=== PATIENT | male | born 1945 | race African-American/Black ===

== ENCOUNTER 2018-07-26 10:30 | Emergency (ER) | payer MEDICARE, MEDICAID ==
[~2018-07-26] VITALS: Ht 170.2 cm; Wt 74.8 kg
[~2018-07-26 10:30] MED LIST: ACETAMINOPHEN-1 EAC1 ORAL; NORCO 5-325 TA1 EACH ORAL; SEROQUEL; VICODIN
[2018-07-26 11:42] LABS: BASOPHILS % (AUTO) 2.4 % (0.0-2.0); EOSINOPHILS % (AUTO) 2.4 % (0.0-3.0); HEMATOCRIT 34.5 % (42.0-52.0); HEMOGLOBIN 11.8 G/DL (14.2-18.0); MEAN CORPUSCULAR VOLUME 104 FL (80-99); MONOCYTES % (AUTO) 14.5 % (1.0-10.0); NEUTROPHILS % (AUTO) 35.8 % (45.0-75.0); PLATELET COUNT 107 K/UL (150-450); RED BLOOD COUNT 3.31 M/UL (4.70-6.10); RED CELL DISTRIBUTION WIDTH 11.2 % (11.6-14.8); WHITE BLOOD COUNT 3.7 K/UL (4.8-10.8)
[2018-07-26 11:52] LABS: ANION GAP 9 mmol/L (5-15); BLOOD UREA NITROGEN 15 mg/dL (7-18); CALCIUM 8.7 MG/DL (8.5-10.1); CARBON DIOXIDE 23 MMOL/L (21-32); CHLORIDE 106 MMOL/L (98-107); CREATININE 1.3 MG/DL (0.55-1.30); POTASSIUM 4.2 MMOL/L (3.5-5.1); SODIUM 138 MMOL/L (136-145)
[2018-07-26 12:03] LABS: ALANINE AMINOTRANSFERASE 24 U/L (12-78); ALBUMIN 3.2 G/DL (3.4-5.0); ALBUMIN/GLOBULIN RATIO 0.8 (1.0-2.7); ALKALINE PHOSPHATASE 60 U/L (46-116); ASPARTATE AMINO TRANSFERASE 38 U/L (15-37); BILIRUBIN,TOTAL 0.9 MG/DL (0.2-1.0)
--- NOTE | 2018-07-26 12:23 | Diagnostic Imaging Report ---
Indication: Head trauma and headache Technique: Contiguous 5 mm thick transaxial imaging of the head obtained in a Siemens Sensation [address] scanner. Soft tissue and bone windows generated. Automatic Exposure Control was utilized. Total Dose length Product (DLP): 1449.[address] Dose Index Volume (CTDIvol): 70.38 mGy Comparison: 01/27/2015 Findings: There is mild prominence of the ventricles, basal cisterns, and cerebral sulci consistent with atrophy. Mild, nonspecific, white matter hypoattenuation is noted throughout the brain consistent with chronic small vessel disease. There is no midline shift, edema, acute hemorrhage, mass effect, or abnormal extra-axial fluid collections. Bones and extra osseous soft tissues are unremarkable. Impression: No acute intracranial bleed, mass effect or edema. Mild atrophy of the brain. Nonspecific white matter hypoattenuation probably due to chronic small vessel disease. The CT scanner at [facility] is accredited by the [employer] and the scans are performed using dose optimization techniques as appropriate to a performed exam including Automatic Exposure control.
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
--- NOTE | 2018-07-26 12:29 | Diagnostic Imaging Report ---
Indication: Neck pain. Technique: Continuous helical imaging of the cervical spine was obtained transaxially from the skull base to the upper thoracic spine. 2-D coronal and sagittal reformatted images were obtained. Automatic Exposure Control was utilized. Total Dose length Product (DLP): 307.[address] Dose Index Volume (CTDIvol): 14.47 mGy Comparison: None Findings: There is no acute fracture or malalignment identified. There is no soft tissue swelling identified. Moderate uncovertebral arthritis is demonstrated at multiple levels. Some of the intervertebral discs show narrowing and osteophytes. Extracranial carotid bifurcation calcifications noted consistent with atherosclerotic disease. Impression: No acute injury Moderate spondylosis The CT scanner at [facility] is accredited by the [employer] and the scans are performed using dose optimization techniques as appropriate to a performed exam including Automatic Exposure control.
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
[2018-07-26 14:01] VITALS: BP 143/91
[2018-07-26 14:20] VITALS: BP 143/91
== END 2018-07-26 14:20 | disposition home or self-care (01) ==
LOC: EDUNIT# 10:30 → EDBD 10:30 → EMR 11:25
DX: S00.12XA Contusion of left eyelid and periocular area, initial encounter (principal); S09.90XA Unspecified injury of head, initial encounter; Y04.2XXA Assault by strike against or bumped into by another person, initial encounter; Y92.410 Unspecified street and highway as the place of occurrence of the external cause; M47.812 Spondylosis without myelopathy or radiculopathy, cervical region; J32.9 Chronic sinusitis, unspecified; G31.9 Degenerative disease of nervous system, unspecified
CPT/HCPCS: 36415; 70450; 70486; 72125; 80053; 85025; 85610; 85730; 99284

== ENCOUNTER 2018-11-19 14:18 | Inpatient (IN) | payer MEDICARE, MEDICAID ==
[~2018-11-19] VITALS: Ht 170.2 cm; Wt 78.5 kg
[2018-11-19 14:20] VITALS: BP 155/88
--- NOTE | 2018-11-19 14:20 | NUR ---
ED Nurse Note: PT BROUGHT IN BY R[facility] FROM [facility]. AOX4. PT C/O DIFFICULTY BREATHING X THIS AM. 2 DOSES OF ALBUTEROL 5MG GIVEN EN ROUTE BY EMS. ON INITIAL ASSESSMENT, PT IS ON 8L OF O2 VIA VENTURI MASK, RR30 @ 90% O2 SATURATION. WHEEZING AUSCULTATED IN ALL LOBES. DR. RODAS AT BEDSIDE FOR EVALUATION. RT CALLED FOR BREATHING TREATMENT.
--- NOTE | 2018-11-19 14:29 | Emergency Room Report ---
History of Present Illness General Source: Patient Present Illness HPI Patient is a 73-year-old male brought in by EMS after increased difficulty with breathing. Patient reports having onset of symptoms approximately 2 hours prior to arrival. He reports having increased nonproductive cough. He had prior history of asthma. 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 Patient is currently taking Seroquel. He denies taking any oral steroids.He reported having some subjective fever. Allergies: Coded Allergies: GRAPEFRUIT (Unverified Allergy, Intermediate, Hives, 12/13/12) Patient History Past Medical History: see triage record Reviewed Nursing Documentation: PMH: Agreed; PSxH: Agreed Nursing Documentation-PMH Hx Cardiac Problems: Yes - heart problem Hx Hypertension: Yes Hx Cerebrovascular Accident: Yes Hx Seizures: Yes Review of Systems All Other Systems: negative except mentioned in HPI Physical Exam Sp02 EP Interpretation: reviewed, normal General Appearance: normal inspection, alert, GCS 15, Chronically Ill Head: atraumatic ENT: normal ENT inspection, hearing grossly normal, normal voice Neck: normal inspection, full range of motion, supple, no bony tend Respiratory: normal inspection, no respiratory distress, no retraction, wheezing Cardiovascular #1: regular rate, rhythm, edema Gastrointestinal: normal inspection, normal bowel sounds, non tender, soft, no guarding, no hernia Genitourinary: no CVA tenderness Musculoskeletal: normal inspection, back normal, normal range of motion Neurologic: normal inspection, alert, oriented x3, responsive, operating room orderly III-XII nml as tested, speech normal Psychiatric: normal inspection, judgement/insight normal, mood/affect normal Skin: normal inspection, normal color, no rash Medical Decision Making Diagnostic Impression: Primary Impression: CHF (congestive heart failure) Additional Impressions: Pleural effusion Urinary tract infection ER Course Presented for shortness of breath. Differential included but was not limited to anemia, pneumonia, pneumothorax, myocardial infarction, pericardial effusion , congestive heart failure, acidosis. because of complexity of patient's case laboratory testing and imaging studies were ordered.Chest x-ray 1 view read by radiology showed pulmonary vascular congestion, subsegmental atelectasis versus infiltrate in the right lung base, and a small layering right pleural effusion. Patient was given breathing treatments as well as IV Lasix. Patient was noted to have some edema. Dr. Reji Arrieta was contacted for inpatient management due to panel physician. Labs Test 11/19/18 14:45 11/19/18 15:11 Sodium Level 142 MMOL/L (136-145) Potassium Level 4.6 MMOL/L (3.5-5.1) Chloride Level 106 MMOL/L (98-107) Carbon Dioxide Level 20 MMOL/L (21-32) Anion Gap 16 mmol/L (5-15) Blood Urea Nitrogen 25 mg/dL (7-18) Creatinine 1.7 MG/DL (0.55-1.30) Estimat Glomerular Filtration Rate mL/min (>60) Glucose Level 64 MG/DL (74-106) Lactic Acid Level 4.10 mmol/L (0.4-2.0) Calcium Level 9.2 MG/DL (8.5-10.1) Phosphorus Level 4.3 MG/DL (2.5-4.9) Magnesium Level 2.0 MG/DL (1.8-2.4) Total Bilirubin 2.0 MG/DL (0.2-1.0) Aspartate Amino Transf (AST/SGOT) 70 U/L (15-37) Alanine Aminotransferase (ALT/SGPT) 29 U/L (12-78) Alkaline Phosphatase 84 U/L (46-116) Total Creatine Kinase 547 U/L (26-308) Creatine Kinase MB 8.2 NG/ML (0.0-3.6) Creatine Kinase MB Relative Index 1.4 Troponin I 0.041 ng/mL (0.000-0.056) Total Protein 7.7 G/DL (6.4-8.2) Albumin 3.6 G/DL (3.4-5.0) Globulin 4.1 g/dL Albumin/Globulin Ratio 0.9 (1.0-2.7) Lipase 222 U/L (73-393) Urine Color Yellow Urine Appearance Slightly cloudy Urine pH 5 (4.5-8.0) Urine Specific [place] 1.020 (1.005-1.035) Urine Protein 2+ (NEGATIVE) Urine Glucose (UA) Negative (NEGATIVE) Urine Ketones 1+ (NEGATIVE) Urine Blood 2+ (NEGATIVE) Urine Nitrite Negative (NEGATIVE) Urine Bilirubin 1+ (NEGATIVE) Urine Ictotest Negative (NEGATIVE) Urine Urobilinogen 8 MG/DL (0.0-1.0) Urine Leukocyte Esterase 2+ (NEGATIVE) Urine RBC 2-4 /HPF (0 - 0) Urine WBC 20-30 /HPF (0 - 0) Urine Squamous Epithelial Cells Occasional /LPF Urine Bacteria Many /HPF (NONE) EKG Diagnostic Results Rate: normal - 98 Rhythm: NSR ST Segments: other - right bundle branch block Status: unchanged Disposition: ADMITTED INPATIENT Condition: Stable Andrea Hunter MD Nov 19, 2018 14:29
[2018-11-19] MEDS ORDERED: Albuterol/Ipratropium 3ml neb HHN ONE (14:30)
--- NOTE | 2018-11-19 14:30 | NUR ---
ED Nurse Note: PT PICKED UP FROM STREETS BY R29. PT ASKED IF HE IS HOMELESS. PT DENIES THAT HE IS HOMELESS. ADDRESS PROVIDED TO PRIMARY RN AND REGISTRATION.
--- NOTE | 2018-11-19 14:55 | NUR ---
ED Nurse Note: BREATHING TREATMENT COMPLETED. PT OFF OF O2. RR22 @ 99% O2 SATURATION. NO SIGNS OF RESPIRATORY DISTRESS OR RETRACTIONS NOTED.
--- NOTE | 2018-11-19 15:04 | NUR ---
ED Nurse Note: XRAY AT BEDSIDE
--- NOTE | 2018-11-19 15:15 | NUR ---
ED Nurse Note: received report from Gopi ALLEN and endorsed care, pt reports breathing is okay, req food and water, verified with ERMD. pt given sandwich and water.
[2018-11-19 15:20] VITALS: BP 132/76
--- NOTE | 2018-11-19 15:23 | Diagnostic Imaging Report ---
EXAM: XR Chest, 1 View CLINICAL HISTORY: Shortness of breath TECHNIQUE: Frontal view of the chest. COMPARISON: Chest x-rays dated 01/27/15 FINDINGS: Lungs: Pulmonary vascular congestion. Subsegmental atelectasis versus infiltrate in the right lung base. Pleural space: Possible small layering right pleural effusion. Heart: Cardiomegaly. Mediastinum: Unremarkable. Bones/joints: Unremarkable. Vasculature: Atherosclerotic calcifications are noted within the aortic arch. Tubes, lines and devices: Telemetry leads overlie the thorax. IMPRESSION: 1. Pulmonary vascular congestion. 2. Subsegmental atelectasis versus infiltrate in the right lung base. 3. Possible small layering right pleural effusion. 4. Cardiomegaly.
[2018-11-19 15:24] LABS: BILIRUBIN, URINE 1+ (NEGATIVE); GLUCOSE, URINE (UA) NEGATIVE (NEGATIVE); KETONES,URINE 1+ (NEGATIVE); LEUKOCYTE ESTERASE ,URINE 2+ (NEGATIVE); NITRITE,URINE NEGATIVE (NEGATIVE); PH,URINE 5 (4.5-8.0); PROTEIN,URINE 2+ (NEGATIVE); UROBILINOGEN,URINE 8 MG/DL (0.0-1.0)
[2018-11-19 15:30] LABS: ANION GAP 16 mmol/L (5-15); BLOOD UREA NITROGEN 25 mg/dL (7-18); CALCIUM 9.2 MG/DL (8.5-10.1); CARBON DIOXIDE 20 MMOL/L (21-32); CHLORIDE 106 MMOL/L (98-107); CREATININE 1.7 MG/DL (0.55-1.30); POTASSIUM 4.6 MMOL/L (3.5-5.1); SODIUM 142 MMOL/L (136-145)
[2018-11-19 15:33] LABS: APPEARANCE,URINE SLIGHTLY CLOUDY; COLOR,URINE YELLOW
[2018-11-19 15:47] LABS: ALANINE AMINOTRANSFERASE 29 U/L (12-78); ALBUMIN 3.6 G/DL (3.4-5.0); ALBUMIN/GLOBULIN RATIO 0.9 (1.0-2.7); ALKALINE PHOSPHATASE 84 U/L (46-116); ASPARTATE AMINO TRANSFERASE 70 U/L (15-37); CKMB 8.2 NG/ML (0.0-3.6); CREATINE KINASE 547 U/L (26-308); PHOSPHORUS 4.3 MG/DL (2.5-4.9)
[2018-11-19 16:00] LABS: BILIRUBIN,DIRECT 0.6 MG/DL (0.0-0.3)
[2018-11-19] MEDS ORDERED: cefTRIAXone 1 GM in NS 55 ML IVPB ONE (16:00)
--- NOTE | 2018-11-19 16:10 | NUR ---
ED Nurse Note: blood drawn for cbc and lactic reflex and sent.
[2018-11-19 16:37] LABS: BASOPHILS % (AUTO) 1.4 % (0.0-2.0); EOSINOPHILS % (AUTO) 0.5 % (0.0-3.0); HEMATOCRIT 39.2 % (42.0-52.0); HEMOGLOBIN 12.3 G/DL (14.2-18.0); LYMPHOCYTES % (AUTO) 30.1 % (20.0-45.0); MEAN CORPUSCULAR VOLUME 108 FL (80-99); MONOCYTES % (AUTO) 16.5 % (1.0-10.0); NEUTROPHILS % (AUTO) 51.6 % (45.0-75.0); PLATELET COUNT 208 K/UL (150-450); RED BLOOD COUNT 3.62 M/UL (4.70-6.10); RED CELL DISTRIBUTION WIDTH 13.4 % (11.6-14.8); WHITE BLOOD COUNT 5.6 K/UL (4.8-10.8)
--- NOTE | 2018-11-19 16:42 | NUR ---
ED Nurse Note: pt cleaned and changed.
--- NOTE | 2018-11-19 16:55 | NUR ---
ED Nurse Note: report given to TIFFANY Junior from [facility], pt will be transfer to tele floor. vss, sinus tach on school lunch monitor, o2=2L/min via nc, sat 97%.
--- NOTE | 2018-11-19 17:39 | NUR ---
ED Nurse Note: pt transferred to tele, all belongings sent with pt, vss, airway intact, o2sat 96% on RA, pt has mild resp distress but reports okay, endorsed care to TIFFANY Mayo. addendum: report was given to Maria Esther olivas.
--- NOTE | 2018-11-19 17:40 | NUR ---
NURSE NOTES: Received patient via gursarah, report given by TIFFANY Babb. Patient is awake and oriented x4, Verbally responsive. Patient feels shortness of breath and restless. Heart monitor is on. Belonging checked with ER nurse.Bed in lowest position with two side rails up, break engaged. Call light and bed side table within reach. Will continue to monitor and follow the plan of care.
[2018-11-19 17:45] VITALS: BP 121/81
[2018-11-19] MEDS ORDERED: Miralax 17gm pkt ORAL PRN (17:45)
--- NOTE | 2018-11-19 19:21 | NUR ---
NURSE NOTES: MD Murdock notified that patient lactic acid initial result was 4.10, reflex was 4.40, and rocephin 1g given in ER. Per MD, no new orders at this time. Pt in stable condition. Will continue to monitor.
--- NOTE | 2018-11-19 19:30 | NUR ---
HAND-OFF: Report given to TIFFANY Corcoran.
--- NOTE | 2018-11-19 19:30 | NUR ---
NURSE NOTES: Report received from Tiera ALLEN. Pt is resting in bed in stable condition. Pt is awake, alert, and oriented x4. Pt is on 2L O2 via nasal cannula. No acute respiratory distress. IV site is L AC #22g and is asymptomatic, patent, and intact. Bed is in lowest position with brake engaged, side rails up x3, and bed alarm on. Seizure precautions noted to be in place. Call light and side table placed within reach. Will continue to monitor.
[2018-11-19 20:00] VITALS: BP 129/89
[2018-11-19] MEDS: Heparin 5000 units/ml inj SUBQ SCH (21:00)
[2018-11-19] MEDS: Albuterol/Ipratropium 3ml neb HHN PRN (21:20)
--- NOTE | 2018-11-19 21:45 | NUR ---
NURSE NOTES: Pt found to be short of breath with labored breathing, intercostal retractions noted, tachypnic to 25 breaths/minute. Pt oriented x1 to name and observed to be very restless and irritable. O2 saturation noted to be decreasing to 80th percentile. RT paged. Pt placed on Venturi mask @ 10L, 50% O2. O2 saturation noted to increase to 97%. Pt c/o pain in bilateral lower extremities, pain medication given per PRN orders. Message left for MD Murdock to notify and request ABGs for patient. Will continue to monitor closely.
[2018-11-19] MEDS: HYDROcodone/Acetamin 5/325 tab ORAL PRN (21:51)
--- NOTE | 2018-11-19 22:30 | NUR ---
NURSE NOTES: Pt resting more comfortably in bed. Pt remains on Venturi mask @ 10L, 50% FiO2. Minor intercostal retractions noted now, tachypnic to 22. Pt is now oriented x4. Pt reports breathing is better. Awaiting call back from MD Murdock. Will continue to monitor.
--- NOTE | 2018-11-19 23:00 | NUR ---
NURSE NOTES: MD Arrieta notified of change in patient condition. MD Arrieta provide order for ABG and instructed to call reports to MD Murdock. RT notified of new order. Pending ABG results. Pt is resting comfortably in bed at this point. O2 saturation noted to be 99% on Venturi mask, 10L, 50% fiO2. No acute respiratory distress noted at this time. Will continue to monitor.
[2018-11-20] VITALS: BP 121/78
--- NOTE | 2018-11-20 01:58 | NUR ---
NURSE NOTES: Message left for MD Murdock to notify of ABG results. Awaiting call back for further instructions. Pt is resting comfortably in bed at this time. Pt remains on Venturi mask @ 10L, 50%. Tachynpic to 22. No intercostal retractions noted at this time. O2 saturation is 99%. Pt noted to desat immediately to 83% once oxygen is removed. Will continue to monitor.
[2018-11-20 04:00] VITALS: BP 120/91
[2018-11-20] MEDS ORDERED: LORazepam 1mg tab ORAL PRN (04:00)
[2018-11-20] MEDS: HYDROcodone/Acetamin 5/325 tab ORAL PRN (04:18)
[2018-11-20] MEDS: Albuterol/Ipratropium 3ml neb HHN PRN ×2 (05:41→20:34)
[2018-11-20 07:20] LABS: BASOPHILS % (AUTO) 1.1 % (0.0-2.0); EOSINOPHILS % (AUTO) 0.6 % (0.0-3.0); HEMATOCRIT 33.2 % (42.0-52.0); HEMOGLOBIN 10.6 G/DL (14.2-18.0); LYMPHOCYTES % (AUTO) 30.2 % (20.0-45.0); MEAN CORPUSCULAR VOLUME 106 FL (80-99); MONOCYTES % (AUTO) 10.2 % (1.0-10.0); NEUTROPHILS % (AUTO) 57.9 % (45.0-75.0); PLATELET COUNT 208 K/UL (150-450); RED BLOOD COUNT 3.13 M/UL (4.70-6.10); RED CELL DISTRIBUTION WIDTH 13.3 % (11.6-14.8); WHITE BLOOD COUNT 4.1 K/UL (4.8-10.8)
[2018-11-20 07:35] LABS: ANION GAP 11 mmol/L (5-15); BLOOD UREA NITROGEN 25 mg/dL (7-18); CALCIUM 8.9 MG/DL (8.5-10.1); CARBON DIOXIDE 24 MMOL/L (21-32); CHLORIDE 108 MMOL/L (98-107); CREATININE 1.7 MG/DL (0.55-1.30); PHOSPHORUS 3.7 MG/DL (2.5-4.9); POTASSIUM 3.9 MMOL/L (3.5-5.1); SODIUM 143 MMOL/L (136-145)
--- NOTE | 2018-11-20 07:35 | NUR ---
NURSE NOTES: Received report from Jewell ALLEN. Pt is awake, alert, oriented x3, sitting up in bed, having breakfast. Was switched from Venturi mask to 2L of nasal cannula by RT, no respiratory distress noted, sP02 96%. Denies any pain/discomfort at this time. IV access on left AC #22G, saline lock, patent/intact. Skin has old healed scar on abdomen, otherwise intact. Urinal at bedside. Pt is placed on fall and seizure precautions, side rails padded, suction set up at bedside, bed in lowest position, two side rails up, brakes engaged, alarm on. Will continue to monitor pt and follow plan of care per MD orders and protocol.
--- NOTE | 2018-11-20 07:35 | NUR ---
HAND-OFF: Report given to Sariah ALLEN. Pt is resting in bed in stable condition. No acute distress noted. Endorsed plan of care.
[2018-11-20 08:00] VITALS: BP 128/81
--- NOTE | 2018-11-20 08:32 | NUR ---
CASE MANAGEMENT: INITIAL REVIEW 73 YO M PRESENTED TO OUR ED FROM HOME CC: DYSPNEA PMHx: HTN. CVA. SZ. SI:CHF EXACERBATION. HR 93 RR 30 B/P 155/88 SATS 90% ON 8L/VENTURI MASK FiO2 21 CO2 20 BUN 25 CR 1.7 GLU 64 AST 70 ABGs pH 7.453 pCO2 32.3 IS: DUO NEB HHN X1 LASIX IV X1 ROCEPHIN IV X1 PATIENT ADMITTED TO [facility] 11/19/2018 @ 5674 DCP: PATIENT TO BE DISCHARGED TO HOME ONCE MEDICALLY CLEARED. PLAN OF CARE: CXR VENOUS DUPLEX SERIAL TROPONIN CARDIO EVAL Addendum: 11/21/18 at 1741 by Carol Morley CM [employer]
[2018-11-20] MEDS: Heparin 5000 units/ml inj SUBQ SCH ×2 (09:47→21:39)
--- NOTE | 2018-11-20 10:06 | Diagnostic Imaging Report ---
EXAM: XR Chest, 1 View CLINICAL HISTORY: DYSPNEA TECHNIQUE: Frontal view of the chest. COMPARISON: Chest x-ray dated 11/19/18 FINDINGS: Lungs: Veil-like haziness in the right lower lung may suggest a layering right effusion. Persistent mild pulmonary vascular congestion. Pleural space: Unremarkable. The costophrenic angles are sharp. No visible pneumothorax. Heart: Cardiomegaly. Mediastinum: Unremarkable. Bones/joints: Unremarkable. Tubes, lines and devices: Telemetry leads overlie the thorax. IMPRESSION: 1. Veil-like haziness in the right lower lung may suggest a layering right effusion. 2. Persistent mild pulmonary vascular congestion. 3. Cardiomegaly.
[2018-11-20 12:00] VITALS: BP 135/81
[2018-11-20] MEDS ORDERED: Promethazine/Codeine 5ml UD ORAL PRN (13:30)
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
--- NOTE | 2018-11-20 14:15 | History and Physical Report ---
DATE OF ADMISSION: 11/19/2018 DATE AND TIME SEEN: On 11/20/2018 at 8 a.m. CONSULTANTS: 1. Jese Murdock M.D. 2. Francisco J Nevarez M.D. 3. Chavo Ayala M.D. 4. Lizzy Hyman M.D. CHIEF COMPLAINT: Shortness of breath, weakness, edema, pleural effusion, UTI, and psych history. BRIEF HISTORY: This is a 73-year-old male, who lives at home, presents with increased shortness of breath for about a week, getting worse, came to [place], diagnosed with right pleural effusion and shortness of breath and admitted to telemetry for further care. Currently, O2 NC, sleeping, calm, slight short of breath. No complaint. REVIEW OF SYSTEMS: No chest pain. Slight short of breath. No nausea, vomiting, or diarrhea. PAST MEDICAL HISTORY: Includes psych, CHF, and asthma. PAST SURGICAL HISTORY: None. MEDICATIONS: Include quetiapine, lorazepam, furosemide, hydrocodone, temazepam, Zofran, Tylenol, albuterol, and ceftriaxone. ALLERGIES: Denies. SOCIAL HISTORY: Positive smoke. Occasional alcohol. No intravenous drug abuse. FAMILY HISTORY: Noncontributory. PHYSICAL EXAMINATION: GENERAL: Calm in bed, oriented x2, in no acute distress. VITAL SIGNS: Temperature is 98 degrees, pulse 88, respirations 18, and blood pressure 120/91. CARDIOVASCULAR: . LUNGS: Poor air exchange. ABDOMEN: Bowel sounds distant. EXTREMITIES: No cyanosis or clubbing. 1+ edema. NEUROLOGIC: The patient moves all extremities, slightly weak. LABORATORY AND DIAGNOSTIC DATA: Labs at this time show white count 4.1, hemoglobin and hematocrit 10/33, and platelets 208. Chloride 108, BUN and creatinine and 1.7. Urinalysis show 2+ leukocyte esterase. ASSESSMENT: 1. Shortness of breath. 2. Psych history. 3. Edema. 4. Cardiomegaly. 5. Anemia. 6. UTI. 7. Right pleural effusion. 8. CHF. 9. Asthma. 10. Renal insufficiency. PLAN: 1. O2 and pulmonary treatment. 2. Antibiotics per Infectious Disease. 3. Dietary followup. 4. Nephrology followup. 5. CBC and BMP in the morning. Reji Arrieta D.O. DR: LEO JOB#: [id number] CC:
[2018-11-20 14:26] LABS: CREATINE KINASE 403 U/L (26-308)
--- NOTE | 2018-11-20 15:45 | Consultation ---
DATE OF CONSULTATION: 11/20/2018 CONSULTING PHYSICIAN: Eugenio Ritchie M.D. REFERRING PHYSICIAN: Reji Arrieta D.O. REASON FOR CONSULTATION: 1. Acute kidney injury. 2. Chronic kidney disease. 3. Volume overload. HISTORY OF PRESENT ILLNESS: The patient is a 73-year-old gentleman brought to the emergency room by paramedics overnight for further evaluation and care of difficulty breathing. He says that symptoms had started approximately two to three hours before presentation and was coughing and having difficulty breathing. The patient had seen co founder and cto at different hospitals. The patient is a former alcoholic and is currently taking Seroquel. Noted to have a elevated creatinine of 1.7. He was initiated on Lasix overnight. The patient's breathing has improved. ALLERGIES: . PAST MEDICAL HISTORY: 1. Chronic kidney disease, stage 3. 2. Former alcohol dependency. 3. CHF. 4. Hypertension. 5. CVA. PAST SURGICAL HISTORY: Noncontributory. FAMILY HISTORY: Positive for hypertension. REVIEW OF SYSTEMS: NEUROLOGIC: The patient denies headache, change in vision, syncope, or presyncopal episodes. CARDIOVASCULAR: No current chest pain, palpitations, or angina. PULMONARY: He was having difficulty breathing with productive cough. GASTROINTESTINAL/GENITOURINARY: No change in urinary or bowel habits. No nausea, vomiting, or diarrhea. ENDOCRINOLOGY: No night sweats, fevers, or chills. LABORATORY DATA: Labs dated 11/20/2018, sodium 143, potassium 3.9, and creatinine 1.7. Calcium 8.9. White count 4.1, hemoglobin 10.6, and platelet count 208. PHYSICAL EXAMINATION: VITAL SIGNS: Blood pressure 128/81, respiratory rate 20, pulse 90, and temperature 96.9. 99% oxygen saturation on 4 L nasal cannula. GENERAL: The patient is awake and alert, not in distress. HEENT: Extraocular muscles intact. No lymphadenopathy noted. CARDIOVASCULAR: S1, S2. No rubs or gallops. Soft S3. PULMONARY: Mild upper rhonchi with basilar rales. ABDOMEN: Nondistended and nontender. EXTREMITIES: 1+ pitting edema bilaterally. ASSESSMENT AND PLAN: 1. Acute kidney injury on chronic kidney disease, stage 3B. Creatinine baseline unclear. We will continue to follow during diuresis. Continue Lasix 40 mg IV three times a day. Avoid any nephrotoxins and treat underlying urinary infection. Renal ultrasound to rule out possibility any obstruction. 2. Urinary tract infection. The patient is on Rocephin. 3. Congestive heart failure. Continue Lasix therapy. 4. Hypertension. Blood pressure is currently stable. Adjust medications as deemed appropriate. Let me take this opportunity to thank Dr. Reji Arrieta. Eugenio Ritchie MD DR: SUNITA JOB#: [id number] CC:
[2018-11-20 16:00] VITALS: BP 130/84
--- NOTE | 2018-11-20 16:07 | NUR ---
RESPIRATORY NOTE: Deep NT suctioned pt per RN: Sariah request for C&S specimen.
--- NOTE | 2018-11-20 17:00 | NUR ---
NURSE NOTES: Urine and sputum specimens sent to lab, as ordered.
[2018-11-20] MEDS: Solu-MEDROL 125mg Inj IV SCH ×2 (17:09→23:32)
[2018-11-20] MEDS: cefTRIAXone 1 GM in D5W 55 ML IVPB SCH (17:09)
[2018-11-20 17:56] LABS: APPEARANCE,URINE CLEAR; BILIRUBIN, URINE NEGATIVE (NEGATIVE); GLUCOSE, URINE (UA) NEGATIVE (NEGATIVE); KETONES,URINE NEGATIVE (NEGATIVE); LEUKOCYTE ESTERASE ,URINE 2+ (NEGATIVE); NITRITE,URINE NEGATIVE (NEGATIVE); PH,URINE 5 (4.5-8.0); PROTEIN,URINE NEGATIVE (NEGATIVE); UROBILINOGEN,URINE 4 MG/DL (0.0-1.0)
[2018-11-20 18:09] LABS: COLOR,URINE YELLOW
[2018-11-20 20:00] VITALS: BP 133/92
--- NOTE | 2018-11-20 20:12 | NUR ---
HAND-OFF: Report given to Maricarmen ALLEN. Pt is resting in bed in stable condition. Endorsed plan of care.
--- NOTE | 2018-11-20 20:20 | NUR ---
NURSE NOTES: Received report from TIFFANY Rolle. Patient is awake lying semi-barbosa's; resting comfortably. No signs of acute distress noted; denies pain at this time. AOx2; able to make needs known. Patient does appear to exhibit aggressive behavior, however. Checked IV site; patent and flushed. No erythema, bleeding, or infiltration noted. Bed at lowest position, brakes on, siderails up x3. Siderails padded following seizure precautions. Suction at bedside. Call light within reach. Will continue to monitor.
[2018-11-20] MEDS: QUEtiapine 200mg tab ORAL SCH (21:38)
[2018-11-20] MEDS: Theophylline ER 100mg ORAL SCH (21:38)
--- NOTE | 2018-11-20 21:55 | NUR ---
HAND-OFF: Report given to TIFFANY Holder. Patient is awake lying semi-barbosa's; resting comfortably. Saturating 99% on room air. In stable condition.
--- NOTE | 2018-11-20 21:56 | NUR ---
NURSE NOTES: Received bedside report from TIFFANY Hernadez.Patient stable,A&Ox 2,confused at time,SR on bus driver/monitor,no c/o pain,no respiratory distress noted,tolerated cardiac diet well,BS active in all quadrants,IV asymptomatic,intact on L AC 22G TKO,bed secured,call light within a reach,will continue to monitor and follow POC
[2018-11-21] VITALS: BP 120/90
[2018-11-21 04:00] VITALS: BP 159/87
[2018-11-21] MEDS: Solu-MEDROL 125mg Inj IV SCH (05:20)
--- NOTE | 2018-11-21 07:21 | NUR ---
HAND-OFF: Report given to TIFFANY Chris.Patient stable.
--- NOTE | 2018-11-21 07:26 | NUR ---
NURSE NOTES: Report received from Glory ALLEN. patient resting in his bed with open eyes. no c/o pain and SOB at this time. a/o x 2. iv intact and patent. call light and frequent used objects are with in reach. bed at lowest position , rails up x 2. will continue to monitor.
[2018-11-21 08:00] VITALS: BP 117/86
--- NOTE | 2018-11-21 08:11 | Nephrology Progress Note ---
Assessment/Plan Assessment/Plan A/P 1) LEANNA on CKD 3B- Cr yest 1.7 - am labs pending - Renal US pending - monitor Cr while being diuresed 2) HTN- stable 3) CHF- on lasix IV tid 4) UTI- Abx Subjective Date patient seen: Nov 21, 2018 Time patient seen: 08:09 ROS Limited/Unobtainable: No Respiratory: Reports: shortness of breath Allergies: Coded Allergies: GRAPEFRUIT (Unverified Allergy, Intermediate, Hives, 12/13/12) ORANGE (Verified Allergy, Unknown, 11/20/18) All Systems: reviewed and negative except above Subjective Patient says breathing has improved. Objective Last 24 Hour Vital Signs Date Time Temp Pulse Resp B/P (MAP) Pulse Ox O2 Delivery O2 Flow Rate FiO2 11/21/18 08:00 97.7 105 20 117/86 (96) 97 11/21/18 04:00 97.0 96 20 159/87 (111) 97 11/21/18 03:46 107 11/21/18 00:00 97.0 96 20 120/90 (100) 90 11/20/18 23:44 100 11/20/18 21:00 Nasal Cannula 4.0 Nasal Cannula 6.0 11/20/18 20:43 91 18 97 Nasal Cannula 3.0 32 11/20/18 20:42 32 11/20/18 20:35 92 20 94 Nasal Cannula 3.0 32 11/20/18 20:34 92 18 Nasal Cannula 3.0 32 11/20/18 20:00 99.3 104 20 133/92 (106) 96 11/20/18 20:00 96 11/20/18 16:00 98.3 95 20 130/84 (99) 97 11/20/18 16:00 95 11/20/18 12:00 97.1 99 20 135/81 (99) 97 11/20/18 12:00 95 11/20/18 09:00 Venturi Mask 10.0 Nasal Cannula 4.0 Intake and Output 11/20/18 11/21/18 18:59 06:59 Intake Total 750 ml 150 ml Output Total 950 ml Balance -200 ml 150 ml Intake Oral 750 ml 150 ml Output Urine Total 950 ml Laboratory Tests 11/20/18 17:00: Urine Color Yellow, Urine Appearance Clear, Urine pH 5, Urine Specific [place] 1.020, Urine Protein Negative, Urine Glucose (UA) Negative, Urine Ketones Negative, Urine Blood Negative, Urine Nitrite Negative, Urine Bilirubin Negative , Urine Urobilinogen 4H, Urine Leukocyte Esterase 2+H, Urine RBC 0-2H, Urine WBC 2-4, Urine Squamous Epithelial Cells None, Urine Bacteria Few, Urine Eosinophils None seen, Urine Random Creatinine [Pending], Urine Random Microalbumin [Pending], Urine Random Sodium 88, Urine Creatinine 105.2, Urine Microalbumin/Creatinine Ratio [Pending], Urine Potassium Timed 42, Urine Opiates Screen Negative, Urine Barbiturates Screen Negative, Phencyclidine (PCP ) Screen Negative, Urine Amphetamines Screen Negative, Urine Benzodiazepines Screen Negative, Urine Cocaine Screen PositiveH, Urine Marijuana (THC) Screen Negative Height (Feet): 5 Height (Inches): 7.00 Weight (Pounds): 177 General Appearance: no apparent distress, alert EENT: normal ENT inspection Neck: normal alignment, supple Cardiovascular: normal rate, regular rhythm Respiratory/Chest: rhonchi - bilaterally Abdomen: non tender, soft Edema: 1+ Arm (L), 1+ Arm (R), 1+ Leg (L), 1+ Leg (R), 1+ Pedal (L), 1+ Pedal ( R), 1+ Generalized Eugenio Ritchie MD Nov 21, 2018 08:11
[2018-11-21] MEDS: Theophylline ER 100mg ORAL SCH ×2 (08:21→20:45)
[2018-11-21] MEDS: Heparin 5000 units/ml inj SUBQ SCH ×2 (08:25→20:47)
[2018-11-21] MEDS: HYDROcodone/Acetamin 5/325 tab ORAL PRN (08:29)
[2018-11-21 08:46] LABS: HEMATOCRIT 33.3 % (42.0-52.0); HEMOGLOBIN 10.4 G/DL (14.2-18.0); MEAN CORPUSCULAR VOLUME 107 FL (80-99); PLATELET COUNT 215 K/UL (150-450); RED BLOOD COUNT 3.13 M/UL (4.70-6.10); RED CELL DISTRIBUTION WIDTH 13.2 % (11.6-14.8); WHITE BLOOD COUNT 2.5 K/UL (4.8-10.8)
[2018-11-21 08:57] LABS: ALANINE AMINOTRANSFERASE 22 U/L (12-78); ALBUMIN 2.9 G/DL (3.4-5.0); ALBUMIN/GLOBULIN RATIO 0.8 (1.0-2.7); ALKALINE PHOSPHATASE 67 U/L (46-116); ANION GAP 9 mmol/L (5-15); ASPARTATE AMINO TRANSFERASE 41 U/L (15-37); BILIRUBIN,DIRECT 0.5 MG/DL (0.0-0.3); BILIRUBIN,TOTAL 1.2 MG/DL (0.2-1.0); BLOOD UREA NITROGEN 23 mg/dL (7-18); CALCIUM 8.8 MG/DL (8.5-10.1); CARBON DIOXIDE 25 MMOL/L (21-32); CHLORIDE 107 MMOL/L (98-107); CREATININE 1.5 MG/DL (0.55-1.30); POTASSIUM 4.8 MMOL/L (3.5-5.1); SODIUM 141 MMOL/L (136-145)
--- NOTE | 2018-11-21 09:00 | Progress Note ---
DATE: 11/21/2018 SUBJECTIVE: This is a 73-year-old male patient with congestive heart failure. He is confused, disorganized, mood labile. DIAGNOSIS: Major depression with psychotic features. PLAN: Continue titrating up on his medications to stabilize his mood. A 20 minutes of cognitive behavioral therapy provided to help identify his automatic negative thoughts, help convert negative thoughts to more positive thoughts to reduce depression, anxiety, and suicidality. Chart was reviewed. Discussed with staff. The patient was seen and assessed in his room. Lizzy Hyman M.D. DR: JENI JOB#: [id number] CC:
--- NOTE | 2018-11-21 09:26 | NUR ---
REHAB MED PT NOTE CONSULT RECEIVED, TIM COCHRAN, PATIENT WILL BENEFIT FROM SKILLED PT DURING STAY FOR RETURN TO [facility]. RECOMMEND HOME VS SNF AT IN. PLAN OF CARE INITIATED. JUAN J POWELL PT DPT Addendum: 11/21/18 at 0926 by JUAN J POWELL PT Amended: Links added.
--- NOTE | 2018-11-21 10:22 | Cardiology Report ---
APPROVED REPORT EXAM: Two-dimensional and M-mode echocardiogram with Doppler and color Doppler. INDICATION Left ventricular function M-Mode DIMENSIONS IVSd0.9 (0.7-1.1cm)Left Atrium (MM)4.6 (1.6-4.0cm) LVDd6.8 (3.5-5.6cm)Aortic Root3.5 (2.0-3.7cm) PWd1.0 (0.7-1.1cm)Aortic Cusp Exc.2.0 (1.5-2.0cm) LVDs6.1 (2.5-4.0cm) PWs1.4 cm Mild left ventricular enlargement. Global left ventricular hypokinesis. Left ventricular ejection fraction estimated to be 30-35 %. No evidence of left ventricular hypertrophy. No evidence of pericardial effusion. Moderate bi-atrial enlargement. Moderate right ventricular enlargement. Focal aortic valve sclerosis with adequate cusp excursion. Heavily thickened mitral valve leaflets with reduced excursion. Echgenic materical noted on anterior mitral valve leaflet. Mild mitral annulus and aortic root calcification. Normal pulmonic valve structure. Normal tricuspid valve structure. IVC dilated at 2.7 cm without physiological collapse, suggestive of increased RA pressure. A color flow and spectral Doppler study was performed and revealed: Mild aortic insufficiency. Underestimated pressure gradient may be due to low systolic function. Peak aortic valve gradient of 15 mmHg and a mean of 7 mmHg. Aortic valve area 1.5 cm2 calculated by continuity equation. Severe mitral regurgitation. Mitral inflow velocities indicates possible pseudo normalization pattern implying significant left ventricular diastolic dysfunction (Grade II). Moderate to severe tricuspid regurgitation. Tricuspid systolic velocities suggests peak right ventricular systolic pressure of 43 mmHg, consistent with mild pulmonary hypertension. Trace pulmonic regurgitation present.
--- NOTE | 2018-11-21 10:50 | Diagnostic Imaging Report ---
Indication: Shortness of breath Technique: One view of the chest Comparison: 11/20/2018 Findings: Right sided pleural effusion and possible hazy basilar consolidation appears improved. There is suggestion of a small amount of pleural fluid on the left which appears unchanged. Generalized mild interstitial pulmonary congestion appears slightly improved. Cardiomegaly persists. Impression: Over one day, slight improvement of right-sided pleural effusion and generalized interstitial congestion
--- NOTE | 2018-11-21 11:25 | Pulmonology Progress Note ---
Assessment/Plan Problems: (1) Acute respiratory failure (2) COPD with acute exacerbation (3) ATN (acute tubular necrosis) (4) CHF (congestive heart failure) (5) Pleural effusion (6) Urinary tract infection Assessment/Plan Respiratory treatment check bun/creatinine echo reviewed, EF 30% with echogenic material on mitral valve, D/w Dr. Nevarez. right effusion getting less continue abx titrate fio2 to sat of 92% Subjective Interval Events: less cough, less shortness of breath Allergies: Coded Allergies: GRAPEFRUIT (Unverified Allergy, Intermediate, Hives, 12/13/12) ORANGE (Verified Allergy, Unknown, 11/20/18) Objective Last 24 Hour Vital Signs Date Time Temp Pulse Resp B/P (MAP) Pulse Ox O2 Delivery O2 Flow Rate FiO2 11/21/18 09:00 Nasal Cannula 4.0 Nasal Cannula 6.0 11/21/18 08:59 97.7 11/21/18 08:00 97.7 105 20 117/86 (96) 97 11/21/18 04:00 97.0 96 20 159/87 (111) 97 11/21/18 03:46 107 11/21/18 00:00 97.0 96 20 120/90 (100) 90 11/20/18 23:44 100 11/20/18 21:00 Nasal Cannula 4.0 Nasal Cannula 6.0 11/20/18 20:43 91 18 97 Nasal Cannula 3.0 32 11/20/18 20:42 32 11/20/18 20:35 92 20 94 Nasal Cannula 3.0 32 11/20/18 20:34 92 18 Nasal Cannula 3.0 32 11/20/18 20:00 99.3 104 20 133/92 (106) 96 11/20/18 20:00 96 11/20/18 16:00 98.3 95 20 130/84 (99) 97 11/20/18 16:00 95 11/20/18 12:00 97.1 99 20 135/81 (99) 97 11/20/18 12:00 95 Intake and Output 11/20/18 11/21/18 18:59 06:59 Intake Total 750 ml 150 ml Output Total 950 ml Balance -200 ml 150 ml Intake Oral 750 ml 150 ml Output Urine Total 950 ml General Appearance: WD/WN HEENT: normocephalic, atraumatic Respiratory/Chest: chest wall non-tender, lungs clear Cardiovascular: normal peripheral pulses, normal rate Abdomen: normal bowel sounds, soft, non tender Genitourinary: normal external genitalia Extremities: no cyanosis Neurologic/Psychiatric: yard stocker II-XII grossly normal Lymphatic: no neck adenopathy Microbiology Date/Time Source Procedure Growth Status 11/19/18 14:40 Blood Blood Culture - Preliminary NO GROWTH AFTER 24 HOURS Resulted 11/19/18 14:30 Blood Blood Culture - Preliminary NO GROWTH AFTER 24 HOURS Resulted 11/19/18 14:45 Nasal Nares Influenza Types A,B Antigen (ALBERT) - Final Complete 11/19/18 15:11 Urine,Clean Catch Urine Culture - Final Citrobacter Freundii Complete Laboratory Tests 11/20/18 17:00: Urine Color Yellow, Urine Appearance Clear, Urine pH 5, Urine Specific [place] 1.020, Urine Protein Negative, Urine Glucose (UA) Negative, Urine Ketones Negative, Urine Blood Negative, Urine Nitrite Negative, Urine Bilirubin Negative , Urine Urobilinogen 4H, Urine Leukocyte Esterase 2+H, Urine RBC 0-2H, Urine WBC 2-4, Urine Squamous Epithelial Cells None, Urine Bacteria Few, Urine Eosinophils None seen, Urine Random Creatinine [Pending], Urine Random Microalbumin [Pending], Urine Random Sodium 88, Urine Creatinine 105.2, Urine Microalbumin/Creatinine Ratio [Pending], Urine Potassium Timed 42, Urine Opiates Screen Negative, Urine Barbiturates Screen Negative, Phencyclidine (PCP ) Screen Negative, Urine Amphetamines Screen Negative, Urine Benzodiazepines Screen Negative, Urine Cocaine Screen PositiveH, Urine Marijuana (THC) Screen Negative 11/21/18 06:30: White Blood Count 2.5L, Red Blood Count 3.13L, Hemoglobin 10.4L, Hematocrit 33.3L, Mean Corpuscular Volume 107H, Mean Corpuscular Hemoglobin 33.3H, Mean Corpuscular Hemoglobin Concent 31.2L, Red Cell Distribution Width 13.2, Platelet Count 215, Mean Platelet Volume 7.3, Neutrophils (%) (Auto) , Lymphocytes (%) (Auto) , Monocytes (%) (Auto) , Eosinophils (%) (Auto) , Basophils (%) (Auto) , Neutrophils % (Manual) [Pending], Lymphocytes % (Manual) [Pending], Platelet Estimate [Pending], Platelet Morphology [Pending], Sodium Level 141, Potassium Level 4.8, Chloride Level 107, Carbon Dioxide Level 25, Anion Gap 9, Blood Urea Nitrogen 23H, Creatinine 1.5H, Estimat Glomerular Filtration Rate , Glucose Level 131H, Calcium Level 8.8, Total Bilirubin 1.2H, Direct Bilirubin 0.5H, Aspartate Amino Transf (AST/SGOT) 41H, Alanine Aminotransferase (ALT/SGPT) 22, Alkaline Phosphatase 67, Troponin I 0.026, Pro-B -Type Natriuretic Peptide 3904H, Total Protein 6.4, Albumin 2.9L, Globulin 3.5, Albumin/Globulin Ratio 0.8L Current Medications Medications (Trade) Dose Ordered Sig/Daria Route PRN Reason Start Time Stop Time Status Last Admin Dose Admin Acetaminophen (Tylenol) 650 mg Q4H PRN ORAL Fever 11/19/18 17:45 12/19/18 17:44 Acetaminophen/ Hydrocodone Bitart ([place] 5/325) 1 tab Q6H PRN ORAL For Pain 11/19/18 17:45 11/26/18 17:44 11/21/18 08:29 Albuterol/ Ipratropium (Albuterol/ Ipratropium) 3 ml Q4H PRN HHN Shortness of Breath 11/19/18 17:45 11/24/18 17:44 11/20/18 20:34 Ceftriaxone Sodium 1 gm/ Dextrose 55 ml @ 110 mls/hr Q24H IVPB 11/20/18 16:00 11/27/18 15:59 11/20/18 17:09 Dextrose (Dextrose 50%) 25 ml Q30M PRN IV Hypoglycemia 11/19/18 17:45 12/19/18 17:44 Dextrose (Dextrose 50%) 50 ml Q30M PRN IV Hypoglycemia 11/19/18 17:45 12/19/18 17:44 Furosemide (Lasix) 40 mg DAILY IV 11/21/18 09:00 12/21/18 08:59 11/21/18 08:21 Heparin Sodium (Porcine) (Heparin 5000 units/ml) 5,000 units EVERY 12 HOURS SUBQ 11/19/18 21:00 12/19/18 20:59 11/21/18 08:25 Lorazepam (Ativan) 1 mg Q6H PRN ORAL For Anxiety 11/20/18 04:00 11/27/18 03:59 Methylprednisolone Sodium Succinate (Solu-MEDROL) 60 mg EVERY 6 HOURS IV 11/20/18 18:00 12/20/18 17:59 11/21/18 05:20 Ondansetron HCl (Zofran) 4 mg Q6H PRN IVP Nausea & Vomiting 11/19/18 17:45 12/19/18 17:44 Polyethylene Glycol (Miralax) 17 gm DAILYPRN PRN ORAL Constipation 11/19/18 17:45 12/19/18 17:44 Promethazine HCl/ Codeine (Phenergan with Codeine) 5 ml Q4H PRN ORAL For Cough 11/20/18 13:30 12/20/18 13:29 Quetiapine Fumarate (SEROquel) 300 mg QHS ORAL 11/20/18 21:00 12/20/18 20:59 11/20/18 21:38 Temazepam (Restoril) 15 mg HSPRN PRN ORAL Insomnia 11/19/18 17:45 11/26/18 17:44 Theophylline ([place]) 100 mg EVERY 12 HOURS ORAL 11/20/18 21:00 12/20/18 20:59 11/21/18 08:21 Jese Murdock MD Nov 21, 2018 11:25
--- NOTE | 2018-11-21 11:29 | Diagnostic Imaging Report ---
Indication: Acute renal failure Technique: Grayscale and duplex images of the kidneys, retroperitoneum, and bladder were obtained. Comparison: No comparison sonograms. Reference made to abdomen pelvis CT 02/06/2015 Findings: Right kidney measures 11 cm in length. Left kidney measures 7.7 cm in length. Both kidneys demonstrate normal echogenicity. No hydronephrosis. There is a 2 cm left renal parapelvic cyst. Normal inferior vena cava. Bladder is normal. Impression: Atrophic left kidney, etiology not demonstrated. Note that on prior CT scan of 01/19/2015, left kidney appears scarred and slightly smaller than the right kidney Negative for hydronephrosis Incidental finding 2 subcentimeter left renal parapelvic cyst.
[2018-11-21 12:00] VITALS: BP 124/99
--- NOTE | 2018-11-21 12:00 | Consultation ---
DATE OF CONSULTATION: INITIAL PSYCHIATRIC CONSULTATION CONSULTING PHYSICIAN: Lizzy Hyman M.D. HISTORY OF PRESENT ILLNESS: This is a 73-year-old male patient. The patient has a history of congestive heart failure. He came into [facility], but this patient still has some confusion and some disorganized thought process. He states that he has overlying diagnosis of paranoid schizophrenia and has been treated recently. He used to take Seroquel 200 to 300 mg at bedtime. He said it helped him with auditory hallucinations and paranoia, but since he has been off that medication recently, he has still been struggling with mood lability, anxiety, depression, and auditory hallucination, although he is currently denying. He denies any current suicidal or homicidal ideations. PAST MEDICAL HISTORY: He has history of congestive heart failure. Please see Internal Medicine note for further details. ALLERGIES: The patient has no known drug allergies at this time. PSYCHOTROPIC MEDICATIONS ON ADMISSION: Currently, he is not on any psychotropic medication at this time, but he was on Seroquel in the recent past. SUBSTANCE ABUSE HISTORY: The chart suggests that he has a history of drug abuse, but the patient is actually denying any history of any drugs or alcohol at this time. The chart suggests there is no history of any drugs or alcohol at this time. FAMILY PSYCHIATRIC HISTORY: Denies. PAIN ASSESSMENT: pain. DEVELOPMENTAL PROBLEMS: Denies. SOCIAL HISTORY: Financially supported by [employer] and Medicare. The patient lives . PSYCHIATRIC HISTORY: Paranoid schizophrenia with acute exacerbation. STRENGTHS: He is motivated to get better and he has a place to live. WEAKNESSES: He is impulsive and has minimal support system. MENTAL STATUS EXAMINATION: This is a 73-year-old male patient. Appearance is disheveled. Attitude, irritable and agitated. Affect is guarded and restricted. Intellect poor because he does not know current events, does not know the last four presidents. Mood, depressed and anxious. Motor activity, psychomotor agitation. Attention span is poor. He could not do serial 7's or spell world backwards. Orientation x2 as he is oriented to person and place and not to time and situation. Speech is low volume and slurred. Thought process, disorganized and illogical. Thought content, he has auditory hallucinations. The voice is putting him down. Perception is poor because of auditory hallucinations. The voice is putting him down. Abstract reasoning is poor because he had concrete thinking. He does not understand proverbs. He denies any current suicidal or homicidal thoughts. His insight is poor because he does not recognize his psychiatric disorder. Judgment is poor because he does not take consequences of his action. Denies suicidal or homicidal ideations. Short-term memory, 3/3 word recall after 5 minutes delay with good short-term memory. Long-term memory is intact based on the knowledge of long-term events in his life such as the high school that he went to. DIAGNOSES: PSYCHIATRIC: Paranoid schizophrenia with acute exacerbation. MEDICAL: Congestive heart failure. PSYCHOSOCIAL STRESSORS: Financial. PLAN: I am going to restart this patient on Seroquel 300 mg nightly and Ativan 1 mg every 6 hours p.r.n. anxiety and agitation. Provided with 20 minutes of cognitive behavioral therapy to help identify his automatic negative thoughts and to help with negative thoughts to more positive thinking to reduce depression, anxiety, mood lability, and psychosis. He will continue to be followed by throughout the hospital course. I would like to thank Dr. Reji Arrieta for this interesting consultation. Chart was reviewed. Discussed with staff. The patient was seen and assessed at the bedside. Lizzy Hyman M.D. DR: ALEXANDRO JOB#: [id number] CC:
--- NOTE | 2018-11-21 13:25 | Consultation ---
History of Present Illness General Date patient seen: Nov 21, 2018 Chief Complaint: Dyspnea/Respdistress Present Illness HPI 73 y/o M with hx of CHF, former alcoholic, COPD, CKD 3, HTN, CVA presents to ED on 11/19 with confusion, SOB, wheezing and cough. Upon admission noted to have Cr of 1.7 Denied CP, n/v/d upon admission Allergies: Coded Allergies: GRAPEFRUIT (Unverified Allergy, Intermediate, Hives, 12/13/12) ORANGE (Verified Allergy, Unknown, 11/20/18) Medication History Scheduled Acetaminophen With Codeine (T#3) (Tylenol #3 Tab*), 1 TAB ORAL Q4H Scheduled PRN Hydrocodone Bit/Acetaminophen 5-325* ([place] 5-325*), 1 TAB ORAL Q6H PRN for For Pain Miscellaneous Medications [Seroquel], (Reported) [Vicodin], (Reported) Patient History Healthcare decision maker Resuscitation status Full Code Advanced Directive on File Patient History Narrative Pmhx: as above Shx:The chart suggests that he has a history of drug abuse, but the patient is actually denying any history of any drugs or alcohol at this time Fhx: non contributory Review of Systems All Other Systems: negative except mentioned in HPI Physical Exam Physical Exam Narrative GENERAL: Calm in bed, oriented x2, in no acute distress. CARDIOVASCULAR: RRR, no murmurs. LUNGS: Poor air exchange. ABDOMEN: Bowel sounds distant. EXTREMITIES: No cyanosis or clubbing. 1+ edema. NEUROLOGIC: The patient moves all extremities, slightly weak. Last 24 Hour Vital Signs Date Time Temp Pulse Resp B/P (MAP) Pulse Ox O2 Delivery O2 Flow Rate FiO2 11/21/18 12:00 97.8 106 20 124/99 (107) 97 11/21/18 12:00 96 11/21/18 09:00 Nasal Cannula 4.0 Nasal Cannula 6.0 11/21/18 08:59 97.7 11/21/18 08:00 97.7 105 20 117/86 (96) 97 11/21/18 08:00 106 11/21/18 04:00 97.0 96 20 159/87 (111) 97 11/21/18 03:46 107 11/21/18 00:00 97.0 96 20 120/90 (100) 90 11/20/18 23:44 100 11/20/18 21:00 Nasal Cannula 4.0 Nasal Cannula 6.0 11/20/18 20:43 91 18 97 Nasal Cannula 3.0 32 11/20/18 20:42 32 11/20/18 20:35 92 20 94 Nasal Cannula 3.0 32 11/20/18 20:34 92 18 Nasal Cannula 3.0 32 11/20/18 20:00 99.3 104 20 133/92 (106) 96 11/20/18 20:00 96 11/20/18 16:00 98.3 95 20 130/84 (99) 97 11/20/18 16:00 95 Intake and Output 11/20/18 11/21/18 18:59 06:59 Intake Total 750 ml 150 ml Output Total 950 ml Balance -200 ml 150 ml Intake Oral 750 ml 150 ml Output Urine Total 950 ml Laboratory Tests Test 11/20/18 17:00 11/21/18 06:30 Urine Color Yellow Urine Appearance Clear Urine pH 5 (4.5-8.0) Urine Specific [place] 1.020 (1.005-1.035) Urine Protein Negative (NEGATIVE) Urine Glucose (UA) Negative (NEGATIVE) Urine Ketones Negative (NEGATIVE) Urine Blood Negative (NEGATIVE) Urine Nitrite Negative (NEGATIVE) Urine Bilirubin Negative (NEGATIVE) Urine Urobilinogen 4 MG/DL (0.0-1.0) H Urine Leukocyte Esterase 2+ (NEGATIVE) H Urine RBC 0-2 /HPF (0 - 0) H Urine WBC 2-4 /HPF (0 - 0) Urine Squamous Epithelial Cells None /LPF (NONE/OCC) Urine Bacteria Few /HPF (NONE) Urine Eosinophils None seen (NONE SEEN) Urine Random Creatinine Pending Urine Random Microalbumin Pending Urine Random Sodium 88 mmol/L (20-110) Urine Creatinine 105.2 MG/DL (30.0-125.0) Urine Microalbumin/Creatinine Ratio Pending Urine Potassium Timed 42 mmol/L (12-62) Urine Opiates Screen Negative (NEGATIVE) Urine Barbiturates Screen Negative (NEGATIVE) Phencyclidine (PCP) Screen Negative (NEGATIVE) Urine Amphetamines Screen Negative (NEGATIVE) Urine Benzodiazepines Screen Negative (NEGATIVE) Urine Cocaine Screen Positive (NEGATIVE) H Urine Marijuana (THC) Screen Negative (NEGATIVE) White Blood Count 2.5 K/UL (4.8-10.8) L Red Blood Count 3.13 M/UL (4.70-6.10) L Hemoglobin 10.4 G/DL (14.2-18.0) L Hematocrit 33.3 % (42.0-52.0) L Mean Corpuscular Volume 107 FL (80-99) H Mean Corpuscular Hemoglobin 33.3 PG (27.0-31.0) H Mean Corpuscular Hemoglobin Concent 31.2 G/DL (32.0-36.0) L Red Cell Distribution Width 13.2 % (11.6-14.8) Platelet Count 215 K/UL (150-450) Mean Platelet Volume 7.3 FL (6.5-10.1) Neutrophils (%) (Auto) % (45.0-75.0) Lymphocytes (%) (Auto) % (20.0-45.0) Monocytes (%) (Auto) % (1.0-10.0) Eosinophils (%) (Auto) % (0.0-3.0) Basophils (%) (Auto) % (0.0-2.0) Differential Total Cells Counted 100 Neutrophils % (Manual) 81 % (45-75) H Lymphocytes % (Manual) 18 % (20-45) L Monocytes % (Manual) 1 % (1-10) Eosinophils % (Manual) 0 % (0-3) Basophils % (Manual) 0 % (0-2) Band Neutrophils 0 % (0-8) Platelet Estimate Adequate Platelet Morphology Normal Macrocytosis 2+ Sodium Level 141 MMOL/L (136-145) Potassium Level 4.8 MMOL/L (3.5-5.1) Chloride Level 107 MMOL/L (98-107) Carbon Dioxide Level 25 MMOL/L (21-32) Anion Gap 9 mmol/L (5-15) Blood Urea Nitrogen 23 mg/dL (7-18) H Creatinine 1.5 MG/DL (0.55-1.30) H Estimat Glomerular Filtration Rate mL/min (>60) Glucose Level 131 MG/DL (74-106) H Calcium Level 8.8 MG/DL (8.5-10.1) Total Bilirubin 1.2 MG/DL (0.2-1.0) H Direct Bilirubin 0.5 MG/DL (0.0-0.3) H Aspartate Amino Transf (AST/SGOT) 41 U/L (15-37) H Alanine Aminotransferase (ALT/SGPT) 22 U/L (12-78) Alkaline Phosphatase 67 U/L (46-116) Troponin I 0.026 ng/mL (0.000-0.056) Pro-B-Type Natriuretic Peptide 3904 pg/mL (0-125) H Total Protein 6.4 G/DL (6.4-8.2) Albumin 2.9 G/DL (3.4-5.0) L Globulin 3.5 g/dL Albumin/Globulin Ratio 0.8 (1.0-2.7) L Height (Feet): 5 Height (Inches): 7.00 Weight (Pounds): 177 Medications Current Medications Medications (Trade) Dose Ordered Sig/Daria Route PRN Reason Start Time Stop Time Status Last Admin Dose Admin Acetaminophen (Tylenol) 650 mg Q4H PRN ORAL Fever 11/19/18 17:45 12/19/18 17:44 Acetaminophen/ Hydrocodone Bitart ([place] 5/325) 1 tab Q6H PRN ORAL For Pain 11/19/18 17:45 11/26/18 17:44 11/21/18 08:29 Albuterol/ Ipratropium (Albuterol/ Ipratropium) 3 ml Q4H PRN HHN Shortness of Breath 11/19/18 17:45 11/24/18 17:44 11/20/18 20:34 Ceftriaxone Sodium 1 gm/ Dextrose 55 ml @ 110 mls/hr Q24H IVPB 11/20/18 16:00 11/27/18 15:59 11/20/18 17:09 Dextrose (Dextrose 50%) 25 ml Q30M PRN IV Hypoglycemia 11/19/18 17:45 12/19/18 17:44 Dextrose (Dextrose 50%) 50 ml Q30M PRN IV Hypoglycemia 11/19/18 17:45 12/19/18 17:44 Furosemide (Lasix) 40 mg DAILY IV 11/21/18 09:00 12/21/18 08:59 11/21/18 08:21 Heparin Sodium (Porcine) (Heparin 5000 units/ml) 5,000 units EVERY 12 HOURS SUBQ 11/19/18 21:00 12/19/18 20:59 11/21/18 08:25 Lorazepam (Ativan) 1 mg Q6H PRN ORAL For Anxiety 11/20/18 04:00 11/27/18 03:59 Methylprednisolone Sodium Succinate (Solu-MEDROL) 60 mg DAILY IV 11/22/18 09:00 12/20/18 17:59 Ondansetron HCl (Zofran) 4 mg Q6H PRN IVP Nausea & Vomiting 11/19/18 17:45 12/19/18 17:44 Polyethylene Glycol (Miralax) 17 gm DAILYPRN PRN ORAL Constipation 11/19/18 17:45 12/19/18 17:44 Promethazine HCl/ Codeine (Phenergan with Codeine) 5 ml Q4H PRN ORAL For Cough 11/20/18 13:30 12/20/18 13:29 Quetiapine Fumarate (SEROquel) 300 mg QHS ORAL 11/20/18 21:00 12/20/18 20:59 11/20/18 21:38 Temazepam (Restoril) 15 mg HSPRN PRN ORAL Insomnia 11/19/18 17:45 11/26/18 17:44 Theophylline ([place]) 100 mg EVERY 12 HOURS ORAL 11/20/18 21:00 12/20/18 20:59 11/21/18 08:21 Assessment/Plan Assessment/Plan Abx: Ceftriaxone 11/19- Assessment: Pulmonary edema vs PNA -CXR: Right sided pleural effusion and possible hazy basilar consolidation appears improved. There is suggestion of a small amount of pleural fluid on the left which appears unchanged. Generalized mild interstitial pulmonary congestion appears slightly improved. -influenza sc neg Afebrile Leukopenia Bacteriuria -u/a no pyuria; nit neg, leuk+2; ucx C. freundi (R ancef, otherwise S) Plan: -Continue empiric Ceftriaxone #3/5 -f/u cx -Monitor CBC/CMP, temperatures -aspiration precautions -Nephro f/u Thank you for this consultation. Will continue to follow along with you. Discussed with Nena Guan M.D. Nov 21, 2018 13:25
--- NOTE | 2018-11-21 13:41 | General Progress Note ---
Assessment/Plan Problem List: (1) Anemia ICD Codes: D64.9 - Anemia, unspecified SNOMED: 746514475 (2) SOB (shortness of breath) ICD Codes: R06.02 - Shortness of breath SNOMED: 270241887 (3) Edema ICD Codes: R60.9 - Edema, unspecified SNOMED: 753679157, 230653132 (4) Asthma ICD Codes: J45.909 - Unspecified asthma, uncomplicated SNOMED: 524178983 (5) Pleural effusion ICD Codes: J90 - Pleural effusion, not elsewhere classified SNOMED: 92598602 (6) CHF (congestive heart failure) ICD Codes: I50.9 - Heart failure, unspecified SNOMED: 19683247 (7) Urinary tract infection ICD Codes: N39.0 - Urinary tract infection, site not specified SNOMED: 97819549 Status: unchanged Assessment/Plan o2 pulm tx abx pt diet cbc bmp am Subjective Constitutional: Reports: weakness Allergies: Coded Allergies: GRAPEFRUIT (Unverified Allergy, Intermediate, Hives, 12/13/12) ORANGE (Verified Allergy, Unknown, 11/20/18) All Systems: reviewed and negative except above Subjective o2nc sl sob Objective Last 24 Hour Vital Signs Date Time Temp Pulse Resp B/P (MAP) Pulse Ox O2 Delivery O2 Flow Rate FiO2 11/21/18 12:00 97.8 106 20 124/99 (107) 97 11/21/18 12:00 96 11/21/18 09:00 Nasal Cannula 4.0 Nasal Cannula 6.0 11/21/18 08:59 97.7 11/21/18 08:00 97.7 105 20 117/86 (96) 97 11/21/18 08:00 106 11/21/18 04:00 97.0 96 20 159/87 (111) 97 11/21/18 03:46 107 11/21/18 00:00 97.0 96 20 120/90 (100) 90 11/20/18 23:44 100 11/20/18 21:00 Nasal Cannula 4.0 Nasal Cannula 6.0 11/20/18 20:43 91 18 97 Nasal Cannula 3.0 32 11/20/18 20:42 32 11/20/18 20:35 92 20 94 Nasal Cannula 3.0 32 11/20/18 20:34 92 18 Nasal Cannula 3.0 32 11/20/18 20:00 99.3 104 20 133/92 (106) 96 11/20/18 20:00 96 11/20/18 16:00 98.3 95 20 130/84 (99) 97 11/20/18 16:00 95 Intake and Output 11/20/18 11/21/18 18:59 06:59 Intake Total 750 ml 150 ml Output Total 950 ml Balance -200 ml 150 ml Intake Oral 750 ml 150 ml Output Urine Total 950 ml Laboratory Tests 11/20/18 17:00: Urine Color Yellow, Urine Appearance Clear, Urine pH 5, Urine Specific [place] 1.020, Urine Protein Negative, Urine Glucose (UA) Negative, Urine Ketones Negative, Urine Blood Negative, Urine Nitrite Negative, Urine Bilirubin Negative , Urine Urobilinogen 4H, Urine Leukocyte Esterase 2+H, Urine RBC 0-2H, Urine WBC 2-4, Urine Squamous Epithelial Cells None, Urine Bacteria Few, Urine Eosinophils None seen, Urine Random Creatinine [Pending], Urine Random Microalbumin [Pending], Urine Random Sodium 88, Urine Creatinine 105.2, Urine Microalbumin/Creatinine Ratio [Pending], Urine Potassium Timed 42, Urine Opiates Screen Negative, Urine Barbiturates Screen Negative, Phencyclidine (PCP ) Screen Negative, Urine Amphetamines Screen Negative, Urine Benzodiazepines Screen Negative, Urine Cocaine Screen PositiveH, Urine Marijuana (THC) Screen Negative 11/21/18 06:30: White Blood Count 2.5L, Red Blood Count 3.13L, Hemoglobin 10.4L, Hematocrit 33.3L, Mean Corpuscular Volume 107H, Mean Corpuscular Hemoglobin 33.3H, Mean Corpuscular Hemoglobin Concent 31.2L, Red Cell Distribution Width 13.2, Platelet Count 215, Mean Platelet Volume 7.3, Neutrophils (%) (Auto) , Lymphocytes (%) (Auto) , Monocytes (%) (Auto) , Eosinophils (%) (Auto) , Basophils (%) (Auto) , Differential Total Cells Counted 100, Neutrophils % ( Manual) 81H, Lymphocytes % (Manual) 18L, Monocytes % (Manual) 1, Eosinophils % ( Manual) 0, Basophils % (Manual) 0, Band Neutrophils 0, Platelet Estimate Adequate, Platelet Morphology Normal, Macrocytosis 2+, Sodium Level 141, Potassium Level 4.8, Chloride Level 107, Carbon Dioxide Level 25, Anion Gap 9, Blood Urea Nitrogen 23H, Creatinine 1.5H, Estimat Glomerular Filtration Rate , Glucose Level 131H, Calcium Level 8.8, Total Bilirubin 1.2H, Direct Bilirubin 0.5H, Aspartate Amino Transf (AST/SGOT) 41H, Alanine Aminotransferase (ALT/SGPT ) 22, Alkaline Phosphatase 67, Troponin I 0.026, Pro-B-Type Natriuretic Peptide 3904H, Total Protein 6.4, Albumin 2.9L, Globulin 3.5, Albumin/Globulin Ratio 0.8L Height (Feet): 5 Height (Inches): 7.00 Weight (Pounds): 177 General Appearance: lethargic EENT: normal ENT inspection Neck: normal alignment Cardiovascular: normal peripheral pulses, normal rate, regular rhythm Respiratory/Chest: chest wall non-tender, lungs clear, normal breath sounds Abdomen: normal bowel sounds, non tender, soft Extremities: normal inspection Edema: 1+ Arm (L), 1+ Arm (R), 1+ Leg (L), 1+ Leg (R), 1+ Pedal (L), 1+ Pedal ( R), 1+ Generalized Edema: trace edema Neurologic: responsive, motor weakness Skin: normal pigmentation, warm/dry Reji Arrieta DO Nov 21, 2018 13:41
[2018-11-21 15:48] VITALS: BP 122/93
[2018-11-21] MEDS: cefTRIAXone 1 GM in D5W 55 ML IVPB SCH (16:15)
--- NOTE | 2018-11-21 19:46 | NUR ---
HAND-OFF: Report given to Gabriele ALLEN.
--- NOTE | 2018-11-21 19:54 | NUR ---
NURSE NOTES: Received report from TIFFANY Chris. Patient is awake lying semi-barbosa's; resting comfortably. No signs of acute distress noted; denies pain at this time. AOx2; able to make needs known. Checked IV site; leaking. Will attempt to reinsert new IV access. Bed at lowest position, brakes on, siderails up x3. Siderails padded following seizure precautions. Suction at bedside. Call light within reach. Will continue to monitor.
[2018-11-21 20:00] VITALS: BP 141/91
--- NOTE | 2018-11-21 20:14 | Cardiology Progress Note ---
Assessment/Plan Assessment/Plan [id number] not vegatation on mv this is a mitraclip , however still has fair amount of MR and sx likeyu due ot valvualr heart disease and cm and poor med complaince need guiline diercted med therapy with na and fluid restriction importance of compliance was discussed Objective Last 24 Hour Vital Signs Date Time Temp Pulse Resp B/P (MAP) Pulse Ox O2 Delivery O2 Flow Rate FiO2 11/21/18 16:00 98 11/21/18 15:48 98.1 101 20 122/93 (103) 95 11/21/18 12:00 97.8 106 20 124/99 (107) 97 11/21/18 12:00 96 11/21/18 09:42 96 Nasal Cannula 3.0 32 11/21/18 09:42 Nasal Cannula 3.0 32 11/21/18 09:42 90 16 Nasal Cannula 3.0 32 11/21/18 09:00 Nasal Cannula 4.0 Nasal Cannula 6.0 11/21/18 08:59 97.7 11/21/18 08:00 97.7 105 20 117/86 (96) 97 11/21/18 08:00 106 11/21/18 04:00 97.0 96 20 159/87 (111) 97 11/21/18 03:46 107 11/21/18 00:00 97.0 96 20 120/90 (100) 90 11/20/18 23:44 100 11/20/18 21:00 Nasal Cannula 4.0 Nasal Cannula 6.0 11/20/18 20:43 91 18 97 Nasal Cannula 3.0 32 11/20/18 20:42 32 11/20/18 20:35 92 20 94 Nasal Cannula 3.0 32 11/20/18 20:34 92 18 Nasal Cannula 3.0 32 Intake and Output 11/20/18 11/21/18 19:00 07:00 Intake Total 750 ml 150 ml Output Total 950 ml Balance -200 ml 150 ml Intake Oral 750 ml 150 ml Output Urine Total 950 ml Laboratory Tests Test 11/21/18 06:30 White Blood Count 2.5 K/UL (4.8-10.8) L Red Blood Count 3.13 M/UL (4.70-6.10) L Hemoglobin 10.4 G/DL (14.2-18.0) L Hematocrit 33.3 % (42.0-52.0) L Mean Corpuscular Volume 107 FL (80-99) H Mean Corpuscular Hemoglobin 33.3 PG (27.0-31.0) H Mean Corpuscular Hemoglobin Concent 31.2 G/DL (32.0-36.0) L Red Cell Distribution Width 13.2 % (11.6-14.8) Platelet Count 215 K/UL (150-450) Mean Platelet Volume 7.3 FL (6.5-10.1) Neutrophils (%) (Auto) % (45.0-75.0) Lymphocytes (%) (Auto) % (20.0-45.0) Monocytes (%) (Auto) % (1.0-10.0) Eosinophils (%) (Auto) % (0.0-3.0) Basophils (%) (Auto) % (0.0-2.0) Differential Total Cells Counted 100 Neutrophils % (Manual) 81 % (45-75) H Lymphocytes % (Manual) 18 % (20-45) L Monocytes % (Manual) 1 % (1-10) Eosinophils % (Manual) 0 % (0-3) Basophils % (Manual) 0 % (0-2) Band Neutrophils 0 % (0-8) Platelet Estimate Adequate Platelet Morphology Normal Macrocytosis 2+ Sodium Level 141 MMOL/L (136-145) Potassium Level 4.8 MMOL/L (3.5-5.1) Chloride Level 107 MMOL/L (98-107) Carbon Dioxide Level 25 MMOL/L (21-32) Anion Gap 9 mmol/L (5-15) Blood Urea Nitrogen 23 mg/dL (7-18) H Creatinine 1.5 MG/DL (0.55-1.30) H Estimat Glomerular Filtration Rate mL/min (>60) Glucose Level 131 MG/DL (74-106) H Calcium Level 8.8 MG/DL (8.5-10.1) Total Bilirubin 1.2 MG/DL (0.2-1.0) H Direct Bilirubin 0.5 MG/DL (0.0-0.3) H Aspartate Amino Transf (AST/SGOT) 41 U/L (15-37) H Alanine Aminotransferase (ALT/SGPT) 22 U/L (12-78) Alkaline Phosphatase 67 U/L (46-116) Troponin I 0.026 ng/mL (0.000-0.056) Pro-B-Type Natriuretic Peptide 3904 pg/mL (0-125) H Total Protein 6.4 G/DL (6.4-8.2) Albumin 2.9 G/DL (3.4-5.0) L Globulin 3.5 g/dL Albumin/Globulin Ratio 0.8 (1.0-2.7) L Hepatitis A IgM Antibody Pending Hepatitis B Surface Antigen Pending Hepatitis B Core IgM Antibody Pending Hepatitis C Antibody Pending HIV (1&2) Antibody Rapid Negative (NEGATIVE) Microbiology Date/Time Source Procedure Growth Status 11/19/18 14:40 Blood Blood Culture - Preliminary NO GROWTH AFTER 24 HOURS Resulted 11/19/18 14:30 Blood Blood Culture - Preliminary NO GROWTH AFTER 24 HOURS Resulted 11/20/18 17:00 Sputum Gram Stain - Final Resulted 11/20/18 17:00 Sputum Sputum Culture Pending Resulted 11/19/18 14:45 Nasal Nares Influenza Types A,B Antigen (ALBERT) - Final Complete 11/19/18 15:11 Urine,Clean Catch Urine Culture - Final Citrobacter Freundii Complete Francisco J Nevarez MD Nov 21, 2018 20:14
[2018-11-21] MEDS: QUEtiapine 200mg tab ORAL SCH (20:46)
[2018-11-22] VITALS: BP 148/91
[2018-11-22 04:00] VITALS: BP 136/95
--- NOTE | 2018-11-22 04:43 | NUR ---
NURSE NOTES: Patient is asleep lying semi-barbosa's; resting comfortably. No signs of acute distress or pain noted at this time.
--- NOTE | 2018-11-22 05:30 | Consultation ---
DATE OF CONSULTATION: 11/21/2018 CARDIOLOGY CONSULTATION CONSULTING PHYSICIAN: Francisco J Nevarez M.D. REFERRING PHYSICIAN: Reji Arrieta D.O. REASON FOR REFERRAL: Shortness of breath. HISTORY OF PRESENT ILLNESS: This is a 73-year-old gentleman, who has congestive heart failure, apparently was hospitalized at [facility] and was treated and was subsequently discharged. He has been doing well for approximately four to five months, but over the past month, he has had increasing shortness of breath and leg swelling, and unable to lie down flat because of shortness of breath, PND episodes, and really not dizzy or lightheaded. No heart pounding or palpitation and has very rare episode of chest pain. He does indicate he had a procedure on detailed questioning at [facility], but he has no idea what that was. PAST MEDICAL HISTORY: Positive for high blood pressure and high cholesterol. No heart attack. No cancer. No stroke. No hepatitis. No tuberculosis. He does have a history of asthma. No ulcers. No kidney problems, liver problems, thyroid problems, anemia, arthritis, HIV or AIDS, or blood clots. Prior stroke with right-sided weakness apparently. ALLERGIES: He is not allergic to any medications. SOCIAL HISTORY: He smokes one pack a day. He drinks occasional beer, although he used to drink 12 beers a day. No drug use. He lives at home with a friend, lives in an apartment. MEDICATIONS: He does admit on questioning to be noncompliant with medications. He just takes aspirin and Tylenol on medication list. REVIEW OF SYSTEMS: GASTROINTESTINAL: He has had some occasional nausea, occasional vomiting, and occasional diarrhea. No black or bloody stools. GENITOURINARY: Negative. PULMONARY: Occasional coughing. CONSTITUTIONAL: No fevers or chills or night sweats. NEUROLOGIC: He has had a history of stroke involving his right side previously. PHYSICAL EXAMINATION: GENERAL: Shows to be an elderly gentleman, in no respiratory distress. NECK: Supple. No jugular venous distention. There is abdominojugular reflux noted. LUNGS: Decreased breath sounds on the left side. CARDIAC: Regular rhythm. Systolic ejection murmur. Holosystolic regurgitant murmur is noted. ABDOMEN: Soft and nontender. Positive bowel sounds. EXTREMITIES: There is edema of 1+ in the lower extremities. NEUROLOGICAL: He is awake, alert, and responsive. LABORATORY AND DIAGNOSTIC DATA: Laboratory values of white count of 2.5 with hemoglobin of 10.1 and platelet count of 215,000, 81 polys, and 15 lymphocytes. PH is 7.45, pCO2 32, pO2 of 91, and bicarb of 22. Sodium is 141, potassium 4.8, chloride 107, bicarb 25, BUN of 23, creatinine 1.1, and glucose of 131. Uric acid of 11.5. He has CPK of 403. Troponins are negative. ProBNP of 3900 at the time that we checked today. Liver function tests are relatively normal with albumin of 2.9. His toxicology screen is positive for cocaine. His urinalysis shows 0 to 2 wbc's and sodium was 88. His blood cultures are negative so far and urine culture has Citrobacter freundii and Gram stain is pending. A chest x-ray was performed, which shows right-sided pleural effusion, possible small pleural effusion on the left side, and generalized interstitial pulmonary vascular changes. Echocardiogram was performed, which I personally reviewed, appears to have a MitraClip in place as the patient has at least moderate degree of mitral regurgitation, moderate degree of aortic regurgitation, and tricuspid regurgitation. Cardiomyopathy is noted and pulmonary hypertension is noted. EKG shows sinus rhythm with incomplete right bundle-branch conduction defect. ASSESSMENT AND PLAN: 1. Congestive heart failure. 2. Valvular heart disease, mitral regurgitation, tricuspid regurgitation, and aortic regurgitation. 3. History of cardiomyopathy. 4. History of CVA. 5. History of hypertension. 6. Tobacco use disorder. 7. Urine drug screen positive for cocaine. 8. Pulmonary hypertension. 9. Medication noncompliance. Dr. Murdock and Dr. Arrieta, this patient was seen in cardiac consultation. I had a chance to review the echocardiogram, but the echo interpretation of the anterior mitral valve leaflet density is actually a MitraClip. It appears that the patient had a MitraClip placed at [facility] 5 or 6 months ago as my guess for significant mitral regurgitation. He still has at least moderate degree of mitral regurgitation and some pulmonary hypertension, but I think most of his issues may be not only mitral regurgitation, but cardiomyopathy with poor medication compliance. Importance of fluid and sodium restriction discussed with the patient. The patient should be on a course of treatment with VLADIMIR inhibitors as well as diuretics and beta-blockers, and importance of compliance with medications and followup with physicians are discussed with the patient in total. That was noted and reported on the echo reports is actually a MitraClip, and not any other objects heavily thickened metallic object in that area. Also, noted of the chest x-ray as well, typical of MitraClip. We will try to obtain some records from [facility] at some point about medications for heart failure . Francisco J Nevarez M.D. DR: NADEGE JOB#: [id number] CC:
--- NOTE | 2018-11-22 07:15 | NUR ---
HAND-OFF: Report given to TIFFANY Mohamud. Patient is asleep lying semi-barbosa's; resting comfortably. In stable condition.
--- NOTE | 2018-11-22 07:58 | NUR ---
NURSE NOTES: Received report from TIFFANY Lucero. Patient is awake lying semi-barbosa's; resting comfortably. No signs of acute distress noted; denies pain at this time. AAOx2; able to make needs known. Bed at lowest position, brakes on, side rails up x3. Siderails padded following seizure precautions. Suction at bedside. Call light within reach. Will continue to monitor. Was endorsed that patient is nothing by mouth for ultrasound and swallow eval. Plan of care will be followed through.
[2018-11-22 08:00] VITALS: BP 143/92
[2018-11-22] MEDS: Theophylline ER 100mg ORAL SCH ×2 (08:57→21:53)
[2018-11-22] MEDS ORDERED: Lisinopril 2.5mg tab ORAL SCH (09:00)
[2018-11-22] MEDS ORDERED: Solu-MEDROL 125mg Inj IV SCH (09:00)
[2018-11-22] MEDS: Heparin 5000 units/ml inj SUBQ SCH ×2 (09:02→21:00)
[2018-11-22 09:13] LABS: BASOPHILS % (AUTO) 0.8 % (0.0-2.0); EOSINOPHILS % (AUTO) 0.1 % (0.0-3.0); HEMATOCRIT 37.4 % (42.0-52.0); HEMOGLOBIN 11.5 G/DL (14.2-18.0); LYMPHOCYTES % (AUTO) 22.1 % (20.0-45.0); MEAN CORPUSCULAR VOLUME 107 FL (80-99); MONOCYTES % (AUTO) 5.1 % (1.0-10.0); PLATELET COUNT 237 K/UL (150-450); RED BLOOD COUNT 3.48 M/UL (4.70-6.10); RED CELL DISTRIBUTION WIDTH 13.3 % (11.6-14.8); WHITE BLOOD COUNT 6.9 K/UL (4.8-10.8)
[2018-11-22] MEDS: Albuterol/Ipratropium 3ml neb HHN PRN (09:24)
[2018-11-22 09:25] LABS: ANION GAP 9 mmol/L (5-15); BLOOD UREA NITROGEN 30 mg/dL (7-18); CALCIUM 9.3 MG/DL (8.5-10.1); CARBON DIOXIDE 25 MMOL/L (21-32); CHLORIDE 106 MMOL/L (98-107); CREATININE 1.7 MG/DL (0.55-1.30); POTASSIUM 4.5 MMOL/L (3.5-5.1); SODIUM 140 MMOL/L (136-145)
--- NOTE | 2018-11-22 10:28 | Nephrology Progress Note ---
Assessment/Plan Assessment/Plan A/P 1) LEANNA on CKD 3B- Cr at 1.7 - Renal US atrophic left kidney - diuresed very well. Lasix changed to po 2) HTN- stable. VLADIMIR- I started 3) CHF- diuresed very well. Lasix changed to po. Monitor Cr 4) UTI- Abx Subjective Date patient seen: Nov 22, 2018 Time patient seen: 10:25 ROS Limited/Unobtainable: No Allergies: Coded Allergies: GRAPEFRUIT (Unverified Allergy, Intermediate, Hives, 12/13/12) ORANGE (Verified Allergy, Unknown, 11/20/18) Subjective Patient says breathing has improved and feels much less edematous Objective Last 24 Hour Vital Signs Date Time Temp Pulse Resp B/P (MAP) Pulse Ox O2 Delivery O2 Flow Rate FiO2 11/22/18 09:24 32 11/22/18 09:24 Nasal Cannula 3.0 32 11/22/18 09:24 94 Nasal Cannula 3.0 32 11/22/18 09:24 88 18 Nasal Cannula 3.0 32 11/22/18 09:24 88 18 94 Nasal Cannula 3.0 32 11/22/18 08:57 104 143/92 11/22/18 08:57 143/92 11/22/18 08:42 Nasal Cannula 6.0 Nasal Cannula 6.0 11/22/18 08:00 97.1 104 20 143/92 (109) 95 11/22/18 04:00 97 11/22/18 04:00 98.0 100 18 136/95 (109) 95 11/22/18 00:00 101 11/22/18 00:00 98.5 105 19 148/91 (110) 97 11/21/18 21:00 Nasal Cannula 6.0 Nasal Cannula 6.0 11/21/18 20:46 107 141/91 11/21/18 20:30 96 Nasal Cannula 3.0 32 11/21/18 20:30 Nasal Cannula 3.0 32 11/21/18 20:30 98 18 Nasal Cannula 3.0 32 11/21/18 20:00 107 11/21/18 20:00 98.4 107 20 141/91 (108) 97 11/21/18 16:00 98 11/21/18 15:48 98.1 101 20 122/93 (103) 95 11/21/18 12:00 97.8 106 20 124/99 (107) 97 11/21/18 12:00 96 Intake and Output 11/21/18 11/22/18 19:00 07:00 Intake Total 570 ml 300 ml Output Total 460 ml 600 ml Balance 110 ml -300 ml Intake Oral 570 ml 300 ml Output Urine Total 460 ml 600 ml Laboratory Tests 11/22/18 08:50: White Blood Count 6.9#, Red Blood Count 3.48L, Hemoglobin 11.5L, Hematocrit 37.4L, Mean Corpuscular Volume 107H, Mean Corpuscular Hemoglobin 33.1H, Mean Corpuscular Hemoglobin Concent 30.8L, Red Cell Distribution Width 13.3, Platelet Count 237, Mean Platelet Volume 7.7, Neutrophils (%) (Auto) 72.0, Lymphocytes (%) (Auto) 22.1, Monocytes (%) (Auto) 5.1, Eosinophils (%) (Auto) 0.1, Basophils (%) (Auto) 0.8, Sodium Level 140, Potassium Level 4.5, Chloride Level 106, Carbon Dioxide Level 25, Anion Gap 9, Blood Urea Nitrogen 30H, Creatinine 1.7H, Estimat Glomerular Filtration Rate , Glucose Level 114H, Calcium Level 9.3 Height (Feet): 5 Height (Inches): 7.00 Weight (Pounds): 172 General Appearance: no apparent distress, alert EENT: normal ENT inspection Neck: normal alignment, supple Cardiovascular: normal rate, regular rhythm Respiratory/Chest: lungs clear, normal breath sounds Abdomen: non tender, soft Edema: no edema noted Arm (L), no edema noted Arm (R), no edema noted Leg (L), no edema noted Leg (R), no edema noted Pedal (L), no edema noted Pedal (R), no edema noted Generalized Eugenio Ritchie MD Nov 22, 2018 10:28
--- NOTE | 2018-11-22 10:29 | NUR ---
ST NOTE: RECEIVED B/S EVAL ORDER CHART REVIEWED. CURRENTLY, PT IS NPO FOR PROCEDURE. WILL RE-ATTEMPT
--- NOTE | 2018-11-22 10:52 | Pulmonology Progress Note ---
Assessment/Plan Problems: (1) Acute respiratory failure (2) COPD with acute exacerbation (3) ATN (acute tubular necrosis) (4) CHF (congestive heart failure) (5) Pleural effusion (6) Urinary tract infection Assessment/Plan Respiratory treatment check bun/creatinine echo reviewed, EF 30% with echogenic material on mitral valve, D/w Dr. Nevarez. right effusion getting less continue abx titrate fio2 to sat of 92% hold lasix and lisinopril Renal US reviewed, scarred left kidney Subjective ROS Limited/Unobtainable: No Interval Events: feeling slightly better Allergies: Coded Allergies: GRAPEFRUIT (Unverified Allergy, Intermediate, Hives, 12/13/12) ORANGE (Verified Allergy, Unknown, 11/20/18) Objective Last 24 Hour Vital Signs Date Time Temp Pulse Resp B/P (MAP) Pulse Ox O2 Delivery O2 Flow Rate FiO2 11/22/18 09:24 32 11/22/18 09:24 Nasal Cannula 3.0 32 11/22/18 09:24 94 Nasal Cannula 3.0 32 11/22/18 09:24 88 18 Nasal Cannula 3.0 32 11/22/18 09:24 88 18 94 Nasal Cannula 3.0 32 11/22/18 08:57 104 143/92 11/22/18 08:57 143/92 11/22/18 08:42 Nasal Cannula 6.0 Nasal Cannula 6.0 11/22/18 08:00 97.1 104 20 143/92 (109) 95 11/22/18 04:00 97 11/22/18 04:00 98.0 100 18 136/95 (109) 95 11/22/18 00:00 101 11/22/18 00:00 98.5 105 19 148/91 (110) 97 11/21/18 21:00 Nasal Cannula 6.0 Nasal Cannula 6.0 11/21/18 20:46 107 141/91 11/21/18 20:30 96 Nasal Cannula 3.0 32 11/21/18 20:30 Nasal Cannula 3.0 32 11/21/18 20:30 98 18 Nasal Cannula 3.0 32 11/21/18 20:00 107 11/21/18 20:00 98.4 107 20 141/91 (108) 97 11/21/18 16:00 98 11/21/18 15:48 98.1 101 20 122/93 (103) 95 11/21/18 12:00 97.8 106 20 124/99 (107) 97 11/21/18 12:00 96 Intake and Output 11/21/18 11/22/18 19:00 07:00 Intake Total 570 ml 300 ml Output Total 460 ml 600 ml Balance 110 ml -300 ml Intake Oral 570 ml 300 ml Output Urine Total 460 ml 600 ml General Appearance: WD/WN HEENT: normocephalic Cardiovascular: normal peripheral pulses, normal rate, regularly irregular Abdomen: normal bowel sounds, no organomegaly Genitourinary: normal external genitalia Extremities: no clubbing Skin: no ulcers Microbiology Date/Time Source Procedure Growth Status 11/19/18 14:40 Blood Blood Culture - Preliminary NO GROWTH AFTER 48 HOURS Resulted 11/19/18 14:30 Blood Blood Culture - Preliminary NO GROWTH AFTER 48 HOURS Resulted 11/20/18 17:00 Sputum Gram Stain - Final Resulted 11/20/18 17:00 Sputum Culture - Preliminary Staphylococcus Aureus Usual Respiratory Jonelle Resulted 11/19/18 14:45 Nasal Nares Influenza Types A,B Antigen (ALBERT) - Final Complete 11/19/18 15:11 Urine,Clean Catch Urine Culture - Final Citrobacter Freundii Complete Laboratory Tests 11/22/18 08:50: White Blood Count 6.9#, Red Blood Count 3.48L, Hemoglobin 11.5L, Hematocrit 37.4L, Mean Corpuscular Volume 107H, Mean Corpuscular Hemoglobin 33.1H, Mean Corpuscular Hemoglobin Concent 30.8L, Red Cell Distribution Width 13.3, Platelet Count 237, Mean Platelet Volume 7.7, Neutrophils (%) (Auto) 72.0, Lymphocytes (%) (Auto) 22.1, Monocytes (%) (Auto) 5.1, Eosinophils (%) (Auto) 0.1, Basophils (%) (Auto) 0.8, Sodium Level 140, Potassium Level 4.5, Chloride Level 106, Carbon Dioxide Level 25, Anion Gap 9, Blood Urea Nitrogen 30H, Creatinine 1.7H, Estimat Glomerular Filtration Rate , Glucose Level 114H, Calcium Level 9.3 Current Medications Medications (Trade) Dose Ordered Sig/Daria Route PRN Reason Start Time Stop Time Status Last Admin Dose Admin Acetaminophen (Tylenol) 650 mg Q4H PRN ORAL Fever 11/19/18 17:45 4/1/19 17:44 Acetaminophen/ Hydrocodone Bitart ([place] 5/325) 1 tab Q6H PRN ORAL For Pain 11/19/18 17:45 11/26/18 17:44 11/21/18 08:29 Albuterol/ Ipratropium (Albuterol/ Ipratropium) 3 ml Q4H PRN HHN Shortness of Breath 11/19/18 17:45 11/24/18 17:44 11/22/18 09:24 Carvedilol (Coreg) 3.125 mg EVERY 12 HOURS ORAL 11/21/18 21:00 12/21/18 20:59 11/22/18 08:57 Ceftriaxone Sodium 1 gm/ Dextrose 55 ml @ 110 mls/hr Q24H IVPB 11/20/18 16:00 11/27/18 15:59 11/21/18 16:15 Dextrose (Dextrose 50%) 25 ml Q30M PRN IV Hypoglycemia 11/19/18 17:45 12/19/18 17:44 Dextrose (Dextrose 50%) 50 ml Q30M PRN IV Hypoglycemia 11/19/18 17:45 12/19/18 17:44 Furosemide (Lasix) 40 mg DAILY ORAL 11/23/18 09:00 12/23/18 08:59 Heparin Sodium (Porcine) (Heparin 5000 units/ml) 5,000 units EVERY 12 HOURS SUBQ 11/19/18 21:00 12/19/18 20:59 11/22/18 09:02 Lisinopril (Zestril) 2.5 mg DAILY ORAL 11/22/18 09:00 12/22/18 08:59 11/22/18 08:57 Lorazepam (Ativan) 1 mg Q6H PRN ORAL For Anxiety 11/20/18 04:00 11/27/18 03:59 Methylprednisolone Sodium Succinate (Solu-MEDROL) 60 mg DAILY IV 11/22/18 09:00 12/20/18 17:59 11/22/18 08:58 Ondansetron HCl (Zofran) 4 mg Q6H PRN IVP Nausea & Vomiting 11/19/18 17:45 12/19/18 17:44 Polyethylene Glycol (Miralax) 17 gm DAILYPRN PRN ORAL Constipation 11/19/18 17:45 12/19/18 17:44 Promethazine HCl/ Codeine (Phenergan with Codeine) 5 ml Q4H PRN ORAL For Cough 11/20/18 13:30 12/20/18 13:29 Quetiapine Fumarate (SEROquel) 300 mg QHS ORAL 11/20/18 21:00 12/20/18 20:59 11/21/18 20:46 Temazepam (Restoril) 15 mg HSPRN PRN ORAL Insomnia 11/19/18 17:45 11/26/18 17:44 Theophylline ([place]-Dur) 100 mg EVERY 12 HOURS ORAL 11/20/18 21:00 12/20/18 20:59 11/22/18 08:57 Jese Murdock MD Nov 22, 2018 10:52
[2018-11-22 12:00] VITALS: BP 129/92
--- NOTE | 2018-11-22 12:36 | Infectious Diseases Prog Note ---
Assessment/Plan Assessment/Plan Abx: Ceftriaxone 11/19- Assessment: Pulmonary edema vs PNA -CXR: Right sided pleural effusion and possible hazy basilar consolidation appears improved. There is suggestion of a small amount of pleural fluid on the left which appears unchanged. Generalized mild interstitial pulmonary congestion appears slightly improved. -influenza sc neg -sp cx S.aureus (sensi pending) Afebrile Leukopenia, SP Bacteriuria -u/a no pyuria; nit neg, leuk+2; ucx C. freundi (R ancef, otherwise S) LEANNA on CKD 3 CHF former alcoholic COPD HTN CVA Plan: -Continue empiric Ceftriaxone #4/5 and add Linezolid pending S. aureus sensi -f/u cx -Monitor CBC/CMP, temperatures -aspiration precautions -Nephro f/u Thank you for this consultation. Will continue to follow along with you. Discussed with RN. Subjective Allergies: Coded Allergies: GRAPEFRUIT (Unverified Allergy, Intermediate, Hives, 12/13/12) ORANGE (Verified Allergy, Unknown, 11/20/18) Subjective afebrile at 3l NC Objective Vital Signs Last 24 Hour Vital Signs Date Time Temp Pulse Resp B/P (MAP) Pulse Ox O2 Delivery O2 Flow Rate FiO2 11/22/18 09:24 32 11/22/18 09:24 Nasal Cannula 3.0 32 11/22/18 09:24 94 Nasal Cannula 3.0 32 11/22/18 09:24 88 18 Nasal Cannula 3.0 32 11/22/18 09:24 88 18 94 Nasal Cannula 3.0 32 11/22/18 08:57 104 143/92 11/22/18 08:57 143/92 11/22/18 08:42 Nasal Cannula 6.0 Nasal Cannula 6.0 11/22/18 08:00 97.1 104 20 143/92 (109) 95 11/22/18 04:00 97 11/22/18 04:00 98.0 100 18 136/95 (109) 95 11/22/18 00:00 101 11/22/18 00:00 98.5 105 19 148/91 (110) 97 11/21/18 21:00 Nasal Cannula 6.0 Nasal Cannula 6.0 11/21/18 20:46 107 141/91 11/21/18 20:30 96 Nasal Cannula 3.0 32 11/21/18 20:30 Nasal Cannula 3.0 32 11/21/18 20:30 98 18 Nasal Cannula 3.0 32 11/21/18 20:00 107 11/21/18 20:00 98.4 107 20 141/91 (108) 97 11/21/18 16:00 98 11/21/18 15:48 98.1 101 20 122/93 (103) 95 Height (Feet): 5 Height (Inches): 7.00 Weight (Pounds): 172 Objective GENERAL: Calm in bed, oriented x2, in no acute distress. CARDIOVASCULAR: RRR, no murmurs. LUNGS: Poor air exchange. ABDOMEN: Bowel sounds distant. EXTREMITIES: No cyanosis or clubbing. 1+ edema. NEUROLOGIC: The patient moves all extremities, slightly weak. Microbiology Date/Time Source Procedure Growth Status 11/19/18 14:40 Blood Blood Culture - Preliminary NO GROWTH AFTER 48 HOURS Resulted 11/19/18 14:30 Blood Blood Culture - Preliminary NO GROWTH AFTER 48 HOURS Resulted 11/20/18 17:00 Sputum Gram Stain - Final Resulted 11/20/18 17:00 Sputum Culture - Preliminary Staphylococcus Aureus Usual Respiratory Jonelel Resulted 11/19/18 14:45 Nasal Nares Influenza Types A,B Antigen (ALBERT) - Final Complete 11/19/18 15:11 Urine,Clean Catch Urine Culture - Final Citrobacter Freundii Complete Laboratory Tests Test 11/22/18 08:50 White Blood Count 6.9 K/UL (4.8-10.8) # Red Blood Count 3.48 M/UL (4.70-6.10) L Hemoglobin 11.5 G/DL (14.2-18.0) L Hematocrit 37.4 % (42.0-52.0) L Mean Corpuscular Volume 107 FL (80-99) H Mean Corpuscular Hemoglobin 33.1 PG (27.0-31.0) H Mean Corpuscular Hemoglobin Concent 30.8 G/DL (32.0-36.0) L Red Cell Distribution Width 13.3 % (11.6-14.8) Platelet Count 237 K/UL (150-450) Mean Platelet Volume 7.7 FL (6.5-10.1) Neutrophils (%) (Auto) 72.0 % (45.0-75.0) Lymphocytes (%) (Auto) 22.1 % (20.0-45.0) Monocytes (%) (Auto) 5.1 % (1.0-10.0) Eosinophils (%) (Auto) 0.1 % (0.0-3.0) Basophils (%) (Auto) 0.8 % (0.0-2.0) Sodium Level 140 MMOL/L (136-145) Potassium Level 4.5 MMOL/L (3.5-5.1) Chloride Level 106 MMOL/L (98-107) Carbon Dioxide Level 25 MMOL/L (21-32) Anion Gap 9 mmol/L (5-15) Blood Urea Nitrogen 30 mg/dL (7-18) H Creatinine 1.7 MG/DL (0.55-1.30) H Estimat Glomerular Filtration Rate mL/min (>60) Glucose Level 114 MG/DL (74-106) H Calcium Level 9.3 MG/DL (8.5-10.1) Current Medications Medications (Trade) Dose Ordered Sig/Daria Route PRN Reason Start Time Stop Time Status Last Admin Dose Admin Acetaminophen (Tylenol) 650 mg Q4H PRN ORAL Fever 11/19/18 17:45 12/19/18 17:44 Acetaminophen/ Hydrocodone Bitart ([place] 5/325) 1 tab Q6H PRN ORAL For Pain 11/19/18 17:45 11/26/18 17:44 11/21/18 08:29 Albuterol/ Ipratropium (Albuterol/ Ipratropium) 3 ml Q4H PRN HHN Shortness of Breath 11/19/18 17:45 11/24/18 17:44 11/22/18 09:24 Carvedilol (Coreg) 3.125 mg EVERY 12 HOURS ORAL 11/21/18 21:00 12/21/18 20:59 11/22/18 08:57 Ceftriaxone Sodium 1 gm/ Dextrose 55 ml @ 110 mls/hr Q24H IVPB 11/20/18 16:00 11/27/18 15:59 11/21/18 16:15 Dextrose (Dextrose 50%) 25 ml Q30M PRN IV Hypoglycemia 11/19/18 17:45 12/19/18 17:44 Dextrose (Dextrose 50%) 50 ml Q30M PRN IV Hypoglycemia 11/19/18 17:45 12/19/18 17:44 Heparin Sodium (Porcine) (Heparin 5000 units/ml) 5,000 units EVERY 12 HOURS SUBQ 11/19/18 21:00 12/19/18 20:59 11/22/18 09:02 Lorazepam (Ativan) 1 mg Q6H PRN ORAL For Anxiety 11/20/18 04:00 11/27/18 03:59 Methylprednisolone Sodium Succinate (Solu-MEDROL) 40 mg DAILY IVP 11/23/18 09:00 12/20/18 17:59 Ondansetron HCl (Zofran) 4 mg Q6H PRN IVP Nausea & Vomiting 11/19/18 17:45 12/19/18 17:44 Polyethylene Glycol (Miralax) 17 gm DAILYPRN PRN ORAL Constipation 11/19/18 17:45 12/19/18 17:44 Promethazine HCl/ Codeine (Phenergan with Codeine) 5 ml Q4H PRN ORAL For Cough 11/20/18 13:30 12/20/18 13:29 Quetiapine Fumarate (SEROquel) 300 mg QHS ORAL 11/20/18 21:00 12/20/18 20:59 11/21/18 20:46 Temazepam (Restoril) 15 mg HSPRN PRN ORAL Insomnia 11/19/18 17:45 11/26/18 17:44 Theophylline ([place]-Dur) 100 mg EVERY 12 HOURS ORAL 11/20/18 21:00 12/20/18 20:59 11/22/18 08:57 Nena Allen M.D. Nov 22, 2018 12:36
--- NOTE | 2018-11-22 14:00 | NUR ---
NURSE NOTES: US completed.
--- NOTE | 2018-11-22 14:06 | General Progress Note ---
Assessment/Plan Problem List: (1) Anemia ICD Codes: D64.9 - Anemia, unspecified SNOMED: 552097079 (2) SOB (shortness of breath) ICD Codes: R06.02 - Shortness of breath SNOMED: 908141808 (3) Edema ICD Codes: R60.9 - Edema, unspecified SNOMED: 099072642, 606039184 (4) Asthma ICD Codes: J45.909 - Unspecified asthma, uncomplicated SNOMED: 376984972 (5) Pleural effusion ICD Codes: J90 - Pleural effusion, not elsewhere classified SNOMED: 89906771 (6) CHF (congestive heart failure) ICD Codes: I50.9 - Heart failure, unspecified SNOMED: 12898260 (7) Urinary tract infection ICD Codes: N39.0 - Urinary tract infection, site not specified SNOMED: 62273153 Status: unchanged Assessment/Plan o2 pulm tx abx pt diet cbc bmp am Subjective Constitutional: Reports: weakness Allergies: Coded Allergies: GRAPEFRUIT (Unverified Allergy, Intermediate, Hives, 12/13/12) ORANGE (Verified Allergy, Unknown, 11/20/18) All Systems: reviewed and negative except above Subjective o2nc sl sob Objective Last 24 Hour Vital Signs Date Time Temp Pulse Resp B/P (MAP) Pulse Ox O2 Delivery O2 Flow Rate FiO2 11/22/18 09:24 32 11/22/18 09:24 Nasal Cannula 3.0 32 11/22/18 09:24 94 Nasal Cannula 3.0 32 11/22/18 09:24 88 18 Nasal Cannula 3.0 32 11/22/18 09:24 88 18 94 Nasal Cannula 3.0 32 11/22/18 08:57 104 143/92 11/22/18 08:57 143/92 11/22/18 08:42 Nasal Cannula 6.0 Nasal Cannula 6.0 11/22/18 08:00 97.1 104 20 143/92 (109) 95 11/22/18 04:00 97 11/22/18 04:00 98.0 100 18 136/95 (109) 95 11/22/18 00:00 101 11/22/18 00:00 98.5 105 19 148/91 (110) 97 11/21/18 21:00 Nasal Cannula 6.0 Nasal Cannula 6.0 11/21/18 20:46 107 141/91 11/21/18 20:30 96 Nasal Cannula 3.0 32 11/21/18 20:30 Nasal Cannula 3.0 32 11/21/18 20:30 98 18 Nasal Cannula 3.0 32 11/21/18 20:00 107 11/21/18 20:00 98.4 107 20 141/91 (108) 97 11/21/18 16:00 98 11/21/18 15:48 98.1 101 20 122/93 (103) 95 Intake and Output 11/21/18 11/22/18 18:59 06:59 Intake Total 570 ml 300 ml Output Total 460 ml 600 ml Balance 110 ml -300 ml Intake Oral 570 ml 300 ml Output Urine Total 460 ml 600 ml Laboratory Tests 11/22/18 08:50: White Blood Count 6.9#, Red Blood Count 3.48L, Hemoglobin 11.5L, Hematocrit 37.4L, Mean Corpuscular Volume 107H, Mean Corpuscular Hemoglobin 33.1H, Mean Corpuscular Hemoglobin Concent 30.8L, Red Cell Distribution Width 13.3, Platelet Count 237, Mean Platelet Volume 7.7, Neutrophils (%) (Auto) 72.0, Lymphocytes (%) (Auto) 22.1, Monocytes (%) (Auto) 5.1, Eosinophils (%) (Auto) 0.1, Basophils (%) (Auto) 0.8, Sodium Level 140, Potassium Level 4.5, Chloride Level 106, Carbon Dioxide Level 25, Anion Gap 9, Blood Urea Nitrogen 30H, Creatinine 1.7H, Estimat Glomerular Filtration Rate , Glucose Level 114H, Calcium Level 9.3 Height (Feet): 5 Height (Inches): 7.00 Weight (Pounds): 172 General Appearance: lethargic EENT: normal ENT inspection Neck: normal alignment Cardiovascular: normal peripheral pulses, normal rate, regular rhythm Respiratory/Chest: chest wall non-tender, lungs clear, normal breath sounds Abdomen: normal bowel sounds, non tender, soft Extremities: normal inspection Edema: 1+ Arm (L), 1+ Arm (R), 1+ Leg (L), 1+ Leg (R), 1+ Pedal (L), 1+ Pedal ( R), 1+ Generalized Edema: trace edema Neurologic: motor weakness Skin: normal pigmentation, warm/dry Arrieta,Reji Chi-[place]erm[place] DO Nov 22, 2018 14:06
[2018-11-22] MEDS: cefTRIAXone 1 GM in D5W 55 ML IVPB SCH (15:39)
[2018-11-22 16:00] VITALS: BP 140/101
--- NOTE | 2018-11-22 17:23 | Consultation ---
History of Present Illness General Chief Complaint: Dyspnea/Respdistress Present Illness Allergies: Coded Allergies: GRAPEFRUIT (Unverified Allergy, Intermediate, Hives, 12/13/12) ORANGE (Verified Allergy, Unknown, 11/20/18) Medication History Scheduled Acetaminophen With Codeine (T#3) (Tylenol #3 Tab*), 1 TAB ORAL Q4H Scheduled PRN Hydrocodone Bit/Acetaminophen 5-325* (Caliente 5-325*), 1 TAB ORAL Q6H PRN for For Pain Miscellaneous Medications [Seroquel], (Reported) [Vicodin], (Reported) Patient History Healthcare decision maker Resuscitation status Full Code Advanced Directive on File Physical Exam Last 24 Hour Vital Signs Date Time Temp Pulse Resp B/P (MAP) Pulse Ox O2 Delivery O2 Flow Rate FiO2 11/22/18 16:00 97.2 98 20 140/101 (114) 97 11/22/18 12:00 97.2 97 18 129/92 (104) 95 11/22/18 11:39 100 11/22/18 09:24 32 11/22/18 09:24 Nasal Cannula 3.0 32 11/22/18 09:24 94 Nasal Cannula 3.0 32 11/22/18 09:24 88 18 Nasal Cannula 3.0 32 11/22/18 09:24 88 18 94 Nasal Cannula 3.0 32 11/22/18 08:57 104 143/92 11/22/18 08:57 143/92 11/22/18 08:42 Nasal Cannula 6.0 Nasal Cannula 6.0 11/22/18 08:00 97.1 104 20 143/92 (109) 95 11/22/18 07:40 104 11/22/18 04:00 97 11/22/18 04:00 98.0 100 18 136/95 (109) 95 11/22/18 00:00 101 11/22/18 00:00 98.5 105 19 148/91 (110) 97 11/21/18 21:00 Nasal Cannula 6.0 Nasal Cannula 6.0 11/21/18 20:46 107 141/91 11/21/18 20:30 96 Nasal Cannula 3.0 32 11/21/18 20:30 Nasal Cannula 3.0 32 11/21/18 20:30 98 18 Nasal Cannula 3.0 32 11/21/18 20:00 107 11/21/18 20:00 98.4 107 20 141/91 (108) 97 Intake and Output 11/21/18 11/22/18 18:59 06:59 Intake Total 570 ml 300 ml Output Total 460 ml 600 ml Balance 110 ml -300 ml Intake Oral 570 ml 300 ml Output Urine Total 460 ml 600 ml Laboratory Tests Test 11/22/18 08:50 White Blood Count 6.9 K/UL (4.8-10.8) # Red Blood Count 3.48 M/UL (4.70-6.10) L Hemoglobin 11.5 G/DL (14.2-18.0) L Hematocrit 37.4 % (42.0-52.0) L Mean Corpuscular Volume 107 FL (80-99) H Mean Corpuscular Hemoglobin 33.1 PG (27.0-31.0) H Mean Corpuscular Hemoglobin Concent 30.8 G/DL (32.0-36.0) L Red Cell Distribution Width 13.3 % (11.6-14.8) Platelet Count 237 K/UL (150-450) Mean Platelet Volume 7.7 FL (6.5-10.1) Neutrophils (%) (Auto) 72.0 % (45.0-75.0) Lymphocytes (%) (Auto) 22.1 % (20.0-45.0) Monocytes (%) (Auto) 5.1 % (1.0-10.0) Eosinophils (%) (Auto) 0.1 % (0.0-3.0) Basophils (%) (Auto) 0.8 % (0.0-2.0) Sodium Level 140 MMOL/L (136-145) Potassium Level 4.5 MMOL/L (3.5-5.1) Chloride Level 106 MMOL/L (98-107) Carbon Dioxide Level 25 MMOL/L (21-32) Anion Gap 9 mmol/L (5-15) Blood Urea Nitrogen 30 mg/dL (7-18) H Creatinine 1.7 MG/DL (0.55-1.30) H Estimat Glomerular Filtration Rate mL/min (>60) Glucose Level 114 MG/DL (74-106) H Calcium Level 9.3 MG/DL (8.5-10.1) Height (Feet): 5 Height (Inches): 7.00 Weight (Pounds): 172 Medications Current Medications Medications (Trade) Dose Ordered Sig/Daria Route PRN Reason Start Time Stop Time Status Last Admin Dose Admin Acetaminophen (Tylenol) 650 mg Q4H PRN ORAL Fever 11/19/18 17:45 12/19/18 17:44 Acetaminophen/ Hydrocodone Bitart (Caliente 5/325) 1 tab Q6H PRN ORAL For Pain 11/19/18 17:45 11/26/18 17:44 11/21/18 08:29 Albuterol/ Ipratropium (Albuterol/ Ipratropium) 3 ml Q4H PRN HHN Shortness of Breath 11/19/18 17:45 11/24/18 17:44 11/22/18 09:24 Carvedilol (Coreg) 3.125 mg EVERY 12 HOURS ORAL 11/21/18 21:00 12/21/18 20:59 11/22/18 08:57 Ceftriaxone Sodium 1 gm/ Dextrose 55 ml @ 110 mls/hr Q24H IVPB 11/20/18 16:00 11/27/18 15:59 11/22/18 15:39 Dextrose (Dextrose 50%) 25 ml Q30M PRN IV Hypoglycemia 11/19/18 17:45 12/19/18 17:44 Dextrose (Dextrose 50%) 50 ml Q30M PRN IV Hypoglycemia 11/19/18 17:45 12/19/18 17:44 Heparin Sodium (Porcine) (Heparin 5000 units/ml) 5,000 units EVERY 12 HOURS SUBQ 11/19/18 21:00 12/19/18 20:59 11/22/18 09:02 Linezolid (Zyvox) 600 mg EVERY 12 HOURS ORAL 11/22/18 13:00 11/27/18 12:59 11/22/18 15:33 Lorazepam (Ativan) 1 mg Q6H PRN ORAL For Anxiety 11/20/18 04:00 11/27/18 03:59 Methylprednisolone Sodium Succinate (Solu-MEDROL) 40 mg DAILY IVP 11/23/18 09:00 12/20/18 17:59 Ondansetron HCl (Zofran) 4 mg Q6H PRN IVP Nausea & Vomiting 11/19/18 17:45 12/19/18 17:44 Polyethylene Glycol (Miralax) 17 gm DAILYPRN PRN ORAL Constipation 11/19/18 17:45 12/19/18 17:44 Promethazine HCl/ Codeine (Phenergan with Codeine) 5 ml Q4H PRN ORAL For Cough 11/20/18 13:30 12/20/18 13:29 Quetiapine Fumarate (SEROquel) 300 mg QHS ORAL 11/20/18 21:00 12/20/18 20:59 11/21/18 20:46 Temazepam (Restoril) 15 mg HSPRN PRN ORAL Insomnia 11/19/18 17:45 11/26/18 17:44 Theophylline (Alton-Dur) 100 mg EVERY 12 HOURS ORAL 11/20/18 21:00 12/20/18 20:59 11/22/18 08:57 Assessment/Plan Assessment/Plan Hematology Consultation Date patient seen: Nov 22, 2018 Chief Complaint: Dyspnea/Respdistress RFC: Leukopenia, anemia REQ MD: Suhail Valencia ID 73 y/o M with hx of CHF, former alcoholic, COPD, CKD 3, HTN, CVA presents to ED on 11/19 with confusion, SOB, wheezing and cough. Upon admission noted to have Cr of 1.7, noted to have leukopenia and acd Denied CP, n/v/d upon admission Allergies: GRAPEFRUIT (Unverified Allergy, Intermediate, Hives, 12/13/12) ORANGE (Verified Allergy, Unknown, 11/20/18) Scheduled Acetaminophen With Codeine (T#3) (Tylenol #3 Tab*), 1 TAB ORAL Q4H Scheduled PRN Hydrocodone Bit/Acetaminophen 5-325* (Caliente 5-325*), 1 TAB ORAL Q6H PRN for For Pain Miscellaneous Medications [Seroquel], (Reported) [Vicodin], (Reported) Patient History Healthcare decision maker Resuscitation status Full Code Advanced Directive on File Pmhx: as above Shx:The chart suggests that he has a history of drug abuse, but the patient is actually denying any history of any drugs or alcohol at this time Fhx: non contributory Review of systems: negative except mentioned in HPI Physical Exam Narrative GENERAL: Calm in bed, oriented x2, in no acute distress. CARDIOVASCULAR: RRR, no murmurs. LUNGS: Poor air exchange. ABDOMEN: Bowel sounds distant. EXTREMITIES: No cyanosis or clubbing. 1+ edema. NEUROLOGIC: The patient moves all extremities, slightly weak. Last 24 Hour Vital Signs Date Time Temp Pulse Resp B/P (MAP) Pulse Ox O2 Delivery O2 Flow Rate FiO2 11/22/18 16:00 97.2 98 20 140/101 (114) 97 11/22/18 12:00 97.2 97 18 129/92 (104) 95 11/22/18 11:39 100 11/22/18 09:24 32 11/22/18 09:24 Nasal Cannula 3.0 32 11/22/18 09:24 94 Nasal Cannula 3.0 32 11/22/18 09:24 88 18 Nasal Cannula 3.0 32 11/22/18 09:24 88 18 94 Nasal Cannula 3.0 32 11/22/18 08:57 104 143/92 11/22/18 08:57 143/92 11/22/18 08:42 Nasal Cannula 6.0 Nasal Cannula 6.0 11/22/18 08:00 97.1 104 20 143/92 (109) 95 11/22/18 07:40 104 11/22/18 04:00 97 11/22/18 04:00 98.0 100 18 136/95 (109) 95 11/22/18 00:00 101 11/22/18 00:00 98.5 105 19 148/91 (110) 97 11/21/18 21:00 Nasal Cannula 6.0 Nasal Cannula 6.0 11/21/18 20:46 107 141/91 11/21/18 20:30 96 Nasal Cannula 3.0 32 11/21/18 20:30 Nasal Cannula 3.0 32 11/21/18 20:30 98 18 Nasal Cannula 3.0 32 11/21/18 20:00 107 11/21/18 20:00 98.4 107 20 141/91 (108) 97 Laboratory Tests Test 11/20/18 17:00 11/21/18 06:30 Urine Color Yellow Urine Appearance Clear Urine pH 5 (4.5-8.0) Urine Specific [place] 1.020 (1.005-1.035) Urine Protein Negative (NEGATIVE) Urine Glucose (UA) Negative (NEGATIVE) Urine Ketones Negative (NEGATIVE) Urine Blood Negative (NEGATIVE) Urine Nitrite Negative (NEGATIVE) Urine Bilirubin Negative (NEGATIVE) Urine Urobilinogen 4 MG/DL (0.0-1.0) H Urine Leukocyte Esterase 2+ (NEGATIVE) H Urine RBC 0-2 /HPF (0 - 0) H Urine WBC 2-4 /HPF (0 - 0) Urine Squamous Epithelial Cells None /LPF (NONE/OCC) Urine Bacteria Few /HPF (NONE) Urine Eosinophils None seen (NONE SEEN) Urine Random Creatinine Pending Urine Random Microalbumin Pending Urine Random Sodium 88 mmol/L (20-110) Urine Creatinine 105.2 MG/DL (30.0-125.0) Urine Microalbumin/Creatinine Ratio Pending Urine Potassium Timed 42 mmol/L (12-62) Urine Opiates Screen Negative (NEGATIVE) Urine Barbiturates Screen Negative (NEGATIVE) Phencyclidine (PCP) Screen Negative (NEGATIVE) Urine Amphetamines Screen Negative (NEGATIVE) Urine Benzodiazepines Screen Negative (NEGATIVE) Urine Cocaine Screen Positive (NEGATIVE) H Urine Marijuana (THC) Screen Negative (NEGATIVE) White Blood Count 2.5 K/UL (4.8-10.8) L Red Blood Count 3.13 M/UL (4.70-6.10) L Hemoglobin 10.4 G/DL (14.2-18.0) L Hematocrit 33.3 % (42.0-52.0) L Mean Corpuscular Volume 107 FL (80-99) H Mean Corpuscular Hemoglobin 33.3 PG (27.0-31.0) H Mean Corpuscular Hemoglobin Concent 31.2 G/DL (32.0-36.0) L Red Cell Distribution Width 13.2 % (11.6-14.8) Platelet Count 215 K/UL (150-450) Mean Platelet Volume 7.3 FL (6.5-10.1) Neutrophils (%) (Auto) % (45.0-75.0) Lymphocytes (%) (Auto) % (20.0-45.0) Monocytes (%) (Auto) % (1.0-10.0) Eosinophils (%) (Auto) % (0.0-3.0) Basophils (%) (Auto) % (0.0-2.0) Differential Total Cells Counted 100 Neutrophils % (Manual) 81 % (45-75) H Lymphocytes % (Manual) 18 % (20-45) L Monocytes % (Manual) 1 % (1-10) Eosinophils % (Manual) 0 % (0-3) Basophils % (Manual) 0 % (0-2) Band Neutrophils 0 % (0-8) Platelet Estimate Adequate Platelet Morphology Normal Macrocytosis 2+ Sodium Level 141 MMOL/L (136-145) Potassium Level 4.8 MMOL/L (3.5-5.1) Chloride Level 107 MMOL/L (98-107) Carbon Dioxide Level 25 MMOL/L (21-32) Anion Gap 9 mmol/L (5-15) Blood Urea Nitrogen 23 mg/dL (7-18) H Creatinine 1.5 MG/DL (0.55-1.30) H Estimat Glomerular Filtration Rate mL/min (>60) Glucose Level 131 MG/DL (74-106) H Calcium Level 8.8 MG/DL (8.5-10.1) Total Bilirubin 1.2 MG/DL (0.2-1.0) H Direct Bilirubin 0.5 MG/DL (0.0-0.3) H Aspartate Amino Transf (AST/SGOT) 41 U/L (15-37) H Alanine Aminotransferase (ALT/SGPT) 22 U/L (12-78) Alkaline Phosphatase 67 U/L (46-116) Troponin I 0.026 ng/mL (0.000-0.056) Pro-B-Type Natriuretic Peptide 3904 pg/mL (0-125) H Total Protein 6.4 G/DL (6.4-8.2) Albumin 2.9 G/DL (3.4-5.0) L Globulin 3.5 g/dL Albumin/Globulin Ratio 0.8 (1.0-2.7) L Height (Feet): 5 Height (Inches): 7.00 Weight (Pounds): 177 Medications Current Medications Medications (Trade) Dose Ordered Sig/Daria Route PRN Reason Start Time Stop Time Status Last Admin Dose Admin Acetaminophen (Tylenol) 650 mg Q4H PRN ORAL Fever 11/19/18 17:45 12/19/18 17:44 Acetaminophen/ Hydrocodone Bitart (Cal[place] 5/325) 1 tab Q6H PRN ORAL For Pain 11/19/18 17:45 11/26/18 17:44 11/21/18 08:29 Albuterol/ Ipratropium (Albuterol/ Ipratropium) 3 ml Q4H PRN HHN Shortness of Breath 11/19/18 17:45 11/24/18 17:44 11/20/18 20:34 Ceftriaxone Sodium 1 gm/ Dextrose 55 ml @ 110 mls/hr Q24H IVPB 11/20/18 16:00 11/27/18 15:59 11/20/18 17:09 Dextrose (Dextrose 50%) 25 ml Q30M PRN IV Hypoglycemia 11/19/18 17:45 12/19/18 17:44 Dextrose (Dextrose 50%) 50 ml Q30M PRN IV Hypoglycemia 11/19/18 17:45 12/19/18 17:44 Furosemide (Lasix) 40 mg DAILY IV 11/21/18 09:00 12/21/18 08:59 11/21/18 08:21 Heparin Sodium (Porcine) (Heparin 5000 units/ml) 5,000 units EVERY 12 HOURS SUBQ 11/19/18 21:00 12/19/18 20:59 11/21/18 08:25 Lorazepam (Ativan) 1 mg Q6H PRN ORAL For Anxiety 11/20/18 04:00 11/27/18 03:59 Methylprednisolone Sodium Succinate (Solu-MEDROL) 60 mg DAILY IV 11/22/18 09:00 12/20/18 17:59 Ondansetron HCl (Zofran) 4 mg Q6H PRN IVP Nausea & Vomiting 11/19/18 17:45 12/19/18 17:44 Polyethylene Glycol (Miralax) 17 gm DAILYPRN PRN ORAL Constipation 11/19/18 17:45 12/19/18 17:44 Promethazine HCl/ Codeine (Phenergan with Codeine) 5 ml Q4H PRN ORAL For Cough 11/20/18 13:30 12/20/18 13:29 Quetiapine Fumarate (SEROquel) 300 mg QHS ORAL 11/20/18 21:00 12/20/18 20:59 11/20/18 21:38 Temazepam (Restoril) 15 mg HSPRN PRN ORAL Insomnia 11/19/18 17:45 11/26/18 17:44 Theophylline (Al[place]-Dur) 100 mg EVERY 12 HOURS ORAL 11/20/18 21:00 12/20/18 20:59 11/21/18 08:21 Assessment and Recs: # Leukopenia pontetially related to hx drug use and medications, myelosuppresion of etoh use --> if the total ANC is less than 2000, consider neupogen --> continue antibiotics with ID service, appreciate recs --> medications have been reviewed --> hepatitis and hiv have been ordered # Anemia of chronic disease (or of iron deficiency) due to underlying chronic medical issues, multifactorial --> Anemia workup has been ordered --> No evidence of hemolysis is noted, peripheral smear has been reviewed. --> Hgb goal >7. Transfuse prn. --> Epogen or iron at this time is not particularly indicated --> Medications have been reviewed # Pulmonary edema vs PNA, CXR: right sided pleural effusion and possible hazy basilar consolidation appears improved. --> on ceftriaxone per id. There is suggestion of a small amount of pleural fluid on the left which appears unchanged. Generalized mild interstitial pulmonary congestion appears slightly improved. influenza sc neg --> continue to trend as needed # Bacteriuria -u/a no pyuria; nit neg, leuk+2; ucx C. freundi (R ancef, otherwise S) --> Continue empiric Ceftriaxone #3/ The timing of this note does not necessarily reflect the time of the patient was seen. Greatly appreciate consultation! Rj Escamilla MD Nov 22, 2018 17:23
--- NOTE | 2018-11-22 17:29 | Cardiology Progress Note ---
Assessment/Plan Assessment/Plan 1. Congestive heart failure. 2. Valvular heart disease, mitral regurgitation, tricuspid regurgitation, and aortic regurgitation. 3. History of cardiomyopathy. 4. History of CVA. 5. History of hypertension. 6. Tobacco use disorder. 7. Urine drug screen positive for cocaine. 8. Pulmonary hypertension. 9. Medication noncompliance 10. Mitraclip in place 11. 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 Subjective Cardiovascular: Denies: chest pain, lightheadedness Respiratory: Reports: shortness of breath Gastrointestinal/Abdominal: Denies: abdominal pain Genitourinary: Denies: burning Objective Last 24 Hour Vital Signs Date Time Temp Pulse Resp B/P (MAP) Pulse Ox O2 Delivery O2 Flow Rate FiO2 11/22/18 16:00 97.2 98 20 140/101 (114) 97 11/22/18 12:00 97.2 97 18 129/92 (104) 95 11/22/18 11:39 100 11/22/18 09:24 32 11/22/18 09:24 Nasal Cannula 3.0 32 11/22/18 09:24 94 Nasal Cannula 3.0 32 11/22/18 09:24 88 18 Nasal Cannula 3.0 32 11/22/18 09:24 88 18 94 Nasal Cannula 3.0 32 11/22/18 08:57 104 143/92 11/22/18 08:57 143/92 11/22/18 08:42 Nasal Cannula 6.0 Nasal Cannula 6.0 11/22/18 08:00 97.1 104 20 143/92 (109) 95 11/22/18 07:40 104 11/22/18 04:00 97 11/22/18 04:00 98.0 100 18 136/95 (109) 95 11/22/18 00:00 101 11/22/18 00:00 98.5 105 19 148/91 (110) 97 11/21/18 21:00 Nasal Cannula 6.0 Nasal Cannula 6.0 11/21/18 20:46 107 141/91 11/21/18 20:30 96 Nasal Cannula 3.0 32 11/21/18 20:30 Nasal Cannula 3.0 32 11/21/18 20:30 98 18 Nasal Cannula 3.0 32 11/21/18 20:00 107 11/21/18 20:00 98.4 107 20 141/91 (108) 97 Intake and Output 11/21/18 11/22/18 18:59 06:59 Intake Total 570 ml 300 ml Output Total 460 ml 600 ml Balance 110 ml -300 ml Intake Oral 570 ml 300 ml Output Urine Total 460 ml 600 ml Laboratory Tests Test 11/22/18 08:50 White Blood Count 6.9 K/UL (4.8-10.8) # Red Blood Count 3.48 M/UL (4.70-6.10) L Hemoglobin 11.5 G/DL (14.2-18.0) L Hematocrit 37.4 % (42.0-52.0) L Mean Corpuscular Volume 107 FL (80-99) H Mean Corpuscular Hemoglobin 33.1 PG (27.0-31.0) H Mean Corpuscular Hemoglobin Concent 30.8 G/DL (32.0-36.0) L Red Cell Distribution Width 13.3 % (11.6-14.8) Platelet Count 237 K/UL (150-450) Mean Platelet Volume 7.7 FL (6.5-10.1) Neutrophils (%) (Auto) 72.0 % (45.0-75.0) Lymphocytes (%) (Auto) 22.1 % (20.0-45.0) Monocytes (%) (Auto) 5.1 % (1.0-10.0) Eosinophils (%) (Auto) 0.1 % (0.0-3.0) Basophils (%) (Auto) 0.8 % (0.0-2.0) Sodium Level 140 MMOL/L (136-145) Potassium Level 4.5 MMOL/L (3.5-5.1) Chloride Level 106 MMOL/L (98-107) Carbon Dioxide Level 25 MMOL/L (21-32) Anion Gap 9 mmol/L (5-15) Blood Urea Nitrogen 30 mg/dL (7-18) H Creatinine 1.7 MG/DL (0.55-1.30) H Estimat Glomerular Filtration Rate mL/min (>60) Glucose Level 114 MG/DL (74-106) H Calcium Level 9.3 MG/DL (8.5-10.1) Microbiology Date/Time Source Procedure Growth Status 11/20/18 17:00 Sputum Gram Stain - Final Resulted 11/20/18 17:00 Sputum Culture - Preliminary Staphylococcus Aureus Usual Respiratory Jonelle Resulted Francisco J Nevarez MD Nov 22, 2018 17:29
--- NOTE | 2018-11-22 18:00 | NUR ---
NURSE NOTES: Patient refused labs to be drawn. Will be rescheduled by primary nurse for tomorrow morning labs.
--- NOTE | 2018-11-22 18:00 | Progress Note ---
DATE: 11/22/2018 SUBJECTIVE: The patient is a 73-year-old male with congestive heart failure. This patient has confusion, and disorganized thought process, decline in cognition below his baseline. Diagnosis is major depressive disorder, mild, recurrent with psychotic features. MENTAL STATUS EXAMINATION: A 73-year-old male. Appearance is disheveled. Attitude, irritable and agitated. Affect, guarded and restricted. Intellect poor. Mood, depressed and anxious. Motor activity, psychomotor agitation. Attention span is poor. Orientation x2. Speech is pressured. Thought process, disorganized and logical. Insight and judgment is poor. DIAGNOSIS: Major depressive disorder, mild, recurrent with psychotic features. PLAN: Treat him with psychotropic medications to stabilize his mood. Provided him with 20 minutes of reality-based supportive psychotherapy. Chart was reviewed and discussed with staff. Seen and assessed at bedside. 20 minutes of cognitive behavioral therapy provided to help him identify his automatic negative thoughts and help him convert those negative thoughts to more positive thoughts to reduce depression, anxiety, and mood lability. Lizzy Hyman M.D. DR: TAMARA JOB#: [id number] CC:
--- NOTE | 2018-11-22 19:00 | NUR ---
NURSE NOTES: Received pt. and report from TIFFANY Mohamud. Observe pt. resting in bed with both eyes closed. secured entrance monitor is in placed, IV site intact, asymptomatic and patent. Bed is in the lowest position and locked, call light within reach. No SOB or acute distress noted at this time. Will continue plan of care.
--- NOTE | 2018-11-22 19:10 | NUR ---
NURSE NOTES: Gave report to TIFFANY Zabala. Endorsed plan for thoracentesis tomorrow.
[2018-11-22 20:00] VITALS: BP 137/99
[2018-11-22] MEDS: QUEtiapine 200mg tab ORAL SCH (21:53)
[2018-11-23] VITALS: BP 148/105
--- NOTE | 2018-11-23 01:29 | Cardiology Report ---
APPROVED REPORT EKG Measurement Heart [id number] Sinus rhythm with fusion complexes Right bundle branch block Abnormal ECG
[2018-11-23 04:00] VITALS: BP 131/88
--- NOTE | 2018-11-23 07:20 | NUR ---
NURSE NOTES: Received pt. and report from TIFFANY Zabala. Observe pt. resting in bed with both eyes closed. monitoring and evaluation advisor is in placed, IV site intact, asymptomatic and patent. Bed is in the lowest position and locked, call light within reach. No SOB or acute distress noted at this time. Will continue plan of care.
--- NOTE | 2018-11-23 07:26 | NUR ---
HAND-OFF: Report given to TIFFANY Mohamud.
[2018-11-23 08:00] VITALS: BP 129/88
--- NOTE | 2018-11-23 08:01 | Nephrology Progress Note ---
Assessment/Plan Assessment/Plan A/P 1) LEANNA on CKD 3B- Cr at 1.7. AM LABS pending - Renal US atrophic left kidney - diuresed very well and now on po lasix 2) HTN- stable. VLADIMIR- I 3) CHF- diuresed very well. Lasix. Monitor Cr 4) UTI- Abx Subjective Date patient seen: Nov 23, 2018 Time patient seen: 07:57 ROS Limited/Unobtainable: No Allergies: Coded Allergies: GRAPEFRUIT (Unverified Allergy, Intermediate, Hives, 12/13/12) ORANGE (Verified Allergy, Unknown, 11/20/18) Subjective Patient much improved and feeling better Objective Last 24 Hour Vital Signs Date Time Temp Pulse Resp B/P (MAP) Pulse Ox O2 Delivery O2 Flow Rate FiO2 11/23/18 04:00 98.2 97 20 131/88 (102) 92 11/23/18 04:00 101 11/23/18 00:00 97.7 100 20 148/105 (119) 92 11/23/18 00:00 98 11/22/18 21:53 99 137/99 11/22/18 21:00 Nasal Cannula 4.0 Nasal Cannula 6.0 11/22/18 20:00 Room Air 21 11/22/18 20:00 94 Room Air 21 11/22/18 20:00 97 11/22/18 20:00 94 18 Room Air 21 11/22/18 20:00 97.4 99 20 137/99 (112) 94 11/22/18 16:00 97.2 98 20 140/101 (114) 97 11/22/18 15:59 96 11/22/18 12:00 97.2 97 18 129/92 (104) 95 11/22/18 11:39 100 11/22/18 09:24 32 11/22/18 09:24 Nasal Cannula 3.0 32 11/22/18 09:24 94 Nasal Cannula 3.0 32 11/22/18 09:24 88 18 Nasal Cannula 3.0 32 11/22/18 09:24 88 18 94 Nasal Cannula 3.0 32 11/22/18 08:57 104 143/92 11/22/18 08:57 143/92 11/22/18 08:42 Nasal Cannula 6.0 Nasal Cannula 6.0 11/22/18 08:00 97.1 104 20 143/92 (109) 95 Intake and Output 11/22/18 11/23/18 19:00 07:00 Intake Total 240 ml Output Total 1400 ml Balance -1160 ml Intake Oral 240 ml Output Urine Total 1400 ml # Voids 3 # Bowel Movements 1 Laboratory Tests 11/22/18 08:50: White Blood Count 6.9#, Red Blood Count 3.48L, Hemoglobin 11.5L, Hematocrit 37.4L, Mean Corpuscular Volume 107H, Mean Corpuscular Hemoglobin 33.1H, Mean Corpuscular Hemoglobin Concent 30.8L, Red Cell Distribution Width 13.3, Platelet Count 237, Mean Platelet Volume 7.7, Neutrophils (%) (Auto) 72.0, Lymphocytes (%) (Auto) 22.1, Monocytes (%) (Auto) 5.1, Eosinophils (%) (Auto) 0.1, Basophils (%) (Auto) 0.8, Reticulocyte Count 1.1, Sodium Level 140, Potassium Level 4.5, Chloride Level 106, Carbon Dioxide Level 25, Anion Gap 9, Blood Urea Nitrogen 30H, Creatinine 1.7H, Estimat Glomerular Filtration Rate , Glucose Level 114H, Calcium Level 9.3 Height (Feet): 5 Height (Inches): 7.00 Weight (Pounds): 173 General Appearance: no apparent distress, alert EENT: normal ENT inspection Neck: normal alignment, supple Cardiovascular: normal rate, regular rhythm Respiratory/Chest: rhonchi - bilaterally Abdomen: non tender, soft Edema: no edema noted Arm (L), no edema noted Arm (R), no edema noted Leg (L), no edema noted Leg (R), no edema noted Pedal (L), no edema noted Pedal (R), no edema noted Generalized Eugenio Ritchie MD Nov 23, 2018 08:01
--- NOTE | 2018-11-23 08:07 | NUR ---
NURSE NOTES: 8:00am Received report from Curtis Hurley, of +MRSA in sputum culture. 8:06am: Called Dr. Allen's office: . Left message. Awaiting call back. Addendum: 11/23/18 at 0844 by Cade Mcdaniel RN @8:42am Spoke to Dr. Allen. Dr. Allen is aware and will review.
[2018-11-23] MEDS: Heparin 5000 units/ml inj SUBQ SCH ×2 (09:00→20:58)
[2018-11-23] MEDS ORDERED: Furosemide 40mg tab ORAL SCH (09:00)
[2018-11-23] MEDS ORDERED: Solu-MEDROL 40mg Inj IVP SCH (09:00)
[2018-11-23] MEDS: Theophylline ER 100mg ORAL SCH ×2 (09:08→20:47)
[2018-11-23 09:15] LABS: BASOPHILS % (AUTO) 0.6 % (0.0-2.0); EOSINOPHILS % (AUTO) 0.5 % (0.0-3.0); HEMATOCRIT 36.7 % (42.0-52.0); HEMOGLOBIN 11.5 G/DL (14.2-18.0); LYMPHOCYTES % (AUTO) 34.4 % (20.0-45.0); MEAN CORPUSCULAR VOLUME 108 FL (80-99); NEUTROPHILS % (AUTO) 57.5 % (45.0-75.0); PLATELET COUNT 234 K/UL (150-450); RED CELL DISTRIBUTION WIDTH 13.3 % (11.6-14.8); WHITE BLOOD COUNT 5.3 K/UL (4.8-10.8)
[2018-11-23 09:32] LABS: % IRON SATURATION 20 % (15-50); IRON 56 ug/dL (50-175); TOTAL IRON BINDING CAPACITY 278 ug/dL (250-450)
[2018-11-23 09:33] LABS: LACTATE DEHYDROGENASE 591 U/L (135-225)
[2018-11-23 09:52] LABS: ANION GAP 10 mmol/L (5-15); BLOOD UREA NITROGEN 36 mg/dL (7-18); CALCIUM 8.7 MG/DL (8.5-10.1); CARBON DIOXIDE 26 MMOL/L (21-32); CHLORIDE 106 MMOL/L (98-107); CREATININE 1.8 MG/DL (0.55-1.30); FERRITIN 114 NG/ML (8-388); SODIUM 142 MMOL/L (136-145)
--- NOTE | 2018-11-23 10:59 | NUR ---
ST NOTE: BEDSIDE SWALLOW EVAL RECEIVED BEDSIDE SWALLOW EVAL ORDER CHART REVIEWED PRIOR EVALUATION PT IS A 73-YEAR-OLD MALE WHO WAS ADMITTED DUE TO CHF. DYSPHAGIA RISK FACTORS: ACUTE RESP FAILURE, SHORTNESS OF BREATH, ASTHMA, H/O CVA, H/O SEIZURE, HTN, FORMER ALCOHOLIC, DRUG USE(POSITIVE FOR COCAINE) PER CXR: Over one day, slight improvement of right-sided pleural effusion and generalized interstitial congestion PLOF: PT RESIDES AT HOME CURRENT STATUS: PT SEEN AT BEDSIDE IN AM. ALERT, COOPERATIVE, FOLLOWS SIMPLE DIRECTIONS, WITH NC(2-4L). MOUTH-BREATHER DURING SLEEP SPEECH IS SLOW AND SOMEWHAT UNINTELLIGIBLE(PROBABLE DYSARTHRIA) PER PT, IF TAKING A BIG BITE OF SCRAMBLE EGGS, WOULD HAVE PROBLEM TO SWALLOW GIVEN PO TRIALS: THIN([id number]), PUREE(TSP) AND CRACKER INITIAL IMPRESSION: PROBABLE MILD OR WORSENED OROPHARYNGEAL DYSPHAGIA MISSING SOME TEETH. MILDLY REDUCED LINGUAL MOVEMENT SLOW BUT FUNCTIONAL MASTICATION TIME GOOD ORAL TRANSIT TIME AND MILDLY INCREASED OROPHARYNGEAL TRANSIT TIME FAIR TO GOOD LARYNGEAL ELEVATION, NO OVERT S/S OF ASPIRATION. HAS HIGH RISK FOR ASPIRATION DUE TO PT'S RESP STATUS(SOMEWHAT DIFFICULTY IN BREATHING). RECOMMENDATIONS: 1. CONTINUE LOW SODIUM REGULAR WITH THIN LIQUIDS DIET (PER PT, REFUSED ANY DOWNGRADED DIET). 2. STRICT ASPIRATION/REFLUX PRECAUTIONS WITH DIRECT SUPERVISION 3. VIDEOSWALLOW STUDY IP OR OP. 4. SPEECH/LANGUAGE/COGNITION EVAL D/W PT AND RNGRETCHEN. POSTED ASPIRATION/REFLUX PRECAUTIONS SIGN.
--- NOTE | 2018-11-23 11:21 | Pulmonology Progress Note ---
Assessment/Plan Problems: (1) Urinary tract infection (2) MRSA pneumonia (3) Acute respiratory failure (4) COPD with acute exacerbation (5) ATN (acute tubular necrosis) (6) CHF (congestive heart failure) (7) Pleural effusion Assessment/Plan start bactrim po Respiratory treatment check bun/creatinine echo reviewed, EF 30% with echogenic material on mitral valve, D/w Dr. Nevarez. right effusion getting less continue abx titrate fio2 to sat of 92% hold lasix and lisinopril Renal US reviewed, scarred left kidney Subjective Interval Events: breathing better, less cough Allergies: Coded Allergies: GRAPEFRUIT (Unverified Allergy, Intermediate, Hives, 12/13/12) ORANGE (Verified Allergy, Unknown, 11/20/18) Objective Last 24 Hour Vital Signs Date Time Temp Pulse Resp B/P (MAP) Pulse Ox O2 Delivery O2 Flow Rate FiO2 11/23/18 09:09 99 125/75 11/23/18 08:15 Nasal Cannula 4.0 Nasal Cannula 2.0 11/23/18 08:00 98.1 99 23 /88 97 11/23/18 07:43 103 11/23/18 04:00 98.2 97 20 131/88 (102) 92 11/23/18 04:00 101 11/23/18 00:00 97.7 100 20 148/105 (119) 92 11/23/18 00:00 98 11/22/18 21:53 99 137/99 11/22/18 21:00 Nasal Cannula 4.0 Nasal Cannula 6.0 11/22/18 20:00 Room Air 21 11/22/18 20:00 94 Room Air 21 11/22/18 20:00 97 11/22/18 20:00 94 18 Room Air 21 11/22/18 20:00 97.4 99 20 137/99 (112) 94 11/22/18 16:00 97.2 98 20 140/101 (114) 97 11/22/18 15:59 96 11/22/18 12:00 97.2 97 18 129/92 (104) 95 11/22/18 11:39 100 Intake and Output 11/22/18 11/23/18 19:00 07:00 Intake Total 240 ml Output Total 1400 ml Balance -1160 ml Intake Oral 240 ml Output Urine Total 1400 ml # Voids 3 # Bowel Movements 1 General Appearance: WD/WN HEENT: normocephalic, atraumatic Respiratory/Chest: chest wall non-tender, crackles/rales Cardiovascular: normal peripheral pulses, normal rate Abdomen: normal bowel sounds, soft, non tender Genitourinary: normal external genitalia Extremities: no cyanosis Skin: no rash 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 grossly normal Microbiology Date/Time Source Procedure Growth Status 11/20/18 17:00 Sputum Gram Stain - Final Complete 11/20/18 17:00 Sputum Culture - Final Staphylococcus Aureus - Mrsa Usual Respiratory Jonelle Complete Laboratory Tests 11/23/18 08:45: White Blood Count 5.3, Red Blood Count 3.40L, Hemoglobin 11.5L, Hematocrit 36.7L , Mean Corpuscular Volume 108H, Mean Corpuscular Hemoglobin 33.9H, Mean Corpuscular Hemoglobin Concent 31.4L, Red Cell Distribution Width 13.3, Platelet Count 234, Mean Platelet Volume 7.4, Neutrophils (%) (Auto) 57.5, Lymphocytes (%) (Auto) 34.4, Monocytes (%) (Auto) 7.0, Eosinophils (%) (Auto) 0.5, Basophils (%) (Auto) 0.6, Reticulocyte Count 1.6, Prothrombin Time 10.9, Prothromb Time International Ratio 1.0, Activated Partial Thromboplast Time 29, Fibrinogen 298, Sodium Level 142, Potassium Level 4.0, Chloride Level 106, Carbon Dioxide Level 26, Anion Gap 10, Blood Urea Nitrogen 36H, Creatinine 1.8H , Estimat Glomerular Filtration Rate , Glucose Level 98, Calcium Level 8.7, Iron Level 56, Total Iron Binding Capacity 278, Percent Iron Saturation 20, Unsaturated Iron Binding 222, Ferritin 114, Lactate Dehydrogenase 591H, Prostate Specific Antigen 1.12, Folate 8.5L Current Medications Medications (Trade) Dose Ordered Sig/Daria Route PRN Reason Start Time Stop Time Status Last Admin Dose Admin Acetaminophen (Tylenol) 650 mg Q4H PRN ORAL Fever 11/19/18 17:45 12/19/18 17:44 Acetaminophen/ Hydrocodone Bitart ([place] 5/325) 1 tab Q6H PRN ORAL For Pain 11/19/18 17:45 11/26/18 17:44 11/21/18 08:29 Albuterol/ Ipratropium (Albuterol/ Ipratropium) 3 ml Q4H PRN HHN Shortness of Breath 11/19/18 17:45 11/24/18 17:44 11/22/18 09:24 Carvedilol (Coreg) 3.125 mg EVERY 12 HOURS ORAL 11/21/18 21:00 12/21/18 20:59 11/23/18 09:09 Ceftriaxone Sodium 1 gm/ Dextrose 55 ml @ 110 mls/hr Q24H IVPB 11/20/18 16:00 11/27/18 15:59 11/22/18 15:39 Dextrose (Dextrose 50%) 25 ml Q30M PRN IV Hypoglycemia 11/19/18 17:45 12/19/18 17:44 Dextrose (Dextrose 50%) 50 ml Q30M PRN IV Hypoglycemia 11/19/18 17:45 12/19/18 17:44 Heparin Sodium (Porcine) (Heparin 5000 units/ml) 5,000 units EVERY 12 HOURS SUBQ 11/19/18 21:00 12/19/18 20:59 11/22/18 09:02 Linezolid (Zyvox) 600 mg EVERY 12 HOURS ORAL 11/22/18 13:00 11/27/18 12:59 11/23/18 09:08 Lorazepam (Ativan) 1 mg Q6H PRN ORAL For Anxiety 11/20/18 04:00 11/27/18 03:59 Methylprednisolone Sodium Succinate (Solu-MEDROL) 40 mg DAILY IVP 11/23/18 09:00 12/20/18 17:59 11/23/18 09:08 Ondansetron HCl (Zofran) 4 mg Q6H PRN IVP Nausea & Vomiting 11/19/18 17:45 12/19/18 17:44 Polyethylene Glycol (Miralax) 17 gm DAILYPRN PRN ORAL Constipation 11/19/18 17:45 12/19/18 17:44 Promethazine HCl/ Codeine (Phenergan with Codeine) 5 ml Q4H PRN ORAL For Cough 11/20/18 13:30 12/20/18 13:29 Quetiapine Fumarate (SEROquel) 300 mg QHS ORAL 11/20/18 21:00 12/20/18 20:59 11/22/18 21:53 Temazepam (Restoril) 15 mg HSPRN PRN ORAL Insomnia 11/19/18 17:45 11/26/18 17:44 Theophylline ([place]-Dur) 100 mg EVERY 12 HOURS ORAL 11/20/18 21:00 12/20/18 20:59 11/23/18 09:08 Jese Murdock MD Nov 23, 2018 11:21
--- NOTE | 2018-11-23 12:20 | Pre-Procedure Note/Attestation ---
Pre-Procedure Note/Attestation Complete Prior to Procedure Planned Procedure: right Procedure Narrative: thoracentesis Indications for Procedure Pre-Operative Diagnosis: Pleural effusion Attestation I attest that I discussed the nature of the procedure; its benefits; risks and complications; and alternatives (and the risks and benefits of such alternatives ), prior to the procedure, with the patient (or the patient's legal sales representative [employer]). I attest that, if there was a reasonable possibility of needing a blood transfusion, the patient (or the patient's legal sales representative [employer]) was given the [facility] standardized written summary, pursuant to the Jose Elias Raemon Blood Safety Act ([place] Health and Safety Code # 1645, as amended). I attest that I re-evaluated the patient just prior to the surgery and that there has been no change in the patient's H&P, except as documented below: Gonzalo Umanzor MD Nov 23, 2018 12:20
--- NOTE | 2018-11-23 12:30 | NUR ---
NURSE NOTES: Patient left for thoracentesis procedure.
--- NOTE | 2018-11-23 12:31 | Brief Operative Note ---
Immediate Post Operative Note Operative Note Pre-op Diagnosis: Pleural effusion Procedure: R thoracentesis Post-op Diagnosis: same as pre-op Findings: consistent w/pre-op dx studies Surgeon: Chloe Jacobo Specimen: yes - 50 ml clear fluid sent to lab Complications: none Condition: stable Fluids: none Implant(s) used?: No Gonzalo Jacobo MD Nov 23, 2018 12:31
--- NOTE | 2018-11-23 12:57 | Diagnostic Imaging Report ---
Indication: Abdominal pain, abnormal renal function tests, abnormal liver function tests Technique: Mercado-scale and duplex images of the upper abdomen were obtained. Doppler interrogation of the pancreatic and hepatic vessels Comparison: Reference made to renal ultrasound 11/20/2018, abdomen pelvis CT 01/19/2015 Findings: Gallbladder does not demonstrate any gallstones. The gallbladder wall is thickened, measuring 6 mm thick. Sonographic Wu's sign is negative. Common bile duct measures 4 mm in diameter. No intrahepatic biliary ductal dilatation. Liver demonstrates normal echogenicity, no focal abnormality. Portal vein and hepatic veins are patent. Pancreas is unremarkable. . The spleen cannot be visualized Left kidney measures 10.1 cm in length. Right kidney measures 11.2 cm length. Both kidneys demonstrate normal echogenicity. There is no hydronephrosis. Left kidney demonstrates multiple cysts . There is saccular aneurysmal dilatation of the infrarenal abdominal aorta, which has a transverse diameter of 4 cm and AP diameter of 3.4 cm. It demonstrates some mural thrombus anteriorly . There is a right pleural effusion noted Impression: Positive for 4 x 3.4 cm infrarenal abdominal aortic aneurysm. This is also described on prior CT report, may have increased slightly in size. Short interval follow-up surveillance is recommended. Right pleural effusion Mildly thickened gallbladder wall, but no gallstones. Gallbladder wall thickening is probably secondary to whatever process is causing the pleural effusion. However, the possibility of acalculous acute cholecystitis should also be considered. Consider hepatobiliary nuclear scan for further evaluation if there is high clinical suspicion Negative for dilated bile ducts Nonvisualization of the spleen. Note that only a small splenules are seen on prior CT Incidental finding of left renal cysts
[2018-11-23 13:00] VITALS: BP 130/88
--- NOTE | 2018-11-23 13:15 | NUR ---
NURSE NOTES: Patient arrived back to 203-2. patient is breathing easy and unlabored on 2L NC. Site from puncture wound is intact and dry. Patient denies any breathing difficulty. Will continue to monitor.
--- NOTE | 2018-11-23 13:18 | Infectious Diseases Prog Note ---
Assessment/Plan Assessment/Plan Abx: Ceftriaxone 11/19- Assessment: Pulmonary edema vs PNA -CXR: Right sided pleural effusion and possible hazy basilar consolidation appears improved. There is suggestion of a small amount of pleural fluid on the left which appears unchanged. Generalized mild interstitial pulmonary congestion appears slightly improved. -influenza sc neg -sp cx MRSA ( S vanco, linezolid, bactrim , doxy) Afebrile Leukopenia, SP Bacteriuria -u/a no pyuria; nit neg, leuk+2; ucx C. freundi (R ancef, otherwise S) LEANNA on CKD 3 CHF former alcoholic COPD HTN CVA Plan: -Continue empiric Ceftriaxone #5/5 and add Linezolid #2/5 for MRSA -upon discharge can be transitioned to PO Doxycycline for 3 more days -f/u cx -Monitor CBC/CMP, temperatures -aspiration precautions -Nephro f/u Thank you for this consultation. Will continue to follow along with you. Discussed with RN. Subjective Allergies: Coded Allergies: GRAPEFRUIT (Unverified Allergy, Intermediate, Hives, 12/13/12) ORANGE (Verified Allergy, Unknown, 11/20/18) Subjective afebrile at 3l NC Objective Vital Signs Last 24 Hour Vital Signs Date Time Temp Pulse Resp B/P (MAP) Pulse Ox O2 Delivery O2 Flow Rate FiO2 11/23/18 09:09 99 125/75 11/23/18 08:15 Nasal Cannula 4.0 Nasal Cannula 2.0 11/23/18 08:00 98.1 99 23 /88 97 11/23/18 07:43 103 11/23/18 04:00 98.2 97 20 131/88 (102) 92 11/23/18 04:00 101 11/23/18 00:00 97.7 100 20 148/105 (119) 92 11/23/18 00:00 98 11/22/18 21:53 99 137/99 11/22/18 21:00 Nasal Cannula 4.0 Nasal Cannula 6.0 11/22/18 20:00 Room Air 21 11/22/18 20:00 94 Room Air 21 11/22/18 20:00 97 11/22/18 20:00 94 18 Room Air 21 11/22/18 20:00 97.4 99 20 137/99 (112) 94 11/22/18 16:00 97.2 98 20 140/101 (114) 97 11/22/18 15:59 96 Height (Feet): 5 Height (Inches): 7.00 Weight (Pounds): 173 Objective GENERAL: Calm in bed, oriented x2, in no acute distress. CARDIOVASCULAR: RRR, no murmurs. LUNGS: Poor air exchange. ABDOMEN: Bowel sounds distant. EXTREMITIES: No cyanosis or clubbing. 1+ edema. NEUROLOGIC: The patient moves all extremities, slightly weak. Microbiology Date/Time Source Procedure Growth Status 11/20/18 17:00 Sputum Gram Stain - Final Complete 11/20/18 17:00 Sputum Culture - Final Staphylococcus Aureus - Mrsa Usual Respiratory Jonelle Complete Laboratory Tests Test 11/23/18 08:45 White Blood Count 5.3 K/UL (4.8-10.8) Red Blood Count 3.40 M/UL (4.70-6.10) L Hemoglobin 11.5 G/DL (14.2-18.0) L Hematocrit 36.7 % (42.0-52.0) L Mean Corpuscular Volume 108 FL (80-99) H Mean Corpuscular Hemoglobin 33.9 PG (27.0-31.0) H Mean Corpuscular Hemoglobin Concent 31.4 G/DL (32.0-36.0) L Red Cell Distribution Width 13.3 % (11.6-14.8) Platelet Count 234 K/UL (150-450) Mean Platelet Volume 7.4 FL (6.5-10.1) Neutrophils (%) (Auto) 57.5 % (45.0-75.0) Lymphocytes (%) (Auto) 34.4 % (20.0-45.0) Monocytes (%) (Auto) 7.0 % (1.0-10.0) Eosinophils (%) (Auto) 0.5 % (0.0-3.0) Basophils (%) (Auto) 0.6 % (0.0-2.0) Reticulocyte Count 1.6 % (0.0-2.0) Prothrombin Time 10.9 SEC (9.30-11.50) Prothromb Time International Ratio 1.0 (0.9-1.1) Activated Partial Thromboplast Time 29 SEC (23-33) Fibrinogen 298 mg/dL (200-400) Sodium Level 142 MMOL/L (136-145) Potassium Level 4.0 MMOL/L (3.5-5.1) Chloride Level 106 MMOL/L (98-107) Carbon Dioxide Level 26 MMOL/L (21-32) Anion Gap 10 mmol/L (5-15) Blood Urea Nitrogen 36 mg/dL (7-18) H Creatinine 1.8 MG/DL (0.55-1.30) H Estimat Glomerular Filtration Rate mL/min (>60) Glucose Level 98 MG/DL (74-106) Calcium Level 8.7 MG/DL (8.5-10.1) Iron Level 56 ug/dL (50-175) Total Iron Binding Capacity 278 ug/dL (250-450) Percent Iron Saturation 20 % (15-50) Unsaturated Iron Binding 222 ug/dL (112-346) Ferritin 114 NG/ML (8-388) Lactate Dehydrogenase 591 U/L (135-225) H Prostate Specific Antigen 1.12 ng/mL (0.13-4.0) Folate 8.5 NG/ML (8.6-58.9) L Current Medications Medications (Trade) Dose Ordered Sig/Daria Route PRN Reason Start Time Stop Time Status Last Admin Dose Admin Acetaminophen (Tylenol) 650 mg Q4H PRN ORAL Fever 11/19/18 17:45 12/19/18 17:44 Acetaminophen/ Hydrocodone Bitart ([place] 5/325) 1 tab Q6H PRN ORAL For Pain 11/19/18 17:45 11/26/18 17:44 11/21/18 08:29 Albuterol/ Ipratropium (Albuterol/ Ipratropium) 3 ml Q4H PRN HHN Shortness of Breath 11/19/18 17:45 11/24/18 17:44 11/22/18 09:24 Carvedilol (Coreg) 3.125 mg EVERY 12 HOURS ORAL 11/21/18 21:00 12/21/18 20:59 11/23/18 09:09 Ceftriaxone Sodium 1 gm/ Dextrose 55 ml @ 110 mls/hr Q24H IVPB 11/20/18 16:00 11/27/18 15:59 11/22/18 15:39 Dextrose (Dextrose 50%) 25 ml Q30M PRN IV Hypoglycemia 11/19/18 17:45 12/19/18 17:44 Dextrose (Dextrose 50%) 50 ml Q30M PRN IV Hypoglycemia 11/19/18 17:45 12/19/18 17:44 Heparin Sodium (Porcine) (Heparin 5000 units/ml) 5,000 units EVERY 12 HOURS SUBQ 11/19/18 21:00 12/19/18 20:59 11/22/18 09:02 Linezolid (Zyvox) 600 mg EVERY 12 HOURS ORAL 11/22/18 13:00 11/27/18 12:59 11/23/18 09:08 Lorazepam (Ativan) 1 mg Q6H PRN ORAL For Anxiety 11/20/18 04:00 11/27/18 03:59 Ondansetron HCl (Zofran) 4 mg Q6H PRN IVP Nausea & Vomiting 11/19/18 17:45 12/19/18 17:44 Polyethylene Glycol (Miralax) 17 gm DAILYPRN PRN ORAL Constipation 11/19/18 17:45 12/19/18 17:44 Promethazine HCl/ Codeine (Phenergan with Codeine) 5 ml Q4H PRN ORAL For Cough 11/20/18 13:30 12/20/18 13:29 Quetiapine Fumarate (SEROquel) 300 mg QHS ORAL 11/20/18 21:00 12/20/18 20:59 11/22/18 21:53 Temazepam (Restoril) 15 mg HSPRN PRN ORAL Insomnia 11/19/18 17:45 11/26/18 17:44 Theophylline ([place]) 100 mg EVERY 12 HOURS ORAL 11/20/18 21:00 12/20/18 20:59 11/23/18 09:08 Nena Allen M.D. Nov 23, 2018 13:18
--- NOTE | 2018-11-23 15:04 | NUR ---
RD ASSESSMENT & RECOMMENDATIONS SEE CARE ACTIVITY FOR COMPLETE ASSESSMENT DAILY ESTIMATED NEEDS: Needs based on CHF, 70kg abw 25-30 kcals/kg 6055-9950 total kcals 1-1.2 g protein/kg 70-84 g total protein 20-22 mL/kg 5208-7365 total fluid mLs NUTRITION DIAGNOSIS: Altered nutrition related lab values R/T CHF, clinical condition as evidenced by elev BNP (3904), elev creat (1.8), low folate (8.5) CURRENT DIET:LOW NA PO DIET RECOMMENDATIONS: LOW NA/ texture per MANAGEMENT INSTRUCTOR (Per MANAGEMENT INSTRUCTOR, ok for regular, thin liquids) ADDITIONAL RECOMMENDATIONS: * Standing daily wt for accurate monitoring * add folic acid 1mg QD (low folate) * Monitor lytes closely w/ diuretics - lasix held at this time
--- NOTE | 2018-11-23 15:16 | Diagnostic Imaging Report ---
Indications: Pleural effusion Technique: Ultrasound used to localize optimal puncture site. Sterile prepping and draping right chest. Local anesthesia with 1% lidocaine. Under real-time ultrasound guidance, puncture pleural space using thoracentesis needle. Stylet removed. Catheter placed to vacuum bottle suction. Total 950 milliliters of fluid aspirated. Patient tolerated procedure well, without immediate complication. Findings: Followup sonography demonstrates complete resolution of pleural fluid. Impression: Successful ultrasound-guided thoracentesis, yielding 950 milliliters of fluid
--- NOTE | 2018-11-23 15:27 | General Progress Note ---
Assessment/Plan Problem List: (1) Anemia ICD Codes: D64.9 - Anemia, unspecified SNOMED: 155357056 (2) SOB (shortness of breath) ICD Codes: R06.02 - Shortness of breath SNOMED: 275450508 (3) Edema ICD Codes: R60.9 - Edema, unspecified SNOMED: 459835182, 742556397 (4) Asthma ICD Codes: J45.909 - Unspecified asthma, uncomplicated SNOMED: 220955690 (5) Pleural effusion ICD Codes: J90 - Pleural effusion, not elsewhere classified SNOMED: 65284833 (6) CHF (congestive heart failure) ICD Codes: I50.9 - Heart failure, unspecified SNOMED: 60125865 (7) Urinary tract infection ICD Codes: N39.0 - Urinary tract infection, site not specified SNOMED: 38817809 Status: stable, progressing Assessment/Plan o2 pulm tx abx pt diet cbc bmp am Subjective Constitutional: Reports: weakness Allergies: Coded Allergies: GRAPEFRUIT (Unverified Allergy, Intermediate, Hives, 12/13/12) ORANGE (Verified Allergy, Unknown, 11/20/18) All Systems: reviewed and negative except above Subjective o2nc sl sob Objective Last 24 Hour Vital Signs Date Time Temp Pulse Resp B/P (MAP) Pulse Ox O2 Delivery O2 Flow Rate FiO2 11/23/18 13:00 97.6 96 20 130/88 (102) 96 11/23/18 09:09 99 125/75 11/23/18 08:15 Nasal Cannula 4.0 Nasal Cannula 2.0 11/23/18 08:00 98.1 99 23 129/88 (102) 97 11/23/18 07:43 103 11/23/18 04:00 98.2 97 20 131/88 (102) 92 11/23/18 04:00 101 11/23/18 00:00 97.7 100 20 148/105 (119) 92 11/23/18 00:00 98 11/22/18 21:53 99 137/99 11/22/18 21:00 Nasal Cannula 4.0 Nasal Cannula 6.0 11/22/18 20:00 Room Air 21 11/22/18 20:00 94 Room Air 21 11/22/18 20:00 97 11/22/18 20:00 94 18 Room Air 21 11/22/18 20:00 97.4 99 20 137/99 (112) 94 11/22/18 16:00 97.2 98 20 140/101 (114) 97 11/22/18 15:59 96 Intake and Output 11/22/18 11/23/18 18:59 06:59 Intake Total 240 ml Output Total 1400 ml Balance -1160 ml Intake Oral 240 ml Output Urine Total 1400 ml # Voids 3 # Bowel Movements 1 Laboratory Tests 11/23/18 08:45: White Blood Count 5.3, Red Blood Count 3.40L, Hemoglobin 11.5L, Hematocrit 36.7L , Mean Corpuscular Volume 108H, Mean Corpuscular Hemoglobin 33.9H, Mean Corpuscular Hemoglobin Concent 31.4L, Red Cell Distribution Width 13.3, Platelet Count 234, Mean Platelet Volume 7.4, Neutrophils (%) (Auto) 57.5, Lymphocytes (%) (Auto) 34.4, Monocytes (%) (Auto) 7.0, Eosinophils (%) (Auto) 0.5, Basophils (%) (Auto) 0.6, Reticulocyte Count 1.6, Prothrombin Time 10.9, Prothromb Time International Ratio 1.0, Activated Partial Thromboplast Time 29, Fibrinogen 298, Sodium Level 142, Potassium Level 4.0, Chloride Level 106, Carbon Dioxide Level 26, Anion Gap 10, Blood Urea Nitrogen 36H, Creatinine 1.8H , Estimat Glomerular Filtration Rate , Glucose Level 98, Calcium Level 8.7, Iron Level 56, Total Iron Binding Capacity 278, Percent Iron Saturation 20, Unsaturated Iron Binding 222, Ferritin 114, Lactate Dehydrogenase 591H, Prostate Specific Antigen 1.12, Folate 8.5L 11/23/18 13:17: Body Fluid pH 8.5 Height (Feet): 5 Height (Inches): 7.00 Weight (Pounds): 173 General Appearance: lethargic EENT: normal ENT inspection Neck: normal alignment Cardiovascular: normal peripheral pulses, normal rate, regular rhythm Respiratory/Chest: chest wall non-tender, lungs clear, normal breath sounds Abdomen: normal bowel sounds, non tender, soft Extremities: normal inspection Edema: 1+ Arm (L), 1+ Arm (R), 1+ Leg (L), 1+ Leg (R), 1+ Pedal (L), 1+ Pedal ( R), 1+ Generalized Edema: trace edema Neurologic: motor weakness Skin: normal pigmentation, warm/dry Reji Arrieta DO Nov 23, 2018 15:27
--- NOTE | 2018-11-23 15:49 | General Progress Note ---
Assessment/Plan Assessment/Plan Assessment and Recs: # Leukopenia pontetially related to hx drug use and medications, myelosuppresion of etoh use --> if the total ANC is less than 2000, consider neupogen --> continue antibiotics with ID service, appreciate recs --> medications have been reviewed --> hepatitis and hiv are negative # Anemia of chronic disease dye to mulfactorial causes --> anemia panel has beenr reviewed, ferritin is 114, tibc >200 --> No evidence of hemolysis is noted, peripheral smear has been reviewed. --> Hgb goal >7. Transfuse prn. --> Epogen or iron at this time is not particularly indicated --> Medications have been reviewed # Pulmonary edema vs PNA, CXR: right sided pleural effusion and possible hazy basilar consolidation appears improved. --> on ceftriaxone per id. There is suggestion of a small amount of pleural fluid on the left which appears unchanged. Generalized mild interstitial pulmonary congestion appears slightly improved. influenza sc neg --> continue to trend as needed --> s/p thora 11/22 # Bacteriuria -u/a no pyuria; nit neg, leuk+2; ucx C. freundi (R ancef, otherwise S) --> Continue empiric Ceftriaxone as per id The timing of this note does not necessarily reflect the time of the patient was seen. Greatly appreciate consultation! Subjective HEENT: Denies: no symptoms, eye pain, blurred vision, tearing, double vision, ear pain, ear discharge, nose pain, nose congestion, throat pain, throat swelling, mouth pain, mouth swelling, other Cardiovascular: Denies: no symptoms, chest pain, edema, irregular heart rate, lightheadedness, palpitations, syncope, other Respiratory: Denies: no symptoms, cough, orthopnea, shortness of breath, SOB with excertion, SOB at rest, sputum, stridor, wheezing, other Gastrointestinal/Abdominal: Denies: no symptoms, abdomen distended, abdominal pain, black stools, tarry stools, blood in stool, constipated, diarrhea, difficulty swallowing, nausea, poor appetite, poor fluid intake, rectal bleeding , vomiting, other Neurologic/Psychiatric: Denies: no symptoms, anxiety, depressed, emotional problems, headache, numbness, paresthesia, pre-existing deficit, seizure, tingling, tremors, weakness, other Allergies: Coded Allergies: GRAPEFRUIT (Unverified Allergy, Intermediate, Hives, 12/13/12) ORANGE (Verified Allergy, Unknown, 11/20/18) Subjective 11/23: s/p thora was completed, breathing on nc 2L Objective Last 24 Hour Vital Signs Date Time Temp Pulse Resp B/P (MAP) Pulse Ox O2 Delivery O2 Flow Rate FiO2 11/23/18 13:00 97.6 96 20 130/88 (102) 96 11/23/18 09:09 99 125/75 11/23/18 08:15 Nasal Cannula 4.0 Nasal Cannula 2.0 11/23/18 08:00 98.1 99 23 129/88 (102) 97 11/23/18 07:43 103 11/23/18 04:00 98.2 97 20 131/88 (102) 92 11/23/18 04:00 101 11/23/18 00:00 97.7 100 20 148/105 (119) 92 11/23/18 00:00 98 11/22/18 21:53 99 137/99 11/22/18 21:00 Nasal Cannula 4.0 Nasal Cannula 6.0 11/22/18 20:00 Room Air 21 11/22/18 20:00 94 Room Air 21 11/22/18 20:00 97 11/22/18 20:00 94 18 Room Air 21 11/22/18 20:00 97.4 99 20 137/99 (112) 94 11/22/18 16:00 97.2 98 20 140/101 (114) 97 11/22/18 15:59 96 Intake and Output 11/22/18 11/23/18 18:59 06:59 Intake Total 240 ml Output Total 1400 ml Balance -1160 ml Intake Oral 240 ml Output Urine Total 1400 ml # Voids 3 # Bowel Movements 1 Laboratory Tests 11/23/18 08:45: White Blood Count 5.3, Red Blood Count 3.40L, Hemoglobin 11.5L, Hematocrit 36.7L , Mean Corpuscular Volume 108H, Mean Corpuscular Hemoglobin 33.9H, Mean Corpuscular Hemoglobin Concent 31.4L, Red Cell Distribution Width 13.3, Platelet Count 234, Mean Platelet Volume 7.4, Neutrophils (%) (Auto) 57.5, Lymphocytes (%) (Auto) 34.4, Monocytes (%) (Auto) 7.0, Eosinophils (%) (Auto) 0.5, Basophils (%) (Auto) 0.6, Reticulocyte Count 1.6, Prothrombin Time 10.9, Prothromb Time International Ratio 1.0, Activated Partial Thromboplast Time 29, Fibrinogen 298, Sodium Level 142, Potassium Level 4.0, Chloride Level 106, Carbon Dioxide Level 26, Anion Gap 10, Blood Urea Nitrogen 36H, Creatinine 1.8H , Estimat Glomerular Filtration Rate , Glucose Level 98, Calcium Level 8.7, Iron Level 56, Total Iron Binding Capacity 278, Percent Iron Saturation 20, Unsaturated Iron Binding 222, Ferritin 114, Lactate Dehydrogenase 591H, Prostate Specific Antigen 1.12, Folate 8.5L 11/23/18 13:17: Body Fluid pH 8.5 Height (Feet): 5 Height (Inches): 7.00 Weight (Pounds): 173 Objective Physical Exam: GENERAL: Calm in bed, oriented x2, in no acute distress. CARDIOVASCULAR: RRR, no murmurs. LUNGS: Poor air exchange. ABDOMEN: Bowel sounds distant. EXTREMITIES: No cyanosis or clubbing. 1+ edema. NEUROLOGIC: The patient moves all extremities, slightly weak. Rj Escamilla MD Nov 23, 2018 15:49
[2018-11-23 16:00] VITALS: BP 124/89
--- NOTE | 2018-11-23 16:19 | Diagnostic Imaging Report ---
Indication: Postthoracentesis Technique: One view of the chest Comparison: 11/21/2018 Findings: Interim resolution of previously demonstrated right-sided pleural effusion. No pneumothorax demonstrated. The heart remains enlarged. Minimal interstitial congestive changes are again noted. Clips project over the heart. Impression: Resolved right pleural effusion, status post thoracentesis. No radiographic evident complication Other stable findings as described
[2018-11-23] MEDS: cefTRIAXone 1 GM in D5W 55 ML IVPB SCH (17:13)
--- NOTE | 2018-11-23 17:15 | Progress Note ---
DATE: 11/23/2018 SUBJECTIVE: This is a 73-year-old patient with congestive heart failure. This patient continues to have some confusion, some disorganized thought process, decline in cognition below his baseline. That is why, his attending physician has requested daily psychiatric consultation. DIAGNOSIS: Paranoid schizophrenia with acute exacerbation. MENTAL STATUS EXAMINATION: This patient is to 73-year-old male. Appearance disheveled. Attitude, irritable and agitated. Affect, guarded and restricted. Intellect poor. Mood depressed and anxious. Motor activity, psychomotor agitation. Attention span is poor. Orientation x2. Speech is pressured. Thought process, disorganized and illogical. Insight and judgment is poor. PLAN: For this patient is to treat the patient with Seroquel 300 mg at bedtime, Ativan 1 mg p.r.n. anxiety. Provide the patient with 20 minutes of reality-based supportive psychotherapy. Encourage the patient to interact appropriately with staff. Provide this patient 20 minutes of cognitive behavioral therapy to help this patient identify his automatic negative thoughts and help to convert those negative thoughts to more positive thoughts to reduce depression, anxiety, and suicidality. 20 minutes of cognitive behavioral therapy provided. Chart reviewed. Discussed with staff. Seen and assessed at bedside. Lizzy Hyman M.D. DR: GILBERTO JOB#: [id number] CC:
[2018-11-23] MEDS ORDERED: Bactrim-DS 1 tab ORAL SCH (18:00)
--- NOTE | 2018-11-23 19:15 | NUR ---
NURSE NOTES: Received pt. and report from TIFFANY Mhoamud. Observe pt. resting in bed with both eyes closed. phototypesetting equipment monitor is in placed, IV site intact, asymptomatic and patent. Bed is in the lowest position and locked, call light within reach. Thoracentesis site is dry and covered; no bleeding noted. No SOB or acute distress noted at this time. Will continue plan of care.
--- NOTE | 2018-11-23 19:22 | NUR ---
HAND-OFF: Report given to TIFFANY Zabala. Patient is sleeping in bed. Patient breathing even and unlabored.
--- NOTE | 2018-11-23 19:59 | Cardiology Progress Note ---
Assessment/Plan Assessment/Plan 1. Congestive heart failure. 2. Valvular heart disease, mitral regurgitation, tricuspid regurgitation, and aortic regurgitation. 3. History of cardiomyopathy. 4. History of CVA. 5. History of hypertension. 6. Tobacco use disorder. 7. Urine drug screen positive for cocaine. 8. Pulmonary hypertension. 9. Medication noncompliance 10. Mitraclip in place 11. 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 noted Subjective Cardiovascular: Denies: chest pain, lightheadedness Respiratory: Denies: shortness of breath Gastrointestinal/Abdominal: Denies: abdominal pain Genitourinary: Denies: burning Objective Last 24 Hour Vital Signs Date Time Temp Pulse Resp B/P (MAP) Pulse Ox O2 Delivery O2 Flow Rate FiO2 11/23/18 16:00 98.0 92 20 124/89 (101) 97 11/23/18 13:00 97.6 96 20 130/88 (102) 96 11/23/18 09:09 99 125/75 11/23/18 08:15 Nasal Cannula 4.0 Nasal Cannula 2.0 11/23/18 08:00 98.1 99 23 129/88 (102) 97 11/23/18 07:43 103 11/23/18 04:00 98.2 97 20 131/88 (102) 92 11/23/18 04:00 101 11/23/18 00:00 97.7 100 20 148/105 (119) 92 11/23/18 00:00 98 11/22/18 21:53 99 137/99 11/22/18 21:00 Nasal Cannula 4.0 Nasal Cannula 6.0 11/22/18 20:00 Room Air 21 11/22/18 20:00 94 Room Air 21 11/22/18 20:00 97 11/22/18 20:00 94 18 Room Air 21 11/22/18 20:00 97.4 99 20 137/99 (112) 94 General Appearance: alert, patient on isolation Neck: supple Cardiovascular: normal rate Respiratory/Chest: lungs clear Abdomen: normal bowel sounds, non tender, soft Extremities: trace edema Intake and Output 11/22/18 11/23/18 18:59 06:59 Intake Total 240 ml Output Total 1400 ml Balance -1160 ml Intake Oral 240 ml Output Urine Total 1400 ml # Voids 3 # Bowel Movements 1 Laboratory Tests Test 11/23/18 08:45 11/23/18 13:17 White Blood Count 5.3 K/UL (4.8-10.8) Red Blood Count 3.40 M/UL (4.70-6.10) L Hemoglobin 11.5 G/DL (14.2-18.0) L Hematocrit 36.7 % (42.0-52.0) L Mean Corpuscular Volume 108 FL (80-99) H Mean Corpuscular Hemoglobin 33.9 PG (27.0-31.0) H Mean Corpuscular Hemoglobin Concent 31.4 G/DL (32.0-36.0) L Red Cell Distribution Width 13.3 % (11.6-14.8) Platelet Count 234 K/UL (150-450) Mean Platelet Volume 7.4 FL (6.5-10.1) Neutrophils (%) (Auto) 57.5 % (45.0-75.0) Lymphocytes (%) (Auto) 34.4 % (20.0-45.0) Monocytes (%) (Auto) 7.0 % (1.0-10.0) Eosinophils (%) (Auto) 0.5 % (0.0-3.0) Basophils (%) (Auto) 0.6 % (0.0-2.0) Reticulocyte Count 1.6 % (0.0-2.0) Prothrombin Time 10.9 SEC (9.30-11.50) Prothromb Time International Ratio 1.0 (0.9-1.1) Activated Partial Thromboplast Time 29 SEC (23-33) Fibrinogen 298 mg/dL (200-400) Sodium Level 142 MMOL/L (136-145) Potassium Level 4.0 MMOL/L (3.5-5.1) Chloride Level 106 MMOL/L (98-107) Carbon Dioxide Level 26 MMOL/L (21-32) Anion Gap 10 mmol/L (5-15) Blood Urea Nitrogen 36 mg/dL (7-18) H Creatinine 1.8 MG/DL (0.55-1.30) H Estimat Glomerular Filtration Rate mL/min (>60) Glucose Level 98 MG/DL (74-106) Calcium Level 8.7 MG/DL (8.5-10.1) Iron Level 56 ug/dL (50-175) Total Iron Binding Capacity 278 ug/dL (250-450) Percent Iron Saturation 20 % (15-50) Unsaturated Iron Binding 222 ug/dL (112-346) Ferritin 114 NG/ML (8-388) Lactate Dehydrogenase 591 U/L (135-225) H Prostate Specific Antigen 1.12 ng/mL (0.13-4.0) Folate 8.5 NG/ML (8.6-58.9) L Body Fluid pH 8.5 Francisco J Nevarez MD Nov 23, 2018 19:59
[2018-11-23 20:00] VITALS: BP 130/87
[2018-11-23] MEDS: QUEtiapine 200mg tab ORAL SCH (20:47)
--- NOTE | 2018-11-23 22:30 | NUR ---
7 Addendum: 11/24/18 at 0041 by Victoria Bonner Mai, RN TRANSFER TO FLOOR: Patient transferred to [facility] [place] at 2230, per Dr. Murdcok. Pt. transferred via bed to unit without any incident. Report given to TIFFANY Beckwith. Belongings list checked and accounted. Medications given to TIFFANY Beckwith. Pt. is in stable condition. Orders transferred.
--- NOTE | 2018-11-23 23:00 | NUR ---
NURSE NOTES: Patient transferred to [facility] from [facility] at 2230, per Dr. Murdock. Pt. transferred via bed to unit without any incident. Report received from My, RN. Belongings list checked and accounted. Pt. is in stable condition, able to verbalize needs, no c/o of pain at this time.
[2018-11-23] MEDS ORDERED: HYDROcodone/Acetamin 5/325 tab ORAL PRN (23:45)
[2018-11-24] VITALS: BP 127/76
--- NOTE | 2018-11-24 01:27 | Physician Query ---
--------- THIS DOCUMENT IS A PERMANENT PART OF THE MEDICAL RECORD --------- PLEASE COMPLETE THE DOCUMENT BEFORE SIGNING Dear Dr. Nevarez Date: 11/23/18 Education Trainer/CDS Name: Ruma CORRAL Education Trainer / CDS Phone # Exercise your independent professional judgment when responding to query. Question asked do not imply a particular answer is desired/expected Clinical Documentation States: "Congestive Heart Failure / CHF" documented in H&P and Cardiology consultation note. Clinical Findings Show: BNP = 3904 MG/DL Echocardiogram LVEF = 30-35% On dialysis Please Clarify: Acuity [] Acute [] Chronic [] Acute on Chronic Type [] Systolic [] Diastolic [] Systolic & Diastolic (Combined) [] Left Heart failure [] Other: Etiology [] CHF due to Hypertension [] Cardiomyopathy [] Valvular Heart Disease [] Coronary Artery Disease [] Unable to determine [] Other: Condition Present on Admission: [] Yes [] No []Clinically Undeterminable Please also document in your Progress Notes and/or Discharge Summary and indicate if the condition was present on admission. ANDER NEVAREZ M.D. DATE & TIME [facility]
[2018-11-24] MEDS ORDERED: Promethazine/Codeine 5ml UD ORAL PRN (01:30)
[2018-11-24] MEDS ORDERED: Albuterol/Ipratropium 3ml neb HHN PRN (01:45)
[2018-11-24 04:00] VITALS: BP 108/74
[2018-11-24] MEDS ORDERED: LORazepam 1mg tab ORAL PRN (04:00)
[2018-11-24 07:06] LABS: BASOPHILS % (AUTO) 0.9 % (0.0-2.0); EOSINOPHILS % (AUTO) 0.8 % (0.0-3.0); HEMATOCRIT 35.3 % (42.0-52.0); HEMOGLOBIN 11.1 G/DL (14.2-18.0); LYMPHOCYTES % (AUTO) 38.6 % (20.0-45.0); MEAN CORPUSCULAR VOLUME 107 FL (80-99); MONOCYTES % (AUTO) 6.6 % (1.0-10.0); PLATELET COUNT 214 K/UL (150-450); RED BLOOD COUNT 3.32 M/UL (4.70-6.10); WHITE BLOOD COUNT 4.4 K/UL (4.8-10.8)
[2018-11-24 07:23] LABS: ANION GAP 9 mmol/L (5-15); BLOOD UREA NITROGEN 33 mg/dL (7-18); CALCIUM 8.7 MG/DL (8.5-10.1); CARBON DIOXIDE 27 MMOL/L (21-32); CHLORIDE 107 MMOL/L (98-107); CREATININE 1.4 MG/DL (0.55-1.30); POTASSIUM 4.5 MMOL/L (3.5-5.1); SODIUM 142 MMOL/L (136-145)
--- NOTE | 2018-11-24 07:24 | NUR ---
HAND-OFF: Report given to TIFFANY Manrique.
--- NOTE | 2018-11-24 07:30 | NUR ---
NURSE NOTES: Received pt from TIFFANY BARCLAY. Pt is orient x3. pt has NC 2lmp. pt has intact iv access LFA 22G SL. all needs attended, bed is locked and is in the lowest position. call light within easy reach. will continue to monitor.
[2018-11-24 08:00] VITALS: BP 103/66
[2018-11-24] MEDS: Theophylline ER 100mg ORAL SCH ×2 (08:27→21:40)
[2018-11-24] MEDS: Heparin 5000 units/ml inj SUBQ SCH ×2 (08:34→21:42)
--- NOTE | 2018-11-24 09:22 | Nephrology Progress Note ---
Assessment/Plan Assessment/Plan A/P 1) CKD 3B- Cr down to 1.4 - Renal US atrophic left kidney - diuresed very well and now on po lasix 2) HTN- stable. OK to use VLADIMIR- I 3) CHF- diuresed very well. Lasix. Monitor Cr as at 1.4 4) UTI- Abx Subjective Date patient seen: Nov 24, 2018 Time patient seen: 09:21 ROS Limited/Unobtainable: No Allergies: Coded Allergies: GRAPEFRUIT (Unverified Allergy, Intermediate, Hives, 12/13/12) ORANGE (Verified Allergy, Unknown, 11/20/18) Subjective Patient feels better Objective Last 24 Hour Vital Signs Date Time Temp Pulse Resp B/P (MAP) Pulse Ox O2 Delivery O2 Flow Rate FiO2 11/24/18 08:28 94 103/66 11/24/18 08:00 97.3 94 19 103/66 (78) 94 11/24/18 04:00 97.0 95 17 108/74 (85) 95 11/24/18 00:00 98.3 97 18 127/76 (93) 95 11/23/18 21:00 Nasal Cannula 2.0 Nasal Cannula 2.0 11/23/18 20:51 130/87 11/23/18 20:51 94 130/87 11/23/18 20:28 97 Room Air 2.0 28 11/23/18 20:28 92 18 Nasal Cannula 2.0 28 11/23/18 20:28 Nasal Cannula 2.0 28 11/23/18 20:00 97.9 94 20 130/87 (101) 93 11/23/18 16:00 98.0 92 20 124/89 (101) 97 11/23/18 13:00 97.6 96 20 130/88 (102) 96 Intake and Output 11/23/18 11/24/18 19:00 07:00 Intake Total 300 ml Output Total 800 ml Balance -800 ml 300 ml Intake Oral 300 ml Output Urine Total 800 ml # Voids 3 Laboratory Tests 11/23/18 13:17: Body Fluid pH 8.5, Body Fluid Glucose [Pending], Body Fluid Total Protein [ Pending] 11/24/18 04:45: White Blood Count 4.4L, Red Blood Count 3.32L, Hemoglobin 11.1L, Hematocrit 35.3L, Mean Corpuscular Volume 107H, Mean Corpuscular Hemoglobin 33.5H, Mean Corpuscular Hemoglobin Concent 31.5L, Red Cell Distribution Width 13.0, Platelet Count 214, Mean Platelet Volume 7.1, Neutrophils (%) (Auto) 53.0, Lymphocytes (%) (Auto) 38.6, Monocytes (%) (Auto) 6.6, Eosinophils (%) (Auto) 0.8, Basophils (%) (Auto) 0.9, Sodium Level 142, Potassium Level 4.5, Chloride Level 107, Carbon Dioxide Level 27, Anion Gap 9, Blood Urea Nitrogen 33H, Creatinine 1.4H, Estimat Glomerular Filtration Rate , Glucose Level 86, Calcium Level 8.7 Height (Feet): 5 Height (Inches): 7.00 Weight (Pounds): 173 General Appearance: no apparent distress, alert EENT: normal ENT inspection Neck: normal alignment, supple Cardiovascular: normal rate, regular rhythm Respiratory/Chest: lungs clear, normal breath sounds Abdomen: non tender, soft Edema: no edema noted Arm (L), no edema noted Arm (R), no edema noted Leg (L), no edema noted Leg (R), no edema noted Pedal (L), no edema noted Pedal (R), no edema noted Generalized Eugenio Ritchie MD Nov 24, 2018 09:22
[2018-11-24 12:00] VITALS: BP 115/80
--- NOTE | 2018-11-24 12:22 | NUR ---
ST NOTE: SWALLOW STATUS FOLLOWED UP PT'S CONDITIONS. PER PT, FEELING BETTER AND WOULD LIKE TO GO HOME. COMPLETED MEAL OBSERVATION, PT TOLERATED REGULAR DIET WITH THIN LIQUIDS WITHOUT OVERT S/S OF ASPIRATION. EDUCATED PT RE: SAFE SWALLOW TECHNIQUES. PT VERBALIZED THE GOOD UNDERSTANDING OF INFO GIVEN. D/W RN, AFSOON. WILL D/C PT.
--- NOTE | 2018-11-24 13:21 | Infectious Diseases Prog Note ---
Assessment/Plan Assessment/Plan Abx: Ceftriaxone /- Assessment: Pulmonary edema vs PNA -CXR: Right sided pleural effusion and possible hazy basilar consolidation appears improved. There is suggestion of a small amount of pleural fluid on the left which appears unchanged. Generalized mild interstitial pulmonary congestion appears slightly improved. -influenza sc neg -sp cx MRSA ( S vanco, linezolid, bactrim , doxy) Afebrile Leukopenia, SP Bacteriuria -u/a no pyuria; nit neg, leuk+2; ucx C. freundi (R ancef, otherwise S) R pleural effusion -3/ R thoracentesis 940 ml fluid -pH 8.5, glucose and prot p LEANNA on CKD 3; improving CHF former alcoholic COPD HTN CVA Plan: -D/c empiric Ceftriaxone #6/ and continue Linezolid #3/ for MRSA -upon discharge can be transitioned to PO Doxycycline for 3 more days -f/u cx -Monitor CBC/CMP, temperatures -aspiration precautions -Nephro f/u Thank you for this consultation. Will continue to follow along with you. Discussed with RN. Subjective Allergies: Coded Allergies: GRAPEFRUIT (Unverified Allergy, Intermediate, Hives, 12/13/12) ORANGE (Verified Allergy, Unknown, 11/20/18) Subjective afebrile at 2l NC Objective Vital Signs Last 24 Hour Vital Signs Date Time Temp Pulse Resp B/P (MAP) Pulse Ox O2 Delivery O2 Flow Rate FiO2 11/24/18 12:36 115/80 11/24/18 12:00 96.6 87 17 115/80 (92) 94 11/24/18 09:50 Nasal Cannula 2.0 28 11/24/18 09:50 94 Room Air 2.0 28 11/24/18 09:50 95 17 Nasal Cannula 2.0 28 11/24/18 09:00 Nasal Cannula 2.0 Nasal Cannula 2.0 11/24/18 09:00 103/66 11/24/18 08:28 94 103/66 11/24/18 08:00 97.3 94 19 103/66 (78) 94 11/24/18 04:00 97.0 95 17 108/74 (85) 95 11/24/18 00:00 98.3 97 18 127/76 (93) 95 11/23/18 21:00 Nasal Cannula 2.0 Nasal Cannula 2.0 11/23/18 20:51 130/87 11/23/18 20:51 94 130/87 11/23/18 20:28 97 Room Air 2.0 28 11/23/18 20:28 92 18 Nasal Cannula 2.0 28 11/23/18 20:28 Nasal Cannula 2.0 28 11/23/18 20:00 97.9 94 20 130/87 (101) 93 11/23/18 16:00 98.0 92 20 124/89 (101) 97 Height (Feet): 5 Height (Inches): 7.00 Weight (Pounds): 173 Objective GENERAL: Calm in bed, oriented x2, in no acute distress. CARDIOVASCULAR: RRR, no murmurs. LUNGS: Poor air exchange. ABDOMEN: Bowel sounds distant. EXTREMITIES: No cyanosis or clubbing. 1+ edema. NEUROLOGIC: The patient moves all extremities, slightly weak. Laboratory Tests Test 11/24/18 04:45 White Blood Count 4.4 K/UL (4.8-10.8) L Red Blood Count 3.32 M/UL (4.70-6.10) L Hemoglobin 11.1 G/DL (14.2-18.0) L Hematocrit 35.3 % (42.0-52.0) L Mean Corpuscular Volume 107 FL (80-99) H Mean Corpuscular Hemoglobin 33.5 PG (27.0-31.0) H Mean Corpuscular Hemoglobin Concent 31.5 G/DL (32.0-36.0) L Red Cell Distribution Width 13.0 % (11.6-14.8) Platelet Count 214 K/UL (150-450) Mean Platelet Volume 7.1 FL (6.5-10.1) Neutrophils (%) (Auto) 53.0 % (45.0-75.0) Lymphocytes (%) (Auto) 38.6 % (20.0-45.0) Monocytes (%) (Auto) 6.6 % (1.0-10.0) Eosinophils (%) (Auto) 0.8 % (0.0-3.0) Basophils (%) (Auto) 0.9 % (0.0-2.0) Sodium Level 142 MMOL/L (136-145) Potassium Level 4.5 MMOL/L (3.5-5.1) Chloride Level 107 MMOL/L (98-107) Carbon Dioxide Level 27 MMOL/L (21-32) Anion Gap 9 mmol/L (5-15) Blood Urea Nitrogen 33 mg/dL (7-18) H Creatinine 1.4 MG/DL (0.55-1.30) H Estimat Glomerular Filtration Rate mL/min (>60) Glucose Level 86 MG/DL (74-106) Calcium Level 8.7 MG/DL (8.5-10.1) Current Medications Medications (Trade) Dose Ordered Sig/Daria Route PRN Reason Start Time Stop Time Status Last Admin Dose Admin Acetaminophen (Tylenol) 650 mg Q4H PRN ORAL Fever 11/24/18 01:45 12/19/18 17:44 Acetaminophen/ Hydrocodone Bitart ([place] 5/325) 1 tab Q6H PRN ORAL For Pain 11/23/18 23:45 11/26/18 17:44 Albuterol/ Ipratropium (Albuterol/ Ipratropium) 3 ml Q4H PRN HHN Shortness of Breath 11/24/18 01:45 11/24/18 17:44 Carvedilol (Coreg) 3.125 mg EVERY 12 HOURS ORAL 11/24/18 09:00 12/21/18 20:59 11/24/18 08:28 Ceftriaxone Sodium 1 gm/ Dextrose 55 ml @ 110 mls/hr Q24H IVPB 11/24/18 16:00 11/27/18 15:59 Dextrose (Dextrose 50%) 25 ml Q30M PRN IV Hypoglycemia 11/23/18 23:15 12/19/18 17:44 Dextrose (Dextrose 50%) 50 ml Q30M PRN IV Hypoglycemia 11/23/18 23:15 12/19/18 17:44 Heparin Sodium (Porcine) (Heparin 5000 units/ml) 5,000 units EVERY 12 HOURS SUBQ 11/24/18 09:00 12/19/18 20:59 11/24/18 08:34 Isosorbide Dinitrate (Isordil) 10 mg TID ORAL 11/24/18 09:00 12/23/18 19:59 11/24/18 12:36 Linezolid (Zyvox) 600 mg EVERY 12 HOURS ORAL 11/24/18 09:00 11/27/18 12:59 11/24/18 09:21 Lorazepam (Ativan) 1 mg Q6H PRN ORAL For Anxiety 11/24/18 04:00 11/27/18 03:59 Ondansetron HCl (Zofran) 4 mg Q6H PRN IVP Nausea & Vomiting 11/23/18 23:45 12/19/18 17:44 Polyethylene Glycol (Miralax) 17 gm DAILYPRN PRN ORAL Constipation 11/24/18 17:45 12/19/18 17:44 Promethazine HCl/ Codeine (Phenergan with Codeine) 5 ml Q4H PRN ORAL For Cough 11/24/18 01:30 12/20/18 13:29 Quetiapine Fumarate (SEROquel) 300 mg QHS ORAL 11/24/18 21:00 12/20/18 20:59 Temazepam (Restoril) 15 mg HSPRN PRN ORAL Insomnia 11/24/18 17:45 11/26/18 17:44 Theophylline ([place]) 100 mg EVERY 12 HOURS ORAL 11/24/18 09:00 12/20/18 20:59 11/24/18 08:27 Nena Allen M.D. Nov 24, 2018 13:21
--- NOTE | 2018-11-24 13:46 | General Progress Note ---
Assessment/Plan Problem List: (1) Anemia ICD Codes: D64.9 - Anemia, unspecified SNOMED: 863751165 (2) SOB (shortness of breath) ICD Codes: R06.02 - Shortness of breath SNOMED: 196814840 (3) Edema ICD Codes: R60.9 - Edema, unspecified SNOMED: 730788687, 552955551 (4) Asthma ICD Codes: J45.909 - Unspecified asthma, uncomplicated SNOMED: 976180754 (5) Pleural effusion ICD Codes: J90 - Pleural effusion, not elsewhere classified SNOMED: 68997335 (6) CHF (congestive heart failure) ICD Codes: I50.9 - Heart failure, unspecified SNOMED: 50778421 (7) Urinary tract infection ICD Codes: N39.0 - Urinary tract infection, site not specified SNOMED: 08026679 Status: stable, progressing Assessment/Plan o2 pulm tx abx pt diet cbc bmp am dc plan w hh Subjective Constitutional: Reports: weakness Allergies: Coded Allergies: GRAPEFRUIT (Unverified Allergy, Intermediate, Hives, 12/13/12) ORANGE (Verified Allergy, Unknown, 11/20/18) All Systems: reviewed and negative except above Subjective o2nc sl sob Objective Last 24 Hour Vital Signs Date Time Temp Pulse Resp B/P (MAP) Pulse Ox O2 Delivery O2 Flow Rate FiO2 11/24/18 12:36 115/80 11/24/18 12:00 96.6 87 17 115/80 (92) 94 11/24/18 09:50 Nasal Cannula 2.0 28 11/24/18 09:50 94 Room Air 2.0 28 11/24/18 09:50 95 17 Nasal Cannula 2.0 28 11/24/18 09:00 Nasal Cannula 2.0 Nasal Cannula 2.0 11/24/18 09:00 103/66 11/24/18 08:28 94 103/66 11/24/18 08:00 97.3 94 19 103/66 (78) 94 11/24/18 04:00 97.0 95 17 108/74 (85) 95 11/24/18 00:00 98.3 97 18 127/76 (93) 95 11/23/18 21:00 Nasal Cannula 2.0 Nasal Cannula 2.0 11/23/18 20:51 130/87 11/23/18 20:51 94 130/87 11/23/18 20:28 97 Room Air 2.0 28 11/23/18 20:28 92 18 Nasal Cannula 2.0 28 11/23/18 20:28 Nasal Cannula 2.0 28 11/23/18 20:00 97.9 94 20 130/87 (101) 93 11/23/18 16:00 98.0 92 20 124/89 (101) 97 Intake and Output 11/23/18 11/24/18 19:00 07:00 Intake Total 300 ml Output Total 800 ml Balance -800 ml 300 ml Intake Oral 300 ml Output Urine Total 800 ml # Voids 3 Laboratory Tests 11/24/18 04:45: White Blood Count 4.4L, Red Blood Count 3.32L, Hemoglobin 11.1L, Hematocrit 35.3L, Mean Corpuscular Volume 107H, Mean Corpuscular Hemoglobin 33.5H, Mean Corpuscular Hemoglobin Concent 31.5L, Red Cell Distribution Width 13.0, Platelet Count 214, Mean Platelet Volume 7.1, Neutrophils (%) (Auto) 53.0, Lymphocytes (%) (Auto) 38.6, Monocytes (%) (Auto) 6.6, Eosinophils (%) (Auto) 0.8, Basophils (%) (Auto) 0.9, Sodium Level 142, Potassium Level 4.5, Chloride Level 107, Carbon Dioxide Level 27, Anion Gap 9, Blood Urea Nitrogen 33H, Creatinine 1.4H, Estimat Glomerular Filtration Rate , Glucose Level 86, Calcium Level 8.7 Height (Feet): 5 Height (Inches): 7.00 Weight (Pounds): 173 General Appearance: lethargic EENT: normal ENT inspection Neck: normal alignment Cardiovascular: normal peripheral pulses, normal rate, regular rhythm Respiratory/Chest: chest wall non-tender, lungs clear, normal breath sounds Abdomen: normal bowel sounds, non tender, soft Extremities: normal inspection Edema: no edema noted Arm (L), no edema noted Arm (R), no edema noted Leg (L), no edema noted Leg (R), no edema noted Pedal (L), no edema noted Pedal (R), no edema noted Generalized Neurologic: motor weakness Skin: normal pigmentation, warm/dry Reji Arrieta DO Nov 24, 2018 13:46
--- NOTE | 2018-11-24 14:16 | Diagnostic Imaging Report ---
APPROVED REPORT CPT Code: 10271 Present Symptoms Lower Extremity Edema: BILATERAL: Imaging reveals a patent deep venous system bilaterally. There is no evidence of thrombus within the femoral, popliteal or tibial segments. The greater saphenous veins are also within normal limits. Doppler indicates normal spontaneous flow within these segments.
--- NOTE | 2018-11-24 15:15 | Progress Note ---
DATE: 11/24/2018 SUBJECTIVE: This is a 73-year-old male patient. Congestive heart failure is what he has, but he has altered mental status and confusion as well. That is why, the attending has requested daily psychiatric consultation Diagnosis is major depressive disorder, severe, recurrent with psychotic features, rule out dementia with psychosis. MENTAL STATUS EXAMINATION: This is a 73-year-old male. Appearance is disheveled. Attitude, irritable and agitated. Affect, guarded and restricted. Intellect poor. Mood depressed and anxious. Motor activity, psychomotor agitation. Attention span is poor. Orientation x2. Speech is low volume and slurred. Thought process, disorganized and illogical. Insight and judgment is poor. DIAGNOSIS: Major depressive disorder, mild, recurrent with psychotic features. PLAN: Treat him with Seroquel 300 mg at bedtime, Ativan 1 every 6 hours p.r.n. anxiety and agitation. 20 minutes of cognitive behavioral therapy provided to help this patient identify his automatic negative thoughts and help him to convert those negative thoughts to more positive thoughts to reduce depression, anxiety, and mood lability. Chart reviewed. Discussed with staff. Lizzy Hyman M.D. DR: GILBERTO JOB#: [id number] CC:
--- NOTE | 2018-11-24 15:28 | Pulmonology Progress Note ---
Assessment/Plan Problems: (1) MRSA pneumonia (2) Urinary tract infection (3) Acute respiratory failure (4) COPD with acute exacerbation (5) ATN (acute tubular necrosis) (6) CHF (congestive heart failure) (7) Pleural effusion Assessment/Plan cytology of pleural fluid reviewed. Respiratory treatment check bun/creatinine echo reviewed, EF 30% with echogenic material on mitral valve, D/w Dr. Nevarez. right effusion getting less continue abx titrate fio2 to sat of 92% hold lasix and lisinopril Renal US reviewed, scarred left kidney Subjective ROS Limited/Unobtainable: No Interval Events: doing better Allergies: Coded Allergies: GRAPEFRUIT (Unverified Allergy, Intermediate, Hives, 12/13/12) ORANGE (Verified Allergy, Unknown, 11/20/18) Objective Last 24 Hour Vital Signs Date Time Temp Pulse Resp B/P (MAP) Pulse Ox O2 Delivery O2 Flow Rate FiO2 11/24/18 12:36 115/80 11/24/18 12:00 96.6 87 17 115/80 (92) 94 11/24/18 09:50 Nasal Cannula 2.0 28 11/24/18 09:50 94 Room Air 2.0 28 11/24/18 09:50 95 17 Nasal Cannula 2.0 28 11/24/18 09:00 Nasal Cannula 2.0 Nasal Cannula 2.0 11/24/18 09:00 103/66 11/24/18 08:28 94 103/66 11/24/18 08:00 97.3 94 19 103/66 (78) 94 11/24/18 04:00 97.0 95 17 108/74 (85) 95 11/24/18 00:00 98.3 97 18 127/76 (93) 95 11/23/18 21:00 Nasal Cannula 2.0 Nasal Cannula 2.0 11/23/18 20:51 130/87 11/23/18 20:51 94 130/87 11/23/18 20:28 97 Room Air 2.0 28 11/23/18 20:28 92 18 Nasal Cannula 2.0 28 11/23/18 20:28 Nasal Cannula 2.0 28 11/23/18 20:00 97.9 94 20 130/87 (101) 93 11/23/18 16:00 98.0 92 20 124/89 (101) 97 Intake and Output 11/23/18 11/24/18 19:00 07:00 Intake Total 300 ml Output Total 800 ml Balance -800 ml 300 ml Intake Oral 300 ml Output Urine Total 800 ml # Voids 3 General Appearance: WD/WN HEENT: normocephalic, atraumatic Respiratory/Chest: chest wall non-tender, lungs clear Cardiovascular: normal peripheral pulses, normal rate, no JVD Abdomen: normal bowel sounds, soft, non tender Genitourinary: normal external genitalia Extremities: no clubbing Skin: no rash Neurologic/Psychiatric: normal mood/affect Lymphatic: no groin adenopathy Laboratory Tests 11/24/18 04:45: White Blood Count 4.4L, Red Blood Count 3.32L, Hemoglobin 11.1L, Hematocrit 35.3L, Mean Corpuscular Volume 107H, Mean Corpuscular Hemoglobin 33.5H, Mean Corpuscular Hemoglobin Concent 31.5L, Red Cell Distribution Width 13.0, Platelet Count 214, Mean Platelet Volume 7.1, Neutrophils (%) (Auto) 53.0, Lymphocytes (%) (Auto) 38.6, Monocytes (%) (Auto) 6.6, Eosinophils (%) (Auto) 0.8, Basophils (%) (Auto) 0.9, Sodium Level 142, Potassium Level 4.5, Chloride Level 107, Carbon Dioxide Level 27, Anion Gap 9, Blood Urea Nitrogen 33H, Creatinine 1.4H, Estimat Glomerular Filtration Rate , Glucose Level 86, Calcium Level 8.7 Current Medications Medications (Trade) Dose Ordered Sig/Daria Route PRN Reason Start Time Stop Time Status Last Admin Dose Admin Acetaminophen (Tylenol) 650 mg Q4H PRN ORAL Fever 11/24/18 01:45 12/19/18 17:44 Acetaminophen/ Hydrocodone Bitart ([place] 5/325) 1 tab Q6H PRN ORAL For Pain 11/23/18 23:45 11/26/18 17:44 Albuterol/ Ipratropium (Albuterol/ Ipratropium) 3 ml Q4H PRN HHN Shortness of Breath 11/24/18 01:45 11/24/18 17:44 Carvedilol (Coreg) 3.125 mg EVERY 12 HOURS ORAL 11/24/18 09:00 12/21/18 20:59 11/24/18 08:28 Dextrose (Dextrose 50%) 25 ml Q30M PRN IV Hypoglycemia 11/23/18 23:15 12/19/18 17:44 Dextrose (Dextrose 50%) 50 ml Q30M PRN IV Hypoglycemia 11/23/18 23:15 12/19/18 17:44 Heparin Sodium (Porcine) (Heparin 5000 units/ml) 5,000 units EVERY 12 HOURS SUBQ 11/24/18 09:00 12/19/18 20:59 11/24/18 08:34 Isosorbide Dinitrate (Isordil) 10 mg TID ORAL 11/24/18 09:00 12/23/18 19:59 11/24/18 12:36 Linezolid (Zyvox) 600 mg EVERY 12 HOURS ORAL 11/24/18 09:00 11/27/18 12:59 11/24/18 09:21 Lorazepam (Ativan) 1 mg Q6H PRN ORAL For Anxiety 11/24/18 04:00 11/27/18 03:59 Ondansetron HCl (Zofran) 4 mg Q6H PRN IVP Nausea & Vomiting 11/23/18 23:45 12/19/18 17:44 Polyethylene Glycol (Miralax) 17 gm DAILYPRN PRN ORAL Constipation 11/24/18 17:45 12/19/18 17:44 Promethazine HCl/ Codeine (Phenergan with Codeine) 5 ml Q4H PRN ORAL For Cough 11/24/18 01:30 12/20/18 13:29 Quetiapine Fumarate (SEROquel) 300 mg QHS ORAL 11/24/18 21:00 12/20/18 20:59 Temazepam (Restoril) 15 mg HSPRN PRN ORAL Insomnia 11/24/18 17:45 11/26/18 17:44 Theophylline ([place]) 100 mg EVERY 12 HOURS ORAL 11/24/18 09:00 12/20/18 20:59 11/24/18 08:27 Jese Murdock MD Nov 24, 2018 15:28
[2018-11-24 16:00] VITALS: BP 112/72
[2018-11-24] MEDS ORDERED: cefTRIAXone 1 GM in D5W 55 ML IVPB SCH (16:00)
--- NOTE | 2018-11-24 17:17 | General Progress Note ---
Assessment/Plan Assessment/Plan Assessment and Recs: # Leukopenia pontetially related to hx drug use and medications, myelosuppresion of etoh use --> if the total ANC is less than 2000, consider neupogen --> continue antibiotics with ID service, appreciate recs --> medications have been reviewed --> hepatitis and hiv are negative # Anemia of chronic disease dye to mulfactorial causes --> anemia panel has beenr reviewed, ferritin is 114, tibc >200 --> No evidence of hemolysis is noted, peripheral smear has been reviewed. --> Hgb goal >7. Transfuse prn. --> Epogen or iron at this time is not particularly indicated --> Medications have been reviewed # Pulmonary edema vs PNA, CXR: right sided pleural effusion and possible hazy basilar consolidation appears improved. --> on ceftriaxone per id. There is suggestion of a small amount of pleural fluid on the left which appears unchanged. Generalized mild interstitial pulmonary congestion appears slightly improved. influenza sc neg --> continue to trend as needed --> s/p thora 11/22 # Bacteriuria -u/a no pyuria; nit neg, leuk+2; ucx C. freundi (R ancef, otherwise S) --> Continue empiric Ceftriaxone as per id The timing of this note does not necessarily reflect the time of the patient was seen. Greatly appreciate consultation! Subjective Allergies: Coded Allergies: GRAPEFRUIT (Unverified Allergy, Intermediate, Hives, 12/13/12) ORANGE (Verified Allergy, Unknown, 11/20/18) Subjective 11/23: s/p thora was completed, breathing on nc 2L 11/24: seen by bedside, awake, comfortable, no acute distress reported Objective Last 24 Hour Vital Signs Date Time Temp Pulse Resp B/P (MAP) Pulse Ox O2 Delivery O2 Flow Rate FiO2 11/24/18 16:00 97.0 89 19 112/72 (85) 45 11/24/18 12:36 115/80 11/24/18 12:00 96.6 87 17 115/80 (92) 94 11/24/18 09:50 Nasal Cannula 2.0 28 11/24/18 09:50 94 Room Air 2.0 28 11/24/18 09:50 95 17 Nasal Cannula 2.0 28 11/24/18 09:00 Nasal Cannula 2.0 Nasal Cannula 2.0 3/7/19 09:00 103/66 11/24/18 08:28 94 103/66 11/24/18 08:00 97.3 94 19 103/66 (78) 94 11/24/18 04:00 97.0 95 17 108/74 (85) 95 11/24/18 00:00 98.3 97 18 127/76 (93) 95 11/23/18 21:00 Nasal Cannula 2.0 Nasal Cannula 2.0 11/23/18 20:51 130/87 11/23/18 20:51 94 130/87 11/23/18 20:28 97 Room Air 2.0 28 11/23/18 20:28 92 18 Nasal Cannula 2.0 28 11/23/18 20:28 Nasal Cannula 2.0 28 11/23/18 20:00 97.9 94 20 130/87 (101) 93 Intake and Output 11/23/18 11/24/18 19:00 07:00 Intake Total 300 ml Output Total 800 ml Balance -800 ml 300 ml Intake Oral 300 ml Output Urine Total 800 ml # Voids 3 Laboratory Tests 11/24/18 04:45: White Blood Count 4.4L, Red Blood Count 3.32L, Hemoglobin 11.1L, Hematocrit 35.3L, Mean Corpuscular Volume 107H, Mean Corpuscular Hemoglobin 33.5H, Mean Corpuscular Hemoglobin Concent 31.5L, Red Cell Distribution Width 13.0, Platelet Count 214, Mean Platelet Volume 7.1, Neutrophils (%) (Auto) 53.0, Lymphocytes (%) (Auto) 38.6, Monocytes (%) (Auto) 6.6, Eosinophils (%) (Auto) 0.8, Basophils (%) (Auto) 0.9, Sodium Level 142, Potassium Level 4.5, Chloride Level 107, Carbon Dioxide Level 27, Anion Gap 9, Blood Urea Nitrogen 33H, Creatinine 1.4H, Estimat Glomerular Filtration Rate , Glucose Level 86, Calcium Level 8.7 Height (Feet): 5 Height (Inches): 7.00 Weight (Pounds): 173 Objective Physical Exam: GENERAL: Calm in bed, oriented x2, in no acute distress. CARDIOVASCULAR: RRR, no murmurs. LUNGS: Poor air exchange. ABDOMEN: Bowel sounds distant. EXTREMITIES: No cyanosis or clubbing. 1+ edema. NEUROLOGIC: The patient moves all extremities, slightly weak. Rj Escamilla MD Nov 24, 2018 17:17
[2018-11-24] MEDS ORDERED: Miralax 17gm pkt ORAL PRN (17:45)
--- NOTE | 2018-11-24 19:32 | NUR ---
HAND-OFF: Report given to TIFFANY MCCANN.
--- NOTE | 2018-11-24 19:44 | NUR ---
NURSE NOTES: Received patient in bed, awake, alert, oriented, no acute distress noted, call light is within reach, bed is in low position, locked and alarm is on, will continue to monitor for safety and comfort.
[2018-11-24 20:00] VITALS: BP 133/91
[2018-11-24] MEDS ORDERED: QUEtiapine 200mg tab ORAL SCH (21:00)
[2018-11-25] VITALS: BP 122/84
[2018-11-25 04:22] VITALS: BP 116/75
--- NOTE | 2018-11-25 06:46 | NUR ---
HAND-OFF: Report given to Burton ALLEN.
[2018-11-25 07:19] LABS: BASOPHILS % (AUTO) 0.9 % (0.0-2.0); EOSINOPHILS % (AUTO) 1.1 % (0.0-3.0); HEMATOCRIT 37.8 % (42.0-52.0); HEMOGLOBIN 11.9 G/DL (14.2-18.0); MEAN CORPUSCULAR VOLUME 107 FL (80-99); MONOCYTES % (AUTO) 6.1 % (1.0-10.0); PLATELET COUNT 247 K/UL (150-450); RED BLOOD COUNT 3.52 M/UL (4.70-6.10); RED CELL DISTRIBUTION WIDTH 12.9 % (11.6-14.8); WHITE BLOOD COUNT 4.1 K/UL (4.8-10.8)
--- NOTE | 2018-11-25 07:23 | NUR ---
NURSE NOTES: Receive pt from TIFFANY MCCANN. Pt is alert and orient x3. pt has NC 2LMP. pt has intact iv access LFA 22g SL. all needs attended, bed is locked and is in the lowest position, call light within easy reach. will continue to monitor.
[2018-11-25 07:51] LABS: ANION GAP 8 mmol/L (5-15); BLOOD UREA NITROGEN 32 mg/dL (7-18); CALCIUM 8.6 MG/DL (8.5-10.1); CARBON DIOXIDE 26 MMOL/L (21-32); CHLORIDE 107 MMOL/L (98-107); CREATININE 1.5 MG/DL (0.55-1.30); POTASSIUM 4.5 MMOL/L (3.5-5.1); SODIUM 141 MMOL/L (136-145)
[2018-11-25 08:00] VITALS: BP 112/77
--- NOTE | 2018-11-25 08:06 | Nephrology Progress Note ---
Assessment/Plan Assessment/Plan A/P 1) CKD 3B- Cr stable. OK for DC from renal point - Renal US atrophic left kidney 2) HTN- stable. 3) CHF- diuresed very well. - lasix as needed 4) UTI- Abx Subjective Date patient seen: Nov 25, 2018 Time patient seen: 07:58 ROS Limited/Unobtainable: No Allergies: Coded Allergies: GRAPEFRUIT (Unverified Allergy, Intermediate, Hives, 12/13/12) ORANGE (Verified Allergy, Unknown, 11/20/18) Subjective Patient feels better in no distress Objective Last 24 Hour Vital Signs Date Time Temp Pulse Resp B/P (MAP) Pulse Ox O2 Delivery O2 Flow Rate FiO2 11/25/18 04:22 97.9 97 18 116/75 (89) 11/25/18 00:00 98.5 94 20 122/84 (97) 11/24/18 22:09 Nasal Cannula 2.0 Nasal Cannula 2.0 11/24/18 21:39 83 133/91 11/24/18 20:00 95 Nasal Cannula 2.0 28 11/24/18 20:00 Nasal Cannula 2.0 28 11/24/18 20:00 98.7 83 19 133/91 (105) 11/24/18 17:33 112/72 11/24/18 16:00 97.0 89 19 112/72 (85) 45 11/24/18 12:36 115/80 11/24/18 12:00 96.6 87 17 115/80 (92) 94 11/24/18 09:50 Nasal Cannula 2.0 28 11/24/18 09:50 94 Room Air 2.0 28 11/24/18 09:50 95 17 Nasal Cannula 2.0 28 11/24/18 09:00 Nasal Cannula 2.0 Nasal Cannula 2.0 11/24/18 09:00 103/66 11/24/18 08:28 94 103/66 11/24/18 08:00 97.3 94 19 103/66 (78) 94 Intake and Output 11/24/18 11/25/18 19:00 07:00 Intake Total 360 ml 250 ml Balance 360 ml 250 ml Intake Oral 360 ml Other 250 ml # Voids 3 2 # Bowel Movements 1 Laboratory Tests 11/25/18 05:36: White Blood Count 4.1L, Red Blood Count 3.52L, Hemoglobin 11.9L, Hematocrit 37.8L, Mean Corpuscular Volume 107H, Mean Corpuscular Hemoglobin 33.8H, Mean Corpuscular Hemoglobin Concent 31.5L, Red Cell Distribution Width 12.9, Platelet Count 247, Mean Platelet Volume 7.8, Neutrophils (%) (Auto) 52.0, Lymphocytes (%) (Auto) 40.0, Monocytes (%) (Auto) 6.1, Eosinophils (%) (Auto) 1.1, Basophils (%) (Auto) 0.9, Sodium Level 141, Potassium Level 4.5, Chloride Level 107, Carbon Dioxide Level 26, Anion Gap 8, Blood Urea Nitrogen 32H, Creatinine 1.5H, Estimat Glomerular Filtration Rate , Glucose Level 89, Calcium Level 8.6 Height (Feet): 5 Height (Inches): 7.00 Weight (Pounds): 173 General Appearance: no apparent distress, alert EENT: normal ENT inspection Neck: normal alignment, supple Cardiovascular: normal rate, regular rhythm Respiratory/Chest: lungs clear, no respiratory distress Abdomen: non tender, soft Edema: no edema noted Arm (L), no edema noted Arm (R), no edema noted Leg (L), no edema noted Leg (R), no edema noted Pedal (L), no edema noted Pedal (R), no edema noted Generalized Eugenio Ritchie MD Nov 25, 2018 08:06
[2018-11-25] MEDS: Theophylline ER 100mg ORAL SCH (09:04)
[2018-11-25] MEDS: Heparin 5000 units/ml inj SUBQ SCH (09:22)
[2018-11-25 12:00] VITALS: BP 113/76
--- NOTE | 2018-11-25 12:36 | Infectious Diseases Prog Note ---
Assessment/Plan Assessment/Plan Abx: Ceftriaxone 11/19- Assessment: Pulmonary edema vs PNA -CXR: Right sided pleural effusion and possible hazy basilar consolidation appears improved. There is suggestion of a small amount of pleural fluid on the left which appears unchanged. Generalized mild interstitial pulmonary congestion appears slightly improved. -influenza sc neg -sp cx MRSA ( S vanco, linezolid, bactrim , doxy) -Bcx neg Afebrile Leukopenia, Bacteriuria -u/a no pyuria; nit neg, leuk+2; ucx C. freundi (R ancef, otherwise S) R pleural effusion -11/22 R thoracentesis 940 ml fluid -pH 8.5, glucose and prot p LEANNA on CKD 3; improving CHF former alcoholic COPD HTN CVA Plan: -Continue Linezolid #4/5 for MRSA -upon discharge can be transitioned to PO Doxycycline for 2 more days -11/24 SP Ceftriaxone #6 -f/u cx -Monitor CBC/CMP, temperatures -aspiration precautions -Nephro f/u Thank you for this consultation. Will continue to follow along with you. Discussed with RN. Subjective Allergies: Coded Allergies: GRAPEFRUIT (Unverified Allergy, Intermediate, Hives, 12/13/12) ORANGE (Verified Allergy, Unknown, 11/20/18) Subjective afebrile at 2l NC no leukocytosis bcx neg Objective Vital Signs Last 24 Hour Vital Signs Date Time Temp Pulse Resp B/P (MAP) Pulse Ox O2 Delivery O2 Flow Rate FiO2 11/25/18 09:04 112/77 11/25/18 09:04 100 112/77 11/25/18 09:00 Nasal Cannula 2.0 Nasal Cannula 2.0 11/25/18 08:00 97.7 100 18 112/77 (89) 94 11/25/18 04:22 97.9 97 18 116/75 (89) 11/25/18 00:00 98.5 94 20 122/84 (97) 11/24/18 22:09 Nasal Cannula 2.0 Nasal Cannula 2.0 11/24/18 21:39 83 133/91 11/24/18 20:00 95 Nasal Cannula 2.0 28 11/24/18 20:00 Nasal Cannula 2.0 28 11/24/18 20:00 98.7 83 19 133/91 (105) 11/24/18 17:33 112/72 11/24/18 16:00 97.0 89 19 112/72 (85) 45 11/24/18 12:36 115/80 Height (Feet): 5 Height (Inches): 7.00 Weight (Pounds): 173 Objective GENERAL: Calm in bed, oriented x2, in no acute distress. CARDIOVASCULAR: RRR, no murmurs. LUNGS: Poor air exchange. ABDOMEN: Bowel sounds distant. EXTREMITIES: No cyanosis or clubbing. 1+ edema. NEUROLOGIC: The patient moves all extremities, slightly weak. Laboratory Tests Test 11/25/18 05:36 White Blood Count 4.1 K/UL (4.8-10.8) L Red Blood Count 3.52 M/UL (4.70-6.10) L Hemoglobin 11.9 G/DL (14.2-18.0) L Hematocrit 37.8 % (42.0-52.0) L Mean Corpuscular Volume 107 FL (80-99) H Mean Corpuscular Hemoglobin 33.8 PG (27.0-31.0) H Mean Corpuscular Hemoglobin Concent 31.5 G/DL (32.0-36.0) L Red Cell Distribution Width 12.9 % (11.6-14.8) Platelet Count 247 K/UL (150-450) Mean Platelet Volume 7.8 FL (6.5-10.1) Neutrophils (%) (Auto) 52.0 % (45.0-75.0) Lymphocytes (%) (Auto) 40.0 % (20.0-45.0) Monocytes (%) (Auto) 6.1 % (1.0-10.0) Eosinophils (%) (Auto) 1.1 % (0.0-3.0) Basophils (%) (Auto) 0.9 % (0.0-2.0) Sodium Level 141 MMOL/L (136-145) Potassium Level 4.5 MMOL/L (3.5-5.1) Chloride Level 107 MMOL/L (98-107) Carbon Dioxide Level 26 MMOL/L (21-32) Anion Gap 8 mmol/L (5-15) Blood Urea Nitrogen 32 mg/dL (7-18) H Creatinine 1.5 MG/DL (0.55-1.30) H Estimat Glomerular Filtration Rate mL/min (>60) Glucose Level 89 MG/DL (74-106) Calcium Level 8.6 MG/DL (8.5-10.1) Current Medications Medications (Trade) Dose Ordered Sig/Daria Route PRN Reason Start Time Stop Time Status Last Admin Dose Admin Acetaminophen (Tylenol) 650 mg Q4H PRN ORAL Fever 11/24/18 01:45 12/19/18 17:44 Acetaminophen/ Hydrocodone Bitart ([place] 5/325) 1 tab Q6H PRN ORAL For Pain 11/23/18 23:45 11/26/18 17:44 Carvedilol (Coreg) 3.125 mg EVERY 12 HOURS ORAL 11/24/18 09:00 12/21/18 20:59 11/25/18 09:04 Dextrose (Dextrose 50%) 25 ml Q30M PRN IV Hypoglycemia 11/23/18 23:15 12/19/18 17:44 Dextrose (Dextrose 50%) 50 ml Q30M PRN IV Hypoglycemia 11/23/18 23:15 12/19/18 17:44 Heparin Sodium (Porcine) (Heparin 5000 units/ml) 5,000 units EVERY 12 HOURS SUBQ 11/24/18 09:00 12/19/18 20:59 11/25/18 09:22 Isosorbide Dinitrate (Isordil) 10 mg TID ORAL 11/24/18 09:00 12/23/18 19:59 11/25/18 09:04 Linezolid (Zyvox) 600 mg EVERY 12 HOURS ORAL 11/24/18 09:00 11/27/18 12:59 11/25/18 09:04 Lorazepam (Ativan) 1 mg Q6H PRN ORAL For Anxiety 11/24/18 04:00 11/27/18 03:59 Ondansetron HCl (Zofran) 4 mg Q6H PRN IVP Nausea & Vomiting 11/23/18 23:45 12/19/18 17:44 Polyethylene Glycol (Miralax) 17 gm DAILYPRN PRN ORAL Constipation 11/24/18 17:45 12/19/18 17:44 Promethazine HCl/ Codeine (Phenergan with Codeine) 5 ml Q4H PRN ORAL For Cough 11/24/18 01:30 12/20/18 13:29 Quetiapine Fumarate (SEROquel) 300 mg QHS ORAL 11/24/18 21:00 12/20/18 20:59 11/24/18 21:41 Temazepam (Restoril) 15 mg HSPRN PRN ORAL Insomnia 11/24/18 17:45 11/26/18 17:44 Theophylline ([place]) 100 mg EVERY 12 HOURS ORAL 11/24/18 09:00 12/20/18 20:59 11/25/18 09:04 Nena Allen M.D. Nov 25, 2018 12:36
[2018-11-25] MEDS ORDERED: THEOPHYLLINE A100 MG ORAL (13:30)
[2018-11-25] MEDS ORDERED: COREG3.125 MG ORAL (13:30)
[2018-11-25] MEDS ORDERED: SEROQUEL200 MG ORAL (13:30)
--- NOTE | 2018-11-25 13:31 | General Progress Note ---
Assessment/Plan Problem List: (1) Anemia ICD Codes: D64.9 - Anemia, unspecified SNOMED: 514200182 (2) SOB (shortness of breath) ICD Codes: R06.02 - Shortness of breath SNOMED: 773969338 (3) Edema ICD Codes: R60.9 - Edema, unspecified SNOMED: 143065613, 896753844 (4) Asthma ICD Codes: J45.909 - Unspecified asthma, uncomplicated SNOMED: 406106872 (5) Pleural effusion ICD Codes: J90 - Pleural effusion, not elsewhere classified SNOMED: 61886232 (6) CHF (congestive heart failure) ICD Codes: I50.9 - Heart failure, unspecified SNOMED: 30368137 (7) Urinary tract infection ICD Codes: N39.0 - Urinary tract infection, site not specified SNOMED: 96623014 Status: stable, progressing Assessment/Plan o2 pulm tx abx pt diet dc w hh if clear Subjective Constitutional: Reports: weakness Allergies: Coded Allergies: GRAPEFRUIT (Unverified Allergy, Intermediate, Hives, 12/13/12) ORANGE (Verified Allergy, Unknown, 11/20/18) All Systems: reviewed and negative except above Subjective calm in bed Objective Last 24 Hour Vital Signs Date Time Temp Pulse Resp B/P (MAP) Pulse Ox O2 Delivery O2 Flow Rate FiO2 11/25/18 13:00 113/76 11/25/18 12:00 97.5 92 18 113/76 (88) 100 11/25/18 09:04 112/77 11/25/18 09:04 100 112/77 11/25/18 09:00 Nasal Cannula 2.0 Nasal Cannula 2.0 11/25/18 08:00 97.7 100 18 112/77 (89) 94 11/25/18 04:22 97.9 97 18 116/75 (89) 11/25/18 00:00 98.5 94 20 122/84 (97) 11/24/18 22:09 Nasal Cannula 2.0 Nasal Cannula 2.0 11/24/18 21:39 83 133/91 11/24/18 20:00 95 Nasal Cannula 2.0 28 11/24/18 20:00 Nasal Cannula 2.0 28 11/24/18 20:00 98.7 83 19 133/91 (105) 11/24/18 17:33 112/72 11/24/18 16:00 97.0 89 19 112/72 (85) 45 Intake and Output 11/24/18 11/25/18 19:00 07:00 Intake Total 360 ml 250 ml Balance 360 ml 250 ml Intake Oral 360 ml Other 250 ml # Voids 3 2 # Bowel Movements 1 Laboratory Tests 11/25/18 05:36: White Blood Count 4.1L, Red Blood Count 3.52L, Hemoglobin 11.9L, Hematocrit 37.8L, Mean Corpuscular Volume 107H, Mean Corpuscular Hemoglobin 33.8H, Mean Corpuscular Hemoglobin Concent 31.5L, Red Cell Distribution Width 12.9, Platelet Count 247, Mean Platelet Volume 7.8, Neutrophils (%) (Auto) 52.0, Lymphocytes (%) (Auto) 40.0, Monocytes (%) (Auto) 6.1, Eosinophils (%) (Auto) 1.1, Basophils (%) (Auto) 0.9, Sodium Level 141, Potassium Level 4.5, Chloride Level 107, Carbon Dioxide Level 26, Anion Gap 8, Blood Urea Nitrogen 32H, Creatinine 1.5H, Estimat Glomerular Filtration Rate , Glucose Level 89, Calcium Level 8.6 Height (Feet): 5 Height (Inches): 7.00 Weight (Pounds): 173 General Appearance: alert EENT: normal ENT inspection Neck: normal alignment Cardiovascular: normal peripheral pulses, normal rate, regular rhythm Respiratory/Chest: chest wall non-tender, lungs clear, normal breath sounds Abdomen: normal bowel sounds, non tender, soft Extremities: normal inspection Edema: no edema noted Arm (L), no edema noted Arm (R), no edema noted Leg (L), no edema noted Leg (R), no edema noted Pedal (L), no edema noted Pedal (R), no edema noted Generalized Neurologic: responsive, motor weakness Skin: normal pigmentation, warm/dry Reji Arrieta DO Nov 25, 2018 13:31
--- NOTE | 2018-11-25 13:45 | NUR ---
NURSE NOTES: since received D/C order, RN explained to pt regarding discharge but pt stated he is homeless and he doesn't have any place to go, FELIPE RODGERS is aware. will continue to monitor.
--- NOTE | 2018-11-25 13:52 | NUR ---
NURSE NOTES: Dr okeefe and Dr Storey put D/C order, Dr storey is aware regarding Dr okeefe orders, and Dr choudhary stated "that is fine. [facility] [phone], noted and carried out. will continue to monitor.
--- NOTE | 2018-11-25 14:29 | NUR ---
Social Work Patients friends here to visit (who are not his decision makers) who explains patient is homeless. Patient does not appear oriented fully at this time and requires assistance with ADLs, ambulation; friends also explain patient has a history of mental health concerns and has been in Psychiatric facilities. This SW recommended SNF placement with patient, who is currently in agreement. However, patient can become angry, agitated at times, when mentioning that he is not safe to discharge to the street.
--- NOTE | 2018-11-25 14:35 | NUR ---
PT NOTE: Pt refused to participate in PT treatment session. States having other things to stress about like his living situation. States not in the mood to perform exercises and had no concerns in ability to get around. Pt educated on the importance of therapeutic exercises to improve function in ADLs and overall health. Pt continued to refuse PT treatment session. Left nurse call light within easy reach. Will attempt PT at a later time.
[2018-11-25 16:00] VITALS: BP 112/77
--- NOTE | 2018-11-25 16:50 | NUR ---
*-* DISCHARCH PLANNED *--* PATIENT IS DISCHARGED TO: [facility] ROOM# 16-B SKILLED T:[phone] FOR NURSE TO NURSE REPORT [facility] HAS BEEN ARRAGED FOR [facility] AT [id number] *-* SPOKE TO PTS BROTHER REBECCA MENTIONED PT WAS BEING RELEASED HE SAID HE WOULD CALL NURSES STATION FOR SNF INFORMATION *-*
[2018-11-25 18:18] VITALS: BP 112/77
--- NOTE | 2018-11-25 18:25 | NUR ---
NURSE NOTES: pt will D/C [facility], all discharge assessments and instructions done and pt confirmed to understand all verbally. pt is stable, V/S stable, pt's brother REBECCA is aware about D/C. All belongings are with pt and pt refused me to check his wallet. MRSA sputum is colonized by Dr RIVAS. Given report to TIFFANY PAREKH in SNF. Terra aware pt is in seizure and fall precautions needs needs O2 2LMP PRN. 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 will continue to monitor.
--- NOTE | 2018-11-25 19:38 | NUR ---
HAND-OFF: Report given to TIFFANY BOURGEOIS. Addendum: 11/25/18 at 1947 by Burton Charles RN ERROR Report given to ambulance personnel but pt is still in the hospital, given report to TIFFANY BOURGEOIS.
--- NOTE | 2018-11-25 19:50 | NUR ---
DISCHARGE NURSE NOTES: PATIENT DISCHARGE, STABLE V/S. LEFT VIA AMBULANCE WITH BELONGINGS. IV ACCESS REMOVED. ID BAND REMOVED. AM NURSE, NAREN Jang, GAVE REPORT TO AMBULANCE PERSONNEL AND REVIEWED BELONGINGS.
--- NOTE | 2018-11-25 20:29 | General Progress Note ---
Assessment/Plan Assessment/Plan Assessment and Recs: # Leukopenia pontetially related to hx drug use and medications, myelosuppresion of etoh use --> if the total ANC is less than 2000, consider neupogen --> continue antibiotics with ID service, appreciate recs --> medications have been reviewed --> hepatitis and hiv are negative # Anemia of chronic disease dye to mulfactorial causes --> anemia panel has beenr reviewed, ferritin is 114, tibc >200 --> No evidence of hemolysis is noted, peripheral smear has been reviewed. --> Hgb goal >7. Transfuse prn. --> Epogen or iron at this time is not particularly indicated --> Medications have been reviewed # Pulmonary edema vs PNA, CXR: right sided pleural effusion and possible hazy basilar consolidation appears improved. --> on ceftriaxone per id. There is suggestion of a small amount of pleural fluid on the left which appears unchanged. Generalized mild interstitial pulmonary congestion appears slightly improved. influenza sc neg --> continue to trend as needed --> s/p thora 11/22 # Bacteriuria -u/a no pyuria; nit neg, leuk+2; ucx C. freundi (R ancef, otherwise S) --> Continue empiric Ceftriaxone as per id The timing of this note does not necessarily reflect the time of the patient was seen. Greatly appreciate consultation! Subjective Constitutional: Denies: no symptoms, chills, diaphoresis, fever, malaise, weakness, other HEENT: Denies: no symptoms, eye pain, blurred vision, tearing, double vision, ear pain, ear discharge, nose pain, nose congestion, throat pain, throat swelling, mouth pain, mouth swelling, other Cardiovascular: Denies: no symptoms, chest pain, edema, irregular heart rate, lightheadedness, palpitations, syncope, other Respiratory: Denies: no symptoms, cough, orthopnea, shortness of breath, SOB with excertion, SOB at rest, sputum, stridor, wheezing, other Gastrointestinal/Abdominal: Denies: no symptoms, abdomen distended, abdominal pain, black stools, tarry stools, blood in stool, constipated, diarrhea, difficulty swallowing, nausea, poor appetite, poor fluid intake, rectal bleeding , vomiting, other Genitourinary: Denies: no symptoms, burning, discharge, frequency, flank pain, hematuria, incontinence, pain, urgency, other Neurologic/Psychiatric: Denies: no symptoms, anxiety, depressed, emotional problems, headache, numbness, paresthesia, pre-existing deficit, seizure, tingling, tremors, weakness, other Hematologic/Lymphatic: Denies: no symptoms, anemia, easy bleeding, easy bruising, other Allergies: Coded Allergies: GRAPEFRUIT (Unverified Allergy, Intermediate, Hives, 12/13/12) ORANGE (Verified Allergy, Unknown, 11/20/18) Subjective 11/23: s/p thora was completed, breathing on nc 2L 11/24: seen by bedside, awake, comfortable, no acute distress reported 11/25: Pt is awake, comfortable, no acute distress reported. Objective Last 24 Hour Vital Signs Date Time Temp Pulse Resp B/P (MAP) Pulse Ox O2 Delivery O2 Flow Rate FiO2 11/25/18 18:18 112/77 11/25/18 16:00 98.3 90 18 112/ (89) 99 11/25/18 13:00 113/76 11/25/18 12:00 97.5 92 18 113/76 (88) 100 11/25/18 09:04 112/77 11/25/18 09:04 100 112/77 11/25/18 09:00 Nasal Cannula 2.0 Nasal Cannula 2.0 11/25/18 08:00 97.7 100 18 112/77 (89) 94 11/25/18 04:22 97.9 97 18 116/75 (89) 11/25/18 00:00 98.5 94 20 122/84 (97) 11/24/18 22:09 Nasal Cannula 2.0 Nasal Cannula 2.0 11/24/18 21:39 83 133/91 Intake and Output 11/24/18 11/25/18 19:00 07:00 Intake Total 360 ml 250 ml Balance 360 ml 250 ml Intake Oral 360 ml Other 250 ml # Voids 3 2 # Bowel Movements 1 Laboratory Tests 11/25/18 05:36: White Blood Count 4.1L, Red Blood Count 3.52L, Hemoglobin 11.9L, Hematocrit 37.8L, Mean Corpuscular Volume 107H, Mean Corpuscular Hemoglobin 33.8H, Mean Corpuscular Hemoglobin Concent 31.5L, Red Cell Distribution Width 12.9, Platelet Count 247, Mean Platelet Volume 7.8, Neutrophils (%) (Auto) 52.0, Lymphocytes (%) (Auto) 40.0, Monocytes (%) (Auto) 6.1, Eosinophils (%) (Auto) 1.1, Basophils (%) (Auto) 0.9, Sodium Level 141, Potassium Level 4.5, Chloride Level 107, Carbon Dioxide Level 26, Anion Gap 8, Blood Urea Nitrogen 32H, Creatinine 1.5H, Estimat Glomerular Filtration Rate , Glucose Level 89, Calcium Level 8.6 Height (Feet): 5 Height (Inches): 7.00 Weight (Pounds): 173 Objective Physical Exam: GENERAL: Calm in bed, oriented x2, in no acute distress. CARDIOVASCULAR: RRR, no murmurs. LUNGS: Poor air exchange. ABDOMEN: Bowel sounds distant. EXTREMITIES: No cyanosis or clubbing. 1+ edema. NEUROLOGIC: The patient moves all extremities, slightly weak. Rj Escamilla MD Nov 25, 2018 20:29
--- NOTE | 2018-11-25 23:46 | Progress Note ---
DATE: 11/25/2018 SUBJECTIVE: The patient is a 73-year-old male with congestive heart failure. He still has altered mental status, confusion, and mood lability, worsened by stress of his medical illness. DIAGNOSIS: Major depressive disorder, severe, recurrent with psychotic features. PLAN: Treat him with Seroquel 300 mg at bedtime and Ativan 1 mg every 6 hours p.r.n. anxiety and agitation. Provided him with 20 minutes of cognitive behavioral therapy to help him identify his automatic negative thoughts and help him convert those negative thoughts to more positive thoughts to reduce depression, anxiety, and suicidality. Chart reviewed. Discussed with the staff. Seen and assessed at beside. Lizzy Hmyan M.D. DR: JACQUELINE JOB#: [id number] CC:
--- NOTE | 2018-12-05 10:07 | Discharge Summary ---
Discharge Summary Discharge Summary _ DATE OF ADMISSION: 11/19/2018 DATE OF DISCHARGE: 11/25/2018 DISCHARGED BY: Dr. Arrieta REASON FOR ADMISSION: 73 years old male with past medical history of CVA , hypertension, congestive heart failure, COPD, seizure disorder, former alcoholic, presented to emergency department with shortness of breath. Patient reported onset of symptoms about 2 hours prior to arrival. He reported increased nonproductive cough. Upon evaluation patient required Venturi mask at 8 L of oxygen with pulse oximetry reaching 90%. ABG on 35% FiO2 via Venturi mask done afterwards and was stable. Chest x-ray revealed pulmonary vascular congestion. Subsegmental atelectasis versus infiltrate in the right lung base. Possible small layering right pleural effusion. Cardiomegaly. Laboratory workup revealed evidence of renal failure with BUN 27, creatinine 1.7. Lactic acid 4.1. Total bilirubin 2.0, direct bilirubin 0.6. AST 70. T Troponin was -0.041. EKG revealed sinus rhythm with right bundle branch block, no acute ischemic changes. No leukocytosis 9, hemoglobin 12.3, hematocrit 39.2. Platelets 208. Urinalysis revealed evidence of possible UTI. Patient was admitted for further evaluation and management. CONSULTANTS: compliance counsel Dr. Nevarez pulmonary Dr. Murdock ID specialist Dr. Ayala endless bed drum sander dr.De Swann hospice care sales consultant/oncologist Dr. Escamilla psychiatrist Dr. Hyman [facility] COURSE: Patient admitted . Supplemental oxygen provided and titrated to keep pulse oximetry above 92%. Pulmonary toilet provided. Patient started on IV steroids with gradual tapering. Patient started on empiric antibiotics. Trial of theophylline started. Antitussive provided as needed. Patient was counseled on smoking cessation. Patient was followed-up with chest x-ray. Patient undergone subsequently ultrasound-guided thoracentesis of right pleural effusion, yielding 950 mL of fluid. Fluid analysis was unremarkable. Cytology revealed no evidence of malignant cells. Chest x-ray post thoracentesis revealed resolved right pleural effusion. No radiographic evidence of complication. Venous duplex bilateral lower extremity revealed no evidence of acute DVT. Patient clinically improved he was able to wean to oxygen via nasal cannula. ID specialist followed. Blood cultures were negative. Influenza screen test was negative. Sputum culture revealed MRSA , and urine culture revealed Citrobacter. Antibiotic provided as per infectious disease specialist recommendation. Echocardiogram revealed ejection fraction of 30-35%. No evidence of left ventricular hypertrophy. Global left ventricular hypokinesis. Evidence of valvular heart disease with severe mitral regurgitation, moderate to severe tricuspid regurgitation and aortic regurgitation. Significant left ventricular diastolic dysfunction grade 2. Right ventricular systolic pressure of 43 consistent with mild pulmonary hypertension. Ticket Printer closely followed. Patient was on diuretic with close monitoring of volumes and cardiorenal parameters. Patient started on low dose beta-dylan. Patient started on Isordil. Per compliance counsel, patient will need combination of Isordil and hydralazine for management of congestive heart failure. Repeated troponin was negative. Renal function initially worsened, and Lasix was on hold. Renal parameters and electrolytes were closely monitored. Electrolytes corrected as needed. Renal ultrasound revealed atrophic left kidney. No evidence of hydronephrosis. Per endless bed drum sander, patient had chronic kidney disease stage IIIb. Inspector Machine Cut Glass recommended Lasix as needed. Hemoglobin and hematocrit remained stable , at baseline. Anemia workup revealed stable iron and low folate. Patient started on folate replacement. Auditing Coder follow. Abdominal ultrasound revealed mildly thickened gallbladder wall, but no gallstones. Negative for dilated bile ducts. Noted 4 x 3.5 cm infrarenal abdominal aortic aneurysm, previously described on the CT report. Slightly increased in size. Six-month evaluation with abdominal ultrasound recommended. PSA within normal limits. CK and liver enzymes trending down, no abdominal pain. Patient was counseled on abstinence from illicit street drugs. Psychiatrist followed and diagnosed patient with major depressive disorder, severe, recurrent with psychotic features. Psychiatric medication regimen was optimized as per psychiatrist recommendation. Cognitive behavioral therapy provided. Patient stabilized and was ready for discharge to long-term facility for continuation of care. Patient was discharged on oral antibiotic for additional 2 days to complete the course. FINAL DIAGNOSES: Acute respiratory failure- resolved MRSA pneumonia Right pleural effusion , status post ultrasound-guided thoracentesis Congestive heart failure with systolic dysfunction, ejection fraction 30-35% Valvular heart disease: mitral regurgitation, tricuspid regurgitation, aortic regurgitation COPD with exacerbation Cardiomyopathy History of CVA Hypertension Tobacco use disorder Cocaine abuse Pulmonary hypertension Noncompliance Mitral clip in place Acute kidney injury on chronic kidney disease stage III B Probably urinary tract infection with Citrobacter Anemia of chronic disease Major depressive disorder, severe, recurrent with psychotic features DISCHARGE MEDICATIONS: See Medication Reconciliation list. DISCHARGE INSTRUCTIONS: Patient was discharged to long-term facility [facility]. Follow-up with medical doctor at the facility. I have been assigned to dictate discharge summary for this account. I was not involved in the patient's management. Kira Mijares NP Dec 05, 2018 10:07
== END 2018-11-25 19:50 | DRG 177 ==
LOC: EDBD 14:18 → EMR 15:07 → EDBEDREQ 16:39 → 2E 16:54 → 4E 11-23 22:30
PROC: 0W993ZX Drainage of Right Pleural Cavity, Percutaneous Approach, Diagnostic (ICD-10-PCS; principal; 2018-11-19)
PROC: 3E03328 Introduction of Oxazolidinones into Peripheral Vein, Percutaneous Approach (ICD-10-PCS; 2018-11-22)
DX: J15.212 Pneumonia due to Methicillin resistant Staphylococcus aureus (principal); N17.0 Acute kidney failure with tubular necrosis; J96.00 Acute respiratory failure, unspecified whether with hypoxia or hypercapnia; I13.0 Hypertensive heart and chronic kidney disease with heart failure and stage 1 through stage 4 chronic kidney disease, or unspecified chronic kidney disease; N39.0 Urinary tract infection, site not specified; J90 Pleural effusion, not elsewhere classified; J44.1 Chronic obstructive pulmonary disease with (acute) exacerbation; F33.0 Major depressive disorder, recurrent, mild; N18.3 Chronic kidney disease, stage 3 (moderate); I50.9 Heart failure, unspecified; N18.9 Chronic kidney disease, unspecified; F10.21 Alcohol dependence, in remission; Z86.73 Personal history of transient ischemic attack (TIA), and cerebral infarction without residual deficits; F17.200 Nicotine dependence, unspecified, uncomplicated; I27.20 Pulmonary hypertension, unspecified; I34.0 Nonrheumatic mitral (valve) insufficiency; Z91.14 Patient's other noncompliance with medication regimen; D63.8 Anemia in other chronic diseases classified elsewhere; I36.1 Nonrheumatic tricuspid (valve) insufficiency; I35.1 Nonrheumatic aortic (valve) insufficiency; I71.4 Abdominal aortic aneurysm, without rupture
CPT/HCPCS: 36415; 36600; 71045; 76700; 76770; 76942; 80048; 80053; 80069; 80307; 81001; 81003; 82043; 82248; 82550; 82553; 82570; 82728; 82746; 82803; 83540; 83550; 83605; 83615; 83690; 83735; 83880; 83986; 84100; 84133; 84153; 84300; 84484; 84550; 85007; 85025; 85044; 85384; 85610; 85730; 86703; 86705; 86709; 86710; 86803; 87040; 87070; 87086; 87181; 87205; 87340; 88104; 89050; 93005; 93306; 93970; 94640; 94664; 94760; 96365; 96375; 99285; J7620

== ENCOUNTER 2019-02-11 16:25 | Inpatient (IN) | payer MEDICARE, MEDICAID ==
[~2019-02-11] VITALS: Ht 177.8 cm; Wt 76.7 kg
[~2019-02-11 16:25] MED LIST changes: +COREG3.125 MG ORAL; +SEROQUEL200 MG ORAL; +THEOPHYLLINE A100 MG ORAL
[2019-02-11 16:31] VITALS: BP 131/91
[2019-02-11] MEDS ORDERED: ASPIR 8181 MG ORAL (16:31)
--- NOTE | 2019-02-11 16:31 | NUR ---
ED Nurse Note: Pt brought in by ambulance from the streets d/t walking naked and exposing his private area. EMS also reported that pt is ETOH. Unable to assess orientation d/t being uncooperative, No respiratory distress. Noted severe swelling on all extremities. Hx of CHF. VSS.
--- NOTE | 2019-02-11 16:35 | NUR ---
ED Nurse Note: [phone] (Michael Alston). friend
--- NOTE | 2019-02-11 17:44 | Diagnostic Imaging Report ---
EXAM: XR Chest, 1 View CLINICAL HISTORY: SOB TECHNIQUE: Frontal view of the chest. COMPARISON: No relevant prior studies available. FINDINGS: Lungs: Accentuation of bronchovascular and interstitial markings. Reduced lung volumes. Pleural space: Unremarkable. No pneumothorax. Heart: Large cardiac silhouette. Clips projecting over the left heart/lower hemithorax Mediastinum: Unremarkable. Bones/joints: No acute fracture. IMPRESSION: Accentuation of bronchovascular and interstitial markings. Could be from interstitial edema.
[2019-02-11 18:14] LABS: APPEARANCE,URINE CLEAR; BILIRUBIN, URINE NEGATIVE (NEGATIVE); COLOR,URINE BROWN; GLUCOSE, URINE (UA) NEGATIVE (NEGATIVE); KETONES,URINE 1+ (NEGATIVE); LEUKOCYTE ESTERASE ,URINE 2+ (NEGATIVE); NITRITE,URINE NEGATIVE (NEGATIVE); PH,URINE 5 (4.5-8.0); PROTEIN,URINE 2+ (NEGATIVE); UROBILINOGEN,URINE 4 MG/DL (0.0-1.0)
[2019-02-11 18:18] LABS: BASOPHILS % (AUTO) 1.7 % (0.0-2.0); EOSINOPHILS % (AUTO) 0.4 % (0.0-3.0); HEMATOCRIT 29.9 % (42.0-52.0); HEMOGLOBIN 10.1 G/DL (14.2-18.0); LYMPHOCYTES % (AUTO) 33.6 % (20.0-45.0); MEAN CORPUSCULAR VOLUME 98 FL (80-99); MONOCYTES % (AUTO) 11.9 % (1.0-10.0); NEUTROPHILS % (AUTO) 52.4 % (45.0-75.0); PLATELET COUNT 295 K/UL (150-450); RED BLOOD COUNT 3.04 M/UL (4.70-6.10); RED CELL DISTRIBUTION WIDTH 13.5 % (11.6-14.8); WHITE BLOOD COUNT 4.5 K/UL (4.8-10.8)
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
[2019-02-11 18:27] LABS: ANION GAP 13 mmol/L (5-15); BLOOD UREA NITROGEN 22 mg/dL (7-18); CALCIUM 9.2 MG/DL (8.5-10.1); CARBON DIOXIDE 21 MMOL/L (21-32); CHLORIDE 105 MMOL/L (98-107); CREATININE 1.2 MG/DL (0.55-1.30); POTASSIUM 4.2 MMOL/L (3.5-5.1); SODIUM 139 MMOL/L (136-145)
[2019-02-11] MEDS ORDERED: Albuterol ud Inhalation HHN ONE (18:30)
[2019-02-11] MEDS ORDERED: Ipratropium 0.02% Inh Soln 2.5ml UD HHN ONE (18:30)
[2019-02-11 18:39] LABS: ALANINE AMINOTRANSFERASE 30 U/L (12-78); ALBUMIN 3.3 G/DL (3.4-5.0); ALBUMIN/GLOBULIN RATIO 0.9 (1.0-2.7); ALKALINE PHOSPHATASE 84 U/L (46-116); ASPARTATE AMINO TRANSFERASE 43 U/L (15-37); BILIRUBIN,TOTAL 1.2 MG/DL (0.2-1.0); CKMB 3.2 NG/ML (0.0-3.6); CREATINE KINASE 218 U/L (26-308)
[2019-02-11 18:40] VITALS: BP 129/92
--- NOTE | 2019-02-11 18:40 | NUR ---
ED Nurse Note: RT at the bed side for breathing treatment.
--- NOTE | 2019-02-11 18:45 | NUR ---
ED Nurse Note: Dr Nur informed of troponin of pt 0.312
[2019-02-11 18:46] LABS: BILIRUBIN,DIRECT 0.4 MG/DL (0.0-0.3)
--- NOTE | 2019-02-11 19:00 | NUR ---
HAND-OFF: Report given to Sisi ALLEN.
[2019-02-11 19:05] VITALS: BP 120/96
--- NOTE | 2019-02-11 19:05 | NUR ---
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
[2019-02-11 20:00] VITALS: BP 110/86
--- NOTE | 2019-02-11 20:50 | NUR ---
ED Nurse Note: called to give report, per charge nurse statement, receiving nurse unable to take report at this time due to with another pt.
--- NOTE | 2019-02-11 20:57 | NUR ---
ED Nurse Note: pt cleaned and changed into new gown, void x1.
--- NOTE | 2019-02-11 21:05 | NUR ---
ED Nurse Note: report given to TIFFANY Cowart from Tele.
[2019-02-11 21:08] VITALS: BP 105/90
--- NOTE | 2019-02-11 21:20 | NUR ---
ED Nurse Note: pt transferred to tele, all belongings sent w/ pt, verified skin intact except skin scabs with receiving RN, belonging list completed and sent w/ pt. vss.
[2019-02-11 22:30] VITALS: BP 108/71
--- NOTE | 2019-02-11 22:30 | NUR ---
NURSE NOTES: Pt arrived on unit from ER. Got report from Sisi ALLEN. Pt in stable condition. Pt is fully oriented. Denies any pain. Pt has scabs throughout entire body. Pt is able to ambulate but is SBA for safety. VSS T:98.8 HR:100 R:20 BP:108/71 O2:98% on room air. No s/s of distress or discomfort noted. Pt resting in bed comfortably. Bed in low and locked position, call light within reach, bedside table within reach. Continue to monitor. Addendum: 02/11/19 at 2254 by Jose Hansen RN Gabriella Murdock for orders. Awaiting orders. Continue to monitor. Addendum: 02/12/19 at 0229 by Jose Hansen RN Orders given by Dr. Arrieta. Orders placed. Continue to monitor.
[2019-02-12] VITALS (7 sets, daily range): BP systolic 111–129; BP diastolic 57–79
[2019-02-12] MEDS ORDERED: D5 1/2NS 1,000 ML IV SCH (00:45)
[2019-02-12] MEDS ORDERED: Morphine Sulfate 2mg/ml Inj(IV/IM USE ONLY) IVP PRN (00:45)
[2019-02-12] MEDS ORDERED: LORazepam 1mg tab ORAL PRN (05:15)
--- NOTE | 2019-02-12 07:00 | NUR ---
HAND-OFF: Report given to Cade ALLEN. Endorsed plan of care.
[2019-02-12 07:16] LABS: BASOPHILS % (AUTO) 0.8 % (0.0-2.0); EOSINOPHILS % (AUTO) 0.8 % (0.0-3.0); HEMATOCRIT 31.3 % (42.0-52.0); LYMPHOCYTES % (AUTO) 39.4 % (20.0-45.0); MEAN CORPUSCULAR VOLUME 103 FL (80-99); MONOCYTES % (AUTO) 7.6 % (1.0-10.0); NEUTROPHILS % (AUTO) 51.4 % (45.0-75.0); PLATELET COUNT 289 K/UL (150-450); RED BLOOD COUNT 3.03 M/UL (4.70-6.10); RED CELL DISTRIBUTION WIDTH 13.9 % (11.6-14.8); WHITE BLOOD COUNT 4.2 K/UL (4.8-10.8)
--- NOTE | 2019-02-12 07:20 | NUR ---
NURSE NOTES: Received report from TIFFANY Cowart. Patient is sleeping in bed. No respiratory distress noted or discomfort noted. Patient has monitor and storage bin tender on NSR. Patient is on room air. Bed in low and locked position, call light within reach, bedside table within reach. Continue to monitor.
[2019-02-12 07:27] LABS: ANION GAP 13 mmol/L (5-15); BLOOD UREA NITROGEN 24 mg/dL (7-18); CARBON DIOXIDE 22 MMOL/L (21-32); CHLORIDE 106 MMOL/L (98-107); CREATININE 1.3 MG/DL (0.55-1.30); POTASSIUM 3.8 MMOL/L (3.5-5.1); SODIUM 141 MMOL/L (136-145)
--- NOTE | 2019-02-12 09:08 | NUR ---
NURSE NOTES: 07:51- Received critical value from [facility]; troponin is 0.366. 08:30- Dr. Arrieta is aware and states to contact Dr. Ocampo. 08:45- Paged Dr. Ocampo about troponin lab value.
--- NOTE | 2019-02-12 13:21 | NUR ---
NURSE NOTES: Received critical lab value of troponin 0.296. Dr. Ocampo, bakery associate, will see the patient today.
--- NOTE | 2019-02-12 13:25 | NUR ---
CASE MANAGEMENT: INITIAL REVIEW 71 YO M BIBA FROM HOME CC: INDECENT EXPOSURE PMHx: HTN. CHF. CVA/TIA. SZ. SI:CHF EXACERBATION. T 99 HR 88 RR 18 B/P 156/72 SATS 100% ON RA WBC 4.5 BUN 22 TBILI 1.2 DBILI 0.4 AST 43 TROPONIN 0.312, 0.366, 0.296 IS: DUO NEB HHN X1 ASA PO X1 LASIX IV X1 PATIENT ADMITTED TO TELE 02/11/2019 @ 2009 DCP: PATIENT TO BE DISCHARGED TO APPROPRIATE LOCATION. PLAN OF CARE: PT EVAL NUTRITION EVAL
--- NOTE | 2019-02-12 16:00 | History and Physical Report ---
DATE OF ADMISSION: 02/11/2019 CONSULTANTS: 1. Jese Murdock M.D. 2. Mc Ocampo M.D. 3. Lizzy Hyman M.D. CHIEF COMPLAINT: CHF, chest pain, shortness of breath, dizziness, and elevated troponin. BRIEF HISTORY: A 71-year-old male, who lives at home, presented with shortness of breath, dizzy, and chest pain for two days. No loss of consciousness. The patient came to [facility], diagnosed with CHF and elevated troponin and admitted to telemetry floor for further care. Currently, O2 NC, calm, slight short of breath in bed. No complaint. REVIEW OF SYSTEMS: Slight chest pain. Slight short of breath. No nausea, vomiting, or diarrhea. PAST MEDICAL HISTORY: Include hypertension and CHF. The patient also had COPD in the past and ATN. PAST SURGICAL HISTORY: Abdominal surgery. MEDICATIONS: Quetiapine, lorazepam, morphine, aspirin, furosemide, albuterol, and ipratropium. ALLERGIES: Denies. SOCIAL HISTORY: Positive smoking. No alcohol. No intravenous drug abuse. FAMILY HISTORY: Noncontributory. PHYSICAL EXAMINATION: GENERAL: Calm in bed, oriented x3, slight short of breath. VITAL SIGNS: Show temperature is 97 degrees, pulse 90, respirations 24, and blood pressure 118/71. CARDIOVASCULAR: No murmur. LUNGS: Poor air exchange. ABDOMEN: Bowel sounds distant. EXTREMITIES: Show no cyanosis, clubbing, or edema. NEUROLOGIC: The patient moves all extremities, slightly weak. LABORATORY AND DIAGNOSTIC DATA: Show white count 4.2, hemoglobin and hematocrit 10/31. Otherwise, CBC is normal. BMP show BUN 24, glucose 127, troponin 0.012, then 0.366. BNP is 5769. Albumin is 3.3. Urinalysis, 2+ leukocyte esterase. Urine tox is negative. ASSESSMENT: 1. Shortness of breath. 2. Chest pain. 3. Dizziness. 4. Congestive heart failure. 5. Elevated troponin. 6. Urinary tract infection. 7. Psych history. 8. Malnutrition. 9. Chronic obstructive pulmonary disease. 10. Hypertension. 11. Acute tubular necrosis. PLAN: 1. O2 pulmonary treatment. 2. Antibiotics per Infectious Diseases. 3. Blood pressure and pain control. 4. Dietary followup. 5. Morphine p.r.n. 6. Troponin q.8 h. x3. 7. EKG in the morning. 8. Resume home medications. 9. We will add Dr. Ayala in Infectious Diseases followup. 10. Cardiology will follow up shortly. Reji Arrieta D.O. DR: Paxton JOB#: [id number] CC:
--- NOTE | 2019-02-12 18:00 | NUR ---
NURSE NOTES: Send message to Dr. Ocampo about magnesium level of 1.7. Awaiting order.
--- NOTE | 2019-02-12 18:45 | Consultation ---
DATE OF CONSULTATION: 02/12/2019 NOTE: "POOR AUDIO QUALITY" CONSULTING PHYSICIAN: Lizzy Hyman M.D. HISTORY OF PRESENT ILLNESS: This is a 71-year-old male patient, who was recently admitted to [facility]. Reason why the patient was admitted is because he has congestive heart failure and he also has overlying diagnosis of paranoid schizophrenia. So, that is why a daily psychiatric consultation requested for this patient because of his mood lability, confusion. Apparently he was on Seroquel, but been off of medications. He because the patient was seen on the street talking to himself, disrobed himself in public, and has no insight was brought in. I saw and assessed this patient at bedside. He states " " chief complaint. ALLERGIES: He has no known drug allergies. MEDICAL HISTORY: He has a history of congestive heart failure, hypertension, status post CVA, and seizure disorder. MEDICATIONS: Psychotropic medications on admission, he has a history of taking Seroquel 300 mg at bedtime . SUBSTANCE ABUSE HISTORY: This patient denies drug or alcohol use. FAMILY PSYCHIATRIC HISTORY: Denies any family psychiatric history. DEVELOPMENTAL PROBLEMS: Denies. SOCIAL HISTORY: The patient appears to be homeless, but financially supported by [employer] and Medicare. PSYCHIATRIC HISTORY: He has history of paranoid schizophrenia, anxiety, over a year ago. STRENGTHS: He is motivated to get better. He is very healthy. WEAKNESSES: He is impulsive with minimal support system. MENTAL STATUS EXAMINATION: This is a 71-year-old male. Appearance is disheveled. Attitude, irritable and agitated. Affect, guarded and restricted. Intellect poor. Mood depressed and anxious. Motor activity, psychomotor agitation. Attention span is poor. Orientation x2. Speech is pressured. Thought process, disorganized and illogical. Thought content, no auditory hallucinations and paranoid delusions. Insight and judgment is poor. DIAGNOSES: 1. Paranoid schizophrenia with acute exacerbation. 2. Medical: Congestive heart failure, hypertension, seizure disorder, psychosocial stressors, financial. PLAN: Plan for this patient, treat him with Seroquel 300 mg at bedtime to stabilize mood, reduce psychosis, and Ativan 1 mg every 6 hours p.r.n. anxiety and agitation. Also provided him with 20 minutes of cognitive behavioral therapy provided to help him identify his automatic negative thoughts and help to convert his negative thoughts to more positive thoughts to reduce depression, anxiety, and suicidality. A 20 minutes of cognitive behavioral therapy provided to help him have a more adaptive behavioral pattern as well. Chart reviewed. Discussed with staff. Seen and assessed in his room. Lizzy Hyman M.D. DR: JENI JOB#: [id number] CC:
--- NOTE | 2019-02-12 19:00 | NUR ---
HAND-OFF: Report given to TIFFANY Terrazas. Patient is resting in bed. Patient denies respiratory distress or pain.
--- NOTE | 2019-02-12 19:01 | NUR ---
NURSE NOTES: Received patient from Cade Rodriguez RN. Patient is in bed and talking. Patient is on 2L nasal canula, oriented X4, and has no signs of acute distress. Bed is at its lowest position and call light in reach.
--- NOTE | 2019-02-12 21:00 | NUR ---
NURSE NOTES: Lab called to report troponin of 0.243 critical level. Charge nurse notified. No action required. Troponin trending down. Patient shows no signs of distress at this time. Patient is awake and talking. Will continue to monitor.
--- NOTE | 2019-02-12 21:29 | Consultation ---
Consult Note Consult Note # [id number] Chavo Ayala MD February 12, 2019 21:29
--- NOTE | 2019-02-12 22:15 | NUR ---
NURSE NOTES: Pharm Addendum: 02/13/19 at 0512 by Mk Gold RN Entered in error.
--- NOTE | 2019-02-12 23:00 | Consultation ---
DATE OF CONSULTATION: 02/12/2019 INFECTIOUS DISEASE CONSULTATION CONSULTING PHYSICIAN: Chavo Ayala M.D. REFERRING PHYSICIAN: Reji Arrieta D.O. REASON FOR CONSULTATION: Evaluation of the patient for pneumonia and antibiotic management. HISTORY OF PRESENT ILLNESS: The patient is a 71-year-old male with multiple medical problems as listed below, who was admitted recently to this medical center about two months ago. The patient was brought to the hospital due to behavioral issues. The patient has also been complaining of having cough and generalized edema. The patient was admitted with impression of CHF. Infectious Disease consultation has been requested for further evaluation of the patient and antibiotic management. PAST MEDICAL HISTORY: 1. History of leukopenia. 2. History of right pleural effusion, status post thoracocentesis in November. 3. History of CKD. 4. CHF. 5. History of alcohol abuse. 6. COPD. 7. Hypertension. 8. CVA. ALLERGIES: No drug allergies. SOCIAL HISTORY: The patient is homeless. FAMILY HISTORY: Noncontributory. REVIEW OF SYSTEMS: A 10-point review of systems was done and except what was mentioned above has been negative. MEDICATIONS: The patient is off of antibiotics. PHYSICAL EXAMINATION: VITAL SIGNS: Temperature 97.4, pulse 86, respiratory rate 18, and blood pressure 111/74. HEENT: No pale conjunctivae. No scleral icterus. Poor oral hygiene. NECK: No lymphadenopathy. CHEST: Coarse breathing sounds. Mild crackles at the base of both lungs. HEART: S1 and S2. ABDOMEN: Soft. EXTREMITIES: All four extremities have edema. Nontender. NEUROLOGIC: Awake. LABORATORY AND DIAGNOSTIC DATA: WBC 4.2, hemoglobin 10, and platelets 289. UA unremarkable. HIV and titer back in November negative. Chest x-ray 02/11/2019 showed interstitial edema. ASSESSMENT: 1. The patient is a 71-year-old male, who was admitted to this medical center and has shortness of breath and some dry cough. The patient's clinical picture is compatible with congestive heart failure more than pneumonia. 2. Afebrile. 3. Leukopenia. 4. Generalized edema. PLAN: 1. We will monitor the patient off of antibiotics. 2. Monitor chest x-ray. 3. CBC and BMP. 4. Based on the patient's clinical course and labs, we will do further recommendations. Thank you, Dr. Reji Arrieta, for allowing me to participate in the care of this patient. I will follow the patient with you during this hospitalization. Chavo Ayala M.D. DR: OTIS JOB#: [id number] CC:
[2019-02-13] VITALS: BP 116/75
[2019-02-13 04:00] VITALS: BP 114/71
--- NOTE | 2019-02-13 05:58 | NUR ---
NURSE NOTES: Patient periodically removed nasal canula during PM shift. When reinserted patient would breath through mouth. Oxygen saturation was over 95% in the PM shift.
--- NOTE | 2019-02-13 06:45 | Progress Note ---
DATE: 02/13/2019 SUBJECTIVE: This is a 71-year-old male patient with congestive heart failure. The patient continues to have some confusion, some disorganized thought process, decline in cognition below his baseline. That is why, his attending has requested daily psychiatric consultation. He does have some mood lability, confusion, disorganized thought process, and decline in cognition below his baseline. MENTAL STATUS EXAMINATION: This is a 71-year-old male patient. His appearance is disheveled. Attitude, irritable and agitated. Affect, guarded and restricted. Intellect poor. Mood depressed and anxious. Motor activity, psychomotor agitation. Attention span is poor. Insight and judgment is poor. DIAGNOSIS: Paranoid schizophrenia acute exacerbation. PLAN: I will continue to treat the patient with Seroquel to help him stabilize his mood. Provide him with 20 minutes of cognitive behavioral therapy to help him identify his automatic negative thoughts help him convert those negative thoughts to more positive thoughts to reduce depression, anxiety, and suicidality. 20 minutes of cognitive behavioral therapy provided. Chart reviewed. Discussed with staff. Seen and assessed in his room. Lizzy Hyman M.D. DR: GILBERTO JOB#: [id number] CC:
--- NOTE | 2019-02-13 07:05 | NUR ---
NURSE NOTES: Received report from TIFFANY Terrazas. Patient is sleeping in bed. No respiratory distress noted or discomfort noted. 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 Patient is on room air. Bed in low and locked position, call light within reach, bedside table within reach. Continue to monitor.
--- NOTE | 2019-02-13 07:16 | NUR ---
HAND-OFF: Report given to Cade ALLEN.
[2019-02-13 08:00] VITALS: BP 122/72
--- NOTE | 2019-02-13 08:30 | General Progress Note ---
Assessment/Plan Problem List: (1) Anemia ICD Codes: D64.9 - Anemia, unspecified SNOMED: 518782344 (2) SOB (shortness of breath) ICD Codes: R06.02 - Shortness of breath SNOMED: 138348258 (3) Elevated troponin ICD Codes: R74.8 - Abnormal levels of other serum enzymes SNOMED: 467097223, 881673761, 310516562 (4) Drug abuse ICD Codes: F19.10 - Other psychoactive substance abuse, uncomplicated SNOMED: 40337003 (5) COPD (chronic obstructive pulmonary disease) ICD Codes: J44.9 - Chronic obstructive pulmonary disease, unspecified SNOMED: 58664168 Qualifiers: Qualified Codes: J44.9 - Chronic obstructive pulmonary disease, unspecified (6) ATN (acute tubular necrosis) ICD Codes: N17.0 - Acute kidney failure with tubular necrosis SNOMED: 26867580 Status: unchanged Assessment/Plan: o2 pulm tx abx pt diet cbc bmp am Subjective Allergies: Coded Allergies: GRAPEFRUIT (Unverified Allergy, Intermediate, Hives, 12/13/12) ORANGE (Verified Allergy, Unknown, 11/20/18) All Systems: reviewed and negative except above Subjective sleepy in bed calm Objective Last 24 Hour Vital Signs Date Time Temp Pulse Resp B/P (MAP) Pulse Ox O2 Delivery O2 Flow Rate FiO2 02/13/19 08:22 Room Air 02/13/19 08:00 98.0 90 20 122/72 (89) 96 02/13/19 04:00 98.7 95 18 114/71 (85) 95 02/13/19 03:34 88 02/13/19 00:00 99.0 93 20 116/75 (89) 95 02/12/19 21:00 Room Air 02/12/19 20:55 98 111/72 02/12/19 20:00 99.2 98 17 111/72 (85) 95 02/12/19 20:00 97 02/12/19 16:00 97.4 94 23 118/57 (77) 95 02/12/19 15:53 94 02/12/19 13:00 97 Nasal Cannula 2.0 28 02/12/19 12:00 97.0 83 23 125/59 (81) 99 02/12/19 11:53 88 02/12/19 10:00 97.0 90 24 118/71 (87) 95 02/12/19 09:00 Nasal Cannula 2.0 Intake and Output 02/12/19 02/13/19 19:00 07:00 Intake Total 200 ml Output Total 500 ml Balance -500 ml 200 ml Intake IV Total 200 ml Output Urine Total 500 ml # Voids 1 Laboratory Tests 02/12/19 12:15: Magnesium Level 1.7L, Troponin I 0.296H 02/12/19 20:20: Troponin I 0.243H Height (Feet): 5 Height (Inches): 10.00 Weight (Pounds): 168 General Appearance: lethargic EENT: normal ENT inspection Neck: normal alignment Cardiovascular: normal peripheral pulses, normal rate, regular rhythm Respiratory/Chest: chest wall non-tender, lungs clear, normal breath sounds Abdomen: normal bowel sounds, non tender, soft Extremities: normal inspection Edema: no edema noted Arm (L), no edema noted Arm (R), no edema noted Leg (L), no edema noted Leg (R), no edema noted Pedal (L), no edema noted Pedal (R), no edema noted Generalized Neurologic: motor weakness Skin: normal pigmentation, warm/dry Reji Arrieta DO February 13, 2019 08:30
[2019-02-13 10:30] LABS: BASOPHILS % (AUTO) 1.7 % (0.0-2.0); EOSINOPHILS % (AUTO) 0.5 % (0.0-3.0); HEMOGLOBIN 10.5 G/DL (14.2-18.0); LYMPHOCYTES % (AUTO) 28.6 % (20.0-45.0); MEAN CORPUSCULAR VOLUME 105 FL (80-99); MONOCYTES % (AUTO) 9.4 % (1.0-10.0); NEUTROPHILS % (AUTO) 59.7 % (45.0-75.0); PLATELET COUNT 271 K/UL (150-450); RED BLOOD COUNT 3.14 M/UL (4.70-6.10); RED CELL DISTRIBUTION WIDTH 14.4 % (11.6-14.8); WHITE BLOOD COUNT 4.8 K/UL (4.8-10.8)
[2019-02-13 10:38] LABS: ANION GAP 8 mmol/L (5-15); BLOOD UREA NITROGEN 20 mg/dL (7-18); CALCIUM 8.5 MG/DL (8.5-10.1); CARBON DIOXIDE 25 MMOL/L (21-32); CHLORIDE 108 MMOL/L (98-107); CREATININE 1.3 MG/DL (0.55-1.30); POTASSIUM 4.3 MMOL/L (3.5-5.1); SODIUM 141 MMOL/L (136-145)
[2019-02-13 11:54] VITALS: BP 114/75
--- NOTE | 2019-02-13 12:55 | General Progress Note ---
Progress Note Progress Note patient seen and examined full consult dictated Gena Molina MD February 13, 2019 12:55
--- NOTE | 2019-02-13 13:06 | Consultation ---
History of Present Illness General Date patient seen: February 13, 2019 Chief Complaint: Behavioral Complaint Present Illness HPI 71-year-old male with hx o HTN, COPD, CHF, CVA/TIA, cardiomyopathy, EF of 30T% , seizures, homelessness presented to ED for evaluation of bizarre behavior. Bystander called 911 stating that patient was talking to himself and exposing himself. Upon arrival in ER patient was swollen and edematous. Pt is admitted to telemetry for further management. Allergies: Coded Allergies: GRAPEFRUIT (Unverified Allergy, Intermediate, Hives, 12/13/12) ORANGE (Verified Allergy, Unknown, 11/20/18) Medication History Scheduled Acetaminophen With Codeine (T#3) (Tylenol #3 Tab*), 1 TAB ORAL Q4H Aspirin* (Aspir 81*), 81 MG ORAL DAILY, (Reported) Carvedilol (Coreg), 3.125 MG ORAL EVERY 12 HOURS Quetiapine Fumarate* (Seroquel*), 300 MG ORAL QHS Theophylline (Theodur*), 100 MG ORAL EVERY 12 HOURS Scheduled PRN Hydrocodone Bit/Acetaminophen 5-325* ([place] 5-325*), 1 TAB ORAL Q6H PRN for For Pain Miscellaneous Medications [Seroquel], (Reported) [Vicodin], (Reported) Patient History Healthcare decision maker Resuscitation status Advanced Directive on File Past Medical/Surgical History Past Medical/Surgical History: (1) Homelessness (2) COPD (chronic obstructive pulmonary disease) (3) Anemia Review of Systems All Other Systems: negative except mentioned in HPI Physical Exam General Appearance: WD/WN, cachetic Lines, tubes and drains: peripheral HEENT: normocephalic, anicteric Neck: normal alignment Respiratory/Chest: chest wall non-tender, lungs clear Breasts: no masses Cardiovascular/Chest: normal peripheral pulses Abdomen: normal bowel sounds Genitourinary/Rectal: normal genital exam, normal rectal exam Extremities: normal range of motion Last 24 Hour Vital Signs Date Time Temp Pulse Resp B/P (MAP) Pulse Ox O2 Delivery O2 Flow Rate FiO2 02/13/19 11:54 97.8 88 20 114/75 (88) 92 02/13/19 08:46 90 122/72 02/13/19 08:22 Room Air 02/13/19 08:00 98.0 90 20 122/72 (89) 96 02/13/19 07:49 93 02/13/19 07:00 96 Nasal Cannula 2.0 28 02/13/19 04:00 98.7 95 18 114/71 (85) 95 02/13/19 03:34 88 02/13/19 00:00 99.0 93 20 116/75 (89) 95 02/12/19 21:00 Room Air 02/12/19 20:55 98 111/72 02/12/19 20:00 99.2 98 17 111/72 (85) 95 02/12/19 20:00 97 02/12/19 16:00 97.4 94 23 118/57 (77) 95 02/12/19 15:53 94 02/12/19 13:00 97 Nasal Cannula 2.0 28 Intake and Output 02/12/19 02/13/19 18:59 06:59 Intake Total 200 ml Output Total 500 ml Balance -500 ml 200 ml IV Total 200 ml Output Urine Total 500 ml # Voids 1 Laboratory Tests Test 02/12/19 20:20 02/13/19 09:40 Troponin I 0.243 ng/mL (0.000-0.056) White Blood Count 4.8 K/UL (4.8-10.8) Red Blood Count 3.14 M/UL (4.70-6.10) L Hemoglobin 10.5 G/DL (14.2-18.0) L Hematocrit 33.0 % (42.0-52.0) L Mean Corpuscular Volume 105 FL (80-99) H Mean Corpuscular Hemoglobin 33.3 PG (27.0-31.0) H Mean Corpuscular Hemoglobin Concent 31.8 G/DL (32.0-36.0) L Red Cell Distribution Width 14.4 % (11.6-14.8) Platelet Count 271 K/UL (150-450) Mean Platelet Volume 6.7 FL (6.5-10.1) Neutrophils (%) (Auto) 59.7 % (45.0-75.0) Lymphocytes (%) (Auto) 28.6 % (20.0-45.0) Monocytes (%) (Auto) 9.4 % (1.0-10.0) Eosinophils (%) (Auto) 0.5 % (0.0-3.0) Basophils (%) (Auto) 1.7 % (0.0-2.0) Sodium Level 141 MMOL/L (136-145) Potassium Level 4.3 MMOL/L (3.5-5.1) Chloride Level 108 MMOL/L (98-107) H Carbon Dioxide Level 25 MMOL/L (21-32) Anion Gap 8 mmol/L (5-15) Blood Urea Nitrogen 20 mg/dL (7-18) H Creatinine 1.3 MG/DL (0.55-1.30) Estimat Glomerular Filtration Rate mL/min (>60) Glucose Level 80 MG/DL (74-106) Calcium Level 8.5 MG/DL (8.5-10.1) Height (Feet): 5 Height (Inches): 10.00 Weight (Pounds): 168 Medications Current Medications Medications (Trade) Dose Ordered Sig/Daria Route PRN Reason Start Time Stop Time Status Last Admin Dose Admin Carvedilol (Coreg) 3.125 mg EVERY 12 HOURS ORAL 02/12/19 21:00 03/14/19 20:59 02/13/19 08:46 Lorazepam (Ativan) 1 mg Q6H PRN ORAL For Anxiety 02/12/19 05:15 02/19/19 05:14 Morphine Sulfate (Morphine Sulfate) 2 mg Q4H PRN IVP For Pain 02/12/19 00:45 02/19/19 00:44 Quetiapine Fumarate (SEROquel) 300 mg QHS ORAL 02/12/19 21:00 03/14/19 20:59 02/12/19 20:55 Assessment/Plan Problem List: (1) Acute encephalopathy ICD Codes: G93.40 - Encephalopathy, unspecified SNOMED: 33035674, 511835252 (2) Acute psychosis ICD Codes: F23 - Brief psychotic disorder SNOMED: 1261048, 51402656 (3) Non compliance w medication regimen ICD Codes: Z91.14 - Patient's other noncompliance with medication regimen SNOMED: 758861625 (4) CHF (congestive heart failure) ICD Codes: I50.9 - Heart failure, unspecified SNOMED: 11014751 Qualifiers: Qualified Codes: I50.9 - Heart failure, unspecified Assessment/Plan: psych evaluation resume diuretics cardiology evaluation f/u electrolytes social service consult pt is too old to live on street. Jese Murdock MD February 13, 2019 13:06
--- NOTE | 2019-02-13 14:30 | Cardiology Report ---
APPROVED REPORT EXAM: Two-dimensional and M-mode echocardiogram with Doppler and color Doppler. INDICATION BBB M-Mode DIMENSIONS IVSd0.5 (0.7-1.1cm)Left Atrium (MM)4.5 (1.6-4.0cm) LVDd6.0 (3.5-5.6cm)Aortic Root2.2 (2.0-3.7cm) PWd0.6 (0.7-1.1cm)Aortic Cusp Exc.1.2 (1.5-2.0cm) IVSs1.3 cm LVDs5.1 (2.5-4.0cm) PWs0.9 cm Global left ventricular hypokinesis with anteroseptal mid to distal and apical akinesis ,ischemic cardiomyopathy can not excluded . Mild left ventricular enlargement . Left ventricular ejection fraction estimated to be 20-25%. Mild left ventricular hypertrophy by 2-D. No evidence of pericardial effusion. Moderate bi-atrial enlargement . Mild right ventricular enlargement . Aortic valve calcification with normal cusp excursion . Heavily thickened mitral valve leaflets with reduced excursion. Heavy mitral annulus and aortic root calcification. Pulmonic valve not well visualized. IVC dilated at 3.0 cm without physiologic collapse suggestive of increased RA pressure.RAP estimated 20mmHg. A color flow and spectral Doppler study was performed and revealed: Mild to moderate aortic insufficiency . Peak mitral valve gradient of 16 mm Hg and a mean of 7 mmHg. Mitral valve area 1.7 cm2 calculated by continuity equation. Mitral diastolic velocities suggest reduced left ventricular relaxation c/w mild LV diastolic dysfunction (Grade I ) Moderate mitral regurgitation. Moderate to severe tricuspid regurgitation. Tricuspid systolic velocities suggests peak right ventricular systolic pressure of 47 mmHg.
--- NOTE | 2019-02-13 14:45 | Cardiology Report ---
APPROVED REPORT EKG Measurement Heart [id number] Sinus tachycardia Right bundle branch block Abnormal ECG
[2019-02-13 16:00] VITALS: BP 109/76
--- NOTE | 2019-02-13 19:34 | NUR ---
HAND-OFF: Report given to TIFFANY Hernadez.
--- NOTE | 2019-02-13 19:42 | NUR ---
NURSE NOTES: Received report from TIFFANY Mohamud. Patient is awake lying semi-barbosa's; resting comfortably. No signs of acute distress noted; denies pain at this time stating, "that's not for you to know." On 2L nasal cannula. AOx3; able to make needs known. Checked IV site; patent and flushed. No erythema, bleeding, or infiltration noted. Bed at lowest position, brakes on, siderails up x3. Call light within reach. Will continue to monitor.
[2019-02-13 20:00] VITALS: BP 120/73
--- NOTE | 2019-02-13 22:37 | Cardiology Progress Note ---
Assessment/Plan Assessment/Plan The patient is seen and examined, full consult note is dictated. Objective Last 24 Hour Vital Signs Date Time Temp Pulse Resp B/P (MAP) Pulse Ox O2 Delivery O2 Flow Rate FiO2 02/13/19 20:48 92 120/73 02/13/19 20:00 97.7 92 20 120/73 (89) 93 02/13/19 16:00 97.5 92 20 109/76 (87) 96 02/13/19 15:45 86 02/13/19 11:55 84 02/13/19 11:54 97.8 88 20 114/75 (88) 92 02/13/19 08:46 90 122/72 02/13/19 08:22 Room Air 02/13/19 08:00 98.0 90 20 122/72 (89) 96 02/13/19 07:49 93 02/13/19 07:00 96 Nasal Cannula 2.0 28 02/13/19 04:00 98.7 95 18 114/71 (85) 95 02/13/19 03:34 88 02/13/19 00:00 99.0 93 20 116/75 (89) 95 Intake and Output 02/12/19 02/13/19 19:00 07:00 Intake Total 200 ml Output Total 500 ml Balance -500 ml 200 ml IV Total 200 ml Output Urine Total 500 ml # Voids 1 Laboratory Tests Test 02/13/19 09:40 02/13/19 20:51 White Blood Count 4.8 K/UL (4.8-10.8) Red Blood Count 3.14 M/UL (4.70-6.10) L Hemoglobin 10.5 G/DL (14.2-18.0) L Hematocrit 33.0 % (42.0-52.0) L Mean Corpuscular Volume 105 FL (80-99) H Mean Corpuscular Hemoglobin 33.3 PG (27.0-31.0) H Mean Corpuscular Hemoglobin Concent 31.8 G/DL (32.0-36.0) L Red Cell Distribution Width 14.4 % (11.6-14.8) Platelet Count 271 K/UL (150-450) Mean Platelet Volume 6.7 FL (6.5-10.1) Neutrophils (%) (Auto) 59.7 % (45.0-75.0) Lymphocytes (%) (Auto) 28.6 % (20.0-45.0) Monocytes (%) (Auto) 9.4 % (1.0-10.0) Eosinophils (%) (Auto) 0.5 % (0.0-3.0) Basophils (%) (Auto) 1.7 % (0.0-2.0) Sodium Level 141 MMOL/L (136-145) Potassium Level 4.3 MMOL/L (3.5-5.1) Chloride Level 108 MMOL/L (98-107) H Carbon Dioxide Level 25 MMOL/L (21-32) Anion Gap 8 mmol/L (5-15) Blood Urea Nitrogen 20 mg/dL (7-18) H Creatinine 1.3 MG/DL (0.55-1.30) Estimat Glomerular Filtration Rate mL/min (>60) Glucose Level 80 MG/DL (74-106) Calcium Level 8.5 MG/DL (8.5-10.1) Urine Eosinophils None seen (NONE SEEN) Urine Random Creatinine Pending Urine Random Microalbumin Pending Urine Random Total Protein 18 MG/DL (< 11.9) H Urine Random Sodium 35 mmol/L (20-110) Urine Creatinine 119.1 MG/DL (30.0-125.0) Urine Microalbumin/Creatinine Ratio Pending Mc Ocampo MD February 13, 2019 22:37
[2019-02-14] VITALS: BP 107/78
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
[2019-02-14 04:00] VITALS: BP 111/74
--- NOTE | 2019-02-14 04:52 | NUR ---
NURSE NOTES: Patient is asleep lying semi-barbosa's; resting comfortably. No signs of acute distress or pain noted at this time.
[2019-02-14 06:37] LABS: EOSINOPHILS % (AUTO) 0.6 % (0.0-3.0); HEMATOCRIT 31.1 % (42.0-52.0); HEMOGLOBIN 9.8 G/DL (14.2-18.0); LYMPHOCYTES % (AUTO) 35.3 % (20.0-45.0); MEAN CORPUSCULAR VOLUME 104 FL (80-99); MONOCYTES % (AUTO) 11.5 % (1.0-10.0); NEUTROPHILS % (AUTO) 51.6 % (45.0-75.0); PLATELET COUNT 273 K/UL (150-450); RED CELL DISTRIBUTION WIDTH 13.8 % (11.6-14.8); WHITE BLOOD COUNT 4.6 K/UL (4.8-10.8)
[2019-02-14 06:57] LABS: ALANINE AMINOTRANSFERASE 23 U/L (12-78); ALBUMIN 2.7 G/DL (3.4-5.0); ALBUMIN/GLOBULIN RATIO 0.8 (1.0-2.7); ALKALINE PHOSPHATASE 79 U/L (46-116); ANION GAP 4 mmol/L (5-15); ASPARTATE AMINO TRANSFERASE 28 U/L (15-37); BILIRUBIN,TOTAL 0.8 MG/DL (0.2-1.0); BLOOD UREA NITROGEN 20 mg/dL (7-18); CALCIUM 8.7 MG/DL (8.5-10.1); CARBON DIOXIDE 25 MMOL/L (21-32); CHLORIDE 107 MMOL/L (98-107); CREATININE 1.2 MG/DL (0.55-1.30); POTASSIUM 4.6 MMOL/L (3.5-5.1); SODIUM 136 MMOL/L (136-145)
[2019-02-14 07:07] LABS: INR 1.1 (0.9-1.1)
--- NOTE | 2019-02-14 07:25 | NUR ---
HAND-OFF: Report given to TIFFANY Jolly. Patient is awake sitting on the edge of the bed; resting comfortably. In stable condition.
--- NOTE | 2019-02-14 07:30 | NUR ---
NURSE NOTES: Patient is sitting at side of bed. Patient is on room air. No s/s of discomfort at the moment. Bed is locked, in lowest position, and call light is within reach. Will continue to monitor.
[2019-02-14 07:47] LABS: % IRON SATURATION 9 % (15-50); IRON 22 ug/dL (50-175); TOTAL IRON BINDING CAPACITY 252 ug/dL (250-450)
[2019-02-14 07:48] LABS: LACTATE DEHYDROGENASE 509 U/L (81-234)
[2019-02-14 08:00] VITALS: BP 103/70
--- NOTE | 2019-02-14 08:31 | NUR ---
RADIOLOGY DEPT., CHEST X-RAY DONE.-P.DYE
--- NOTE | 2019-02-14 09:00 | NUR ---
PT NOTE Received MD order for PT evaluation. Attempted to see patient for PT evaluation, explained to patient purpose of PT evaluation. Patient declining to participate with PT evaluation, became agitated, yelling "I told you that I don't want to get up." Shanae ALLEN notified, will re-attempt later as schedule permits.
--- NOTE | 2019-02-14 10:30 | Consultation ---
DATE OF CONSULTATION: 02/13/2019 NEPHROLOGY CONSULTATION CONSULTING PHYSICIAN: Gena Molina M.D. REFERRING PHYSICIAN: Reji Arrieta D.O. REASON FOR CONSULTATION: Persistent and electrolyte imbalance. HISTORY OF PRESENT ILLNESS: The patient is an unfortunate 71-year-old male with past medical history significant for history of COPD, CHF, hypertension, and CVA who was brought into [facility] for evaluation of behavioral disturbance. Apparently, the patient was talking to himself and 911 was called. The patient was brought to the emergency room. In the ER, the patient was found to have CHF, has been started on Lasix. He was admitted in the hospital, found to have abnormal electrolytes. I was called for management of renal disease and electrolyte imbalance. PAST MEDICAL HISTORY: Per chart, the patient had a history of . 1. History of hypertension. 2. History of COPD. 3. History of CHF with EF of 30%. 4. History of TIA. 5. History of CVA. MEDICATIONS AT HOME: Includin. Tylenol 650 mg q.6 h. p.r.n. pain. 2. Aspirin 81 mg daily. 3. Carvedilol 3.125 mg daily. 4. Seroquel 300 mg daily. 5. Theophylline 100 mg daily. 6. Stem p.r.n. pain. REVIEW OF SYSTEMS: Unable to obtain due to the patient's condition and mental status. The patient seems to be disoriented and not able to provide appropriate answers to most questions. PHYSICAL EXAMINATION: VITAL SIGNS: Temperature 98, pulse rate 88, respiratory rate 20, and blood pressure 113/75. HEAD AND NECK: No JVP. No LAD or thyromegaly. Extraocular movements are intact. Pupils are equal and reactive to light and accommodation. LUNGS: Decreased breathing sounds on both sides. CARDIOVASCULAR: Regular rate and rhythm. S1 and S2. No murmur. No rub. ABDOMEN: Soft, nontender, and nondistended. EXTREMITIES: No edema. No clubbing. No cyanosis. LABORATORY STUDIES: The patient was found to have a magnesium of 1.7. He had mild elevation of troponin, troponin was 0.243 down from 0.296. Chemistry revealed sodium 141, potassium 4.3, chloride 108, bicarb 25, BUN 20, and creatinine 1.3. Calcium 8.5. CBC revealed WBC count 4.8, hemoglobin 10.5, hematocrit 33, and platelet count 231. UA revealed specific gravity of 1.020, pH 5, ketones 1+, blood 1+, protein 2+, leukocytes 2+, and wbc of 2 to 4. ASSESSMENT: Prerenal azotemia. I am pleased that the patient was having some degree of urinary concentration on admission, also was found to have proteinuria and hematuria, which not sure if hypomagnesemia . PLAN: Plan for the patient is to obtain UA, check the random urine protein-creatinine ratio to calculate the proteinuria. Check urine sodium and creatinine to calculate fractional excretion of sodium. Check microalbumin. Check urine for eosinophils, daily weights. Avoid NSAIDs or nephrotoxic. Again, I would like to thank Dr. Reji Arrieta for allowing me to participate in the care of this patient. Gena Molina M.D. DR: ARACELI JOB#: [id number] CC:
--- NOTE | 2019-02-14 10:32 | Pulmonology Progress Note ---
Assessment/Plan Problems: (1) CHF (congestive heart failure) (2) Acute encephalopathy (3) Acute psychosis (4) Non compliance w medication regimen Assessment/Plan Echo reviewed, EF is 25%, moderate pulmonary hypertension social service consult on Seroquel qhs might need placement, considering his age and homelessness. check electrolytes. Subjective ROS Limited/Unobtainable: No Constitutional: Reports: no symptoms HEENT: Repors: no symptoms Respiratory: Reports: no symptoms Allergies: Coded Allergies: GRAPEFRUIT (Unverified Allergy, Intermediate, Hives, 12/13/12) ORANGE (Verified Allergy, Unknown, 11/20/18) Objective Last 24 Hour Vital Signs Date Time Temp Pulse Resp B/P (MAP) Pulse Ox O2 Delivery O2 Flow Rate FiO2 02/14/19 09:20 93 146/72 02/14/19 08:00 98.2 97 20 103/70 (81) 96 02/14/19 08:00 96 02/14/19 08:00 Nasal Cannula 2.0 02/14/19 04:00 98.3 94 20 111/74 (86) 95 02/14/19 04:00 91 02/14/19 00:00 98.6 98 20 107/78 (88) 98 02/14/19 00:00 95 02/13/19 21:00 Nasal Cannula 2.0 02/13/19 20:48 92 120/73 02/13/19 20:00 97.7 92 20 120/73 (89) 93 02/13/19 20:00 87 02/13/19 16:00 97.5 92 20 109/76 (87) 96 02/13/19 15:45 86 02/13/19 11:55 84 02/13/19 11:54 97.8 88 20 114/75 (88) 92 Intake and Output 02/13/19 02/14/19 19:00 07:00 Intake Total 720 ml 310 ml Output Total 250 ml 750 ml Balance 470 ml -440 ml Intake Oral 720 ml 310 ml Output Urine Total 250 ml 750 ml # Voids 1 # Bowel Movements 2 General Appearance: WD/WN, no acute distress HEENT: normocephalic, atraumatic Respiratory/Chest: chest wall non-tender, lungs clear Cardiovascular: normal peripheral pulses, normal rate Abdomen: normal bowel sounds, soft, non tender Genitourinary: normal external genitalia Extremities: no cyanosis 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 Complete 02/11/19 18:10 Rectum - Final NO CARBAPENEM-RESISTANT ENTEROBACTERI... Complete Laboratory Tests 02/13/19 20:51: Urine Eosinophils None seen, Urine Random Creatinine [Pending], Urine Random Microalbumin [Pending], Urine Random Total Protein 18H, Urine Random Sodium 35, Urine Creatinine 119.1, Urine Microalbumin/Creatinine Ratio [Pending] 02/14/19 06:20: White Blood Count 4.6L, Red Blood Count 3.00L, Hemoglobin 9.8L, Hematocrit 31.1L , Mean Corpuscular Volume 104H, Mean Corpuscular Hemoglobin 32.8H, Mean Corpuscular Hemoglobin Concent 31.6L, Red Cell Distribution Width 13.8, Platelet Count 273, Mean Platelet Volume 6.3L, Neutrophils (%) (Auto) 51.6, Lymphocytes (%) (Auto) 35.3, Monocytes (%) (Auto) 11.5H, Eosinophils (%) (Auto) 0.6, Basophils (%) (Auto) 1.0, Neutrophils % (Manual) [Pending], Lymphocytes % ( Manual) [Pending], Platelet Estimate [Pending], Platelet Morphology [Pending], Erythrocyte Sedimentation Rate 37H, Reticulocyte Count [Pending], Prothrombin Time 11.7H, Prothromb Time International Ratio 1.1, Activated Partial Thromboplast Time 29, Sodium Level 136, Potassium Level 4.6, Chloride Level 107 , Carbon Dioxide Level 25, Anion Gap 4L, Blood Urea Nitrogen 20H, Creatinine 1.2 , Estimat Glomerular Filtration Rate , Glucose Level 91, Calcium Level 8.7, Iron Level 22L, Total Iron Binding Capacity 252, Percent Iron Saturation 9L, Unsaturated Iron Binding 230, Total Bilirubin 0.8, Aspartate Amino Transf (AST/ SGOT) 28, Alanine Aminotransferase (ALT/SGPT) 23, Alkaline Phosphatase 79, Lactate Dehydrogenase 509H, Pro-B-Type Natriuretic Peptide 3374H, Total Protein 6.1L, Albumin 2.7L, Globulin 3.4, Albumin/Globulin Ratio 0.8L, Carcinoembryonic Antigen [Pending], Vitamin B12 Level 470, Folate 18.3 Current Medications Medications (Trade) Dose Ordered Sig/Daria Route PRN Reason Start Time Stop Time Status Last Admin Dose Admin Carvedilol (Coreg) 3.125 mg EVERY 12 HOURS ORAL 02/12/19 21:00 03/14/19 20:59 02/14/19 09:20 Lorazepam (Ativan) 1 mg Q6H PRN ORAL For Anxiety 02/12/19 05:15 02/19/19 05:14 Morphine Sulfate (Morphine Sulfate) 2 mg Q4H PRN IVP For Pain 02/12/19 00:45 02/19/19 00:44 Quetiapine Fumarate (SEROquel) 300 mg QHS ORAL 02/12/19 21:00 03/14/19 20:59 02/13/19 20:48 Jese Murdock MD February 14, 2019 10:32
--- NOTE | 2019-02-14 11:00 | Progress Note ---
DATE: 02/14/2019 SUBJECTIVE: This is a 71-year-old male patient with heart failure and the patient continues to have some confusion, some disorganized thought process, decline in cognition below baseline. DIAGNOSIS: Paranoid schizophrenia. PLAN: Continue treatment with Seroquel to stabilize his mood. Provided him with 20 minutes of cognitive behavioral therapy to help him identify his automatic negative thoughts, help him convert those negative thoughts to more positive thoughts to reduce depression, anxiety, and mood lability. Chart reviewed. Discussed with staff. Seen and assessed in his room. Lizzy Hyman M.D. DR: JENI JOB#: [id number] CC:
[2019-02-14 12:00] VITALS: BP 109/73
--- NOTE | 2019-02-14 12:20 | Infectious Diseases Prog Note ---
Assessment/Plan Assessment/Plan ASSESSMENT: 1. The patient is a 71-year-old male, who was admitted to this medical center and has shortness of breath and some dry cough. The patient's clinical picture is compatible with congestive heart failure more than pneumonia. -CXR: Accentuation of bronchovascular and interstitial markings. Could be from interstitial edema. 2. Afebrile. 3. Leukopenia. 4. Generalized edema. -History of leukopenia. -History of right pleural effusion, status post thoracocentesis in November. -History of CKD. -CHF. -History of alcohol abuse. -COPD. -Hypertension. -CVA. PLAN: 1. We will monitor the patient off of antibiotics. 2. Monitor chest x-ray. 3. CBC and BMP. 4. Based on the patient's clinical course and labs, we will do further recommendations. Thank you, Dr. Reji Arrieta, for allowing me to participate in the care of this patient. I will follow the patient with you during this hospitalization. Subjective Allergies: Coded Allergies: GRAPEFRUIT (Unverified Allergy, Intermediate, Hives, 12/13/12) ORANGE (Verified Allergy, Unknown, 11/20/18) Subjective afebrile at 2l NC no leukocytosis off abx Objective Vital Signs Last 24 Hour Vital Signs Date Time Temp Pulse Resp B/P (MAP) Pulse Ox O2 Delivery O2 Flow Rate FiO2 02/14/19 09:20 93 146/72 02/14/19 08:00 98.2 97 20 103/70 (81) 96 02/14/19 08:00 96 02/14/19 08:00 Nasal Cannula 2.0 02/14/19 04:00 98.3 94 20 111/74 (86) 95 02/14/19 04:00 91 02/14/19 00:00 98.6 98 20 107/78 (88) 98 02/14/19 00:00 95 02/13/19 21:00 Nasal Cannula 2.0 02/13/19 20:48 92 120/73 02/13/19 20:00 97.7 92 20 120/73 (89) 93 02/13/19 20:00 87 02/13/19 16:00 97.5 92 20 109/76 (87) 96 02/13/19 15:45 86 Height (Feet): 5 Height (Inches): 10.00 Weight (Pounds): 171 Objective HEENT: No pale conjunctivae. No scleral icterus. Poor oral hygiene. NECK: No lymphadenopathy. CHEST: Coarse breathing sounds. Mild crackles at the base of both lungs. HEART: S1 and S2. ABDOMEN: Soft. EXTREMITIES: All four extremities have edema. Nontender. NEUROLOGIC: Awake. Microbiology Date/Time Source Procedure Growth Status 02/11/19 18:10 Nasal Nares MRSA Culture - Final Staphylococcus Aureus - Mrsa Complete 02/11/19 18:10 Rectum VRE Culture - Final NO VANCOMYCIN RESISTANT ENTEROCOCCUS ... Complete 02/11/19 18:10 Rectum - Final NO CARBAPENEM-RESISTANT ENTEROBACTERI... Complete Laboratory Tests Test 02/13/19 20:51 02/14/19 06:20 Urine Eosinophils None seen (NONE SEEN) Urine Random Creatinine Pending Urine Random Microalbumin Pending Urine Random Total Protein 18 MG/DL (< 11.9) H Urine Random Sodium 35 mmol/L (20-110) Urine Creatinine 119.1 MG/DL (30.0-125.0) Urine Microalbumin/Creatinine Ratio Pending White Blood Count 4.6 K/UL (4.8-10.8) L Red Blood Count 3.00 M/UL (4.70-6.10) L Hemoglobin 9.8 G/DL (14.2-18.0) L Hematocrit 31.1 % (42.0-52.0) L Mean Corpuscular Volume 104 FL (80-99) H Mean Corpuscular Hemoglobin 32.8 PG (27.0-31.0) H Mean Corpuscular Hemoglobin Concent 31.6 G/DL (32.0-36.0) L Red Cell Distribution Width 13.8 % (11.6-14.8) Platelet Count 273 K/UL (150-450) Mean Platelet Volume 6.3 FL (6.5-10.1) L Neutrophils (%) (Auto) 51.6 % (45.0-75.0) Lymphocytes (%) (Auto) 35.3 % (20.0-45.0) Monocytes (%) (Auto) 11.5 % (1.0-10.0) H Eosinophils (%) (Auto) 0.6 % (0.0-3.0) Basophils (%) (Auto) 1.0 % (0.0-2.0) Differential Total Cells Counted 100 Neutrophils % (Manual) 54 % (45-75) Lymphocytes % (Manual) 35 % (20-45) Monocytes % (Manual) 11 % (1-10) H Eosinophils % (Manual) 0 % (0-3) Basophils % (Manual) 0 % (0-2) Band Neutrophils 0 % (0-8) Platelet Estimate Adequate Platelet Morphology Normal Macrocytosis 1+ Erythrocyte Sedimentation Rate 37 MM/HR (0-20) H Reticulocyte Count Pending Prothrombin Time 11.7 SEC (9.30-11.50) H Prothromb Time International Ratio 1.1 (0.9-1.1) Activated Partial Thromboplast Time 29 SEC (23-33) Sodium Level 136 MMOL/L (136-145) Potassium Level 4.6 MMOL/L (3.5-5.1) Chloride Level 107 MMOL/L (98-107) Carbon Dioxide Level 25 MMOL/L (21-32) Anion Gap 4 mmol/L (5-15) L Blood Urea Nitrogen 20 mg/dL (7-18) H Creatinine 1.2 MG/DL (0.55-1.30) Estimat Glomerular Filtration Rate mL/min (>60) Glucose Level 91 MG/DL (74-106) Calcium Level 8.7 MG/DL (8.5-10.1) Iron Level 22 ug/dL (50-175) L Total Iron Binding Capacity 252 ug/dL (250-450) Percent Iron Saturation 9 % (15-50) L Unsaturated Iron Binding 230 ug/dL (112-346) Total Bilirubin 0.8 MG/DL (0.2-1.0) Aspartate Amino Transf (AST/SGOT) 28 U/L (15-37) Alanine Aminotransferase (ALT/SGPT) 23 U/L (12-78) Alkaline Phosphatase 79 U/L (46-116) Lactate Dehydrogenase 509 U/L (81-234) H Pro-B-Type Natriuretic Peptide 3374 pg/mL (0-125) H Total Protein 6.1 G/DL (6.4-8.2) L Albumin 2.7 G/DL (3.4-5.0) L Globulin 3.4 g/dL Albumin/Globulin Ratio 0.8 (1.0-2.7) L Carcinoembryonic Antigen Pending Vitamin B12 Level 470 PG/ML (193-986) Folate 18.3 NG/ML (8.6-58.9) Current Medications Medications (Trade) Dose Ordered Sig/Daria Route PRN Reason Start Time Stop Time Status Last Admin Dose Admin Carvedilol (Coreg) 3.125 mg EVERY 12 HOURS ORAL 02/12/19 21:00 03/14/19 20:59 02/14/19 09:20 Furosemide (Lasix) 20 mg EVERY 12 HOURS IV 02/14/19 10:30 03/16/19 10:29 Lorazepam (Ativan) 1 mg Q6H PRN ORAL For Anxiety 02/12/19 05:15 02/19/19 05:14 Morphine Sulfate (Morphine Sulfate) 2 mg Q4H PRN IVP For Pain 02/12/19 00:45 02/19/19 00:44 Quetiapine Fumarate (SEROquel) 300 mg QHS ORAL 02/12/19 21:00 03/14/19 20:59 02/13/19 20:48 Nena Allen M.D. February 14, 2019 12:20
--- NOTE | 2019-02-14 12:25 | General Progress Note ---
Assessment/Plan Problem List: (1) Anemia ICD Codes: D64.9 - Anemia, unspecified SNOMED: 178011898 (2) Elevated troponin ICD Codes: R74.8 - Abnormal levels of other serum enzymes SNOMED: 554167897, 728372265, 602764002 (3) Drug abuse ICD Codes: F19.10 - Other psychoactive substance abuse, uncomplicated SNOMED: 65164840 (4) COPD (chronic obstructive pulmonary disease) ICD Codes: J44.9 - Chronic obstructive pulmonary disease, unspecified SNOMED: 41413077 Qualifiers: Qualified Codes: J44.9 - Chronic obstructive pulmonary disease, unspecified (5) ATN (acute tubular necrosis) ICD Codes: N17.0 - Acute kidney failure with tubular necrosis SNOMED: 30356486 Status: unchanged Assessment/Plan: o2 pulm tx abx pt diet cbc bmp am Subjective Constitutional: Reports: weakness Allergies: Coded Allergies: GRAPEFRUIT (Unverified Allergy, Intermediate, Hives, 12/13/12) ORANGE (Verified Allergy, Unknown, 11/20/18) All Systems: reviewed and negative except above Subjective o2nc sleepy in bed calm Objective Last 24 Hour Vital Signs Date Time Temp Pulse Resp B/P (MAP) Pulse Ox O2 Delivery O2 Flow Rate FiO2 02/14/19 09:20 93 146/72 02/14/19 08:00 98.2 97 20 103/70 (81) 96 02/14/19 08:00 96 02/14/19 08:00 Nasal Cannula 2.0 02/14/19 04:00 98.3 94 20 111/74 (86) 95 02/14/19 04:00 91 02/14/19 00:00 98.6 98 20 107/78 (88) 98 02/14/19 00:00 95 02/13/19 21:00 Nasal Cannula 2.0 02/13/19 20:48 92 120/73 02/13/19 20:00 97.7 92 20 120/73 (89) 93 02/13/19 20:00 87 02/13/19 16:00 97.5 92 20 109/76 (87) 96 02/13/19 15:45 86 Intake and Output 02/13/19 02/14/19 19:00 07:00 Intake Total 720 ml 310 ml Output Total 250 ml 750 ml Balance 470 ml -440 ml Intake Oral 720 ml 310 ml Output Urine Total 250 ml 750 ml # Voids 1 # Bowel Movements 2 Laboratory Tests 02/13/19 20:51: Urine Eosinophils None seen, Urine Random Creatinine [Pending], Urine Random Microalbumin [Pending], Urine Random Total Protein 18H, Urine Random Sodium 35, Urine Creatinine 119.1, Urine Microalbumin/Creatinine Ratio [Pending] 02/14/19 06:20: White Blood Count 4.6L, Red Blood Count 3.00L, Hemoglobin 9.8L, Hematocrit 31.1L , Mean Corpuscular Volume 104H, Mean Corpuscular Hemoglobin 32.8H, Mean Corpuscular Hemoglobin Concent 31.6L, Red Cell Distribution Width 13.8, Platelet Count 273, Mean Platelet Volume 6.3L, Neutrophils (%) (Auto) 51.6, Lymphocytes (%) (Auto) 35.3, Monocytes (%) (Auto) 11.5H, Eosinophils (%) (Auto) 0.6, Basophils (%) (Auto) 1.0, Differential Total Cells Counted 100, Neutrophils % (Manual) 54, Lymphocytes % (Manual) 35, Monocytes % (Manual) 11H, Eosinophils % (Manual) 0, Basophils % (Manual) 0, Band Neutrophils 0, Platelet Estimate Adequate, Platelet Morphology Normal, Macrocytosis 1+, Erythrocyte Sedimentation Rate 37H, Reticulocyte Count [Pending], Prothrombin Time 11.7H, Prothromb Time International Ratio 1.1, Activated Partial Thromboplast Time 29, Sodium Level 136, Potassium Level 4.6, Chloride Level 107, Carbon Dioxide Level 25, Anion Gap 4L, Blood Urea Nitrogen 20H, Creatinine 1.2, Estimat Glomerular Filtration Rate , Glucose Level 91, Calcium Level 8.7, Iron Level 22L, Total Iron Binding Capacity 252, Percent Iron Saturation 9L, Unsaturated Iron Binding 230, Total Bilirubin 0.8, Aspartate Amino Transf (AST/SGOT) 28, Alanine Aminotransferase (ALT/SGPT) 23, Alkaline Phosphatase 79, Lactate Dehydrogenase 509H, Pro-B-Type Natriuretic Peptide 3374H, Total Protein 6.1L, Albumin 2.7L, Globulin 3.4, Albumin/Globulin Ratio 0.8L, Carcinoembryonic Antigen [Pending], Vitamin B12 Level 470, Folate 18.3 Height (Feet): 5 Height (Inches): 10.00 Weight (Pounds): 171 General Appearance: lethargic EENT: PERRL/EOMI Neck: normal alignment Cardiovascular: normal peripheral pulses, normal rate, regularly irregular Respiratory/Chest: chest wall non-tender, lungs clear, normal breath sounds Abdomen: normal bowel sounds, non tender, soft Extremities: normal inspection Edema: no edema noted Arm (L), no edema noted Arm (R), no edema noted Leg (L), no edema noted Leg (R), no edema noted Pedal (L), no edema noted Pedal (R), no edema noted Generalized Neurologic: motor weakness Skin: normal pigmentation, warm/dry Reji Arrieta DO February 14, 2019 12:25
--- NOTE | 2019-02-14 12:38 | Diagnostic Imaging Report ---
Indication: Dyspnea Comparison: 02/11/2019 A single view chest radiograph was obtained. Findings: Pulmonary vascular congestion and cardiomegaly demonstrated. Similar findings previously. Lung volumes are slightly lower on the current study. IMPRESSION: Mild pulmonary vascular congestion. There is probably no change
--- NOTE | 2019-02-14 13:31 | NUR ---
RD ASSESSMENT & RECOMMENDATIONS SEE CARE ACTIVITY FOR COMPLETE ASSESSMENT DAILY ESTIMATED NEEDS: Needs based on CHF, 70kg abw 25-30 kcals/kg 4746-9989 total kcals 1-1.2 g protein/kg 70-84 g total protein 20-22 mL/kg 2869-0490 total fluid mLs NUTRITION DIAGNOSIS: Altered nutrition related lab values R/T CHF as evidenced by elev BNP (3374), on lasix. CURRENT DIET:LOW NA PO DIET RECOMMENDATIONS: LOW NA/ texture as tolerated ADDITIONAL RECOMMENDATIONS: * Standing daily wt for accurate monitoring- CHF dx * Monitor lytes closely w/ diuretics, replete as needed . .
[2019-02-14 16:00] VITALS: BP 101/73
--- NOTE | 2019-02-14 17:14 | NUR ---
Social Service Note SW met with patient to assess for homelessness. Patient alert and verbally responsive. Patient denies homelessness. On previous admission 12/06, patient's friends visited and informed staff that patient is homeless and has been unable to care for self on the streets. Patient was placed at [facility]. SW attempted to address previous admission. Patient became upset and stated that "No the FUCK is he homeless" and that he is not going to discuss this any further with SW. SW able to deescalate patient. However patient continues to state in no way will he agree to SNF placement. FELIPE spoke with Lorene at [facility] who states they are willing to accept patient. Lorene states patient was transferred to [place] and refused to return to their facility, patient then signed out AMA and returned to the streets. Patient shows poor insight. SW addressed concerns with Dr. Arrieta and Dr. Hyman. Will continue to monitor and assist as needed.
--- NOTE | 2019-02-14 18:14 | Nephrology Progress Note ---
Assessment/Plan Assessment 1.Pre-renal azotemia 2..hypomagnesemia 3.htn 4.CHF 5.CVA Plan PLAN continue current meds monitoring renal function avoid NSAID replace electrolyte as need it Subjective ROS Limited/Unobtainable: Yes Constitutional: Reports: no symptoms HEENT: Reports: no symptoms Genitourinary: Reports: no symptoms Neurologic/Psychiatric: Reports: no symptoms Subjective continue to be confused Objective Objective Last 24 Hour Vital Signs Date Time Temp Pulse Resp B/P (MAP) Pulse Ox O2 Delivery O2 Flow Rate FiO2 02/14/19 16:09 96 Nasal Cannula 2.0 28 02/14/19 16:00 98.8 87 20 101/73 (82) 95 02/14/19 16:00 85 02/14/19 12:00 98.2 90 20 109/73 (85) 97 02/14/19 12:00 89 02/14/19 09:20 93 146/72 02/14/19 08:00 98.2 97 20 103/70 (81) 96 02/14/19 08:00 96 02/14/19 08:00 Nasal Cannula 2.0 02/14/19 04:00 98.3 94 20 111/74 (86) 95 02/14/19 04:00 91 02/14/19 00:00 98.6 98 20 107/78 (88) 98 02/14/19 00:00 95 02/13/19 21:00 Nasal Cannula 2.0 02/13/19 20:48 92 120/73 02/13/19 20:00 97.7 92 20 120/73 (89) 93 02/13/19 20:00 87 Intake and Output 02/13/19 02/14/19 18:59 06:59 Intake Total 720 ml 310 ml Output Total 250 ml 750 ml Balance 470 ml -440 ml Intake Oral 720 ml 310 ml Output Urine Total 250 ml 750 ml # Voids 1 # Bowel Movements 2 Laboratory Tests 02/13/19 20:51: Urine Eosinophils None seen, Urine Random Creatinine [Pending], Urine Random Microalbumin [Pending], Urine Random Total Protein 18H, Urine Random Sodium 35, Urine Creatinine 119.1, Urine Microalbumin/Creatinine Ratio [Pending] 02/14/19 06:20: White Blood Count 4.6L, Red Blood Count 3.00L, Hemoglobin 9.8L, Hematocrit 31.1L , Mean Corpuscular Volume 104H, Mean Corpuscular Hemoglobin 32.8H, Mean Corpuscular Hemoglobin Concent 31.6L, Red Cell Distribution Width 13.8, Platelet Count 273, Mean Platelet Volume 6.3L, Neutrophils (%) (Auto) 51.6, Lymphocytes (%) (Auto) 35.3, Monocytes (%) (Auto) 11.5H, Eosinophils (%) (Auto) 0.6, Basophils (%) (Auto) 1.0, Differential Total Cells Counted 100, Neutrophils % (Manual) 54, Lymphocytes % (Manual) 35, Monocytes % (Manual) 11H, Eosinophils % (Manual) 0, Basophils % (Manual) 0, Band Neutrophils 0, Other Cell Type Pathologist review, Platelet Estimate Adequate, Platelet Morphology Normal, Macrocytosis 1+, Erythrocyte Sedimentation Rate 37H, Reticulocyte Count 2.1H, Prothrombin Time 11.7H, Prothromb Time International Ratio 1.1, Activated Partial Thromboplast Time 29, Sodium Level 136, Potassium Level 4.6, Chloride Level 107, Carbon Dioxide Level 25, Anion Gap 4L, Blood Urea Nitrogen 20H, Creatinine 1.2, Estimat Glomerular Filtration Rate , Glucose Level 91, Calcium Level 8.7, Iron Level 22L, Total Iron Binding Capacity 252, Percent Iron Saturation 9L, Unsaturated Iron Binding 230, Total Bilirubin 0.8, Aspartate Amino Transf (AST/SGOT) 28, Alanine Aminotransferase (ALT/SGPT) 23, Alkaline Phosphatase 79, Lactate Dehydrogenase 509H, Pro-B-Type Natriuretic Peptide 3374H , Total Protein 6.1L, Albumin 2.7L, Globulin 3.4, Albumin/Globulin Ratio 0.8L, Carcinoembryonic Antigen [Pending], Vitamin B12 Level 470, Folate 18.3 Height (Feet): 5 Height (Inches): 10.00 Weight (Pounds): 171 Objective General Appearance: lethargic EENT: PERRL/EOMI Neck: normal alignment Cardiovascular: normal peripheral pulses, normal rate, regularly irregular Respiratory/Chest: chest wall non-tender, lungs clear, normal breath sounds Abdomen: normal bowel sounds, non tender, soft Extremities: normal inspection Edema: no edema noted Arm (L), no edema noted Arm (R), no edema noted Leg (L), no edema noted Leg (R), no edema noted Pedal (L), no edema noted Pedal (R), no edema noted Generalized Gena Molina MD February 14, 2019 18:14
--- NOTE | 2019-02-14 19:14 | Cardiology Progress Note ---
Assessment/Plan Assessment/Plan 1. Acute systolic and diastolic heart failure with left ventricular ejection fraction approximately 20% likely due to severe mitral regurgitation. Ischemic w /u done at [facility]. Continue carvedilol and diuretics as well as afterload reduction. 2. Slight elevation of troponin level in this patient, most likely due to myocarditis, as the pattern of troponin rise is not suggestive of acute coronary syndrome, ischemic w/p done at [facility]. Continue GDMT. 3. Severe MR with low LVEF, probably medical therapy, ? mitral clip at [facility] in view of insurance. 4. History of CVA, continue with aspirin and statins. 5. History of hypertension. Subjective Subjective Sinus rhythm at rate of 89. Objective Last 24 Hour Vital Signs Date Time Temp Pulse Resp B/P (MAP) Pulse Ox O2 Delivery O2 Flow Rate FiO2 02/14/19 16:09 96 Nasal Cannula 2.0 28 02/14/19 16:00 98.8 87 20 101/73 (82) 95 02/14/19 16:00 85 02/14/19 12:00 98.2 90 20 109/73 (85) 97 02/14/19 12:00 89 02/14/19 09:20 93 146/72 02/14/19 08:00 98.2 97 20 103/70 (81) 96 02/14/19 08:00 96 02/14/19 08:00 Nasal Cannula 2.0 02/14/19 04:00 98.3 94 20 111/74 (86) 95 02/14/19 04:00 91 02/14/19 00:00 98.6 98 20 107/78 (88) 98 02/14/19 00:00 95 02/13/19 21:00 Nasal Cannula 2.0 02/13/19 20:48 92 120/73 02/13/19 20:00 97.7 92 20 120/73 (89) 93 02/13/19 20:00 87 Intake and Output 02/13/19 02/14/19 18:59 06:59 Intake Total 720 ml 310 ml Output Total 250 ml 750 ml Balance 470 ml -440 ml Intake Oral 720 ml 310 ml Output Urine Total 250 ml 750 ml # Voids 1 # Bowel Movements 2 2D Echo: 4C- DCM/valvular CM, LVEF 20%, severe MR, RVSP 51, Pseudo-normal physio Laboratory Tests Test 02/13/19 20:51 5/28/19 06:20 Urine Eosinophils None seen (NONE SEEN) Urine Random Creatinine Pending Urine Random Microalbumin Pending Urine Random Total Protein 18 MG/DL (< 11.9) H Urine Random Sodium 35 mmol/L (20-110) Urine Creatinine 119.1 MG/DL (30.0-125.0) Urine Microalbumin/Creatinine Ratio Pending White Blood Count 4.6 K/UL (4.8-10.8) L Red Blood Count 3.00 M/UL (4.70-6.10) L Hemoglobin 9.8 G/DL (14.2-18.0) L Hematocrit 31.1 % (42.0-52.0) L Mean Corpuscular Volume 104 FL (80-99) H Mean Corpuscular Hemoglobin 32.8 PG (27.0-31.0) H Mean Corpuscular Hemoglobin Concent 31.6 G/DL (32.0-36.0) L Red Cell Distribution Width 13.8 % (11.6-14.8) Platelet Count 273 K/UL (150-450) Mean Platelet Volume 6.3 FL (6.5-10.1) L Neutrophils (%) (Auto) 51.6 % (45.0-75.0) Lymphocytes (%) (Auto) 35.3 % (20.0-45.0) Monocytes (%) (Auto) 11.5 % (1.0-10.0) H Eosinophils (%) (Auto) 0.6 % (0.0-3.0) Basophils (%) (Auto) 1.0 % (0.0-2.0) Differential Total Cells Counted 100 Neutrophils % (Manual) 54 % (45-75) Lymphocytes % (Manual) 35 % (20-45) Monocytes % (Manual) 11 % (1-10) H Eosinophils % (Manual) 0 % (0-3) Basophils % (Manual) 0 % (0-2) Band Neutrophils 0 % (0-8) Other Cell Type Pathologist review Platelet Estimate Adequate Platelet Morphology Normal Macrocytosis 1+ Erythrocyte Sedimentation Rate 37 MM/HR (0-20) H Reticulocyte Count 2.1 % (0.5-2.0) H Prothrombin Time 11.7 SEC (9.30-11.50) H Prothromb Time International Ratio 1.1 (0.9-1.1) Activated Partial Thromboplast Time 29 SEC (23-33) Sodium Level 136 MMOL/L (136-145) Potassium Level 4.6 MMOL/L (3.5-5.1) Chloride Level 107 MMOL/L (98-107) Carbon Dioxide Level 25 MMOL/L (21-32) Anion Gap 4 mmol/L (5-15) L Blood Urea Nitrogen 20 mg/dL (7-18) H Creatinine 1.2 MG/DL (0.55-1.30) Estimat Glomerular Filtration Rate mL/min (>60) Glucose Level 91 MG/DL (74-106) Calcium Level 8.7 MG/DL (8.5-10.1) Iron Level 22 ug/dL (50-175) L Total Iron Binding Capacity 252 ug/dL (250-450) Percent Iron Saturation 9 % (15-50) L Unsaturated Iron Binding 230 ug/dL (112-346) Total Bilirubin 0.8 MG/DL (0.2-1.0) Aspartate Amino Transf (AST/SGOT) 28 U/L (15-37) Alanine Aminotransferase (ALT/SGPT) 23 U/L (12-78) Alkaline Phosphatase 79 U/L (46-116) Lactate Dehydrogenase 509 U/L (81-234) H Pro-B-Type Natriuretic Peptide 3374 pg/mL (0-125) H Total Protein 6.1 G/DL (6.4-8.2) L Albumin 2.7 G/DL (3.4-5.0) L Globulin 3.4 g/dL Albumin/Globulin Ratio 0.8 (1.0-2.7) L Carcinoembryonic Antigen Pending Vitamin B12 Level 470 PG/ML (193-986) Folate 18.3 NG/ML (8.6-58.9) Objective HEENT: Atraumatic and normocephalic. Anicteric. Pupils are equal, round, and reactive to light and accommodation. Extraocular muscles intact. NECK: JVP less than 5 cm. No carotid bruit. Carotid upstroke is 2+ bilaterally. CARDIOVASCULAR: Normal S1, S2. Regular rate and rhythm. 3/6 holosystolic murmur, no gallops or rubs. PMI is at fourth intercostal space at the midclavicular line. LUNGS: Bibasilar crackles. ABDOMEN: Soft, nontender, and nondistended. No hepatosplenomegaly. Positive bowel sounds. EXTREMITIES: There is 2+ pitting edema in the lower extremity, but no evidence of clubbing or cyanosis. Mc Ocampo MD February 14, 2019 19:14
--- NOTE | 2019-02-14 19:33 | NUR ---
HAND-OFF: Report given to TIFFANY Allen.
[2019-02-14 20:00] VITALS: BP 113/70
[2019-02-14] MEDS: Enalapril 2.5mg tab ORAL SCH (22:09)
[2019-02-14] MEDS: Spironolactone 25mg tab ORAL SCH (22:10)
[2019-02-15] VITALS: BP 115/72
[2019-02-15 04:00] VITALS: BP 141/74
[2019-02-15 05:47] LABS: BASOPHILS % (AUTO) 0.9 % (0.0-2.0); EOSINOPHILS % (AUTO) 0.8 % (0.0-3.0); HEMATOCRIT 30.5 % (42.0-52.0); HEMOGLOBIN 9.7 G/DL (14.2-18.0); LYMPHOCYTES % (AUTO) 41.5 % (20.0-45.0); MEAN CORPUSCULAR VOLUME 105 FL (80-99); MONOCYTES % (AUTO) 9.2 % (1.0-10.0); NEUTROPHILS % (AUTO) 47.6 % (45.0-75.0); PLATELET COUNT 259 K/UL (150-450); RED BLOOD COUNT 2.92 M/UL (4.70-6.10); RED CELL DISTRIBUTION WIDTH 14.1 % (11.6-14.8); WHITE BLOOD COUNT 4.9 K/UL (4.8-10.8)
[2019-02-15 05:48] LABS: ANION GAP 8 mmol/L (5-15); BLOOD UREA NITROGEN 22 mg/dL (7-18); CALCIUM 8.4 MG/DL (8.5-10.1); CARBON DIOXIDE 25 MMOL/L (21-32); CHLORIDE 107 MMOL/L (98-107); CREATININE 1.3 MG/DL (0.55-1.30); POTASSIUM 4.3 MMOL/L (3.5-5.1); SODIUM 140 MMOL/L (136-145)
--- NOTE | 2019-02-15 07:25 | NUR ---
NURSE NOTES: Patient alert and awake. Patient is on 2 liters oxygen via nasal cannula. Patient has no reports of discomfort at the moment. Side rails are upx2, side rails are padded, bed is locked, bed alarm is on, and call light is within reach. Will continue to monitor.
[2019-02-15 08:00] VITALS: BP 91/53
[2019-02-15] MEDS: Spironolactone 25mg tab ORAL SCH (08:51)
[2019-02-15] MEDS: Enalapril 2.5mg tab ORAL SCH ×2 (08:52→20:34)
--- NOTE | 2019-02-15 10:33 | Pulmonology Progress Note ---
Assessment/Plan Problems: (1) CHF (congestive heart failure) (2) Acute encephalopathy (3) Acute psychosis (4) Non compliance w medication regimen Assessment/Plan Echo reviewed, EF is 25%, moderate pulmonary hypertension Intake/output = - 1.5 liters so far social service consult appreciated, on Seroquel qhs might need placement, considering his age and homelessness. check electrolytes. Subjective Interval Events: sitting up in the chair, not weak, not steady to walk Allergies: Coded Allergies: GRAPEFRUIT (Unverified Allergy, Intermediate, Hives, 12/13/12) ORANGE (Verified Allergy, Unknown, 11/20/18) Objective Last 24 Hour Vital Signs Date Time Temp Pulse Resp B/P (MAP) Pulse Ox O2 Delivery O2 Flow Rate FiO2 02/15/19 08:52 91/53 02/15/19 08:51 94 91/53 02/15/19 08:15 Nasal Cannula 2.0 02/15/19 08:00 90 02/15/19 08:00 97.6 94 18 91/53 (66) 92 02/15/19 04:00 97.8 73 18 141/74 (96) 99 02/15/19 04:00 87 02/15/19 00:00 94 02/15/19 00:00 98.7 95 18 115/72 (86) 95 02/14/19 22:09 113/70 02/14/19 21:00 108 71/90 02/14/19 21:00 Nasal Cannula 2.0 02/14/19 20:00 99.5 92 18 113/70 (84) 95 02/14/19 20:00 89 02/14/19 16:09 96 Nasal Cannula 2.0 28 02/14/19 16:00 98.8 87 20 101/73 (82) 95 02/14/19 16:00 85 02/14/19 12:00 98.2 90 20 109/73 (85) 97 02/14/19 12:00 89 Intake and Output 02/14/19 02/15/19 19:00 07:00 Intake Total 360 ml Output Total 650 ml Balance -290 ml Intake Oral 360 ml Output Urine Total 650 ml # Voids 5 General Appearance: WD/WN HEENT: normocephalic, atraumatic Respiratory/Chest: chest wall non-tender, lungs clear Cardiovascular: normal peripheral pulses, regular rhythm Genitourinary: normal external genitalia Extremities: no clubbing 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 Lymphatic: no neck adenopathy Laboratory Tests 02/15/19 04:53: White Blood Count 4.9, Red Blood Count 2.92L, Hemoglobin 9.7L, Hematocrit 30.5L , Mean Corpuscular Volume 105H, Mean Corpuscular Hemoglobin 33.3H, Mean Corpuscular Hemoglobin Concent 31.8L, Red Cell Distribution Width 14.1, Platelet Count 259, Mean Platelet Volume 6.1L, Neutrophils (%) (Auto) 47.6, Lymphocytes (%) (Auto) 41.5, Monocytes (%) (Auto) 9.2, Eosinophils (%) (Auto) 0.8, Basophils (%) (Auto) 0.9, Sodium Level 140, Potassium Level 4.3, Chloride Level 107, Carbon Dioxide Level 25, Anion Gap 8, Blood Urea Nitrogen 22H, Creatinine 1.3, Estimat Glomerular Filtration Rate , Glucose Level 84, Calcium Level 8.4L Current Medications Medications (Trade) Dose Ordered Sig/Daria Route PRN Reason Start Time Stop Time Status Last Admin Dose Admin Carvedilol (Coreg) 3.125 mg EVERY 12 HOURS ORAL 02/12/19 21:00 03/14/19 20:59 02/14/19 09:20 Enalapril Maleate (Vasotec) 2.5 mg EVERY 12 HOURS ORAL 02/14/19 21:00 03/16/19 20:59 02/14/19 22:09 Furosemide (Lasix) 20 mg EVERY 12 HOURS IV 02/14/19 10:30 03/16/19 10:29 02/14/19 22:10 Lorazepam (Ativan) 1 mg Q6H PRN ORAL For Anxiety 02/12/19 05:15 02/19/19 05:14 Morphine Sulfate (Morphine Sulfate) 2 mg Q4H PRN IVP For Pain 02/12/19 00:45 02/19/19 00:44 Quetiapine Fumarate (SEROquel) 300 mg QHS ORAL 02/12/19 21:00 03/14/19 20:59 02/14/19 22:10 Spironolactone (Aldactone) 25 mg DAILY ORAL 02/14/19 20:00 03/16/19 19:59 02/14/19 22:10 Jese Murdock MD February 15, 2019 10:33
--- NOTE | 2019-02-15 11:04 | NUR ---
Social Service Note SW faxed referral to [facility] [phone] (p) [phone] (f). Pending review.
[2019-02-15 12:00] VITALS: BP 91/58
--- NOTE | 2019-02-15 13:49 | General Progress Note ---
Assessment/Plan Problem List: (1) Anemia ICD Codes: D64.9 - Anemia, unspecified SNOMED: 210197489 (2) Elevated troponin ICD Codes: R74.8 - Abnormal levels of other serum enzymes SNOMED: 319632925, 894035439, 007077365 (3) Drug abuse ICD Codes: F19.10 - Other psychoactive substance abuse, uncomplicated SNOMED: 19554927 (4) COPD (chronic obstructive pulmonary disease) ICD Codes: J44.9 - Chronic obstructive pulmonary disease, unspecified SNOMED: 83052198 Qualifiers: Qualified Codes: J44.9 - Chronic obstructive pulmonary disease, unspecified (5) ATN (acute tubular necrosis) ICD Codes: N17.0 - Acute kidney failure with tubular necrosis SNOMED: 87358295 Status: stable, progressing Assessment/Plan: o2 pulm tx abx pt diet cbc bmp am aru eval Subjective Constitutional: Reports: weakness Respiratory: Reports: shortness of breath Allergies: Coded Allergies: GRAPEFRUIT (Unverified Allergy, Intermediate, Hives, 12/13/12) ORANGE (Verified Allergy, Unknown, 11/20/18) Subjective o2nc sleepy in bed calm Objective Last 24 Hour Vital Signs Date Time Temp Pulse Resp B/P (MAP) Pulse Ox O2 Delivery O2 Flow Rate FiO2 02/15/19 12:00 97.4 90 18 91/58 (69) 93 02/15/19 12:00 85 02/15/19 08:52 91/53 02/15/19 08:51 94 91/53 02/15/19 08:15 Nasal Cannula 2.0 02/15/19 08:11 97 Nasal Cannula 2.0 28 02/15/19 08:00 90 02/15/19 08:00 97.6 94 18 91/53 (66) 92 02/15/19 04:00 97.8 73 18 141/74 (96) 99 02/15/19 04:00 87 02/15/19 00:00 94 02/15/19 00:00 98.7 95 18 115/72 (86) 95 02/14/19 22:09 113/70 02/14/19 21:00 108 71/90 02/14/19 21:00 Nasal Cannula 2.0 02/14/19 20:00 99.5 92 18 113/70 (84) 95 02/14/19 20:00 89 02/14/19 16:09 96 Nasal Cannula 2.0 28 02/14/19 16:00 98.8 87 20 101/73 (82) 95 02/14/19 16:00 85 Intake and Output 02/14/19 02/15/19 19:00 07:00 Intake Total 360 ml Output Total 650 ml Balance -290 ml Intake Oral 360 ml Output Urine Total 650 ml # Voids 5 Laboratory Tests 02/15/19 04:53: White Blood Count 4.9, Red Blood Count 2.92L, Hemoglobin 9.7L, Hematocrit 30.5L , Mean Corpuscular Volume 105H, Mean Corpuscular Hemoglobin 33.3H, Mean Corpuscular Hemoglobin Concent 31.8L, Red Cell Distribution Width 14.1, Platelet Count 259, Mean Platelet Volume 6.1L, Neutrophils (%) (Auto) 47.6, Lymphocytes (%) (Auto) 41.5, Monocytes (%) (Auto) 9.2, Eosinophils (%) (Auto) 0.8, Basophils (%) (Auto) 0.9, Sodium Level 140, Potassium Level 4.3, Chloride Level 107, Carbon Dioxide Level 25, Anion Gap 8, Blood Urea Nitrogen 22H, Creatinine 1.3, Estimat Glomerular Filtration Rate , Glucose Level 84, Calcium Level 8.4L Height (Feet): 5 Height (Inches): 10.00 Weight (Pounds): 168 General Appearance: lethargic EENT: normal ENT inspection Neck: normal alignment Cardiovascular: normal peripheral pulses, normal rate, regular rhythm Respiratory/Chest: chest wall non-tender, decreased breath sounds Abdomen: normal bowel sounds, non tender, soft Extremities: normal inspection Edema: no edema noted Arm (L), no edema noted Arm (R), no edema noted Leg (L), no edema noted Leg (R), no edema noted Pedal (L), no edema noted Pedal (R), no edema noted Generalized Neurologic: responsive, motor weakness Skin: normal pigmentation, warm/dry Reji Arrietadamon MIN February 15, 2019 13:49
--- NOTE | 2019-02-15 14:02 | Infectious Diseases Prog Note ---
Assessment/Plan Assessment/Plan ASSESSMENT: 1. The patient is a 71-year-old male, who was admitted to this medical center and has shortness of breath and some dry cough. The patient's clinical picture is compatible with congestive heart failure more than pneumonia. -CXR: Accentuation of bronchovascular and interstitial markings. Could be from interstitial edema. 2. Afebrile. 3. Leukopenia. 4. Generalized edema. -History of leukopenia. -History of right pleural effusion, status post thoracocentesis in November. -History of CKD. -CHF. -History of alcohol abuse. -COPD. -Hypertension. -CVA. PLAN: 1. We will monitor the patient off of antibiotics. 2. Monitor chest x-ray. 3. CBC and BMP. 4. Based on the patient's clinical course and labs, we will do further recommendations. Thank you, Dr. Reji Arrieta, for allowing me to participate in the care of this patient. I will follow the patient with you during this hospitalization. Subjective Allergies: Coded Allergies: GRAPEFRUIT (Unverified Allergy, Intermediate, Hives, 12/13/12) ORANGE (Verified Allergy, Unknown, 11/20/18) Subjective afebrile at 2l NC no leukocytosis off abx Objective Vital Signs Last 24 Hour Vital Signs Date Time Temp Pulse Resp B/P (MAP) Pulse Ox O2 Delivery O2 Flow Rate FiO2 02/15/19 12:00 97.4 90 18 91/58 (69) 93 02/15/19 12:00 85 02/15/19 08:52 91/53 02/15/19 08:51 94 91/53 02/15/19 08:15 Nasal Cannula 2.0 02/15/19 08:11 97 Nasal Cannula 2.0 28 02/15/19 08:00 90 02/15/19 08:00 97.6 94 18 91/53 (66) 92 02/15/19 04:00 97.8 73 18 141/74 (96) 99 02/15/19 04:00 87 02/15/19 00:00 94 02/15/19 00:00 98.7 95 18 115/72 (86) 95 02/14/19 22:09 113/70 02/14/19 21:00 108 71/90 02/14/19 21:00 Nasal Cannula 2.0 02/14/19 20:00 99.5 92 18 113/70 (84) 95 02/14/19 20:00 89 02/14/19 16:09 96 Nasal Cannula 2.0 28 02/14/19 16:00 98.8 87 20 101/73 (82) 95 02/14/19 16:00 85 Height (Feet): 5 Height (Inches): 10.00 Weight (Pounds): 168 Objective HEENT: No pale conjunctivae. No scleral icterus. Poor oral hygiene. NECK: No lymphadenopathy. CHEST: Coarse breathing sounds. Mild crackles at the base of both lungs. HEART: S1 and S2. ABDOMEN: Soft. EXTREMITIES: All four extremities have edema. Nontender. NEUROLOGIC: Awake. Laboratory Tests Test 02/15/19 04:53 White Blood Count 4.9 K/UL (4.8-10.8) Red Blood Count 2.92 M/UL (4.70-6.10) L Hemoglobin 9.7 G/DL (14.2-18.0) L Hematocrit 30.5 % (42.0-52.0) L Mean Corpuscular Volume 105 FL (80-99) H Mean Corpuscular Hemoglobin 33.3 PG (27.0-31.0) H Mean Corpuscular Hemoglobin Concent 31.8 G/DL (32.0-36.0) L Red Cell Distribution Width 14.1 % (11.6-14.8) Platelet Count 259 K/UL (150-450) Mean Platelet Volume 6.1 FL (6.5-10.1) L Neutrophils (%) (Auto) 47.6 % (45.0-75.0) Lymphocytes (%) (Auto) 41.5 % (20.0-45.0) Monocytes (%) (Auto) 9.2 % (1.0-10.0) Eosinophils (%) (Auto) 0.8 % (0.0-3.0) Basophils (%) (Auto) 0.9 % (0.0-2.0) Sodium Level 140 MMOL/L (136-145) Potassium Level 4.3 MMOL/L (3.5-5.1) Chloride Level 107 MMOL/L (98-107) Carbon Dioxide Level 25 MMOL/L (21-32) Anion Gap 8 mmol/L (5-15) Blood Urea Nitrogen 22 mg/dL (7-18) H Creatinine 1.3 MG/DL (0.55-1.30) Estimat Glomerular Filtration Rate mL/min (>60) Glucose Level 84 MG/DL (74-106) Calcium Level 8.4 MG/DL (8.5-10.1) L Current Medications Medications (Trade) Dose Ordered Sig/Daria Route PRN Reason Start Time Stop Time Status Last Admin Dose Admin Carvedilol (Coreg) 3.125 mg EVERY 12 HOURS ORAL 02/12/19 21:00 03/14/19 20:59 02/14/19 09:20 Enalapril Maleate (Vasotec) 2.5 mg EVERY 12 HOURS ORAL 02/14/19 21:00 03/16/19 20:59 02/14/19 22:09 Furosemide (Lasix) 20 mg EVERY 12 HOURS IV 02/14/19 10:30 03/16/19 10:29 02/14/19 22:10 Lorazepam (Ativan) 1 mg Q6H PRN ORAL For Anxiety 02/12/19 05:15 02/19/19 05:14 Morphine Sulfate (Morphine Sulfate) 2 mg Q4H PRN IVP For Pain 02/12/19 00:45 02/19/19 00:44 Quetiapine Fumarate (SEROquel) 300 mg QHS ORAL 02/12/19 21:00 03/14/19 20:59 02/14/19 22:10 Spironolactone (Aldactone) 25 mg DAILY ORAL 02/14/19 20:00 03/16/19 19:59 02/14/19 22:10 Nena Allen M.D. February 15, 2019 14:02
--- NOTE | 2019-02-15 14:28 | NUR ---
P.T Note: P.T evaluation completed adm treatment initiated. Please refer to P.T evaluation for current functional status. Pt is alert, O x 4 irritable but cooperative. Pt had no c/o pain but reports generalized weakness and muscle fatigue. Pt currently requires MIN A X 1 for bed mobility , transfers ang gait /ambulation activities using the FWW. Skilled P.T service is warranted to improve and increase functional mobility independence and safety. Recommend SNF for further rehab VS home with P.T at [place].
[2019-02-15 16:00] VITALS: BP 93/61
--- NOTE | 2019-02-15 16:17 | NUR ---
CASE MANAGEMENT:REVIEW 02/15/19 SI: COPD. ELEVATED TROPONIN. ANEMIA 97.4 90 18 91/58 93% ON 3L/NC IS: VASOTEC PO Q12 ALDACTONE PO QD IV LASIX Q12 SEROQUEL PO QHS COREG PO Q12 ~ HELD : TELEMETRY STATUS DCP: REFERRED TO [facility]
--- NOTE | 2019-02-15 16:26 | NUR ---
DISCHARGE PLANNING FAXED CLINICALS TO [facility] T: [phone] F: [phone] AWAIT ACCEPTANCE
--- NOTE | 2019-02-15 17:00 | Progress Note ---
DATE: 02/15/2019 NOTE: "VERY POOR AUDIO QUALITY/INCOMPREHENSIBLE" SUBJECTIVE: This is a 73-year-old male patient seen and assessed at bedside. The patient is still very irritable, agitated, confused, disorganized, and still making nonsensical statements. irritable, confused, making nonsensical statements, slightly delusional. MENTAL STATUS EXAMINATION: This is a 73-year-old male. Appearance is disheveled. Attitude, irritable and agitated. Affect, guarded and restricted. Intellect poor. Mood, depressed and anxious. Motor activity, psychomotor agitation. Attention span is poor. Orientation x2. Speech is pressured, slightly nonsensical. Thought process, disorganized and illogical. Insight and judgment is poor. DIAGNOSIS: Paranoid schizophrenia with acute exacerbation. PLAN: Continue with Seroquel 300 mg nightly to stabilize his mood and reduce psychosis, Ativan one every 6 hours p.r.n. anxiety and agitation. Transfer to [facility] once he is medically cleared. Twenty minutes of cognitive behavioral therapy provided to help him identify his automatic negative thoughts and help him to convert his negative thoughts to more positive thoughts to reduce depression, anxiety, and mood lability. Twenty minutes of cognitive behavioral therapy provided to help him . Lizzy Hyman M.D. DR: Megan JOB#: [id number] CC:
--- NOTE | 2019-02-15 18:28 | Cardiology Progress Note ---
Assessment/Plan Assessment/Plan 1. Acute systolic and diastolic heart failure with left ventricular ejection fraction approximately 20% likely due to severe mitral regurgitation. Ischemic w /u done at [facility]. Continue carvedilol and diuretics as well as afterload reduction. Both were held by the nurse due to hypotension. 2. Slight elevation of troponin level in this patient, most likely due to myocarditis, as the pattern of troponin rise is not suggestive of acute coronary syndrome, ischemic w/p done at [facility]. Continue GDMT. 3. Severe MR with low LVEF, probably medical therapy, ? mitral clip at [facility] in view of insurance. 4. History of CVA, continue with aspirin and statins. 5. History of hypertension. Subjective Subjective Sinus rhythm at rate of 90. Objective Last 24 Hour Vital Signs Date Time Temp Pulse Resp B/P (MAP) Pulse Ox O2 Delivery O2 Flow Rate FiO2 02/15/19 16:00 87 02/15/19 16:00 97.6 88 18 93/61 (72) 94 02/15/19 12:00 97.4 90 18 91/58 (69) 93 02/15/19 12:00 85 02/15/19 08:52 91/53 02/15/19 08:51 94 91/53 02/15/19 08:15 Nasal Cannula 2.0 02/15/19 08:11 97 Nasal Cannula 2.0 28 02/15/19 08:00 90 02/15/19 08:00 97.6 94 18 91/53 (66) 92 02/15/19 04:00 97.8 73 18 141/74 (96) 99 02/15/19 04:00 87 02/15/19 00:00 94 02/15/19 00:00 98.7 95 18 115/72 (86) 95 02/14/19 22:09 113/70 02/14/19 21:00 108 71/90 02/14/19 21:00 Nasal Cannula 2.0 02/14/19 20:00 99.5 92 18 113/70 (84) 95 02/14/19 20:00 89 Intake and Output 02/14/19 02/15/19 19:00 07:00 Intake Total 360 ml Output Total 650 ml Balance -290 ml Intake Oral 360 ml Output Urine Total 650 ml # Voids 5 2D Echo: 4C- DCM/valvular CM, LVEF 20%, severe MR, RVSP 51, Pseudo-normal physio Laboratory Tests Test 02/15/19 04:53 White Blood Count 4.9 K/UL (4.8-10.8) Red Blood Count 2.92 M/UL (4.70-6.10) L Hemoglobin 9.7 G/DL (14.2-18.0) L Hematocrit 30.5 % (42.0-52.0) L Mean Corpuscular Volume 105 FL (80-99) H Mean Corpuscular Hemoglobin 33.3 PG (27.0-31.0) H Mean Corpuscular Hemoglobin Concent 31.8 G/DL (32.0-36.0) L Red Cell Distribution Width 14.1 % (11.6-14.8) Platelet Count 259 K/UL (150-450) Mean Platelet Volume 6.1 FL (6.5-10.1) L Neutrophils (%) (Auto) 47.6 % (45.0-75.0) Lymphocytes (%) (Auto) 41.5 % (20.0-45.0) Monocytes (%) (Auto) 9.2 % (1.0-10.0) Eosinophils (%) (Auto) 0.8 % (0.0-3.0) Basophils (%) (Auto) 0.9 % (0.0-2.0) Sodium Level 140 MMOL/L (136-145) Potassium Level 4.3 MMOL/L (3.5-5.1) Chloride Level 107 MMOL/L (98-107) Carbon Dioxide Level 25 MMOL/L (21-32) Anion Gap 8 mmol/L (5-15) Blood Urea Nitrogen 22 mg/dL (7-18) H Creatinine 1.3 MG/DL (0.55-1.30) Estimat Glomerular Filtration Rate mL/min (>60) Glucose Level 84 MG/DL (74-106) Calcium Level 8.4 MG/DL (8.5-10.1) L Objective HEENT: Atraumatic and normocephalic. Anicteric. Pupils are equal, round, and reactive to light and accommodation. Extraocular muscles intact. NECK: JVP less than 5 cm. No carotid bruit. Carotid upstroke is 2+ bilaterally. CARDIOVASCULAR: Normal S1, S2. Regular rate and rhythm. 3/6 holosystolic murmur, no gallops or rubs. PMI is at fourth intercostal space at the midclavicular line. LUNGS: Bibasilar crackles. ABDOMEN: Soft, nontender, and nondistended. No hepatosplenomegaly. Positive bowel sounds. EXTREMITIES: There is 2+ pitting edema in the lower extremity, but no evidence of clubbing or cyanosis. Mc Ocampo MD February 15, 2019 18:28
--- NOTE | 2019-02-15 19:35 | NUR ---
HAND-OFF: Report given to TIFFANY Hayward.
--- NOTE | 2019-02-15 19:36 | NUR ---
NURSE NOTES: Received report from TIFFANY Jolly. Pt is awake and resting in bed. In no acute distress. IV line intact and patent. Bed in lowest position, call light within reach. Will continue plan of care.
[2019-02-15 20:00] VITALS: BP 102/67
[2019-02-16] VITALS: BP 103/65
[2019-02-16 04:00] VITALS: BP 105/72
[2019-02-16 07:18] LABS: BASOPHILS % (AUTO) 1.4 % (0.0-2.0); EOSINOPHILS % (AUTO) 1.1 % (0.0-3.0); HEMATOCRIT 30.6 % (42.0-52.0); HEMOGLOBIN 9.7 G/DL (14.2-18.0); LYMPHOCYTES % (AUTO) 44.4 % (20.0-45.0); MEAN CORPUSCULAR VOLUME 105 FL (80-99); MONOCYTES % (AUTO) 11.2 % (1.0-10.0); NEUTROPHILS % (AUTO) 41.8 % (45.0-75.0); PLATELET COUNT 249 K/UL (150-450); RED BLOOD COUNT 2.93 M/UL (4.70-6.10); RED CELL DISTRIBUTION WIDTH 13.7 % (11.6-14.8); WHITE BLOOD COUNT 4.3 K/UL (4.8-10.8)
[2019-02-16 07:23] LABS: ANION GAP 8 mmol/L (5-15); BLOOD UREA NITROGEN 24 mg/dL (7-18); CALCIUM 8.6 MG/DL (8.5-10.1); CARBON DIOXIDE 25 MMOL/L (21-32); CHLORIDE 107 MMOL/L (98-107); CREATININE 1.2 MG/DL (0.55-1.30); POTASSIUM 4.4 MMOL/L (3.5-5.1); SODIUM 140 MMOL/L (136-145)
--- NOTE | 2019-02-16 07:40 | NUR ---
HAND-OFF: Report given to TIFFANY Sawant.
--- NOTE | 2019-02-16 07:45 | NUR ---
NURSE NOTES: Received report from Mainor/RN, Patient eating breakfast on bed, No acute distress/SOB noted at this time. Bed in low position and locked, Call light within reach. Will continue plan of care.
[2019-02-16 08:00] VITALS: BP 94/59
--- NOTE | 2019-02-16 08:39 | Infectious Diseases Prog Note ---
Assessment/Plan Assessment/Plan ASSESSMENT: 1. The patient is a 71-year-old male, who was admitted to this medical center and has shortness of breath and some dry cough. The patient's clinical picture is compatible with congestive heart failure more than pneumonia. -CXR: Accentuation of bronchovascular and interstitial markings. Could be from interstitial edema. 2. Afebrile. 3. Leukopenia. 4. Generalized edema. -History of leukopenia. -History of right pleural effusion, status post thoracocentesis in November. -History of CKD. -CHF. -History of alcohol abuse. -COPD. -Hypertension. -CVA. PLAN: 1. We will monitor the patient off of antibiotics. 2. Monitor chest x-ray. 3. CBC and BMP. 4. Based on the patient's clinical course and labs, we will do further recommendations. Thank you, Dr. Reji Arrieta, for allowing me to participate in the care of this patient. I will follow the patient with you during this hospitalization. Subjective Allergies: Coded Allergies: GRAPEFRUIT (Unverified Allergy, Intermediate, Hives, 12/13/12) ORANGE (Verified Allergy, Unknown, 11/20/18) Subjective afebrile at 2l NC no leukocytosis off abx Objective Vital Signs Last 24 Hour Vital Signs Date Time Temp Pulse Resp B/P (MAP) Pulse Ox O2 Delivery O2 Flow Rate FiO2 02/16/19 04:00 79 02/16/19 04:00 97.4 79 18 105/72 (83) 95 02/16/19 00:00 89 02/16/19 00:00 98.2 89 18 103/65 (78) 96 02/15/19 21:00 Nasal Cannula 2.0 02/15/19 20:34 102/67 02/15/19 20:33 94 102/67 02/15/19 20:00 88 02/15/19 20:00 98.9 88 18 102/67 (79) 94 02/15/19 19:59 95 Nasal Cannula 2.0 28 02/15/19 16:00 87 02/15/19 16:00 97.6 88 18 93/61 (72) 94 02/15/19 12:00 97.4 90 18 91/58 (69) 93 02/15/19 12:00 85 02/15/19 08:52 02/15/19 08:51 94 Height (Feet): 5 Height (Inches): 10.00 Weight (Pounds): 168 Objective HEENT: No pale conjunctivae. No scleral icterus. Poor oral hygiene. NECK: No lymphadenopathy. CHEST: Coarse breathing sounds. Mild crackles at the base of both lungs. HEART: S1 and S2. ABDOMEN: Soft. EXTREMITIES: All four extremities have edema. Nontender. NEUROLOGIC: Awake. Laboratory Tests Test 02/16/19 05:35 White Blood Count 4.3 K/UL (4.8-10.8) L Red Blood Count 2.93 M/UL (4.70-6.10) L Hemoglobin 9.7 G/DL (14.2-18.0) L Hematocrit 30.6 % (42.0-52.0) L Mean Corpuscular Volume 105 FL (80-99) H Mean Corpuscular Hemoglobin 33.2 PG (27.0-31.0) H Mean Corpuscular Hemoglobin Concent 31.7 G/DL (32.0-36.0) L Red Cell Distribution Width 13.7 % (11.6-14.8) Platelet Count 249 K/UL (150-450) Mean Platelet Volume 6.0 FL (6.5-10.1) L Neutrophils (%) (Auto) 41.8 % (45.0-75.0) L Lymphocytes (%) (Auto) 44.4 % (20.0-45.0) Monocytes (%) (Auto) 11.2 % (1.0-10.0) H Eosinophils (%) (Auto) 1.1 % (0.0-3.0) Basophils (%) (Auto) 1.4 % (0.0-2.0) Sodium Level 140 MMOL/L (136-145) Potassium Level 4.4 MMOL/L (3.5-5.1) Chloride Level 107 MMOL/L (98-107) Carbon Dioxide Level 25 MMOL/L (21-32) Anion Gap 8 mmol/L (5-15) Blood Urea Nitrogen 24 mg/dL (7-18) H Creatinine 1.2 MG/DL (0.55-1.30) Estimat Glomerular Filtration Rate mL/min (>60) Glucose Level 82 MG/DL (74-106) Calcium Level 8.6 MG/DL (8.5-10.1) Magnesium Level 2.1 MG/DL (1.8-2.4) Current Medications Medications (Trade) Dose Ordered Sig/Daria Route PRN Reason Start Time Stop Time Status Last Admin Dose Admin Carvedilol (Coreg) 3.125 mg EVERY 12 HOURS ORAL 02/15/19 21:00 03/17/19 20:59 02/15/19 20:33 Enalapril Maleate (Vasotec) 2.5 mg EVERY 12 HOURS ORAL 02/15/19 21:00 03/17/19 20:59 02/15/19 20:34 Furosemide (Lasix) 20 mg DAILY IV 02/16/19 09:00 03/18/19 08:59 Lorazepam (Ativan) 1 mg Q6H PRN ORAL For Anxiety 02/12/19 05:15 02/19/19 05:14 Morphine Sulfate (Morphine Sulfate) 2 mg Q4H PRN IVP For Pain 02/12/19 00:45 02/19/19 00:44 Quetiapine Fumarate (SEROquel) 300 mg QHS ORAL 02/12/19 21:00 03/14/19 20:59 02/15/19 20:33 Spironolactone (Aldactone) 25 mg DAILY ORAL 02/14/19 20:00 03/16/19 19:59 02/14/19 22:10 Nena Allen M.D. February 16, 2019 08:39
--- NOTE | 2019-02-16 08:47 | NUR ---
DISCHARGE PLANNING STILL WAITING TO HEAR BACK FROM [facility]. IF THEY DO NOT ACCEPT THEN AUTOMATIC PROFILE SANDER OPERATOR WILL REFER TO SNF
[2019-02-16] MEDS: Spironolactone 25mg tab ORAL SCH (08:54)
[2019-02-16] MEDS: Enalapril 2.5mg tab ORAL SCH ×2 (09:00→21:06)
--- NOTE | 2019-02-16 11:19 | Pulmonology Progress Note ---
Assessment/Plan Problems: (1) CHF (congestive heart failure) (2) Acute encephalopathy (3) Acute psychosis (4) Non compliance w medication regimen Assessment/Plan Echo reviewed, EF is 20%, moderate pulmonary hypertension Intake/output = - 1.8 liters so far social service consult appreciated, on Seroquel qhs might need placement, considering his age and homelessness. check electrolytes. Subjective ROS Limited/Unobtainable: No Constitutional: Reports: no symptoms HEENT: Repors: no symptoms Respiratory: Reports: no symptoms Allergies: Coded Allergies: GRAPEFRUIT (Unverified Allergy, Intermediate, Hives, 12/13/12) ORANGE (Verified Allergy, Unknown, 11/20/18) Objective Last 24 Hour Vital Signs Date Time Temp Pulse Resp B/P (MAP) Pulse Ox O2 Delivery O2 Flow Rate FiO2 02/16/19 08:54 90 94/59 02/16/19 08:00 98.0 90 18 94/59 (71) 94 02/16/19 04:00 79 02/16/19 04:00 97.4 79 18 105/72 (83) 95 02/16/19 00:00 89 02/16/19 00:00 98.2 89 18 103/65 (78) 96 02/15/19 21:00 Nasal Cannula 2.0 02/15/19 20:34 102/67 02/15/19 20:33 94 102/67 02/15/19 20:00 88 02/15/19 20:00 98.9 88 18 102/67 (79) 94 02/15/19 19:59 95 Nasal Cannula 2.0 28 02/15/19 16:00 87 02/15/19 16:00 97.6 88 18 93/61 (72) 94 02/15/19 12:00 97.4 90 18 91/58 (69) 93 02/15/19 12:00 85 Intake and Output 02/15/19 02/16/19 19:00 07:00 Output Total 300 ml Balance -300 ml Output Urine Total 300 ml # Voids 3 General Appearance: WD/WN HEENT: normocephalic, atraumatic Respiratory/Chest: chest wall non-tender, lungs clear Cardiovascular: normal peripheral pulses, normal rate Abdomen: normal bowel sounds, soft, non tender Genitourinary: normal external genitalia Extremities: no cyanosis Skin: no rash Neurologic/Psychiatric: wheel aligner II-XII grossly normal Lymphatic: no neck adenopathy Musculoskeletal: normal muscle bulk Laboratory Tests 02/16/19 05:35: White Blood Count 4.3L, Red Blood Count 2.93L, Hemoglobin 9.7L, Hematocrit 30.6L , Mean Corpuscular Volume 105H, Mean Corpuscular Hemoglobin 33.2H, Mean Corpuscular Hemoglobin Concent 31.7L, Red Cell Distribution Width 13.7, Platelet Count 249, Mean Platelet Volume 6.0L, Neutrophils (%) (Auto) 41.8L, Lymphocytes (%) (Auto) 44.4, Monocytes (%) (Auto) 11.2H, Eosinophils (%) (Auto) 1.1, Basophils (%) (Auto) 1.4, Sodium Level 140, Potassium Level 4.4, Chloride Level 107, Carbon Dioxide Level 25, Anion Gap 8, Blood Urea Nitrogen 24H, Creatinine 1.2, Estimat Glomerular Filtration Rate , Glucose Level 82, Calcium Level 8.6, Magnesium Level 2.1 Current Medications Medications (Trade) Dose Ordered Sig/Daria Route PRN Reason Start Time Stop Time Status Last Admin Dose Admin Carvedilol (Coreg) 3.125 mg EVERY 12 HOURS ORAL 02/15/19 21:00 03/17/19 20:59 02/16/19 08:54 Enalapril Maleate (Vasotec) 2.5 mg EVERY 12 HOURS ORAL 02/15/19 21:00 03/17/19 20:59 02/15/19 20:34 Furosemide (Lasix) 20 mg DAILY IV 02/16/19 09:00 03/18/19 08:59 02/16/19 08:55 Lorazepam (Ativan) 1 mg Q6H PRN ORAL For Anxiety 02/12/19 05:15 02/19/19 05:14 Morphine Sulfate (Morphine Sulfate) 2 mg Q4H PRN IVP For Pain 02/12/19 00:45 02/19/19 00:44 Quetiapine Fumarate (SEROquel) 300 mg QHS ORAL 02/12/19 21:00 03/14/19 20:59 02/15/19 20:33 Spironolactone (Aldactone) 25 mg DAILY ORAL 02/14/19 20:00 03/16/19 19:59 02/16/19 08:54 Jese Murdock MD February 16, 2019 11:19
--- NOTE | 2019-02-16 11:24 | NUR ---
Social Service Note Patient accepted at [facility]. Clinician KRISTA Jonas to evaluate for 5150 hold. Nurse to call report to [phone]. Patient accepted to the 5th Floor. Patient will go to Urgent Care for direct admit, [address] Ambulance placed on will-call with [facility] [phone]. Dr. Arrieta aware. Addendum: 02/16/19 at 1141 by VISHAL ALONSO Denrinya called and stated bed will be available tomorrow. Dr. Arrieta updated.
[2019-02-16 12:00] VITALS: BP 98/71
--- NOTE | 2019-02-16 14:43 | General Progress Note ---
Assessment/Plan Problem List: (1) Anemia ICD Codes: D64.9 - Anemia, unspecified SNOMED: 291520508 (2) Elevated troponin ICD Codes: R74.8 - Abnormal levels of other serum enzymes SNOMED: 734900259, 163973845, 648012036 (3) Drug abuse ICD Codes: F19.10 - Other psychoactive substance abuse, uncomplicated SNOMED: 15932669 (4) COPD (chronic obstructive pulmonary disease) ICD Codes: J44.9 - Chronic obstructive pulmonary disease, unspecified SNOMED: 90601375 Qualifiers: Qualified Codes: J44.9 - Chronic obstructive pulmonary disease, unspecified (5) ATN (acute tubular necrosis) ICD Codes: N17.0 - Acute kidney failure with tubular necrosis SNOMED: 51488565 Status: stable, progressing Assessment/Plan: o2 pulm tx abx pt diet cbc bmp am dc to psyc if clear Subjective Constitutional: Reports: weakness Allergies: Coded Allergies: GRAPEFRUIT (Unverified Allergy, Intermediate, Hives, 12/13/12) ORANGE (Verified Allergy, Unknown, 11/20/18) All Systems: reviewed and negative except above Subjective sleepy in bed calm Objective Last 24 Hour Vital Signs Date Time Temp Pulse Resp B/P (MAP) Pulse Ox O2 Delivery O2 Flow Rate FiO2 02/16/19 09:00 94/59 02/16/19 08:54 90 94/59 02/16/19 08:00 98.0 90 18 94/59 (71) 94 02/16/19 04:00 79 02/16/19 04:00 97.4 79 18 105/72 (83) 95 02/16/19 00:00 89 02/16/19 00:00 98.2 89 18 103/65 (78) 96 02/15/19 21:00 Nasal Cannula 2.0 02/15/19 20:34 102/67 02/15/19 20:33 94 102/67 02/15/19 20:00 88 02/15/19 20:00 98.9 88 18 102/67 (79) 94 02/15/19 19:59 95 Nasal Cannula 2.0 28 02/15/19 16:00 87 02/15/19 16:00 97.6 88 18 93/61 (72) 94 Intake and Output 02/15/19 02/16/19 19:00 07:00 Output Total 300 ml Balance -300 ml Output Urine Total 300 ml # Voids 3 Laboratory Tests 02/16/19 05:35: White Blood Count 4.3L, Red Blood Count 2.93L, Hemoglobin 9.7L, Hematocrit 30.6L , Mean Corpuscular Volume 105H, Mean Corpuscular Hemoglobin 33.2H, Mean Corpuscular Hemoglobin Concent 31.7L, Red Cell Distribution Width 13.7, Platelet Count 249, Mean Platelet Volume 6.0L, Neutrophils (%) (Auto) 41.8L, Lymphocytes (%) (Auto) 44.4, Monocytes (%) (Auto) 11.2H, Eosinophils (%) (Auto) 1.1, Basophils (%) (Auto) 1.4, Sodium Level 140, Potassium Level 4.4, Chloride Level 107, Carbon Dioxide Level 25, Anion Gap 8, Blood Urea Nitrogen 24H, Creatinine 1.2, Estimat Glomerular Filtration Rate , Glucose Level 82, Calcium Level 8.6, Magnesium Level 2.1 Height (Feet): 5 Height (Inches): 10.00 Weight (Pounds): 168 General Appearance: lethargic, confused EENT: normal ENT inspection Neck: normal alignment Cardiovascular: normal peripheral pulses, normal rate, regular rhythm Respiratory/Chest: chest wall non-tender, lungs clear, normal breath sounds Abdomen: normal bowel sounds, non tender, soft Extremities: normal inspection Edema: no edema noted Arm (L), no edema noted Arm (R), no edema noted Leg (L), no edema noted Leg (R), no edema noted Pedal (L), no edema noted Pedal (R), no edema noted Generalized Neurologic: motor weakness Skin: normal pigmentation, warm/dry Reji Arrieta DO February 16, 2019 14:43
--- NOTE | 2019-02-16 15:15 | Progress Note ---
DATE: 02/16/2019 SUBJECTIVE: This is a 73-year-old male with congestive heart failure. He also has altered mental status, confusion, disorganized thought process, and mood lability worsened by stress of his medical illness, psychomotor agitation, irritability. That is why, his attending has requested daily psychiatric consultation. MENTAL STATUS EXAMINATION: This is a 73-year-old male. Appearance is disheveled. Attitude, irritable and agitated. Affect, guarded and restricted. Intellect poor. Mood depressed and anxious. Motor activity, psychomotor agitation. Attention span is poor. Orientation x2. Speech is pressured, nonsensical. Thought process, disorganized, illogical. Insight and judgment is poor. DIAGNOSIS: Paranoid schizophrenia acute exacerbation. PLAN: Treat him with Seroquel 300 at bedtime. Provide him with 20 minutes of cognitive behavioral therapy to help him identify his automatic negative thoughts and help him convert those negative thoughts to more positive thoughts to reduce depression, anxiety, suicidality. We will probably transfer to psych when medically cleared. Chart reviewed. Discussed with staff. Seen and assessed at bedside. Lizzy Hyman M.D. DR: GILBERTO JOB#: [id number] CC:
[2019-02-16 16:00] VITALS: BP 90/55
--- NOTE | 2019-02-16 16:26 | NUR ---
NURSE NOTES: Patient refused to asses his skin to see if he has any wound.
[2019-02-16] MEDS: Thiamine 100mg tab ORAL SCH (17:30)
[2019-02-16] MEDS: Docusate 100mg cap ORAL SCH (17:31)
--- NOTE | 2019-02-16 18:30 | Consultation ---
DATE OF CONSULTATION: 02/16/2019 PHYSICAL MEDICINE AND REHABILITATION CONSULTATION CONSULTING PHYSICIAN: Arnold Dowell M.D. REQUESTING PHYSICIAN: Reji Arrieta D.O. INFECTIOUS DISEASES: Chavo Ayala M.D TURBINE ASSEMBLER: Jese Murdock M.D. MARKETING TRAINEE: Gena Molina M.D. PSYCHIATRIST: Lizzy Hyman M.D. CHIEF COMPLAINT: Difficulty with ambulation, activity of daily living, memory impairment in a patient with toxic metabolic encephalopathy, acute on chronic congestive heart failure, severe cardiomyopathy. HISTORY OF PRESENT ILLNESS: The patient is a 73-year-old male with history of paranoid schizophrenia and previous history of cerebrovascular accident, cardiomyopathy with ejection fraction documented by echocardiogram 20% was brought to the emergency room of [facility] with severe shortness of breath, chest pain and dizziness for about 2 days. The patient was admitted to the hospital, seen and followed by multiple consultants. The patient's chest x-ray reported with bronchovascular interstitial marking acceleration and interstitial edema. The patient apparently had lower limb edema. Echocardiogram was done that reported with ejection fraction of 20 to 25%. The patient's laboratory results showed anemia, elevated proBNP of over 5700. Troponin was elevated at 0.312, however, CK and CK-MB were within normal range. The patient was given diuretics, IV Lasix, as well as respiratory management and also has been closely followed up by psychiatrist on Seroquel high dose and had Ativan as needed. The patient was found with severe functional impairment, difficulty with his gait and activities of daily living, some degree of memory impairment. I was asked to evaluate the patient for rehabilitation. The patient is awake, somewhat dysarthric. Swallowing status is not clear. No incontinence. He denies any pain at this time. He has generalized weakness and significant difficulty with his functionality, gait and activities of daily living. PAST MEDICAL AND SURGICAL HISTORY: 1. Congestive heart failure. 2. Hypertension. 3. Previous history of cerebrovascular accident. 4. History of seizure disorder as per medical records. 5. History of pleural effusion and thoracentesis in the past. 6. Leukopenia history. 7. History of alcohol. 8. History of tobacco. 9. Chronic obstructive pulmonary disease. 10. Congestive heart failure. ALLERGIES: The patient is allergic to grapefruit and orange. MEDICATIONS: Lasix 20 mg IV daily, Vasotec 2.5 mg p.o. b.i.d., Coreg 3.125 mg every 12 hours p.o., Aldactone 25 mg daily, Seroquel 300 mg nightly, Ativan as needed, morphine as needed. FAMILY AND SOCIAL HISTORY: The patient born in [place]. He is father of 6, they all live in [place]. He is . 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 He has been retired for years. He quit alcohol about 30 years ago, but he was heavy drinker. He smokes cigarettes. The amount of consumption is not really clear. He lives with his friend in an apartment with 5 steps to enter. He was in an independent level of function without usage of any assistive device prior to this admission. The patient currently requires minimal assistance for bed mobility, transfer and gait up to about 50 feet distances with a front wheel walker. Family history positive for hypertension. REVIEW OF SYSTEMS: CONSTITUTIONAL: No chills. No fever. EYES: Denies diplopia. ENT: Questionable dysphagia . CARDIOVASCULAR: No chest pain. PULMONARY: The patient gets shortness of breath with activity. GASTROINTESTINAL: No abdominal pain. GENITOURINARY: No dysuria. MUSCULOSKELETAL: Denies pain at this time. INTEGUMENTARY: No cancerous lesion. NEUROLOGIC: The patient with memory impairment, diagnosis of acute exacerbation of paranoid schizophrenia per psychiatrist and generalized weakness. PHYSICAL EXAMINATION: VITAL SIGNS: Blood pressure 95/59, respiratory rate 18 per minute, heart rate 90 per minute, temperature 98 degrees Fahrenheit, O2 saturation 95%. Height 177.8 centimeter, weight is 76.3 kilogram. Body mass index 24. GENERAL: No acute distress. HEENT: No facial droop. NECK: Supple with no lymphadenopathy. HEART: rhythm and rate. LUNGS: Diminished breath sounds of bilateral lung panchal. ABDOMEN: Soft, nontender, nondistended. EXTREMITIES: Edema of bilateral lower limb pretibial. SKIN: Skin breakdown of lower limb [id number] on the left side. Wound care team following. NEURO: The patient is awake, follows commands. He is dysarthric, able to recall that he is in the hospital. Unable to recall the name of hospital, difficult time to call the year, month, date, and name of President. Movement of bilateral upper and lower limb antigravity. Sensation has chronic numbness of both hands and feet in a stocking-glove distribution for several years. ASSESSMENT: The patient is a 73-year-old male with. 1. Toxic metabolic encephalopathy. 2. Acute on chronic congestive heart failure in a patient with severe cardiomyopathy, ejection fraction of 20 to 25%. 3. Chronic obstructive pulmonary disease with history of heavy tobacco use. 4. History of alcoholism, which he quit years ago with evidence of clinical peripheral polyneuropathy with limb numbness. 5. Acute exacerbation of paranoid schizophrenia per psychiatrist, stabilized on medication. 6. Cardiomyopathy, ejection fraction of 20 to 25%. 7. Debility and functional decline. 8. Gait abnormality. 9. Previous history of cerebrovascular accident. 10. Dysarthria. 11. Aphasia and word-finding difficulty and expressive aphasia. 12. Hypertension. 13. History of pleural effusion and thoracentesis in the past. 14. History of leukopenia. 15. Iron-deficiency anemia. 16. Elevated troponin level as per platform worker not suggestive of acute coronary syndrome, cardiology is following. 17. Per medical record, history of seizure disorder, details unclear. RECOMMENDATION: The patient needs physical therapy, occupational therapy, speech therapy, and 24 hours nursing care. Physical therapy for range of motion, transfer training, endurance, balance and gait training, fall prevention with appropriate assistive device. Occupational therapy for activities of daily living, equipment function, transfer evaluation and training upper extremity range of motion and strengthening exercise. Speech therapy for evaluation and retraining on the status of his cognition, memory, speech, language and swallow evaluation and retraining, aspiration precaution. Nursing for evaluation of his bowel, bladder, medication regimen, skin care prevention of pressure ulcer, the patient and family education, car and yard supervisor education. Fall precaution, pressure ulcer precaution, cardiac precaution, seizure precaution. I will start patient on thiamine 100 mg p.o. daily and folic acid 1 mg mg p.o. daily. Also start him on Colace and MiraLAX and adjust the medication for bowel movement. Continue medical management per Medicine. Skin care and wound care per academic records specialist. Monitor bowel and bladder. Nutritional support. Incentive spirometry. The patient may benefit from acute inpatient rehabilitation placement when patient is medically stable and cleared. Medical management per Medicine. Thank you for the consultation. Arnold Dowell M.D. DR: Benson JOB#: [id number] CC:
[2019-02-16 20:00] VITALS: BP 117/73
--- NOTE | 2019-02-16 20:00 | NUR ---
NURSE NOTES: Received pt and report from TIFFANY Prajapati. Observed pt resting in bed with both eyes open. surveillance system monitor is in placed, IV site intact, asymptomatic, and patent. Bed is in the lowest position and locked. Call light within reach. No signs/symptoms of acute distress noted at this time. Will continue plan of care.
--- NOTE | 2019-02-16 20:20 | NUR ---
HAND-OFF: Report given to Sagrario/RN, Endorsed plan of care.
[2019-02-16] MEDS ORDERED: Miralax 17gm pkt ORAL SCH (21:00)
--- NOTE | 2019-02-16 22:06 | Cardiology Progress Note ---
Assessment/Plan Assessment/Plan 1. Acute systolic and diastolic heart failure with left ventricular ejection fraction approximately 20% likely due to severe mitral regurgitation. Ischemic w /u done at [facility]. Optimize ACEI and carvedilol, add digoxin. 2. Slight elevation of troponin level in this patient, most likely due to myocarditis, as the pattern of troponin rise is not suggestive of acute coronary syndrome, ischemic w/p done at [facility]. Continue GDMT. 3. Severe MR with low LVEF, probably medical therapy, ? mitral clip at [facility] in view of insurance. 4. History of CVA, continue with aspirin and statins. 5. History of hypertension. Subjective Subjective Sinus rhythm at rate of 89. Objective Last 24 Hour Vital Signs Date Time Temp Pulse Resp B/P (MAP) Pulse Ox O2 Delivery O2 Flow Rate FiO2 02/16/19 21:07 89 117/73 02/16/19 21:06 117/73 02/16/19 20:27 95 Room Air 21 02/16/19 16:00 82 02/16/19 16:00 98.3 90 20 90/55 (67) 93 02/16/19 12:00 80 02/16/19 12:00 97.7 80 20 98/71 (80) 91 02/16/19 09:00 Nasal Cannula 2.0 02/16/19 09:00 94/59 02/16/19 08:54 90 94/59 02/16/19 08:00 90 02/16/19 08:00 98.0 90 18 94/59 (71) 94 02/16/19 04:00 79 02/16/19 04:00 97.4 79 18 105/72 (83) 95 02/16/19 00:00 89 02/16/19 00:00 98.2 89 18 103/65 (78) 96 Intake and Output 02/15/19 02/16/19 19:00 07:00 Output Total 300 ml Balance -300 ml Output Urine Total 300 ml # Voids 3 2D Echo: 4C- DCM/valvular CM, LVEF 20%, severe MR, RVSP 51, Pseudo-normal physio Laboratory Tests Test 02/16/19 05:35 White Blood Count 4.3 K/UL (4.8-10.8) L Red Blood Count 2.93 M/UL (4.70-6.10) L Hemoglobin 9.7 G/DL (14.2-18.0) L Hematocrit 30.6 % (42.0-52.0) L Mean Corpuscular Volume 105 FL (80-99) H Mean Corpuscular Hemoglobin 33.2 PG (27.0-31.0) H Mean Corpuscular Hemoglobin Concent 31.7 G/DL (32.0-36.0) L Red Cell Distribution Width 13.7 % (11.6-14.8) Platelet Count 249 K/UL (150-450) Mean Platelet Volume 6.0 FL (6.5-10.1) L Neutrophils (%) (Auto) 41.8 % (45.0-75.0) L Lymphocytes (%) (Auto) 44.4 % (20.0-45.0) Monocytes (%) (Auto) 11.2 % (1.0-10.0) H Eosinophils (%) (Auto) 1.1 % (0.0-3.0) Basophils (%) (Auto) 1.4 % (0.0-2.0) Sodium Level 140 MMOL/L (136-145) Potassium Level 4.4 MMOL/L (3.5-5.1) Chloride Level 107 MMOL/L (98-107) Carbon Dioxide Level 25 MMOL/L (21-32) Anion Gap 8 mmol/L (5-15) Blood Urea Nitrogen 24 mg/dL (7-18) H Creatinine 1.2 MG/DL (0.55-1.30) Estimat Glomerular Filtration Rate mL/min (>60) Glucose Level 82 MG/DL (74-106) Calcium Level 8.6 MG/DL (8.5-10.1) Magnesium Level 2.1 MG/DL (1.8-2.4) Objective HEENT: Atraumatic and normocephalic. Anicteric. Pupils are equal, round, and reactive to light and accommodation. Extraocular muscles intact. NECK: JVP less than 5 cm. No carotid bruit. Carotid upstroke is 2+ bilaterally. CARDIOVASCULAR: Normal S1, S2. Regular rate and rhythm. 3/6 holosystolic murmur, no gallops or rubs. PMI is at fourth intercostal space at the midclavicular line. LUNGS: Bibasilar crackles. ABDOMEN: Soft, nontender, and nondistended. No hepatosplenomegaly. Positive bowel sounds. EXTREMITIES: There is 2+ pitting edema in the lower extremity, but no evidence of clubbing or cyanosis. Mc Ocampo MD February 16, 2019 22:06
[2019-02-17] VITALS: BP 99/68
[2019-02-17 04:00] VITALS: BP 132/80
[2019-02-17 06:17] LABS: BASOPHILS % (AUTO) 1.5 % (0.0-2.0); EOSINOPHILS % (AUTO) 1.1 % (0.0-3.0); HEMATOCRIT 31.4 % (42.0-52.0); HEMOGLOBIN 9.9 G/DL (14.2-18.0); LYMPHOCYTES % (AUTO) 45.4 % (20.0-45.0); MEAN CORPUSCULAR VOLUME 105 FL (80-99); NEUTROPHILS % (AUTO) 42.1 % (45.0-75.0); PLATELET COUNT 283 K/UL (150-450); RED CELL DISTRIBUTION WIDTH 13.8 % (11.6-14.8); WHITE BLOOD COUNT 3.9 K/UL (4.8-10.8)
[2019-02-17 06:42] LABS: ANION GAP 8 mmol/L (5-15); BLOOD UREA NITROGEN 23 mg/dL (7-18); CALCIUM 8.7 MG/DL (8.5-10.1); CARBON DIOXIDE 25 MMOL/L (21-32); CHLORIDE 108 MMOL/L (98-107); CREATININE 1.4 MG/DL (0.55-1.30); POTASSIUM 4.9 MMOL/L (3.5-5.1); SODIUM 141 MMOL/L (136-145)
--- NOTE | 2019-02-17 07:25 | NUR ---
HAND-OFF: Report given to TIFFANY Prajapati.
--- NOTE | 2019-02-17 07:35 | NUR ---
NURSE NOTES: Received report from Sagrario/RN. Patient is asleep lying semi-barbosa's; resting comfortably, No signs of acute distress/SOB noted; denies pain at this time. AOx 4; able to make needs known. Able to follow commands. Checked right upper arm IV 20G; patent, No bleeding, or infiltration noted. Bed at lowest position and locked, Call light within reach. Will continue plan of care.
--- NOTE | 2019-02-17 07:35 | NUR ---
CASE MANAGEMENT:REVIEW 02/17/19 SI: COPD. ELEVATED TROPONIN. ANEMIA 98.4 87 20 132/80 98% ON RA H/H-9.9/31.4 BUN+23 CR+1.4 IS: DIGOXIN PO QD IV LASIX QD VASOTEC PO Q12 COREG PO Q12 ALDACTONE PO QD SEROQUEL PO QHS : TELEMETRY STATUS DCP: REFERRED TO [facility]
[2019-02-17 08:00] VITALS: BP 139/74
[2019-02-17] MEDS ORDERED: Digoxin 0.125mg tab ORAL SCH (09:00)
[2019-02-17] MEDS: Enalapril 2.5mg tab ORAL SCH (09:42)
[2019-02-17] MEDS: Thiamine 100mg tab ORAL SCH (09:43)
[2019-02-17] MEDS: Spironolactone 25mg tab ORAL SCH (09:43)
[2019-02-17] MEDS: Docusate 100mg cap ORAL SCH ×2 (09:43→18:00)
--- NOTE | 2019-02-17 10:05 | Infectious Diseases Prog Note ---
Assessment/Plan Assessment/Plan ASSESSMENT: 1. The patient is a 71-year-old male, congestive heart failure , doubt pneumonia at this time -CXR: Accentuation of bronchovascular and interstitial markings. Could be from interstitial edema. Afebrile. Leukopenia. Generalized edema. -History of leukopenia. -History of right pleural effusion, status post thoracocentesis in November. -History of CKD. -CHF. -History of alcohol abuse. -COPD. -Hypertension. -CVA. PLAN: monitor the patient off of antibiotics. Monitor chest x-ray. CBC and BMP. Subjective Constitutional: Denies: no symptoms, fever, chills, fatigue, anorexia, drenching sweats, other Allergies: Coded Allergies: GRAPEFRUIT (Unverified Allergy, Intermediate, Hives, 12/13/12) ORANGE (Verified Allergy, Unknown, 11/20/18) Objective Vital Signs Last 24 Hour Vital Signs Date Time Temp Pulse Resp B/P (MAP) Pulse Ox O2 Delivery O2 Flow Rate FiO2 02/17/19 09:43 88 02/17/19 09:42 88 139/74 02/17/19 09:42 139/74 02/17/19 08:00 98.2 88 20 139/74 (95) 94 02/17/19 04:00 87 02/17/19 04:00 98.4 98 20 132/80 (97) 98 02/17/19 00:00 95 02/17/19 00:00 97.0 98 20 99/68 (78) 99 02/16/19 21:07 89 117/73 02/16/19 21:06 117/73 02/16/19 21:00 Room Air 02/16/19 20:27 95 Room Air 21 02/16/19 20:00 90 02/16/19 20:00 98.4 95 18 117/73 (88) 93 02/16/19 16:00 82 02/16/19 16:00 98.3 90 20 90/55 (67) 93 02/16/19 12:00 80 02/16/19 12:00 97.7 80 20 98/71 (80) 91 Height (Feet): 5 Height (Inches): 10.00 Weight (Pounds): 168 HEENT: atraumatic Respiratory/Chest: normal breath sounds Cardiovascular: regularly irregular Abdomen: soft, non tender Laboratory Tests Test 02/17/19 05:00 White Blood Count 3.9 K/UL (4.8-10.8) L Red Blood Count 3.00 M/UL (4.70-6.10) L Hemoglobin 9.9 G/DL (14.2-18.0) L Hematocrit 31.4 % (42.0-52.0) L Mean Corpuscular Volume 105 FL (80-99) H Mean Corpuscular Hemoglobin 33.1 PG (27.0-31.0) H Mean Corpuscular Hemoglobin Concent 31.6 G/DL (32.0-36.0) L Red Cell Distribution Width 13.8 % (11.6-14.8) Platelet Count 283 K/UL (150-450) Mean Platelet Volume 6.9 FL (6.5-10.1) Neutrophils (%) (Auto) 42.1 % (45.0-75.0) L Lymphocytes (%) (Auto) 45.4 % (20.0-45.0) H Monocytes (%) (Auto) 10.0 % (1.0-10.0) Eosinophils (%) (Auto) 1.1 % (0.0-3.0) Basophils (%) (Auto) 1.5 % (0.0-2.0) Sodium Level 141 MMOL/L (136-145) Potassium Level 4.9 MMOL/L (3.5-5.1) Chloride Level 108 MMOL/L (98-107) H Carbon Dioxide Level 25 MMOL/L (21-32) Anion Gap 8 mmol/L (5-15) Blood Urea Nitrogen 23 mg/dL (7-18) H Creatinine 1.4 MG/DL (0.55-1.30) H Estimat Glomerular Filtration Rate mL/min (>60) Glucose Level 91 MG/DL (74-106) Calcium Level 8.7 MG/DL (8.5-10.1) Current Medications Medications (Trade) Dose Ordered Sig/Daria Route PRN Reason Start Time Stop Time Status Last Admin Dose Admin Carvedilol (Coreg) 3.125 mg EVERY 12 HOURS ORAL 02/15/19 21:00 03/17/19 20:59 02/17/19 09:42 Digoxin (Lanoxin) 0.125 mg DAILY ORAL 02/17/19 09:00 03/19/19 08:59 02/17/19 09:43 Docusate Sodium (Colace) 100 mg TWICE A DAY ORAL 02/16/19 18:00 03/18/19 17:59 02/17/19 09:43 Enalapril Maleate (Vasotec) 2.5 mg EVERY 12 HOURS ORAL 02/15/19 21:00 03/17/19 20:59 02/17/19 09:42 Folic Acid (Folate) 1 mg DAILY ORAL 02/16/19 16:15 03/18/19 16:14 02/17/19 09:43 Furosemide (Lasix) 20 mg DAILY IV 02/16/19 09:00 03/18/19 08:59 02/17/19 09:44 Lorazepam (Ativan) 1 mg Q6H PRN ORAL For Anxiety 02/12/19 05:15 02/19/19 05:14 Morphine Sulfate (Morphine Sulfate) 2 mg Q4H PRN IVP For Pain 02/12/19 00:45 02/19/19 00:44 Polyethylene Glycol (Miralax) 17 gm BEDTIME ORAL 02/16/19 21:00 03/18/19 20:59 Quetiapine Fumarate (SEROquel) 300 mg QHS ORAL 02/12/19 21:00 03/14/19 20:59 02/16/19 21:06 Spironolactone (Aldactone) 25 mg DAILY ORAL 02/14/19 20:00 03/16/19 19:59 02/17/19 09:43 Thiamine HCl (Vitamin B1) 100 mg DAILY ORAL 02/16/19 16:30 03/18/19 16:29 02/17/19 09:43 Chavo Ayala MD February 17, 2019 10:05
--- NOTE | 2019-02-17 11:58 | NUR ---
Social Service Note Jus in route to evaluate patient for 5150 hold. Nurse to call report to [phone]. Patient accepted to the 5th Floor, room 518B. Patient will go to Urgent Care for direct admit, [address]. Ambulance will be arranged once hold is in place.
[2019-02-17 12:00] VITALS: BP 103/70
--- NOTE | 2019-02-17 12:12 | Pulmonology Progress Note ---
Assessment/Plan Problems: (1) CHF (congestive heart failure) (2) Acute encephalopathy (3) Acute psychosis (4) Non compliance w medication regimen Assessment/Plan no new complains Echo reviewed, EF is 20%, moderate pulmonary hypertension Intake/output = - 2.4 social service consult appreciated, on Seroquel qhs might need placement, considering his age and homelessness. check electrolytes. Subjective ROS Limited/Unobtainable: No Constitutional: Reports: no symptoms HEENT: Repors: no symptoms Respiratory: Reports: no symptoms Allergies: Coded Allergies: GRAPEFRUIT (Unverified Allergy, Intermediate, Hives, 12/13/12) ORANGE (Verified Allergy, Unknown, 11/20/18) Objective Last 24 Hour Vital Signs Date Time Temp Pulse Resp B/P (MAP) Pulse Ox O2 Delivery O2 Flow Rate FiO2 02/17/19 09:43 88 02/17/19 09:42 88 139/74 02/17/19 09:42 139/74 02/17/19 09:00 Room Air 02/17/19 08:00 96 02/17/19 08:00 98.2 88 20 139/74 (95) 94 02/17/19 04:00 87 02/17/19 04:00 98.4 98 20 132/80 (97) 98 02/17/19 00:00 95 02/17/19 00:00 97.0 98 20 99/68 (78) 99 02/16/19 21:07 89 117/73 02/16/19 21:06 117/73 02/16/19 21:00 Room Air 02/16/19 20:27 95 Room Air 21 02/16/19 20:00 90 02/16/19 20:00 98.4 95 18 117/73 (88) 93 02/16/19 16:00 82 02/16/19 16:00 98.3 90 20 90/55 (67) 93 Intake and Output 02/16/19 02/17/19 19:00 07:00 Intake Total 240 ml Output Total 400 ml 400 ml Balance -160 ml -400 ml Intake Oral 240 ml Output Urine Total 400 ml 400 ml # Bowel Movements 1 General Appearance: WD/WN HEENT: normocephalic, atraumatic Respiratory/Chest: chest wall non-tender, lungs clear Cardiovascular: normal peripheral pulses, normal rate Abdomen: normal bowel sounds, soft, non tender Genitourinary: normal external genitalia Extremities: no cyanosis Neurologic/Psychiatric: product safety associate II-XII grossly normal Laboratory Tests 02/17/19 05:00: White Blood Count 3.9L, Red Blood Count 3.00L, Hemoglobin 9.9L, Hematocrit 31.4L , Mean Corpuscular Volume 105H, Mean Corpuscular Hemoglobin 33.1H, Mean Corpuscular Hemoglobin Concent 31.6L, Red Cell Distribution Width 13.8, Platelet Count 283, Mean Platelet Volume 6.9, Neutrophils (%) (Auto) 42.1L, Lymphocytes (%) (Auto) 45.4H, Monocytes (%) (Auto) 10.0, Eosinophils (%) (Auto) 1.1, Basophils (%) (Auto) 1.5, Sodium Level 141, Potassium Level 4.9, Chloride Level 108H, Carbon Dioxide Level 25, Anion Gap 8, Blood Urea Nitrogen 23H, Creatinine 1.4H, Estimat Glomerular Filtration Rate , Glucose Level 91, Calcium Level 8.7 Current Medications Medications (Trade) Dose Ordered Sig/Daria Route PRN Reason Start Time Stop Time Status Last Admin Dose Admin Carvedilol (Coreg) 3.125 mg EVERY 12 HOURS ORAL 02/15/19 21:00 03/17/19 20:59 02/17/19 09:42 Digoxin (Lanoxin) 0.125 mg DAILY ORAL 02/17/19 09:00 03/19/19 08:59 02/17/19 09:43 Docusate Sodium (Colace) 100 mg TWICE A DAY ORAL 02/16/19 18:00 03/18/19 17:59 02/17/19 09:43 Enalapril Maleate (Vasotec) 2.5 mg EVERY 12 HOURS ORAL 02/15/19 21:00 03/17/19 20:59 02/17/19 09:42 Folic Acid (Folate) 1 mg DAILY ORAL 02/16/19 16:15 03/18/19 16:14 02/17/19 09:43 Furosemide (Lasix) 20 mg DAILY IV 02/16/19 09:00 03/18/19 08:59 02/17/19 09:44 Lorazepam (Ativan) 1 mg Q6H PRN ORAL For Anxiety 02/12/19 05:15 02/19/19 05:14 Morphine Sulfate (Morphine Sulfate) 2 mg Q4H PRN IVP For Pain 02/12/19 00:45 02/19/19 00:44 Polyethylene Glycol (Miralax) 17 gm BEDTIME ORAL 02/16/19 21:00 03/18/19 20:59 Quetiapine Fumarate (SEROquel) 300 mg QHS ORAL 02/12/19 21:00 03/14/19 20:59 02/16/19 21:06 Spironolactone (Aldactone) 25 mg DAILY ORAL 02/14/19 20:00 03/16/19 19:59 02/17/19 09:43 Thiamine HCl (Vitamin B1) 100 mg DAILY ORAL 02/16/19 16:30 03/18/19 16:29 02/17/19 09:43 Jese Murdock MD February 17, 2019 12:12
--- NOTE | 2019-02-17 14:00 | NUR ---
Social Service Note Patient placed on 5150. Ambulance arranged for 1530 [address], [facility] [phone]. Charge nurse notified.
--- NOTE | 2019-02-17 14:21 | General Progress Note ---
Assessment/Plan Problem List: (1) Anemia ICD Codes: D64.9 - Anemia, unspecified SNOMED: 942334044 (2) Elevated troponin ICD Codes: R74.8 - Abnormal levels of other serum enzymes SNOMED: 058077393, 553838854, 309948913 (3) Drug abuse ICD Codes: F19.10 - Other psychoactive substance abuse, uncomplicated SNOMED: 84684494 (4) COPD (chronic obstructive pulmonary disease) ICD Codes: J44.9 - Chronic obstructive pulmonary disease, unspecified SNOMED: 40093784 Qualifiers: Qualified Codes: J44.9 - Chronic obstructive pulmonary disease, unspecified (5) ATN (acute tubular necrosis) ICD Codes: N17.0 - Acute kidney failure with tubular necrosis SNOMED: 25444842 Status: stable, progressing Assessment/Plan: o2 pulm tx abx pt diet cbc bmp am dc to psyc if clear Subjective Constitutional: Reports: weakness Allergies: Coded Allergies: GRAPEFRUIT (Unverified Allergy, Intermediate, Hives, 12/13/12) ORANGE (Verified Allergy, Unknown, 11/20/18) All Systems: reviewed and negative except above Subjective sleepy in bed calm Objective Last 24 Hour Vital Signs Date Time Temp Pulse Resp B/P (MAP) Pulse Ox O2 Delivery O2 Flow Rate FiO2 02/17/19 12:00 97.1 84 20 103/70 (81) 90 02/17/19 09:43 88 02/17/19 09:42 88 139/74 02/17/19 09:42 139/74 02/17/19 09:00 Room Air 02/17/19 08:00 96 02/17/19 08:00 98.2 88 20 139/74 (95) 94 02/17/19 04:00 87 02/17/19 04:00 98.4 98 20 132/80 (97) 98 02/17/19 00:00 95 02/17/19 00:00 97.0 98 20 99/68 (78) 99 02/16/19 21:07 89 117/73 02/16/19 21:06 117/73 02/16/19 21:00 Room Air 02/16/19 20:27 95 Room Air 21 02/16/19 20:00 90 02/16/19 20:00 98.4 95 18 117/73 (88) 93 02/16/19 16:00 82 02/16/19 16:00 98.3 90 20 90/55 (67) 93 Intake and Output 02/16/19 02/17/19 19:00 07:00 Intake Total 240 ml Output Total 400 ml 400 ml Balance -160 ml -400 ml Intake Oral 240 ml Output Urine Total 400 ml 400 ml # Bowel Movements 1 Laboratory Tests 02/17/19 05:00: White Blood Count 3.9L, Red Blood Count 3.00L, Hemoglobin 9.9L, Hematocrit 31.4L , Mean Corpuscular Volume 105H, Mean Corpuscular Hemoglobin 33.1H, Mean Corpuscular Hemoglobin Concent 31.6L, Red Cell Distribution Width 13.8, Platelet Count 283, Mean Platelet Volume 6.9, Neutrophils (%) (Auto) 42.1L, Lymphocytes (%) (Auto) 45.4H, Monocytes (%) (Auto) 10.0, Eosinophils (%) (Auto) 1.1, Basophils (%) (Auto) 1.5, Sodium Level 141, Potassium Level 4.9, Chloride Level 108H, Carbon Dioxide Level 25, Anion Gap 8, Blood Urea Nitrogen 23H, Creatinine 1.4H, Estimat Glomerular Filtration Rate , Glucose Level 91, Calcium Level 8.7 Height (Feet): 5 Height (Inches): 10.00 Weight (Pounds): 169 General Appearance: lethargic, confused EENT: normal ENT inspection Neck: normal alignment Cardiovascular: normal peripheral pulses, normal rate, regular rhythm Respiratory/Chest: chest wall non-tender, lungs clear, normal breath sounds Abdomen: normal bowel sounds, non tender, soft Extremities: normal inspection Edema: no edema noted Arm (L), no edema noted Arm (R), no edema noted Leg (L), no edema noted Leg (R), no edema noted Pedal (L), no edema noted Pedal (R), no edema noted Generalized Neurologic: motor weakness Skin: normal pigmentation, warm/dry Reji Arrieta DO February 17, 2019 14:21
--- NOTE | 2019-02-17 14:30 | NUR ---
NURSE NOTES: Report given to Jus Najera. @
--- NOTE | 2019-02-17 14:55 | NUR ---
ST NOTE: RECEIVED BEDSIDE SWALLOW EVAL ORDER ST EVAL ATTEMPTED. HOWEVER, PT VERBALLY ABUSED TO THE THERAPIST. PT REFUSED ST EVAL. D/C ST EVAL. RN NOTIFIED.
[2019-02-17 16:00] VITALS: BP 102/58
[2019-02-17] MEDS ORDERED: Tubing IV Secondary IV ONE (16:29)
--- NOTE | 2019-02-17 16:30 | NUR ---
NURSE NOTES: Discharge instruction given, Heart monitor and IV removed, No bleeding, no acute distress noted. Belonging check done and signed by patient. Patient left with Ambulance personal via [employer].
--- NOTE | 2019-02-17 23:04 | Cardiology Progress Note ---
Assessment/Plan Assessment/Plan 1. Acute systolic and diastolic heart failure with LVEF ~20% likely due to severe mitral regurgitation. Ischemic w/u done at [facility]. Continue GDMT. 2. Slight elevation of troponin level in this patient, most likely due to myocarditis, as the pattern of troponin rise is not suggestive of acute coronary syndrome, ischemic w/p done at [facility]. Continue GDMT. 3. Severe MR with low LVEF, probably medical therapy. 4. History of CVA, continue with aspirin and statins. 5. History of hypertension. Subjective Subjective Sinus rhythm at rate of 88. Objective Last 24 Hour Vital Signs Date Time Temp Pulse Resp B/P (MAP) Pulse Ox O2 Delivery O2 Flow Rate FiO2 02/17/19 16:00 98.4 88 20 102/58 (73) 98 02/17/19 12:00 84 02/17/19 12:00 97.1 84 20 103/70 (81) 90 02/17/19 09:43 88 02/17/19 09:42 88 139/74 02/17/19 09:42 139/74 02/17/19 09:00 Room Air 02/17/19 08:00 96 02/17/19 08:00 98.2 88 20 139/74 (95) 94 02/17/19 04:00 87 02/17/19 04:00 98.4 98 20 132/80 (97) 98 02/17/19 00:00 95 02/17/19 00:00 97.0 98 20 99/68 (78) 99 Intake and Output 02/16/19 02/17/19 19:00 07:00 Intake Total 240 ml Output Total 400 ml 400 ml Balance -160 ml -400 ml Intake Oral 240 ml Output Urine Total 400 ml 400 ml # Bowel Movements 1 2D Echo: 4C- DCM/valvular CM, LVEF 20%, severe MR, RVSP 51, Pseudo-normal physio Laboratory Tests Test 02/17/19 05:00 White Blood Count 3.9 K/UL (4.8-10.8) L Red Blood Count 3.00 M/UL (4.70-6.10) L Hemoglobin 9.9 G/DL (14.2-18.0) L Hematocrit 31.4 % (42.0-52.0) L Mean Corpuscular Volume 105 FL (80-99) H Mean Corpuscular Hemoglobin 33.1 PG (27.0-31.0) H Mean Corpuscular Hemoglobin Concent 31.6 G/DL (32.0-36.0) L Red Cell Distribution Width 13.8 % (11.6-14.8) Platelet Count 283 K/UL (150-450) Mean Platelet Volume 6.9 FL (6.5-10.1) Neutrophils (%) (Auto) 42.1 % (45.0-75.0) L Lymphocytes (%) (Auto) 45.4 % (20.0-45.0) H Monocytes (%) (Auto) 10.0 % (1.0-10.0) Eosinophils (%) (Auto) 1.1 % (0.0-3.0) Basophils (%) (Auto) 1.5 % (0.0-2.0) Sodium Level 141 MMOL/L (136-145) Potassium Level 4.9 MMOL/L (3.5-5.1) Chloride Level 108 MMOL/L (98-107) H Carbon Dioxide Level 25 MMOL/L (21-32) Anion Gap 8 mmol/L (5-15) Blood Urea Nitrogen 23 mg/dL (7-18) H Creatinine 1.4 MG/DL (0.55-1.30) H Estimat Glomerular Filtration Rate mL/min (>60) Glucose Level 91 MG/DL (74-106) Calcium Level 8.7 MG/DL (8.5-10.1) Objective HEENT: Atraumatic and normocephalic. Anicteric. Pupils are equal, round, and reactive to light and accommodation. Extraocular muscles intact. NECK: JVP less than 5 cm. No carotid bruit. Carotid upstroke is 2+ bilaterally. CARDIOVASCULAR: Normal S1, S2. Regular rate and rhythm. 3/6 holosystolic murmur, no gallops or rubs. PMI is at fourth intercostal space at the midclavicular line. LUNGS: Bibasilar crackles. ABDOMEN: Soft, nontender, and nondistended. No hepatosplenomegaly. Positive bowel sounds. EXTREMITIES: There is 2+ pitting edema in the lower extremity, but no evidence of clubbing or cyanosis. Mc Ocampo MD February 17, 2019 23:04
--- NOTE | 2019-02-18 00:31 | Progress Note ---
DATE: 02/17/2019 SUBJECTIVE: This is a 73-year-old male patient who is congestive heart failure, but he also has increased altered mental status, confusion. His psychosis worsened by stress of his medical illness. That is why, his attending has requested daily psychiatric consultation. MENTAL STATUS EXAMINATION: This is a 73-year-old male. Appearance is disheveled. Attitude, irritable and agitated. Affect, guarded and restricted. Intellect poor. Mood, depressed and anxious. Motor activity, psychomotor agitation. Attention is poor. Orientation x2. Speech is low volume and slurred. Thought process, disorganized, logical. Insight and judgment is poor. DIAGNOSIS: Paranoid schizophrenia with acute exacerbation. PLAN: Treat him with Seroquel 300 mg at bedtime, Ativan 1 mg every 6 hours p.r.n. anxiety and agitation. Provided him 20 minutes of cognitive behavioral therapy to help him identify his automatic negative thoughts and convert negative thoughts to more positive thoughts to reduce depression, anxiety, and mood lability and help him have a more adaptive behavior pattern. A 20 minutes of cognitive therapy behavioral therapy. Chart reviewed and discussed with the staff. Seen and assessed at bedside. Lizzy Hyman M.D. DR: JACQUELINE JOB#: [id number] CC:
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
== END 2019-02-17 16:30 | DRG 291 ==
LOC: EDBD 16:25 → EDBEDREQ 18:07 → EMR 19:23 → 2E 20:09 → EDBD 20:09 → EDBEDREQ 20:17
DX: I11.0 Hypertensive heart disease with heart failure (principal); G92 Toxic encephalopathy; F20.0 Paranoid schizophrenia; E46 Unspecified protein-calorie malnutrition; N39.0 Urinary tract infection, site not specified; I50.43 Acute on chronic combined systolic (congestive) and diastolic (congestive) heart failure; I34.0 Nonrheumatic mitral (valve) insufficiency; E83.42 Hypomagnesemia; I51.4 Myocarditis, unspecified; Z91.14 Patient's other noncompliance with medication regimen; R79.89 Other specified abnormal findings of blood chemistry; J44.9 Chronic obstructive pulmonary disease, unspecified; Z72.0 Tobacco use; G40.909 Epilepsy, unspecified, not intractable, without status epilepticus; Z59.0 Homelessness; I42.9 Cardiomyopathy, unspecified; I69.320 Aphasia following cerebral infarction; I69.322 Dysarthria following cerebral infarction; F10.11 Alcohol abuse, in remission; R26.89 Other abnormalities of gait and mobility; I27.20 Pulmonary hypertension, unspecified; D64.9 Anemia, unspecified
CPT/HCPCS: 36415; 71045; 80048; 80053; 80307; 80329; 81003; 82043; 82044; 82248; 82378; 82550; 82553; 82570; 82607; 82746; 83540; 83550; 83615; 83735; 83880; 84300; 84484; 85007; 85025; 85044; 85060; 85610; 85651; 85730; 87081; 89050; 93005; 93306; 94640; 96374; 97803; 99285

== ENCOUNTER 2019-08-17 23:34 | Inpatient (IN) | payer MEDICARE, MEDICAID ==
[~2019-08-17] VITALS: Ht 175.3 cm; Wt 66.5 kg
[~2019-08-17 23:34] MED LIST changes: +ASPIR 8181 MG ORAL
--- NOTE | 2019-08-18 01:15 | NUR ---
NURSE NOTES: Patient arrived on the unit via gurney around 0100 accompanied by EMT's and the RN, Estelita. Patient alert and oriented, breathing regular with no s/s of SOB noted. Patient denies any pain or discomfort at this time. Patient came in with a Heparin Drip that was running 1000 units/kg/hr with the rate of 10ml/hr. MD placed orders to continue with the same rate. Pipeline notified and label printed. Heparin is running with the adjusted rate of 15units/kg/hr and 19.459ml per Pharmacist adjustment. IV site is intact and patent, no s/s of infiltration or redness noted. Placed patient on laundry helper, belongings list done and signed by patient. Bed is in lowest position, breaks engaged, bed-alarm on, side-rails x3, and call light within reach at all times. Patient is not in any acute distress at this time. Will continue to monitor.
[2019-08-18 01:23] VITALS: BP 124/77
[2019-08-18] MEDS ORDERED: Tylenol #3 tab (300mg/30mg) ORAL SCH (02:15)
[2019-08-18] MEDS ORDERED: Heparin 25,000u/D5W 500ml 500 ML IV SCH ×3 (02:30→19:00)
[2019-08-18] MEDS ORDERED: Heparin 5000 units/ml inj IV SCH ×2 (02:30→12:00)
--- NOTE | 2019-08-18 03:59 | NUR ---
NURSE NOTES: Received orders from . Orders noted and carried out.
[2019-08-18 04:00] VITALS: BP 127/83
[2019-08-18 04:22] LABS: BASOPHILS % (AUTO) 1.4 % (0.0-2.0); EOSINOPHILS % (AUTO) 3.2 % (0.0-3.0); HEMATOCRIT 28.8 % (42.0-52.0); HEMOGLOBIN 9.4 G/DL (14.2-18.0); LYMPHOCYTES % (AUTO) 50.8 % (20.0-45.0); MEAN CORPUSCULAR VOLUME 98 FL (80-99); MONOCYTES % (AUTO) 10.8 % (1.0-10.0); NEUTROPHILS % (AUTO) 33.8 % (45.0-75.0); PLATELET COUNT 315 K/UL (150-450); RED BLOOD COUNT 2.94 M/UL (4.70-6.10); RED CELL DISTRIBUTION WIDTH 12.3 % (11.6-14.8); WHITE BLOOD COUNT 7.2 K/UL (4.8-10.8)
[2019-08-18 04:36] LABS: ALANINE AMINOTRANSFERASE 17 U/L (12-78); ALBUMIN/GLOBULIN RATIO 0.8 (1.0-2.7); ALKALINE PHOSPHATASE 64 U/L (46-116); ANION GAP 8 mmol/L (5-15); ASPARTATE AMINO TRANSFERASE 20 U/L (15-37); BILIRUBIN,TOTAL 0.6 MG/DL (0.2-1.0); BLOOD UREA NITROGEN 21 mg/dL (7-18); CALCIUM 8.2 MG/DL (8.5-10.1); CARBON DIOXIDE 25 MMOL/L (21-32); CHLORIDE 108 MMOL/L (98-107); CHOLESTEROL 130 MG/DL (< 200); CREATININE 1.3 MG/DL (0.55-1.30); HDL CHOLESTEROL 33 MG/DL (40-60); PHOSPHORUS 3.5 MG/DL (2.5-4.9); POTASSIUM 4.1 MMOL/L (3.5-5.1); SODIUM 141 MMOL/L (136-145); TRIGLYCERIDES 27 MG/DL (30-150)
--- NOTE | 2019-08-18 07:34 | NUR ---
HAND-OFF: Report given to TIFFANY Chino. Plan of care endorsed, patient stable.
--- NOTE | 2019-08-18 07:38 | NUR ---
NURSE NOTES: Patient AOx4 eating breakfast in bed. No complaints of pain no s/sx of distress. RR even and unlabored on RA. Call light within reach, side rails up x2, bed low and locked. Will continue to monitor. Addendum: 08/18/19 at 0739 by JONATHAN RUANO RN Heparin drip infusing at 13units/kg/hr.
[2019-08-18 08:00] VITALS: BP 109/66
[2019-08-18] MEDS: Theophylline ER 100mg ORAL SCH ×2 (09:16→21:12)
--- NOTE | 2019-08-18 11:31 | Consultation ---
History of Present Illness General Date patient seen: Aug 18, 2019 Present Illness HPI 73-year-old male with hx o HTN, COPD, CHF, CVA/TIA, cardiomyopathy, EF of 30T% , seizures, to ED of [facility] with CC of chest pain. He has CTA of chest which showed small nonocclusive filling defects suspicious for PE. He was started on heparin drip and [place] [facility] [place]. Allergies: Coded Allergies: GRAPEFRUIT (Unverified Allergy, Intermediate, Hives, 12/13/12) ORANGE (Verified Allergy, Unknown, 11/20/18) Medication History Scheduled Acetaminophen With Codeine (T#3) (Tylenol #3 Tab*), 1 TAB ORAL Q4H Aspirin* (Aspir 81*), 81 MG ORAL DAILY, (Reported) Carvedilol (Coreg), 3.125 MG ORAL EVERY 12 HOURS Quetiapine Fumarate* (Seroquel*), 300 MG ORAL QHS Theophylline (Theodur*), 100 MG ORAL EVERY 12 HOURS Scheduled PRN Hydrocodone Bit/Acetaminophen 5-325* ([place] 5-325*), 1 TAB ORAL Q6H PRN for For Pain Miscellaneous Medications [Seroquel], (Reported) [Vicodin], (Reported) Patient History Healthcare decision maker Resuscitation status Full Code Advanced Directive on File Past Medical/Surgical History Past Medical/Surgical History: (1) Non compliance w medication regimen (2) COPD (chronic obstructive pulmonary disease) (3) Homelessness Review of Systems All Other Systems: negative except mentioned in HPI Physical Exam General Appearance: cachetic, thin Lines, tubes and drains: peripheral HEENT: normocephalic, atraumatic Neck: non-tender, normal alignment Respiratory/Chest: chest wall non-tender, lungs clear, normal breath sounds Cardiovascular/Chest: normal peripheral pulses, normal rate Abdomen: normal bowel sounds, non tender Genitourinary/Rectal: normal genital exam Extremities: normal range of motion Last 24 Hour Vital Signs Date Time Temp Pulse Resp B/P (MAP) Pulse Ox O2 Delivery O2 Flow Rate FiO2 08/18/19 09:00 66 109/66 08/18/19 08:00 98.9 66 18 109/66 (80) 96 08/18/19 07:54 Room Air 08/18/19 04:00 98.7 75 20 127/83 (98) 96 08/18/19 04:00 74 08/18/19 02:14 Room Air 08/18/19 01:23 97.9 70 17 124/77 (93) 100 08/18/19 01:13 70 Laboratory Tests Test 08/18/19 04:12 White Blood Count 7.2 K/UL (4.8-10.8) Red Blood Count 2.94 M/UL (4.70-6.10) L Hemoglobin 9.4 G/DL (14.2-18.0) L Hematocrit 28.8 % (42.0-52.0) L Mean Corpuscular Volume 98 FL (80-99) Mean Corpuscular Hemoglobin 31.9 PG (27.0-31.0) H Mean Corpuscular Hemoglobin Concent 32.6 G/DL (32.0-36.0) Red Cell Distribution Width 12.3 % (11.6-14.8) Platelet Count 315 K/UL (150-450) Mean Platelet Volume 6.0 FL (6.5-10.1) L Neutrophils (%) (Auto) 33.8 % (45.0-75.0) L Lymphocytes (%) (Auto) 50.8 % (20.0-45.0) H Monocytes (%) (Auto) 10.8 % (1.0-10.0) H Eosinophils (%) (Auto) 3.2 % (0.0-3.0) H Basophils (%) (Auto) 1.4 % (0.0-2.0) Prothrombin Time 11.0 SEC (9.30-11.50) Prothromb Time International Ratio 1.0 (0.9-1.1) Activated Partial Thromboplast Time 96 SEC (23-33) H Sodium Level 141 MMOL/L (136-145) Potassium Level 4.1 MMOL/L (3.5-5.1) Chloride Level 108 MMOL/L (98-107) H Carbon Dioxide Level 25 MMOL/L (21-32) Anion Gap 8 mmol/L (5-15) Blood Urea Nitrogen 21 mg/dL (7-18) H Creatinine 1.3 MG/DL (0.55-1.30) Estimat Glomerular Filtration Rate mL/min (>60) Glucose Level 123 MG/DL (74-106) H Calcium Level 8.2 MG/DL (8.5-10.1) L Phosphorus Level 3.5 MG/DL (2.5-4.9) Magnesium Level 1.8 MG/DL (1.8-2.4) Total Bilirubin 0.6 MG/DL (0.2-1.0) Aspartate Amino Transf (AST/SGOT) 20 U/L (15-37) Alanine Aminotransferase (ALT/SGPT) 17 U/L (12-78) Alkaline Phosphatase 64 U/L (46-116) Troponin I 0.006 ng/mL (0.000-0.056) Total Protein 6.6 G/DL (6.4-8.2) Albumin 3.0 G/DL (3.4-5.0) L Globulin 3.6 g/dL Albumin/Globulin Ratio 0.8 (1.0-2.7) L Triglycerides Level 27 MG/DL (30-150) L Cholesterol Level 130 MG/DL (< 200) LDL Cholesterol 90 mg/dL (<100) HDL Cholesterol 33 MG/DL (40-60) L Cholesterol/HDL Ratio 3.9 (3.3-4.4) Height (Feet): 5 Height (Inches): 9.00 Weight (Pounds): 143 Medications Current Medications Medications (Trade) Dose Ordered Sig/Daria Route PRN Reason Start Time Stop Time Status Last Admin Dose Admin Acetaminophen/ Codeine Phosphate (Tylenol #3) 1 tab Q4H ORAL 08/18/19 02:15 08/25/19 02:14 UNV Acetaminophen/ Hydrocodone Bitart ([place] 5/325) 1 tab Q6H PRN ORAL For Pain 08/18/19 02:15 08/25/19 02:14 Carvedilol (Coreg) 3.125 mg EVERY 12 HOURS ORAL 08/18/19 09:00 09/17/19 08:59 Heparin Sodium/ Dextrose 500 ml @ 16.865 mls/ hr ADJUST PER PROTOCOL IV 08/18/19 04:45 09/17/19 02:29 08/18/19 05:11 Quetiapine Fumarate (SEROqueL) 300 mg QHS ORAL 08/18/19 21:00 09/17/19 20:59 Theophylline ([place]) 100 mg EVERY 12 HOURS ORAL 08/18/19 09:00 09/17/19 08:59 08/18/19 09:16 Assessment/Plan Problem List: (1) Pulmonary embolism ICD Codes: I26.99 - Other pulmonary embolism without acute cor pulmonale SNOMED: 82966462 (2) Chronic systolic heart failure ICD Codes: I50.22 - Chronic systolic (congestive) heart failure SNOMED: 729888436 (3) COPD (chronic obstructive pulmonary disease) ICD Codes: J44.9 - Chronic obstructive pulmonary disease, unspecified SNOMED: 35951528 (4) Anemia ICD Codes: D64.9 - Anemia, unspecified SNOMED: 020247476 (5) Non compliance w medication regimen ICD Codes: Z91.14 - Patient's other noncompliance with medication regimen SNOMED: 206241290 Assessment/Plan: respiratory treatment titrate fio2 to sat of 92% CTA of chest in [place] showed nonocclusive small filling defects, therefore I will obtain VQ scan to see if there are any physiologically important perfusion defects. continue cardiac meds cardio to see. anemia w/u ordered. Jese Murdock MD Aug 18, 2019 11:31
[2019-08-18 12:00] VITALS: BP 106/66
[2019-08-18] MEDS: Heparin 25,000u/D5W 500ml 500 ML IV SCH ×2 (12:00→12:01)
--- NOTE | 2019-08-18 12:10 | NUR ---
NURSE NOTES: Patient taken down for VQ scan.
--- NOTE | 2019-08-18 12:15 | NUR ---
CASE MANAGEMENT: INITIAL REVIEW 73YR OLD MALE DA FROM [facility] CT SHOWS - small nonocclusive filling defects suspicious for PE SI: PULMONARY EMBOLISM . COPD . ANEMIA 98.9 66 18 109/66 96% ON RA CA+ 8.2 H/H 9.4/28.8 BUN 21 BG 123 PTT 96 IS: IV HEPARIN X1 SHAMA-DUR PO Q12HR IV HEPARIN/DEXTROSE \:2E TELE UNIT PLAN: NM VQ SCAN CXRAY PLACEMENT - HOMELESS
--- NOTE | 2019-08-18 12:33 | NUR ---
NURSE NOTES: Patient returned form VQ scan. Refusing to be reconnected to heparin drip. Will attempt again once patient is done eating.
--- NOTE | 2019-08-18 12:36 | NUR ---
NM Lung V/Q scan complete.
--- NOTE | 2019-08-18 13:27 | History & Physical ---
History and Physical History & Physicial Dictated for Int Med-Dr Nelson no.[id number]. Nader Cha MD Aug 18, 2019 13:27
--- NOTE | 2019-08-18 13:37 | NUR ---
PORTABLE CHEST X-RAY COMPLETED AT 1316 HRS BY Kirsty NAVARRETE.
--- NOTE | 2019-08-18 13:44 | Cardiology Progress Note ---
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 in he had pci at [facility]5 [facility] ago will need ekg adn trop and echo treat for underlying multiple embolis distally zachary need venous duplex may consdier diuretic in [place] [id number] Objective Last 24 Hour Vital Signs Date Time Temp Pulse Resp B/P (MAP) Pulse Ox O2 Delivery O2 Flow Rate FiO2 08/18/19 09:00 66 109/66 08/18/19 08:00 98.9 66 18 109/66 (80) 96 08/18/19 07:54 Room Air 08/18/19 04:00 98.7 75 20 127/83 (98) 96 08/18/19 04:00 74 08/18/19 02:14 Room Air 08/18/19 01:23 97.9 70 17 124/77 (93) 100 08/18/19 01:13 70 Intake and Output 08/17/19 08/18/19 19:00 07:00 # Voids 2 Laboratory Tests Test 08/18/19 04:12 08/18/19 11:05 White Blood Count 7.2 K/UL (4.8-10.8) Red Blood Count 2.94 M/UL (4.70-6.10) L Hemoglobin 9.4 G/DL (14.2-18.0) L Hematocrit 28.8 % (42.0-52.0) L Mean Corpuscular Volume 98 FL (80-99) Mean Corpuscular Hemoglobin 31.9 PG (27.0-31.0) H Mean Corpuscular Hemoglobin Concent 32.6 G/DL (32.0-36.0) Red Cell Distribution Width 12.3 % (11.6-14.8) Platelet Count 315 K/UL (150-450) Mean Platelet Volume 6.0 FL (6.5-10.1) L Neutrophils (%) (Auto) 33.8 % (45.0-75.0) L Lymphocytes (%) (Auto) 50.8 % (20.0-45.0) H Monocytes (%) (Auto) 10.8 % (1.0-10.0) H Eosinophils (%) (Auto) 3.2 % (0.0-3.0) H Basophils (%) (Auto) 1.4 % (0.0-2.0) Prothrombin Time 11.0 SEC (9.30-11.50) Prothromb Time International Ratio 1.0 (0.9-1.1) Activated Partial Thromboplast Time 96 SEC (23-33) H 61 SEC (23-33) H Sodium Level 141 MMOL/L (136-145) Potassium Level 4.1 MMOL/L (3.5-5.1) Chloride Level 108 MMOL/L (98-107) H Carbon Dioxide Level 25 MMOL/L (21-32) Anion Gap 8 mmol/L (5-15) Blood Urea Nitrogen 21 mg/dL (7-18) H Creatinine 1.3 MG/DL (0.55-1.30) Estimat Glomerular Filtration Rate mL/min (>60) Glucose Level 123 MG/DL (74-106) H Calcium Level 8.2 MG/DL (8.5-10.1) L Phosphorus Level 3.5 MG/DL (2.5-4.9) Magnesium Level 1.8 MG/DL (1.8-2.4) Total Bilirubin 0.6 MG/DL (0.2-1.0) Aspartate Amino Transf (AST/SGOT) 20 U/L (15-37) Alanine Aminotransferase (ALT/SGPT) 17 U/L (12-78) Alkaline Phosphatase 64 U/L (46-116) Troponin I 0.006 ng/mL (0.000-0.056) Total Protein 6.6 G/DL (6.4-8.2) Albumin 3.0 G/DL (3.4-5.0) L Globulin 3.6 g/dL Albumin/Globulin Ratio 0.8 (1.0-2.7) L Triglycerides Level 27 MG/DL (30-150) L Cholesterol Level 130 MG/DL (< 200) LDL Cholesterol 90 mg/dL (<100) HDL Cholesterol 33 MG/DL (40-60) L Cholesterol/HDL Ratio 3.9 (3.3-4.4) Francisco J Nevarez MD Aug 18, 2019 13:44
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
[2019-08-18 16:00] VITALS: BP 122/81
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
--- NOTE | 2019-08-18 19:53 | NUR ---
HAND-OFF: Report given to Medardo ALLEN. Patient stable. Endorsed plan of care.
--- NOTE | 2019-08-18 19:54 | NUR ---
NURSE NOTES: Received pt from TIFFANY Morillo. Pt is awake and resting in bed in no distress. Iv site intact. Bed locked in lowest position, bed alarm on, call light within reach. Will continue with plan of care.
[2019-08-18 20:00] VITALS: BP 136/85
[2019-08-18] MEDS ORDERED: Heparin 5000 units/ml inj IV ONE (23:00)
[2019-08-19] VITALS: BP 133/78
[2019-08-19] MEDS: Heparin 25,000u/D5W 500ml 500 ML IV SCH ×2 (00:53→08:27)
[2019-08-19 04:00] VITALS: BP 125/69
--- NOTE | 2019-08-19 07:17 | NUR ---
HAND-OFF: Report given to TIFFANY Moreno. Pt is awake and resting in bed in no distress. Endorsed plan of care.
[2019-08-19 08:00] VITALS: BP 118/71
[2019-08-19 08:01] LABS: BASOPHILS % (AUTO) 0.9 % (0.0-2.0); EOSINOPHILS % (AUTO) 0.2 % (0.0-3.0); HEMATOCRIT 31.9 % (42.0-52.0); HEMOGLOBIN 10.4 G/DL (14.2-18.0); LYMPHOCYTES % (AUTO) 17.1 % (20.0-45.0); MEAN CORPUSCULAR VOLUME 100 FL (80-99); MONOCYTES % (AUTO) 11.7 % (1.0-10.0); NEUTROPHILS % (AUTO) 70.1 % (45.0-75.0); PLATELET COUNT 341 K/UL (150-450); RED BLOOD COUNT 3.17 M/UL (4.70-6.10); RED CELL DISTRIBUTION WIDTH 12.6 % (11.6-14.8); WHITE BLOOD COUNT 13.1 K/UL (4.8-10.8)
[2019-08-19 08:34] LABS: ALANINE AMINOTRANSFERASE 18 U/L (12-78); ALBUMIN 2.9 G/DL (3.4-5.0); ALBUMIN/GLOBULIN RATIO 0.8 (1.0-2.7); ALKALINE PHOSPHATASE 62 U/L (46-116); ANION GAP 9 mmol/L (5-15); ASPARTATE AMINO TRANSFERASE 20 U/L (15-37); BILIRUBIN,TOTAL 0.9 MG/DL (0.2-1.0); BLOOD UREA NITROGEN 17 mg/dL (7-18); CALCIUM 8.8 MG/DL (8.5-10.1); CARBON DIOXIDE 24 MMOL/L (21-32); CHLORIDE 106 MMOL/L (98-107); LACTATE DEHYDROGENASE 286 U/L (81-234); PHOSPHORUS 2.8 MG/DL (2.5-4.9); POTASSIUM 4.4 MMOL/L (3.5-5.1); SODIUM 139 MMOL/L (136-145)
[2019-08-19 08:55] LABS: % IRON SATURATION 8 % (15-50); IRON 19 ug/dL (50-175); TOTAL IRON BINDING CAPACITY 239 ug/dL (250-450)
[2019-08-19] MEDS: Theophylline ER 100mg ORAL SCH ×2 (09:21→21:17)
--- NOTE | 2019-08-19 10:55 | Pulmonology Progress Note ---
Assessment/Plan Assessment/Plan ASSESSMENT Possible small distal branches PE Atypical chest pain Chronic systolic HF COPD Coronary artery disease with history of stent placement Anemia Moderate pulm HTN Hypo Mg Noncompliance Homeless PLAN OF CARE tele CTA from [place] no central PE, no aortic dissection or aneurysm, possible small nonocclusive distal PE , no lung consolidation or effsuion On heparin gtt VQ scan results pending Venous duplex BLE no acute DVT cardio follows per cardio atypical CP serial troponin negative, refusing telemetry, Echo with global LV hypokinesis rEF 30%, RVSP of 45 c/w mod pulm HTN BB Lipid panel stable O2 HHN prn trial of Theophylline replace Mg anemia w/up; CEA, stool OB monitor HH with goal to keep Hgb above 7 supportive care case discussed and evaluated by supervising physician Subjective Allergies: Coded Allergies: GRAPEFRUIT (Unverified Allergy, Intermediate, Hives, 12/13/12) ORANGE (Verified Allergy, Unknown, 11/20/18) Subjective on Heparin drip, no CP this am, some SOB pulse ox stable on RA results of VQ scan pending Objective Last 24 Hour Vital Signs Date Time Temp Pulse Resp B/P (MAP) Pulse Ox O2 Delivery O2 Flow Rate FiO2 08/19/19 09:21 89 125/69 08/19/19 09:00 Room Air 08/19/19 08:00 83 08/19/19 08:00 98.1 84 16 118/71 (87) 99 08/19/19 04:00 98.4 95 19 125/69 (87) 98 08/19/19 04:00 89 08/19/19 00:00 95 08/19/19 00:00 98.1 95 18 133/78 (96) 94 08/18/19 21:12 91 136/85 08/18/19 21:00 Room Air 08/18/19 20:00 99.0 85 21 136/85 (102) 98 08/18/19 20:00 85 08/18/19 16:00 74 08/18/19 16:00 97.9 77 18 122/81 (95) 98 08/18/19 12:00 99.0 65 20 106/66 (79) 98 08/18/19 12:00 67 Intake and Output 08/18/19 08/19/19 19:00 07:00 Intake Total 623.243 ml 147.348 ml Output Total 500 ml 500 ml Balance 123.243 ml -352.652 ml Intake Oral 500 ml IV Total 123.243 ml 147.348 ml Output Urine Total 500 ml 500 ml # Voids 1 General Appearance: no acute distress HEENT: atraumatic, anicteric, mucous membranes moist Respiratory/Chest: lungs clear, no respiratory distress Cardiovascular: normal rate, no JVD Abdomen: normal bowel sounds, soft, non tender Extremities: no edema, pedal pulses normal Neurologic/Psychiatric: alert, responsive Laboratory Tests 08/18/19 11:05: Activated Partial Thromboplast Time 61H 08/18/19 18:00: Activated Partial Thromboplast Time 45H 08/18/19 21:55: Activated Partial Thromboplast Time 47H 08/19/19 06:10: White Blood Count 13.1#H, Red Blood Count 3.17L, Hemoglobin 10.4L, Hematocrit 31.9L, Mean Corpuscular Volume 100H, Mean Corpuscular Hemoglobin 32.6H, Mean Corpuscular Hemoglobin Concent 32.5, Red Cell Distribution Width 12.6, Platelet Count 341, Mean Platelet Volume 5.1L, Neutrophils (%) (Auto) 70.1, Lymphocytes ( %) (Auto) 17.1L, Monocytes (%) (Auto) 11.7H, Eosinophils (%) (Auto) 0.2, Basophils (%) (Auto) 0.9, Erythrocyte Sedimentation Rate 69H, Reticulocyte Count [Pending], Sodium Level 139, Potassium Level 4.4, Chloride Level 106, Carbon Dioxide Level 24, Anion Gap 9, Blood Urea Nitrogen 17, Creatinine 1.0, Estimat Glomerular Filtration Rate , Glucose Level 101, Calcium Level 8.8, Phosphorus Level 2.8, Magnesium Level 1.6L, Iron Level 19L, Total Iron Binding Capacity 239L, Percent Iron Saturation 8L, Unsaturated Iron Binding 220, Total Bilirubin 0.9, Aspartate Amino Transf (AST/SGOT) 20, Alanine Aminotransferase ( ALT/SGPT) 18, Alkaline Phosphatase 62, Lactate Dehydrogenase 286H, Troponin I 0.000, Pro-B-Type Natriuretic Peptide 1994H, Total Protein 6.7, Albumin 2.9L, Globulin 3.8, Albumin/Globulin Ratio 0.8L, Carcinoembryonic Antigen [Pending], Vitamin B12 Level 298, Folate 13.0 Current Medications Medications (Trade) Dose Ordered Sig/Daria Route PRN Reason Start Time Stop Time Status Last Admin Dose Admin Acetaminophen/ Hydrocodone Bitart ([place] 5/325) 1 tab Q6H PRN ORAL For Pain 08/18/19 02:15 08/25/19 02:14 Carvedilol (Coreg) 3.125 mg EVERY 12 HOURS ORAL 08/18/19 09:00 09/17/19 08:59 08/19/19 09:21 Heparin Sodium/ Dextrose 500 ml @ 24.648 mls/ hr ADJUST PER PROTOCOL IV 08/18/19 23:00 09/17/19 11:59 08/19/19 08:27 Quetiapine Fumarate (SEROqueL) 300 mg QHS ORAL 08/18/19 21:00 09/17/19 20:59 08/18/19 21:12 Theophylline ([place]-Dur) 100 mg EVERY 12 HOURS ORAL 08/18/19 09:00 09/17/19 08:59 08/19/19 09:21 Kira Mijares FACILITY ADMINISTRATOR Aug 19, 2019 10:55
--- NOTE | 2019-08-19 11:02 | Pulmonology Progress Note ---
Assessment/Plan Assessment/Plan ASSESSMENT Possible small distal branches PE Atypical chest pain Chronic systolic HF COPD Coronary artery disease with history of stent placement Anemia Moderate pulm HTN Hypo Mg Noncompliance Homeless PLAN OF CARE tele CTA from [place] no central PE, no aortic dissection or aneurysm, possible small nonocclusive distal PE , no lung consolidation or effsuion On heparin gtt VQ scan results pending Venous duplex BLE no acute DVT cardio follows per cardio atypical CP serial troponin negative, refusing telemetry, Echo with global LV hypokinesis rEF 30%, RVSP of 45 c/w mod pulm HTN BB Lipid panel stable O2 HHN prn trial of Theophylline replace Mg anemia w/up; CEA, stool OB monitor HH with goal to keep Hgb above 7 supportive care case discussed and evaluated by supervising physician Subjective Allergies: Coded Allergies: GRAPEFRUIT (Unverified Allergy, Intermediate, Hives, 12/13/12) ORANGE (Verified Allergy, Unknown, 11/20/18) Subjective on Heparin drip, no CP this am, some SOB pulse ox stable on RA results of VQ scan pending Objective Last 24 Hour Vital Signs Date Time Temp Pulse Resp B/P (MAP) Pulse Ox O2 Delivery O2 Flow Rate FiO2 08/19/19 09:21 89 125/69 08/19/19 09:00 Room Air 08/19/19 08:00 83 08/19/19 08:00 98.1 84 16 118/71 (87) 99 08/19/19 04:00 98.4 95 19 125/69 (87) 98 08/19/19 04:00 89 08/19/19 00:00 95 08/19/19 00:00 98.1 95 18 133/78 (96) 94 08/18/19 21:12 91 136/85 08/18/19 21:00 Room Air 08/18/19 20:00 99.0 85 21 136/85 (102) 98 08/18/19 20:00 85 08/18/19 16:00 74 08/18/19 16:00 97.9 77 18 122/81 (95) 98 08/18/19 12:00 99.0 65 20 106/66 (79) 98 08/18/19 12:00 67 Intake and Output 08/18/19 08/19/19 19:00 07:00 Intake Total 623.243 ml 147.348 ml Output Total 500 ml 500 ml Balance 123.243 ml -352.652 ml Intake Oral 500 ml IV Total 123.243 ml 147.348 ml Output Urine Total 500 ml 500 ml # Voids 1 Laboratory Tests 08/18/19 11:05: Activated Partial Thromboplast Time 61H 08/18/19 18:00: Activated Partial Thromboplast Time 45H 08/18/19 21:55: Activated Partial Thromboplast Time 47H 08/19/19 06:10: White Blood Count 13.1#H, Red Blood Count 3.17L, Hemoglobin 10.4L, Hematocrit 31.9L, Mean Corpuscular Volume 100H, Mean Corpuscular Hemoglobin 32.6H, Mean Corpuscular Hemoglobin Concent 32.5, Red Cell Distribution Width 12.6, Platelet Count 341, Mean Platelet Volume 5.1L, Neutrophils (%) (Auto) 70.1, Lymphocytes ( %) (Auto) 17.1L, Monocytes (%) (Auto) 11.7H, Eosinophils (%) (Auto) 0.2, Basophils (%) (Auto) 0.9, Erythrocyte Sedimentation Rate 69H, Reticulocyte Count [Pending], Sodium Level 139, Potassium Level 4.4, Chloride Level 106, Carbon Dioxide Level 24, Anion Gap 9, Blood Urea Nitrogen 17, Creatinine 1.0, Estimat Glomerular Filtration Rate , Glucose Level 101, Calcium Level 8.8, Phosphorus Level 2.8, Magnesium Level 1.6L, Iron Level 19L, Total Iron Binding Capacity 239L, Percent Iron Saturation 8L, Unsaturated Iron Binding 220, Total Bilirubin 0.9, Aspartate Amino Transf (AST/SGOT) 20, Alanine Aminotransferase ( ALT/SGPT) 18, Alkaline Phosphatase 62, Lactate Dehydrogenase 286H, Troponin I 0.000, Pro-B-Type Natriuretic Peptide 1994H, Total Protein 6.7, Albumin 2.9L, Globulin 3.8, Albumin/Globulin Ratio 0.8L, Carcinoembryonic Antigen [Pending], Vitamin B12 Level 298, Folate 13.0 Current Medications Medications (Trade) Dose Ordered Sig/Daria Route PRN Reason Start Time Stop Time Status Last Admin Dose Admin Acetaminophen/ Hydrocodone Bitart ([place] 5/325) 1 tab Q6H PRN ORAL For Pain 08/18/19 02:15 08/25/19 02:14 Carvedilol (Coreg) 3.125 mg EVERY 12 HOURS ORAL 08/18/19 09:00 09/17/19 08:59 08/19/19 09:21 Heparin Sodium/ Dextrose 500 ml @ 24.648 mls/ hr ADJUST PER PROTOCOL IV 08/18/19 23:00 09/17/19 11:59 08/19/19 08:27 Quetiapine Fumarate (SEROqueL) 300 mg QHS ORAL 08/18/19 21:00 09/17/19 20:59 08/18/19 21:12 Theophylline ([place]-Dur) 100 mg EVERY 12 HOURS ORAL 08/18/19 09:00 09/17/19 08:59 08/19/19 09:21 Kira Mijares SPRAY TECHNICIAN Aug 19, 2019 11:02
[2019-08-19 12:00] VITALS: BP 115/69
--- NOTE | 2019-08-19 13:29 | Internal Med Progress Note ---
Subjective Date of Service: Aug 19, 2019 Physician Name Nader Cha Attending Physician Reese Nelson MD Current Medications Medications (Trade) Dose Ordered Sig/Daria Route PRN Reason Start Time Stop Time Status Last Admin Dose Admin Acetaminophen/ Hydrocodone Bitart ([place] 5/325) 1 tab Q6H PRN ORAL For Pain 08/18/19 02:15 08/25/19 02:14 Carvedilol (Coreg) 3.125 mg EVERY 12 HOURS ORAL 08/18/19 09:00 09/17/19 08:59 08/19/19 09:21 Enoxaparin Sodium (Lovenox) 60 mg EVERY 12 HOURS SUBQ 08/19/19 16:00 09/18/19 15:59 Magnesium Sulfate 100 ml @ 100 mls/hr Q1H IVPB 08/19/19 12:00 08/19/19 13:59 08/19/19 13:20 Quetiapine Fumarate (SEROqueL) 300 mg QHS ORAL 08/18/19 21:00 09/17/19 20:59 08/18/19 21:12 Theophylline ([place]) 100 mg EVERY 12 HOURS ORAL 08/18/19 09:00 09/17/19 08:59 08/19/19 09:21 Allergies: Coded Allergies: GRAPEFRUIT (Unverified Allergy, Intermediate, Hives, 12/13/12) ORANGE (Verified Allergy, Unknown, 11/20/18) ROS Limited/Unobtainable: No Constitutional: Reports: no symptoms HEENT: Reports: no symptoms Cardiovascular: Reports: no symptoms Respiratory: Reports: no symptoms Gastrointestinal/Abdominal: Reports: no symptoms Genitourinary: Reports: no symptoms Neurologic/Psychiatric: Reports: no symptoms Subjective 73 YO M admitted with chest pain. Now pulmonary embolism. Cover for Int [facility]olfo- DR Nelson Objective Last Vital Signs Date Time Temp Pulse Resp B/P (MAP) Pulse Ox O2 Delivery O2 Flow Rate FiO2 08/19/19 12:00 82 17 115/69 (84) 100 08/19/19 09:00 Room Air 08/19/19 08:00 98.1 Laboratory Tests Test 08/18/19 18:00 08/18/19 21:55 08/19/19 06:10 Activated Partial Thromboplast Time 45 SEC (23-33) H 47 SEC (23-33) H White Blood Count 13.1 K/UL (4.8-10.8) #H Red Blood Count 3.17 M/UL (4.70-6.10) L Hemoglobin 10.4 G/DL (14.2-18.0) L Hematocrit 31.9 % (42.0-52.0) L Mean Corpuscular Volume 100 FL (80-99) H Mean Corpuscular Hemoglobin 32.6 PG (27.0-31.0) H Mean Corpuscular Hemoglobin Concent 32.5 G/DL (32.0-36.0) Red Cell Distribution Width 12.6 % (11.6-14.8) Platelet Count 341 K/UL (150-450) Mean Platelet Volume 5.1 FL (6.5-10.1) L Neutrophils (%) (Auto) 70.1 % (45.0-75.0) Lymphocytes (%) (Auto) 17.1 % (20.0-45.0) L Monocytes (%) (Auto) 11.7 % (1.0-10.0) H Eosinophils (%) (Auto) 0.2 % (0.0-3.0) Basophils (%) (Auto) 0.9 % (0.0-2.0) Differential Total Cells Counted 100 Neutrophils % (Manual) 64 % (45-75) Lymphocytes % (Manual) 21 % (20-45) Monocytes % (Manual) 14 % (1-10) H Eosinophils % (Manual) 0 % (0-3) Basophils % (Manual) 1 % (0-2) Band Neutrophils 0 % (0-8) Platelet Estimate Adequate Platelet Morphology Normal Red Blood Cell Morphology Normal Erythrocyte Sedimentation Rate 69 MM/HR (0-20) H Reticulocyte Count Pending Sodium Level 139 MMOL/L (136-145) Potassium Level 4.4 MMOL/L (3.5-5.1) Chloride Level 106 MMOL/L (98-107) Carbon Dioxide Level 24 MMOL/L (21-32) Anion Gap 9 mmol/L (5-15) Blood Urea Nitrogen 17 mg/dL (7-18) Creatinine 1.0 MG/DL (0.55-1.30) Estimat Glomerular Filtration Rate mL/min (>60) Glucose Level 101 MG/DL (74-106) Calcium Level 8.8 MG/DL (8.5-10.1) Phosphorus Level 2.8 MG/DL (2.5-4.9) Magnesium Level 1.6 MG/DL (1.8-2.4) L Iron Level 19 ug/dL (50-175) L Total Iron Binding Capacity 239 ug/dL (250-450) L Percent Iron Saturation 8 % (15-50) L Unsaturated Iron Binding 220 ug/dL (112-346) Total Bilirubin 0.9 MG/DL (0.2-1.0) Aspartate Amino Transf (AST/SGOT) 20 U/L (15-37) Alanine Aminotransferase (ALT/SGPT) 18 U/L (12-78) Alkaline Phosphatase 62 U/L (46-116) Lactate Dehydrogenase 286 U/L (81-234) H Troponin I 0.000 ng/mL (0.000-0.056) Pro-B-Type Natriuretic Peptide 1994 pg/mL (0-125) H Total Protein 6.7 G/DL (6.4-8.2) Albumin 2.9 G/DL (3.4-5.0) L Globulin 3.8 g/dL Albumin/Globulin Ratio 0.8 (1.0-2.7) L Carcinoembryonic Antigen Pending Vitamin B12 Level 298 PG/ML (193-986) Folate 13.0 NG/ML (8.6-58.9) Intake and Output 08/18/19 08/19/19 19:00 07:00 Intake Total 623.243 ml 147.348 ml Output Total 500 ml 500 ml Balance 123.243 ml -352.652 ml Intake Oral 500 ml IV Total 123.243 ml 147.348 ml Output Urine Total 500 ml 500 ml # Voids 1 Objective PHYSICAL EXAMINATION: GENERAL: The patient is a well-developed and well-nourished male, in no apparent distress. HEENT: Eyes, pupils are equal and responsive to light and accommodation. Extraocular movements are intact. NECK: Supple without lymphadenopathy. CHEST: Lungs are clear to auscultation bilaterally without wheezes or rales. CARDIOVASCULAR: Regular rhythm and rate. S1-S2 are normal without murmurs, rubs, or gallops. ABDOMEN: Soft, nontender, and nondistended. Positive bowel sounds. No evidence of hepatosplenomegaly. Currently, no rebound or guarding noted. EXTREMITIES: Negative for clubbing, cyanosis, or edema. RECTAL/GENITAL: Not performed. NEUROLOGIC: Cranial nerves II through XII are grossly intact without focal deficits. Motor strength is 5/5 bilaterally. Deep tendon reflexes are 2+ plantar. Assessment/Plan Assessment/Plan ASSESSMENT: This is a 73-year-old male with: 1. Acute pulmonary embolism. 2. Chest pain. 3. Right bundle-branch block. 4. Hypertension. 5. Bipolar depression. TREATMENT: 1. Pulmonary embolism. A Pulmonary consultation has been obtained with Dr. Jese Murdock. D/C heparin drip; start lovenox subcut. We will follow recommendation of Pulmonary. 2. Chest pain. This may be secondary to pulmonary embolism as above. Serial troponin levels will be performed. A Cardiology consultation has been obtained with Dr. Francisco J Nevarez. 3. Right bundle-branch block. 4. Hypertension. Continue Coreg as above. 5. Bipolar depression. Continue Seroquel as above. Nader Cha MD Aug 19, 2019 13:29
[2019-08-19 16:00] VITALS: BP 118/70
[2019-08-19] MEDS: Enoxaparin 60mg Inj SUBQ SCH (16:10)
--- NOTE | 2019-08-19 19:30 | NUR ---
NURSE NOTES: Got report from Josh RN. Pt in stable condition. Denies any pain. No s/s of distress or discomfort noted. Pt resting in bed comfortably. Bed in low and locked position, call light within reach, bedside table within reach. Continue to monitor.
[2019-08-19 20:00] VITALS: BP 118/71
[2019-08-19] MEDS: HYDROcodone/Acetamin 5/325 tab ORAL PRN (21:19)
[2019-08-20] VITALS: BP 112/65
[2019-08-20 04:00] VITALS: BP 119/78
--- NOTE | 2019-08-20 07:00 | NUR ---
HAND-OFF: Report given to Martinez ALLEN.
--- NOTE | 2019-08-20 07:10 | NUR ---
NURSE NOTES: Report received from TIFFANY Garcia. Patient sleeping comfortably. In RA. No S/S of distress noted. Room made clear from clutter. Bed on lowest position, side rails upx2, brakes engaged, alarm on. Call light within easy reach.
[2019-08-20 08:00] VITALS: BP 112/68
[2019-08-20] MEDS: Theophylline ER 100mg ORAL SCH ×2 (08:55→21:59)
--- NOTE | 2019-08-20 08:55 | Pulmonology Progress Note ---
Assessment/Plan Assessment/Plan ASSESSMENT Possible small distal branches PE Atypical chest pain Chronic systolic HF COPD Coronary artery disease with history of stent placement Anemia Moderate pulm HTN Hypo Mg Noncompliance Homeless PLAN OF CARE tele CTA from [place] no central PE, no aortic dissection or aneurysm, possible small nonocclusive distal PE , no lung consolidation or effsuion Off heparin gtt, now on Lovenox VQ scan results pending Venous duplex BLE no acute DVT cardio follows per cardio atypical CP serial troponin negative, now accepted telemetry monitoring Echo with global LV hypokinesis rEF 30%, RVSP of 45 c/w mod pulm HTN BB Lipid panel stable O2 HHN prn fup with CXR trial of Theophylline Mg replaced, anemia w/up; CEA, stool OB monitor HH with goal to keep Hgb above 7 supportive care labs pending for this am leucocytosis yesterday, ? reactive, afebrile, will check UA and CXR case discussed and evaluated by supervising physician Subjective Allergies: Coded Allergies: GRAPEFRUIT (Unverified Allergy, Intermediate, Hives, 12/13/12) ORANGE (Verified Allergy, Unknown, 11/20/18) Subjective off Heparin drip, now on Lovenox feeling better no CP , no SOB pulse ox stable on RA results of VQ scan pending Objective Last 24 Hour Vital Signs Date Time Temp Pulse Resp B/P (MAP) Pulse Ox O2 Delivery O2 Flow Rate FiO2 08/20/19 08:00 98.1 95 18 112/68 (83) 100 08/20/19 04:00 81 08/20/19 04:00 98.0 95 18 119/78 (92) 96 08/20/19 00:00 98.2 94 19 112/65 (81) 95 08/20/19 00:00 95 08/19/19 21:49 98.6 08/19/19 21:17 85 118/71 08/19/19 21:00 Room Air 08/19/19 20:00 86 08/19/19 20:00 98.1 85 18 118/71 (87) 95 08/19/19 16:00 98.6 82 17 118/70 (86) 98 08/19/19 16:00 87 08/19/19 12:00 82 17 115/69 (84) 100 08/19/19 12:00 82 08/19/19 09:21 89 125/69 08/19/19 09:00 Room Air Intake and Output 08/19/19 08/20/19 19:00 07:00 Intake Total 500 ml Output Total 650 ml Balance -150 ml Intake Oral 500 ml Output Urine Total 650 ml # Voids 2 Objective General Appearance: no acute distress HEENT: atraumatic, anicteric, mucous membranes moist Respiratory/Chest: lungs clear, no respiratory distress Cardiovascular: normal rate, no JVD Abdomen: normal bowel sounds, soft, non tender Extremities: no edema, pedal pulses normal Neurologic/Psychiatric: alert, responsive Current Medications Medications (Trade) Dose Ordered Sig/Daria Route PRN Reason Start Time Stop Time Status Last Admin Dose Admin Acetaminophen/ Hydrocodone Bitart ([place] 5/325) 1 tab Q6H PRN ORAL For Pain 08/18/19 02:15 08/25/19 02:14 08/19/19 21:19 Carvedilol (Coreg) 3.125 mg EVERY 12 HOURS ORAL 08/18/19 09:00 09/17/19 08:59 08/19/19 21:17 Enoxaparin Sodium (Lovenox) 60 mg EVERY 12 HOURS SUBQ 08/19/19 16:00 09/18/19 15:59 08/19/19 16:10 Quetiapine Fumarate (SEROqueL) 300 mg QHS ORAL 08/18/19 21:00 09/17/19 20:59 08/19/19 21:17 Theophylline ([place]) 100 mg EVERY 12 HOURS ORAL 08/18/19 09:00 09/17/19 08:59 08/19/19 21:17 Kira Mijares NP Aug 20, 2019 08:55
[2019-08-20] MEDS: Enoxaparin 60mg Inj SUBQ SCH ×2 (08:57→21:00)
[2019-08-20] MEDS ORDERED: Albuterol/Ipratropium 3ml neb HHN PRN (09:00)
--- NOTE | 2019-08-20 10:40 | NUR ---
NURSE NOTES: Educated the need to reposition. Pt. replied "I need help, because I can't do it by myself.." Came back with TEST EQUIPMENT MECHANIC to help reposition. Announced two person available to help reposition. Pt replied "get out of here!! I don't want your help, if you were my child I'll shoot you and put you down!!..." left the room.
[2019-08-20 12:00] VITALS: BP 131/72
--- NOTE | 2019-08-20 14:06 | Internal Med Progress Note ---
Subjective Date of Service: Aug 20, 2019 Physician Name Nader Cha Attending Physician Reese Nelson MD Current Medications Medications (Trade) Dose Ordered Sig/Daria Route PRN Reason Start Time Stop Time Status Last Admin Dose Admin Acetaminophen/ Hydrocodone Bitart ([place] 5/325) 1 tab Q6H PRN ORAL For Pain 08/18/19 02:15 08/25/19 02:14 08/19/19 21:19 Albuterol/ Ipratropium (Albuterol/ Ipratropium) 3 ml Q4H PRN HHN Shortness of Breath 08/20/19 09:00 08/25/19 08:59 Carvedilol (Coreg) 3.125 mg EVERY 12 HOURS ORAL 08/18/19 09:00 09/17/19 08:59 08/20/19 08:56 Enoxaparin Sodium (Lovenox) 60 mg EVERY 12 HOURS SUBQ 08/19/19 16:00 09/18/19 15:59 08/20/19 08:57 Quetiapine Fumarate (SEROqueL) 300 mg QHS ORAL 08/18/19 21:00 09/17/19 20:59 08/19/19 21:17 Theophylline ([place]) 100 mg EVERY 12 HOURS ORAL 08/18/19 09:00 09/17/19 08:59 08/20/19 08:55 Allergies: Coded Allergies: GRAPEFRUIT (Unverified Allergy, Intermediate, Hives, 12/13/12) ORANGE (Verified Allergy, Unknown, 11/20/18) ROS Limited/Unobtainable: No Constitutional: Reports: no symptoms HEENT: Reports: no symptoms Cardiovascular: Reports: chest pain Respiratory: Reports: no symptoms Gastrointestinal/Abdominal: Reports: no symptoms Genitourinary: Reports: no symptoms Neurologic/Psychiatric: Reports: no symptoms Subjective 73 YO M admitted with chest pain. Now pulmonary embolism. Cover for Int Med- DR Nelson Objective Last Vital Signs Date Time Temp Pulse Resp B/P (MAP) Pulse Ox O2 Delivery O2 Flow Rate FiO2 08/20/19 12:00 88 08/20/19 12:00 98.1 18 131/72 (91) 100 08/20/19 09:00 Room Air Intake and Output 08/19/19 08/20/19 19:00 07:00 Intake Total 500 ml Output Total 650 ml Balance -150 ml Intake Oral 500 ml Output Urine Total 650 ml # Voids 2 Objective PHYSICAL EXAMINATION: GENERAL: The patient is a well-developed and well-nourished male, in no apparent distress. HEENT: Eyes, pupils are equal and responsive to light and accommodation. Extraocular movements are intact. NECK: Supple without lymphadenopathy. CHEST: Lungs are clear to auscultation bilaterally without wheezes or rales. CARDIOVASCULAR: Regular rhythm and rate. S1-S2 are normal without murmurs, rubs, or gallops. ABDOMEN: Soft, nontender, and nondistended. Positive bowel sounds. No evidence of hepatosplenomegaly. Currently, no rebound or guarding noted. EXTREMITIES: Negative for clubbing, cyanosis, or edema. RECTAL/GENITAL: Not performed. NEUROLOGIC: Cranial nerves II through XII are grossly intact without focal deficits. Motor strength is 5/5 bilaterally. Deep tendon reflexes are 2+ plantar. Assessment/Plan Assessment/Plan ASSESSMENT: This is a 73-year-old male with: 1. Acute pulmonary embolism. 2. Chest pain. 3. Right bundle-branch block. 4. Hypertension. 5. Bipolar depression. TREATMENT: 1. Pulmonary embolism. A Pulmonary consultation has been obtained with Dr. Jese Murdock. D/C heparin drip; start lovenox subcut. We will follow recommendation of Pulmonary. 2. Chest pain. This may be secondary to pulmonary embolism as above. Serial troponin levels will be performed. A Cardiology consultation has been obtained with Dr. Francisco J Nevarez. 3. Right bundle-branch block. 4. Hypertension. Continue Coreg as above. 5. Bipolar depression. Continue Seroquel as above. Nader Cha MD Aug 20, 2019 14:06
[2019-08-20 16:00] VITALS: BP 119/79
--- NOTE | 2019-08-20 19:20 | NUR ---
HAND-OFF: Report given to TIFFANY Bourne. Plan of care endorsed.
--- NOTE | 2019-08-20 19:21 | NUR ---
NURSE NOTES: Got report from Martinez ALLEN. Pt in stable condition. Denies any pain. No s/s of distress or discomfort noted. Pt resting in bed comfortably. Bed in low and locked position, call light within reach, bedside table within reach. Continue to monitor.
[2019-08-20 20:00] VITALS: BP 124/76
[2019-08-20] MEDS: HYDROcodone/Acetamin 5/325 tab ORAL PRN (21:59)
[2019-08-21] VITALS: BP 128/73
[2019-08-21 04:00] VITALS: BP_SYST 100; BP_SYST 93; BP_DIAS 60
--- NOTE | 2019-08-21 07:00 | NUR ---
HAND-OFF: Report given to Josh ALLEN.
[2019-08-21 07:28] LABS: BASOPHILS % (AUTO) 0.3 % (0.0-2.0); HEMATOCRIT 30.2 % (42.0-52.0); HEMOGLOBIN 9.9 G/DL (14.2-18.0); LYMPHOCYTES % (AUTO) 8.8 % (20.0-45.0); MEAN CORPUSCULAR VOLUME 100 FL (80-99); MONOCYTES % (AUTO) 6.1 % (1.0-10.0); NEUTROPHILS % (AUTO) 84.8 % (45.0-75.0); PLATELET COUNT 375 K/UL (150-450); RED CELL DISTRIBUTION WIDTH 12.2 % (11.6-14.8); WHITE BLOOD COUNT 17.8 K/UL (4.8-10.8)
[2019-08-21 07:56] LABS: ANION GAP 9 mmol/L (5-15); BLOOD UREA NITROGEN 18 mg/dL (7-18); CALCIUM 8.7 MG/DL (8.5-10.1); CARBON DIOXIDE 25 MMOL/L (21-32); CHLORIDE 104 MMOL/L (98-107); POTASSIUM 4.1 MMOL/L (3.5-5.1); SODIUM 138 MMOL/L (136-145)
[2019-08-21 08:00] VITALS: BP 104/63
[2019-08-21] MEDS: Theophylline ER 100mg ORAL SCH ×2 (08:58→21:28)
[2019-08-21] MEDS: Enoxaparin 60mg Inj SUBQ SCH ×2 (09:01→21:27)
--- NOTE | 2019-08-21 09:26 | NUR ---
RADIOLOGY: CXR COMPLETED 0900HRS. NF
[2019-08-21 09:49] LABS: APPEARANCE,URINE CLOUDY; BILIRUBIN, URINE NEGATIVE (NEGATIVE); COLOR,URINE BROWN; GLUCOSE, URINE (UA) NEGATIVE (NEGATIVE); KETONES,URINE NEGATIVE (NEGATIVE); LEUKOCYTE ESTERASE ,URINE 3+ (NEGATIVE); NITRITE,URINE POSITIVE (NEGATIVE); PH,URINE 5 (4.5-8.0); PROTEIN,URINE 2+ (NEGATIVE); UROBILINOGEN,URINE 4 MG/DL (0.0-1.0)
--- NOTE | 2019-08-21 11:07 | NUR ---
CASE MANAGEMENT: REVIEW 08/21/19 SI: ACUTE PULMONARY EMBOLISM . HTN 97.1 97 20 104/63 96% ON RA WBC 17.8 H/H 9.9/30.2 IS: LOVENOX SQ BID SHAMA-DUR PO BID COREG PO BID SEROQUEL PO QHS \:2E TELE UNIT PLAN: EVAL POSS SMALL DISTAL PE DCP: BACK TO [facility]
[2019-08-21 12:00] VITALS: BP 102/63
--- NOTE | 2019-08-21 12:02 | NUR ---
DISCHARGE PLANNING: PATIENT IS NOT HOMELESS PATIENT LIVES AT A [facility] T: [phone] FACILITY IS NOW AWARE AND WILL ACCEPT BACK [address] [place] [address]
--- NOTE | 2019-08-21 12:22 | Cardiology Report ---
APPROVED REPORT EXAM: Two-dimensional and M-mode echocardiogram with Doppler and color Doppler. M-Mode DIMENSIONS IVSd0.9 (0.7-1.1cm)Left Atrium (MM)4.1 (1.6-4.0cm) LVDd7.3 (3.5-5.6cm)Aortic Root3.0 (2.0-3.7cm) PWd1.0 (0.7-1.1cm)Aortic Cusp Exc.1.6 (1.5-2.0cm) IVSs1.3 cm LVDs5.9 (2.5-4.0cm) PWs0.8 cm Technically difficult study due to patient's was verbally combative and disrespectful . Mild left ventriuclar enlargement. Global left ventricular hypokinesia. Left ventricular ejection fraction estimated to be 40-45%. Moderate left atrial enlargement. Right cardiac chamber sizes are within normal limits. Aortic valve calcification with normal cusp excursion . Heavily thickened mitral valve leaflets reduced normal excursion.(Mitral stenosis ). Mild mitral annulus and aortic root calcification. Pulmonic valve not well visualized. Subcostal views not obtainable. A color flow and spectral Doppler study was performed and revealed: Mild to moderate aortic insufficiency . Mitral diastolic velocities suggest left ventricular pseudo-normal physiology c/w moderate LV diastolic dysfunction (Grade II ). Peak mitral valve gradient of 16 mmHg and a mean of 7mmHg. Moderate mitral regurgitation. Moderate tricuspid regurgitation. Tricuspid systolic velocities suggests peak right ventricular systolic pressure of 45mmHg,consistent with moderate pulmonary hyperten
--- NOTE | 2019-08-21 12:25 | Pulmonology Progress Note ---
Assessment/Plan Problems: (1) Pulmonary embolism (2) Chronic systolic heart failure (3) COPD (chronic obstructive pulmonary disease) (4) Anemia (5) Non compliance w medication regimen Assessment/Plan V/Q scan done, report pending on Lovenox sq monitor cardiac wbc rising, ? etiology, will Call ID evaluation respiratory treatment, titrate fio2 to sat of 92% Subjective ROS Limited/Unobtainable: No Constitutional: Reports: no symptoms HEENT: Repors: no symptoms Allergies: Coded Allergies: GRAPEFRUIT (Unverified Allergy, Intermediate, Hives, 12/13/12) ORANGE (Verified Allergy, Unknown, 11/20/18) Objective Last 24 Hour Vital Signs Date Time Temp Pulse Resp B/P (MAP) Pulse Ox O2 Delivery O2 Flow Rate FiO2 08/21/19 08:57 92 104/63 08/21/19 08:27 Room Air 08/21/19 08:21 92 16 95 Room Air 21 08/21/19 08:00 97.1 97 20 104/63 (77) 96 08/21/19 04:00 93 08/21/19 04:00 98.4 91 17 100/60 (73) 96 08/21/19 00:00 90 08/21/19 00:00 98.7 99 18 128/73 (91) 95 08/20/19 22:29 98.9 08/20/19 22:00 100 124/76 08/20/19 21:00 Room Air 08/20/19 20:04 90 18 94 Room Air 21 08/20/19 20:00 99.0 99 18 124/76 (92) 95 08/20/19 20:00 96 08/20/19 16:00 92 08/20/19 16:00 98.9 93 18 119/79 (92) 96 Intake and Output 08/20/19 08/21/19 19:00 07:00 Intake Total 380 ml 360 ml Output Total 350 ml 900 ml Balance 30 ml -540 ml Intake Oral 380 ml 360 ml Output Urine Total 350 ml 900 ml # Voids 3 3 General Appearance: cachetic HEENT: normocephalic, atraumatic Respiratory/Chest: chest wall non-tender, lungs clear, normal breath sounds Cardiovascular: normal peripheral pulses, normal rate, regular rhythm Abdomen: normal bowel sounds, soft, non tender, no organomegaly Genitourinary: normal external genitalia Extremities: no cyanosis Skin: no lesions Neurologic/Psychiatric: 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 II-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 normal Lymphatic: no neck adenopathy Musculoskeletal: normal muscle bulk Laboratory Tests 08/21/19 06:45: White Blood Count 17.8H, Red Blood Count 3.00L, Hemoglobin 9.9L, Hematocrit 30.2L, Mean Corpuscular Volume 100H, Mean Corpuscular Hemoglobin 32.8H, Mean Corpuscular Hemoglobin Concent 32.7, Red Cell Distribution Width 12.2, Platelet Count 375, Mean Platelet Volume 5.7L, Neutrophils (%) (Auto) 84.8H, Lymphocytes (%) (Auto) 8.8L, Monocytes (%) (Auto) 6.1, Eosinophils (%) (Auto) 0.0, Basophils (%) (Auto) 0.3, Sodium Level 138, Potassium Level 4.1, Chloride Level 104, Carbon Dioxide Level 25, Anion Gap 9, Blood Urea Nitrogen 18, Creatinine 1.0, Estimat Glomerular Filtration Rate , Glucose Level 102, Calcium Level 8.7 08/21/19 09:00: Urine Color Brown, Urine Appearance Cloudy, Urine pH 5, Urine Specific [place] 1.015, Urine Protein 2+H, Urine Glucose (UA) Negative, Urine Ketones Negative, Urine Blood 2+H, Urine Nitrite PositiveH, Urine Bilirubin Negative, Urine Urobilinogen 4H, Urine Leukocyte Esterase 3+H, Urine RBC 10-15H, Urine WBC TntcH , Urine Squamous Epithelial Cells Occasional, Urine Bacteria ManyH Current Medications Medications (Trade) Dose Ordered Sig/Daria Route PRN Reason Start Time Stop Time Status Last Admin Dose Admin Acetaminophen/ Hydrocodone Bitart ([place] 5/325) 1 tab Q6H PRN ORAL For Pain 08/18/19 02:15 08/25/19 02:14 08/20/19 21:59 Albuterol/ Ipratropium (Albuterol/ Ipratropium) 3 ml Q4H PRN HHN Shortness of Breath 08/20/19 09:00 08/25/19 08:59 Carvedilol (Coreg) 3.125 mg EVERY 12 HOURS ORAL 08/18/19 09:00 09/17/19 08:59 08/21/19 08:57 Enoxaparin Sodium (Lovenox) 60 mg EVERY 12 HOURS SUBQ 08/19/19 16:00 09/18/19 15:59 08/21/19 09:01 Quetiapine Fumarate (SEROqueL) 300 mg QHS ORAL 08/18/19 21:00 09/17/19 20:59 08/20/19 22:00 Theophylline ([place]) 100 mg EVERY 12 HOURS ORAL 08/18/19 09:00 09/17/19 08:59 08/21/19 08:58 Jese Murdock MD Aug 21, 2019 12:25
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
--- NOTE | 2019-08-21 12:56 | Diagnostic Imaging Report ---
Indication: Dyspnea Comparison: 08/18/2019 A single view chest radiograph was obtained. Findings: Question of mild pulmonary vascular congestion suspected with slightly prominent vascularity and heart size. IMPRESSION: Query mild pulmonary vascular congestion
[2019-08-21] MEDS: Cefepime HCl 1 GM in D5W 55 ML IVPB SCH (15:07)
[2019-08-21 16:00] VITALS: BP 99/59
--- NOTE | 2019-08-21 18:41 | Internal Med Progress Note ---
Subjective Date of Service: Aug 21, 2019 Physician Name Nader Cha Attending Physician Reese Nelson MD Current Medications Medications (Trade) Dose Ordered Sig/Daria Route PRN Reason Start Time Stop Time Status Last Admin Dose Admin Acetaminophen/ Hydrocodone Bitart ([place] 5/325) 1 tab Q6H PRN ORAL For Pain 08/18/19 02:15 08/25/19 02:14 08/20/19 21:59 Albuterol/ Ipratropium (Albuterol/ Ipratropium) 3 ml Q4H PRN HHN Shortness of Breath 08/20/19 09:00 08/25/19 08:59 Carvedilol (Coreg) 3.125 mg EVERY 12 HOURS ORAL 08/18/19 09:00 09/17/19 08:59 08/21/19 08:57 Cefepime HCl 1 gm/ Dextrose 55 ml @ 110 mls/hr Q12HR@0300,1500 IVPB 08/21/19 15:00 08/28/19 14:59 08/21/19 15:07 Enoxaparin Sodium (Lovenox) 60 mg EVERY 12 HOURS SUBQ 08/19/19 16:00 09/18/19 15:59 08/21/19 09:01 Quetiapine Fumarate (SEROqueL) 300 mg QHS ORAL 08/18/19 21:00 09/17/19 20:59 08/20/19 22:00 Theophylline ([place]) 100 mg EVERY 12 HOURS ORAL 08/18/19 09:00 09/17/19 08:59 08/21/19 08:58 Allergies: Coded Allergies: GRAPEFRUIT (Unverified Allergy, Intermediate, Hives, 12/13/12) ORANGE (Verified Allergy, Unknown, 11/20/18) ROS Limited/Unobtainable: No Constitutional: Reports: no symptoms Cardiovascular: Reports: chest pain Respiratory: Reports: no symptoms Gastrointestinal/Abdominal: Reports: no symptoms Genitourinary: Reports: no symptoms Neurologic/Psychiatric: Reports: no symptoms Subjective 73 YO M admitted with chest pain. Now pulmonary embolism. Cover for Scott Reynolds- DR Nelson Objective Last Vital Signs Date Time Temp Pulse Resp B/P (MAP) Pulse Ox O2 Delivery O2 Flow Rate FiO2 08/21/19 16:33 83 08/21/19 16:00 97.1 19 99/59 (72) 97 08/21/19 08:27 Room Air 08/21/19 08:21 21 Laboratory Tests Test 08/21/19 06:45 08/21/19 09:00 White Blood Count 17.8 K/UL (4.8-10.8) H Red Blood Count 3.00 M/UL (4.70-6.10) L Hemoglobin 9.9 G/DL (14.2-18.0) L Hematocrit 30.2 % (42.0-52.0) L Mean Corpuscular Volume 100 FL (80-99) H Mean Corpuscular Hemoglobin 32.8 PG (27.0-31.0) H Mean Corpuscular Hemoglobin Concent 32.7 G/DL (32.0-36.0) Red Cell Distribution Width 12.2 % (11.6-14.8) Platelet Count 375 K/UL (150-450) Mean Platelet Volume 5.7 FL (6.5-10.1) L Neutrophils (%) (Auto) 84.8 % (45.0-75.0) H Lymphocytes (%) (Auto) 8.8 % (20.0-45.0) L Monocytes (%) (Auto) 6.1 % (1.0-10.0) Eosinophils (%) (Auto) 0.0 % (0.0-3.0) Basophils (%) (Auto) 0.3 % (0.0-2.0) Sodium Level 138 MMOL/L (136-145) Potassium Level 4.1 MMOL/L (3.5-5.1) Chloride Level 104 MMOL/L (98-107) Carbon Dioxide Level 25 MMOL/L (21-32) Anion Gap 9 mmol/L (5-15) Blood Urea Nitrogen 18 mg/dL (7-18) Creatinine 1.0 MG/DL (0.55-1.30) Estimat Glomerular Filtration Rate mL/min (>60) Glucose Level 102 MG/DL (74-106) Calcium Level 8.7 MG/DL (8.5-10.1) Urine Color Brown Urine Appearance Cloudy Urine pH 5 (4.5-8.0) Urine Specific [place] 1.015 (1.005-1.035) Urine Protein 2+ (NEGATIVE) H Urine Glucose (UA) Negative (NEGATIVE) Urine Ketones Negative (NEGATIVE) Urine Blood 2+ (NEGATIVE) H Urine Nitrite Positive (NEGATIVE) H Urine Bilirubin Negative (NEGATIVE) Urine Urobilinogen 4 MG/DL (0.0-1.0) H Urine Leukocyte Esterase 3+ (NEGATIVE) H Urine RBC 10-15 /HPF (0 - 0) H Urine WBC Tntc /HPF (0 - 0) H Urine Squamous Epithelial Cells Occasional /LPF Urine Bacteria Many /HPF (NONE) H Intake and Output 08/20/19 08/21/19 19:00 07:00 Intake Total 380 ml 360 ml Output Total 350 ml 900 ml Balance 30 ml -540 ml Intake Oral 380 ml 360 ml Output Urine Total 350 ml 900 ml # Voids 3 3 Objective PHYSICAL EXAMINATION: GENERAL: The patient is a well-developed and well-nourished male, in no apparent distress. HEENT: Eyes, pupils are equal and responsive to light and accommodation. Extraocular movements are intact. NECK: Supple without lymphadenopathy. CHEST: Lungs are clear to auscultation bilaterally without wheezes or rales. CARDIOVASCULAR: Regular rhythm and rate. S1-S2 are normal without murmurs, rubs, or gallops. ABDOMEN: Soft, nontender, and nondistended. Positive bowel sounds. No evidence of hepatosplenomegaly. Currently, no rebound or guarding noted. EXTREMITIES: Negative for clubbing, cyanosis, or edema. RECTAL/GENITAL: Not performed. NEUROLOGIC: Cranial nerves II through XII are grossly intact without focal deficits. Motor strength is 5/5 bilaterally. Deep tendon reflexes are 2+ plantar. Assessment/Plan Assessment/Plan ASSESSMENT: This is a 73-year-old male with: 1. Acute pulmonary embolism. 2. Chest pain. 3. Right bundle-branch block. 4. Hypertension. 5. Bipolar depression. TREATMENT: 1. Pulmonary embolism. A Pulmonary consultation has been obtained with Dr. Jese Murdock. D/C heparin drip; start lovenox subcut. We will follow recommendation of Pulmonary. 2. Chest pain. This may be secondary to pulmonary embolism as above. Serial troponin levels will be performed. A Cardiology consultation has been obtained with Dr. Francisco J Nevarez. 3. Right bundle-branch block. 4. Hypertension. Continue Coreg as above. 5. Bipolar depression. Continue Seroquel as above. Nader Cha MD Aug 21, 2019 18:41
--- NOTE | 2019-08-21 19:45 | NUR ---
NURSE NOTES: Received patient from TIFFANY Moreno. Patient asleep in bed. No signs of distress, pain, or shortness of breath noted. Patient able to make needs known. IV site checked, intact and patent, no signs of redness, bleeding, or infiltration. Bed in lowest positions, brakes on, side rails up x2, and call light within reach. Will continue with plan of care.
[2019-08-21 20:00] VITALS: BP 110/70
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
--- NOTE | 2019-08-21 20:55 | NUR ---
NURSE NOTES: NURSE NOTES: Called Dr. Nelson regarding patient's temperature of 100.6 F, received orders for PRN Tylenol. Noted and carried out. Will continue to monitor.
[2019-08-22] VITALS: BP 114/68
[2019-08-22] MEDS: Cefepime HCl 1 GM in D5W 55 ML IVPB SCH (02:26)
[2019-08-22 04:00] VITALS: BP 120/72
--- NOTE | 2019-08-22 07:09 | NUR ---
HAND-OFF: Report given to TIFFANY Chacon. Patient sleep in bed comfortably, plan of care endorsed.
--- NOTE | 2019-08-22 07:22 | NUR ---
NURSE NOTES: HANDOFF RECEIVED FROM TIFFANY MORGAN. PATIENT OBSERVED RESTING IN BED, NO ACUTE SIGNS OF DISTRESS NOTED. PATIENT IV SITE IS CLEAN DRY AND INTACT TKO PATIENT REFUSES IV FLUSH. BED IN THE LOW AND LOCKED POSITION WITH CALL LIGHT WITHIN REACH, WILL CONTINUE TO MONITOR.
[2019-08-22 08:00] VITALS: BP 139/86
[2019-08-22 08:00] LABS: HEMATOCRIT 26.9 % (42.0-52.0); HEMOGLOBIN 8.8 G/DL (14.2-18.0); MEAN CORPUSCULAR VOLUME 100 FL (80-99); PLATELET COUNT 437 K/UL (150-450); RED CELL DISTRIBUTION WIDTH 12.4 % (11.6-14.8)
[2019-08-22 08:37] LABS: ALANINE AMINOTRANSFERASE 17 U/L (12-78); ALBUMIN 2.6 G/DL (3.4-5.0); ALBUMIN/GLOBULIN RATIO 0.6 (1.0-2.7); ALKALINE PHOSPHATASE 71 U/L (46-116); ANION GAP 6 mmol/L (5-15); ASPARTATE AMINO TRANSFERASE 27 U/L (15-37); BILIRUBIN,TOTAL 1.5 MG/DL (0.2-1.0); BLOOD UREA NITROGEN 22 mg/dL (7-18); CALCIUM 8.4 MG/DL (8.5-10.1); CARBON DIOXIDE 29 MMOL/L (21-32); CHLORIDE 102 MMOL/L (98-107); CREATININE 1.1 MG/DL (0.55-1.30); PHOSPHORUS 3.5 MG/DL (2.5-4.9); SODIUM 137 MMOL/L (136-145)
[2019-08-22 08:39] LABS: BILIRUBIN,DIRECT 0.5 MG/DL (0.0-0.3)
[2019-08-22] MEDS: Theophylline ER 100mg ORAL SCH ×2 (09:42→20:16)
[2019-08-22] MEDS: Enoxaparin 60mg Inj SUBQ SCH (09:44)
--- NOTE | 2019-08-22 09:51 | CDS Physician Query ---
Clarification is required for compliance, coding accuracy, and to reflect severity of illness for this patient Dear Dr. Nader Cha Date: 08/22/2019 [employer] Worker/CDS Name: Milly Hurtado Clinical Documentation states: ID consult: 73 M...presented to ED on 08/18 with 4 days of SOB, chest pain. Patient initially presented to [facility] and CTA chest showed small nonocclusive filling defects suspicious for PE... -u/a wbc tnct, nit +, leuk +3...Start empiric Cefepime for probable UTI 08/21 Vitals Temp 100.6, SC 98, RR 20 08/22 WBC 18.0 Please respond to the following question: Is there a diagnosis specific to these symptoms or values? If so please state below. PHYSICIAN RESPONSE: [] Sepsis due to UTI [] SIRS without sepsis [] Severe sepsis with organ dysfunction: [] Other: [] Clinically Undetermined Present on Admission: [] Yes [] No [] Clinically Undetermined Physician signature Date Please also document in your Progress Notes and/or Discharge Summary and indicate if the condition was present on admission. MTDD
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
--- NOTE | 2019-08-22 11:36 | Pulmonology Progress Note ---
Assessment/Plan Problems: (1) Pulmonary embolism (2) Chronic systolic heart failure (3) COPD (chronic obstructive pulmonary disease) (4) Anemia (5) Non compliance w medication regimen Assessment/Plan V/Q scan done, report still pending on Lovenox sq monitor cardiac wbc rising, ? etiology, ID evaluation expected respiratory treatment, titrate fio2 to sat of 92% Subjective ROS Limited/Unobtainable: No Constitutional: Reports: no symptoms HEENT: Repors: no symptoms Respiratory: Reports: no symptoms Allergies: Coded Allergies: GRAPEFRUIT (Unverified Allergy, Intermediate, Hives, 12/13/12) ORANGE (Verified Allergy, Unknown, 11/20/18) Objective Last 24 Hour Vital Signs Date Time Temp Pulse Resp B/P (MAP) Pulse Ox O2 Delivery O2 Flow Rate FiO2 08/22/19 09:42 83 139/86 08/22/19 09:00 Room Air 08/22/19 08:00 101 08/22/19 08:00 98.2 83 20 139/86 (103) 96 08/22/19 04:00 93 08/22/19 04:00 98.7 93 16 120/72 (88) 94 08/22/19 00:00 98.5 96 17 114/68 (83) 95 08/22/19 00:00 88 08/21/19 22:08 99.9 08/21/19 21:28 98 110/70 08/21/19 21:00 Room Air 08/21/19 20:14 89 16 96 Room Air 21 08/21/19 20:00 100 08/21/19 20:00 100.6 98 16 110/70 (83) 95 08/21/19 16:33 83 08/21/19 16:00 97.1 99 19 99/59 (72) 97 08/21/19 12:00 87 08/21/19 12:00 97.3 93 20 102/63 (76) 96 Intake and Output 08/21/19 08/22/19 18:59 06:59 Intake Total 720 ml 360 ml Output Total 200 ml Balance 520 ml 360 ml Intake Oral 720 ml 360 ml Output Urine Total 200 ml # Voids 1 4 General Appearance: cachetic HEENT: normocephalic, atraumatic Respiratory/Chest: chest wall non-tender, normal breath sounds Cardiovascular: normal peripheral pulses, normal rate Abdomen: normal bowel sounds Genitourinary: normal external genitalia Extremities: no cyanosis 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 grossly normal Microbiology Date/Time Source Procedure Growth Status 08/21/19 09:00 Urine,Clean Catch Urine Culture - Preliminary Gram Negative Bacillus 1 Resulted Laboratory Tests 08/22/19 07:50: White Blood Count 18.0H, Red Blood Count 2.70L, Hemoglobin 8.8L, Hematocrit 26.9L, Mean Corpuscular Volume 100H, Mean Corpuscular Hemoglobin 32.5H, Mean Corpuscular Hemoglobin Concent 32.5, Red Cell Distribution Width 12.4, Platelet Count 437, Mean Platelet Volume 5.8L, Neutrophils (%) (Auto) , Lymphocytes (%) ( Auto) , Monocytes (%) (Auto) , Eosinophils (%) (Auto) , Basophils (%) (Auto) , Differential Total Cells Counted 100, Neutrophils % (Manual) 81H, Lymphocytes % (Manual) 13L, Monocytes % (Manual) 6, Eosinophils % (Manual) 0, Basophils % ( Manual) 0, Band Neutrophils 0, Platelet Estimate Adequate, Platelet Morphology Normal, Macrocytosis 1+, Erythrocyte Sedimentation Rate 123H, Sodium Level 137, Potassium Level 4.0, Chloride Level 102, Carbon Dioxide Level 29, Anion Gap 6, Blood Urea Nitrogen 22H, Creatinine 1.1, Estimat Glomerular Filtration Rate , Glucose Level 108H, Calcium Level 8.4L, Phosphorus Level 3.5, Magnesium Level 2.0, Total Bilirubin 1.5H, Direct Bilirubin 0.5H, Aspartate Amino Transf (AST/ SGOT) 27, Alanine Aminotransferase (ALT/SGPT) 17, Alkaline Phosphatase 71, C- Reactive Protein, Quantitative 33.3H, Total Protein 7.3, Albumin 2.6L, Globulin 4.7, Albumin/Globulin Ratio 0.6L Current Medications Medications (Trade) Dose Ordered Sig/Daria Route PRN Reason Start Time Stop Time Status Last Admin Dose Admin Acetaminophen (Tylenol) 650 mg Q6H PRN ORAL Mild Pain/Temp > 100.5 08/21/19 21:00 09/20/19 20:59 08/21/19 21:28 Acetaminophen/ Hydrocodone Bitart ([place] 5/325) 1 tab Q6H PRN ORAL For Pain 08/18/19 02:15 08/25/19 02:14 08/20/19 21:59 Albuterol/ Ipratropium (Albuterol/ Ipratropium) 3 ml Q4H PRN HHN Shortness of Breath 08/20/19 09:00 08/25/19 08:59 Carvedilol (Coreg) 3.125 mg EVERY 12 HOURS ORAL 08/18/19 09:00 09/17/19 08:59 08/22/19 09:42 Enoxaparin Sodium (Lovenox) 60 mg EVERY 12 HOURS SUBQ 08/19/19 16:00 09/18/19 15:59 08/22/19 09:44 Meropenem 1 gm/ Sodium Chloride 55 ml @ 110 mls/hr Q8H IVPB 08/22/19 13:00 08/27/19 12:59 Quetiapine Fumarate (SEROqueL) 300 mg QHS ORAL 08/18/19 21:00 09/17/19 20:59 08/21/19 21:27 Theophylline ([place]-Dur) 100 mg EVERY 12 HOURS ORAL 08/18/19 09:00 09/17/19 08:59 08/22/19 09:42 Jese Murdock MD Aug 22, 2019 11:36
[2019-08-22 12:00] VITALS: BP 147/96
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
[2019-08-22] MEDS: Lisinopril 2.5mg tab ORAL SCH (12:57)
[2019-08-22] MEDS: Meropenem 1 GM in NS 55 ML IVPB SCH ×2 (12:57→20:15)
[2019-08-22 15:34] VITALS: BP 114/67
--- NOTE | 2019-08-22 17:46 | Internal Med Progress Note ---
Subjective Date of Service: Aug 22, 2019 Physician Name Nader Cha Attending Physician Reese Nelson MD Current Medications Medications (Trade) Dose Ordered Sig/Daria Route PRN Reason Start Time Stop Time Status Last Admin Dose Admin Acetaminophen (Tylenol) 650 mg Q6H PRN ORAL Mild Pain/Temp > 100.5 08/21/19 21:00 09/20/19 20:59 08/21/19 21:28 Acetaminophen/ Hydrocodone Bitart ([place] 5/325) 1 tab Q6H PRN ORAL For Pain 08/18/19 02:15 08/25/19 02:14 08/20/19 21:59 Albuterol/ Ipratropium (Albuterol/ Ipratropium) 3 ml Q4H PRN HHN Shortness of Breath 08/20/19 09:00 08/25/19 08:59 Carvedilol (Coreg) 3.125 mg EVERY 12 HOURS ORAL 08/18/19 09:00 09/17/19 08:59 08/22/19 09:42 Heparin Sodium (Porcine) (Heparin 5000 units/ml) 5,000 units EVERY 12 HOURS SUBQ 08/22/19 21:00 09/21/19 20:59 Lisinopril (ZestriL) 2.5 mg DAILY ORAL 08/22/19 12:15 09/21/19 12:14 08/22/19 12:57 Meropenem 1 gm/ Sodium Chloride 55 ml @ 110 mls/hr Q8H IVPB 08/22/19 13:00 08/27/19 12:59 08/22/19 12:57 Quetiapine Fumarate (SEROqueL) 300 mg QHS ORAL 08/18/19 21:00 09/17/19 20:59 08/21/19 21:27 Theophylline ([place]) 100 mg EVERY 12 HOURS ORAL 08/18/19 09:00 09/17/19 08:59 08/22/19 09:42 Allergies: Coded Allergies: GRAPEFRUIT (Unverified Allergy, Intermediate, Hives, 12/13/12) ORANGE (Verified Allergy, Unknown, 11/20/18) ROS Limited/Unobtainable: No Constitutional: Reports: no symptoms HEENT: Reports: no symptoms Cardiovascular: Reports: no symptoms Respiratory: Reports: no symptoms Gastrointestinal/Abdominal: Reports: no symptoms Genitourinary: Reports: no symptoms Neurologic/Psychiatric: Reports: no symptoms Subjective 73 YO M admitted with chest pain. Now pulmonary embolism. Cover for Int Rodolfo- DR Nelson Objective Last Vital Signs Date Time Temp Pulse Resp B/P (MAP) Pulse Ox O2 Delivery O2 Flow Rate FiO2 08/22/19 15:34 99.6 98 18 114/67 (83) 96 08/22/19 09:00 Room Air 08/21/19 20:14 21 Laboratory Tests Test 08/22/19 07:50 White Blood Count 18.0 K/UL (4.8-10.8) H Red Blood Count 2.70 M/UL (4.70-6.10) L Hemoglobin 8.8 G/DL (14.2-18.0) L Hematocrit 26.9 % (42.0-52.0) L Mean Corpuscular Volume 100 FL (80-99) H Mean Corpuscular Hemoglobin 32.5 PG (27.0-31.0) H Mean Corpuscular Hemoglobin Concent 32.5 G/DL (32.0-36.0) Red Cell Distribution Width 12.4 % (11.6-14.8) Platelet Count 437 K/UL (150-450) Mean Platelet Volume 5.8 FL (6.5-10.1) L Neutrophils (%) (Auto) % (45.0-75.0) Lymphocytes (%) (Auto) % (20.0-45.0) Monocytes (%) (Auto) % (1.0-10.0) Eosinophils (%) (Auto) % (0.0-3.0) Basophils (%) (Auto) % (0.0-2.0) Differential Total Cells Counted 100 Neutrophils % (Manual) 81 % (45-75) H Lymphocytes % (Manual) 13 % (20-45) L Monocytes % (Manual) 6 % (1-10) Eosinophils % (Manual) 0 % (0-3) Basophils % (Manual) 0 % (0-2) Band Neutrophils 0 % (0-8) Platelet Estimate Adequate Platelet Morphology Normal Macrocytosis 1+ Erythrocyte Sedimentation Rate 123 MM/HR (0-20) H Sodium Level 137 MMOL/L (136-145) Potassium Level 4.0 MMOL/L (3.5-5.1) Chloride Level 102 MMOL/L (98-107) Carbon Dioxide Level 29 MMOL/L (21-32) Anion Gap 6 mmol/L (5-15) Blood Urea Nitrogen 22 mg/dL (7-18) H Creatinine 1.1 MG/DL (0.55-1.30) Estimat Glomerular Filtration Rate mL/min (>60) Glucose Level 108 MG/DL (74-106) H Calcium Level 8.4 MG/DL (8.5-10.1) L Phosphorus Level 3.5 MG/DL (2.5-4.9) Magnesium Level 2.0 MG/DL (1.8-2.4) Total Bilirubin 1.5 MG/DL (0.2-1.0) H Direct Bilirubin 0.5 MG/DL (0.0-0.3) H Aspartate Amino Transf (AST/SGOT) 27 U/L (15-37) Alanine Aminotransferase (ALT/SGPT) 17 U/L (12-78) Alkaline Phosphatase 71 U/L (46-116) C-Reactive Protein, Quantitative 33.3 mg/dL (0.00-0.90) H Total Protein 7.3 G/DL (6.4-8.2) Albumin 2.6 G/DL (3.4-5.0) L Globulin 4.7 g/dL Albumin/Globulin Ratio 0.6 (1.0-2.7) L Microbiology Date/Time Source Procedure Growth Status 08/21/19 09:00 Urine,Clean Catch Urine Culture - Preliminary Gram Negative Bacillus 1 Resulted Intake and Output 08/21/19 08/22/19 19:00 07:00 Intake Total 720 ml 360 ml Output Total 200 ml Balance 520 ml 360 ml Intake Oral 720 ml 360 ml Output Urine Total 200 ml # Voids 1 4 Objective PHYSICAL EXAMINATION: GENERAL: The patient is a well-developed and well-nourished male, in no apparent distress. HEENT: Eyes, pupils are equal and responsive to light and accommodation. Extraocular movements are intact. NECK: Supple without lymphadenopathy. CHEST: Lungs are clear to auscultation bilaterally without wheezes or rales. CARDIOVASCULAR: Regular rhythm and rate. S1-S2 are normal without murmurs, rubs, or gallops. ABDOMEN: Soft, nontender, and nondistended. Positive bowel sounds. No evidence of hepatosplenomegaly. Currently, no rebound or guarding noted. EXTREMITIES: Negative for clubbing, cyanosis, or edema. RECTAL/GENITAL: Not performed. NEUROLOGIC: Cranial nerves II through XII are grossly intact without focal deficits. Motor strength is 5/5 bilaterally. Deep tendon reflexes are 2+ plantar. Assessment/Plan Assessment/Plan ASSESSMENT: This is a 73-year-old male with: 1. Acute pulmonary embolism. 2. Chest pain. 3. Right bundle-branch block. 4. Hypertension. 5. Bipolar depression. TREATMENT: 1. Pulmonary embolism. A Pulmonary consultation has been obtained with Dr. Jese Murdock. D/C heparin drip; start lovenox subcut. We will follow recommendation of Pulmonary. 2. Chest pain. This may be secondary to pulmonary embolism as above. Serial troponin levels will be performed. A Cardiology consultation has been obtained with Dr. Francisco J Nevarez. 3. Right bundle-branch block. 4. Hypertension. Continue Coreg as above. 5. Bipolar depression. Continue Seroquel as above. 6. Discharge plan: Board and care - see soc work note Nader Cha MD Aug 22, 2019 17:46
--- NOTE | 2019-08-22 19:35 | NUR ---
NURSE NOTES: Received patient from TIFFANY Chacon. Patient asleep in bed, resting comfortably. No signs of distress, pain, or shortness of breath noted. Patient able to make needs known. IV site checked, patent and intact, no signs of redness, bleeding, or infiltration noted. Fall and seizure precautions in place. Bed in lowest position, brakes in lowest position, side rails up x3, and call light within reach. Will continue with plan of care.
--- NOTE | 2019-08-22 19:35 | NUR ---
HAND-OFF: Report given to TIFFANY MORGAN.
[2019-08-22 20:00] VITALS: BP 117/74
[2019-08-22] MEDS: Heparin 5000 units/ml inj SUBQ SCH (20:18)
--- NOTE | 2019-08-22 23:14 | NUR ---
NURSE NOTES: Paged Dr. Nevarez regarding patient's new onset of missing P-waves turning into accelerated junctional rhythm. Awaiting callback.
[2019-08-23] VITALS: BP 100/61
[2019-08-23 04:00] VITALS: BP 146/82
[2019-08-23] MEDS: Meropenem 1 GM in NS 55 ML IVPB SCH ×3 (05:17→21:07)
--- NOTE | 2019-08-23 06:34 | NUR ---
NURSE NOTES: Called Dr. Nevarez regarding patient's new onset of 9 beats of V-tach. Dr. Nevarez ordered morning Mg, BMP, Troponin, and EKG. Noted and carried out. Will continue with plan of care.
--- NOTE | 2019-08-23 07:10 | NUR ---
HAND-OFF: Report given to TIFFANY Stringer. Patient stable condition and eating breakfast in bed, plan of care endorsed.
--- NOTE | 2019-08-23 07:10 | NUR ---
NURSE NOTES: I received the patient sitting at the side of his bed eating breakfast. Patient alert and oriented x2. Patient able to make his needs known. Patient does not display any signs of distress. Bed in the lowest position, bed locked and call light within reach.
[2019-08-23 08:00] VITALS: BP 94/58
[2019-08-23 08:12] LABS: HEMATOCRIT 27.4 % (42.0-52.0); HEMOGLOBIN 8.7 G/DL (14.2-18.0); MEAN CORPUSCULAR VOLUME 101 FL (80-99); PLATELET COUNT 456 K/UL (150-450); RED BLOOD COUNT 2.72 M/UL (4.70-6.10); RED CELL DISTRIBUTION WIDTH 12.2 % (11.6-14.8); WHITE BLOOD COUNT 15.4 K/UL (4.8-10.8)
[2019-08-23] MEDS: Lisinopril 2.5mg tab ORAL SCH (09:00)
[2019-08-23] MEDS: Theophylline ER 100mg ORAL SCH ×2 (09:21→21:05)
[2019-08-23] MEDS: Heparin 5000 units/ml inj SUBQ SCH ×2 (09:22→21:00)
[2019-08-23 09:31] LABS: ALANINE AMINOTRANSFERASE 24 U/L (12-78); ALBUMIN 2.6 G/DL (3.4-5.0); ALBUMIN/GLOBULIN RATIO 0.5 (1.0-2.7); ALKALINE PHOSPHATASE 74 U/L (46-116); ANION GAP 8 mmol/L (5-15); ASPARTATE AMINO TRANSFERASE 34 U/L (15-37); BILIRUBIN,TOTAL 1.4 MG/DL (0.2-1.0); BLOOD UREA NITROGEN 27 mg/dL (7-18); CALCIUM 8.7 MG/DL (8.5-10.1); CARBON DIOXIDE 28 MMOL/L (21-32); CHLORIDE 103 MMOL/L (98-107); CREATININE 1.3 MG/DL (0.55-1.30); PHOSPHORUS 2.6 MG/DL (2.5-4.9); POTASSIUM 3.8 MMOL/L (3.5-5.1); SODIUM 139 MMOL/L (136-145)
[2019-08-23 09:36] LABS: BILIRUBIN,DIRECT 0.5 MG/DL (0.0-0.3)
--- NOTE | 2019-08-23 10:49 | Internal Med Progress Note ---
Subjective Date of Service: Aug 23, 2019 Physician Name Nader Cha Attending Physician Reese Nelson MD Current Medications Medications (Trade) Dose Ordered Sig/Daria Route PRN Reason Start Time Stop Time Status Last Admin Dose Admin Acetaminophen (Tylenol) 650 mg Q6H PRN ORAL Mild Pain/Temp > 100.5 08/21/19 21:00 09/20/19 20:59 08/21/19 21:28 Acetaminophen/ Hydrocodone Bitart ([place] 5/325) 1 tab Q6H PRN ORAL For Pain 08/18/19 02:15 08/25/19 02:14 08/20/19 21:59 Albuterol/ Ipratropium (Albuterol/ Ipratropium) 3 ml Q4H PRN HHN Shortness of Breath 08/20/19 09:00 08/25/19 08:59 Carvedilol (Coreg) 3.125 mg EVERY 12 HOURS ORAL 08/18/19 09:00 09/17/19 08:59 08/22/19 20:16 Heparin Sodium (Porcine) (Heparin 5000 units/ml) 5,000 units EVERY 12 HOURS SUBQ 08/22/19 21:00 09/21/19 20:59 08/23/19 09:22 Lisinopril (ZestriL) 2.5 mg DAILY ORAL 08/22/19 12:15 09/21/19 12:14 08/22/19 12:57 Meropenem 1 gm/ Sodium Chloride 55 ml @ 110 mls/hr Q8H IVPB 08/22/19 13:00 08/27/19 12:59 08/23/19 05:17 Quetiapine Fumarate (SEROqueL) 300 mg QHS ORAL 08/18/19 21:00 09/17/19 20:59 08/22/19 20:16 Theophylline ([place]) 100 mg EVERY 12 HOURS ORAL 08/18/19 09:00 09/17/19 08:59 08/23/19 09:21 Allergies: Coded Allergies: GRAPEFRUIT (Unverified Allergy, Intermediate, Hives, 12/13/12) ORANGE (Verified Allergy, Unknown, 11/20/18) ROS Limited/Unobtainable: No Constitutional: Reports: no symptoms HEENT: Reports: no symptoms Cardiovascular: Reports: chest pain Respiratory: Reports: shortness of breath Gastrointestinal/Abdominal: Reports: no symptoms Genitourinary: Reports: no symptoms Neurologic/Psychiatric: Reports: no symptoms Subjective 73 YO M admitted with chest pain. Now pulmonary embolism and UTI. Cover for Int Rodolfo-DR Nelson Objective Last Vital Signs Date Time Temp Pulse Resp B/P (MAP) Pulse Ox O2 Delivery O2 Flow Rate FiO2 08/23/19 09:00 Room Air 08/23/19 08:00 97.2 98 17 94/58 (70) 96 08/23/19 07:24 21 Laboratory Tests Test 08/23/19 07:45 White Blood Count 15.4 K/UL (4.8-10.8) H Red Blood Count 2.72 M/UL (4.70-6.10) L Hemoglobin 8.7 G/DL (14.2-18.0) L Hematocrit 27.4 % (42.0-52.0) L Mean Corpuscular Volume 101 FL (80-99) H Mean Corpuscular Hemoglobin 32.0 PG (27.0-31.0) H Mean Corpuscular Hemoglobin Concent 31.7 G/DL (32.0-36.0) L Red Cell Distribution Width 12.2 % (11.6-14.8) Platelet Count 456 K/UL (150-450) H Mean Platelet Volume 5.7 FL (6.5-10.1) L Neutrophils (%) (Auto) % (45.0-75.0) Lymphocytes (%) (Auto) % (20.0-45.0) Monocytes (%) (Auto) % (1.0-10.0) Eosinophils (%) (Auto) % (0.0-3.0) Basophils (%) (Auto) % (0.0-2.0) Neutrophils % (Manual) Pending Lymphocytes % (Manual) Pending Platelet Estimate Pending Platelet Morphology Pending Erythrocyte Sedimentation Rate 122 MM/HR (0-20) H Sodium Level 139 MMOL/L (136-145) Potassium Level 3.8 MMOL/L (3.5-5.1) Chloride Level 103 MMOL/L (98-107) Carbon Dioxide Level 28 MMOL/L (21-32) Anion Gap 8 mmol/L (5-15) Blood Urea Nitrogen 27 mg/dL (7-18) H Creatinine 1.3 MG/DL (0.55-1.30) Estimat Glomerular Filtration Rate mL/min (>60) Glucose Level 138 MG/DL (74-106) H Calcium Level 8.7 MG/DL (8.5-10.1) Phosphorus Level 2.6 MG/DL (2.5-4.9) Magnesium Level 2.1 MG/DL (1.8-2.4) Total Bilirubin 1.4 MG/DL (0.2-1.0) H Direct Bilirubin 0.5 MG/DL (0.0-0.3) H Aspartate Amino Transf (AST/SGOT) 34 U/L (15-37) Alanine Aminotransferase (ALT/SGPT) 24 U/L (12-78) Alkaline Phosphatase 74 U/L (46-116) Troponin I 0.000 ng/mL (0.000-0.056) C-Reactive Protein, Quantitative 39.4 mg/dL (0.00-0.90) H Total Protein 7.7 G/DL (6.4-8.2) Albumin 2.6 G/DL (3.4-5.0) L Globulin 5.1 g/dL Albumin/Globulin Ratio 0.5 (1.0-2.7) L Microbiology Date/Time Source Procedure Growth Status 08/21/19 09:00 Urine,Clean Catch Urine Culture - Final Escherichia Coli Complete Intake and Output 08/22/19 08/23/19 19:00 07:00 Intake Total 360 ml 480 ml Output Total 300 ml 500 ml Balance 60 ml -20 ml Intake Oral 360 ml 480 ml Output Urine Total 300 ml 500 ml Objective PHYSICAL EXAMINATION: GENERAL: The patient is a well-developed and well-nourished male, in no apparent distress. HEENT: Eyes, pupils are equal and responsive to light and accommodation. Extraocular movements are intact. NECK: Supple without lymphadenopathy. CHEST: Lungs are clear to auscultation bilaterally without wheezes or rales. CARDIOVASCULAR: Regular rhythm and rate. S1-S2 are normal without murmurs, rubs, or gallops. ABDOMEN: Soft, nontender, and nondistended. Positive bowel sounds. No evidence of hepatosplenomegaly. Currently, no rebound or guarding noted. EXTREMITIES: Negative for clubbing, cyanosis, or edema. RECTAL/GENITAL: Not performed. NEUROLOGIC: Cranial nerves II through XII are grossly intact without focal deficits. Motor strength is 5/5 bilaterally. Deep tendon reflexes are 2+ plantar. Assessment/Plan Assessment/Plan ASSESSMENT: This is a 73-year-old male with: 1. Acute pulmonary embolism. 2. Chest pain. 3. Right bundle-branch block. 4. Hypertension. 5. Bipolar depression. 6. UTI=E. Coli TREATMENT: 1. Pulmonary embolism. A Pulmonary consultation has been obtained with Dr. Jese Murdock. D/C heparin drip; start lovenox subcut. We will follow recommendation of Pulmonary. 2. Chest pain. This may be secondary to pulmonary embolism as above. Serial troponin levels will be performed. A Cardiology consultation has been obtained with Dr. Francisco J Nevarez. 3. Right bundle-branch block. 4. Hypertension. Continue Coreg as above. 5. Bipolar depression. Continue Seroquel as above. 6. Discharge plan: Board and care - see soc work note 7. ABX=meropenem per ID=Nader Wahl MD Aug 23, 2019 10:49
[2019-08-23 12:00] VITALS: BP 98/66
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
--- NOTE | 2019-08-23 13:09 | Pulmonology Progress Note ---
Assessment/Plan Problems: (1) Pulmonary embolism (2) Chronic systolic heart failure (3) COPD (chronic obstructive pulmonary disease) (4) Anemia (5) Non compliance w medication regimen Assessment/Plan V/Q scan done, report is negative DC Lovenox sq monitor cardiac wbc lower to 15K, etiology, ID evaluation appreciated, Meropenem respiratory treatment, titrate fio2 to sat of 92% Subjective ROS Limited/Unobtainable: No Constitutional: Reports: no symptoms HEENT: Repors: no symptoms Respiratory: Reports: no symptoms Allergies: Coded Allergies: GRAPEFRUIT (Unverified Allergy, Intermediate, Hives, 12/13/12) ORANGE (Verified Allergy, Unknown, 11/20/18) Objective Last 24 Hour Vital Signs Date Time Temp Pulse Resp B/P (MAP) Pulse Ox O2 Delivery O2 Flow Rate FiO2 08/23/19 13:00 98.1 08/23/19 12:49 98.1 08/23/19 12:00 100.6 92 18 98/66 (77) 96 08/23/19 09:00 Room Air 08/23/19 09:00 94/58 08/23/19 09:00 98 94/58 08/23/19 08:00 97.2 98 17 94/58 (70) 96 08/23/19 07:41 93 08/23/19 07:24 85 18 96 Room Air 21 08/23/19 04:00 85 08/23/19 04:00 97.9 95 20 146/82 (103) 96 08/23/19 00:00 87 08/23/19 00:00 98.9 88 18 100/61 (74) 96 08/22/19 21:00 Room Air 08/22/19 20:24 88 18 95 Room Air 21 08/22/19 20:16 89 117/74 08/22/19 20:00 99.1 89 20 117/74 (88) 95 08/22/19 20:00 91 08/22/19 16:00 91 08/22/19 15:34 99.6 98 18 114/67 (83) 96 Intake and Output 08/22/19 08/23/19 18:59 06:59 Intake Total 360 ml 480 ml Output Total 300 ml 500 ml Balance 60 ml -20 ml Intake Oral 360 ml 480 ml Output Urine Total 300 ml 500 ml General Appearance: cachetic Respiratory/Chest: chest wall non-tender, lungs clear Cardiovascular: normal peripheral pulses, normal rate, regularly irregular Abdomen: normal bowel sounds, soft, non tender, no organomegaly Genitourinary: normal external genitalia Skin: no rash Neurologic/Psychiatric: sand tester II-XII grossly normal Microbiology Date/Time Source Procedure Growth Status 08/21/19 09:00 Urine,Clean Catch Urine Culture - Final Escherichia Coli Complete Laboratory Tests 08/23/19 07:45: White Blood Count 15.4H, Red Blood Count 2.72L, Hemoglobin 8.7L, Hematocrit 27.4L, Mean Corpuscular Volume 101H, Mean Corpuscular Hemoglobin 32.0H, Mean Corpuscular Hemoglobin Concent 31.7L, Red Cell Distribution Width 12.2, Platelet Count 456H, Mean Platelet Volume 5.7L, Neutrophils (%) (Auto) , Lymphocytes (%) (Auto) , Monocytes (%) (Auto) , Eosinophils (%) (Auto) , Basophils (%) (Auto) , Differential Total Cells Counted 100, Neutrophils % ( Manual) 76H, Lymphocytes % (Manual) 21, Monocytes % (Manual) 3, Eosinophils % ( Manual) 0, Basophils % (Manual) 0, Band Neutrophils 0, Platelet Estimate Adequate, Platelet Morphology Normal, Hypochromasia 1+, Macrocytosis 1+, Erythrocyte Sedimentation Rate 122H, Sodium Level 139, Potassium Level 3.8, Chloride Level 103, Carbon Dioxide Level 28, Anion Gap 8, Blood Urea Nitrogen 27H, Creatinine 1.3, Estimat Glomerular Filtration Rate , Glucose Level 138H, Calcium Level 8.7, Phosphorus Level 2.6, Magnesium Level 2.1, Total Bilirubin 1.4H, Direct Bilirubin 0.5H, Aspartate Amino Transf (AST/SGOT) 34, Alanine Aminotransferase (ALT/SGPT) 24, Alkaline Phosphatase 74, Troponin I 0.000, C- Reactive Protein, Quantitative 39.4H, Total Protein 7.7, Albumin 2.6L, Globulin 5.1, Albumin/Globulin Ratio 0.5L Current Medications Medications (Trade) Dose Ordered Sig/Daria Route PRN Reason Start Time Stop Time Status Last Admin Dose Admin Acetaminophen (Tylenol) 650 mg Q6H PRN ORAL Mild Pain/Temp > 100.5 08/21/19 21:00 09/20/19 20:59 08/23/19 12:19 Acetaminophen/ Hydrocodone Bitart ([place] 5/325) 1 tab Q6H PRN ORAL For Pain 08/18/19 02:15 08/25/19 02:14 08/20/19 21:59 Albuterol/ Ipratropium (Albuterol/ Ipratropium) 3 ml Q4H PRN HHN Shortness of Breath 08/20/19 09:00 08/25/19 08:59 Carvedilol (Coreg) 3.125 mg EVERY 12 HOURS ORAL 08/18/19 09:00 09/17/19 08:59 08/22/19 20:16 Heparin Sodium (Porcine) (Heparin 5000 units/ml) 5,000 units EVERY 12 HOURS SUBQ 08/22/19 21:00 09/21/19 20:59 08/23/19 09:22 Lisinopril (ZestriL) 2.5 mg DAILY ORAL 08/22/19 12:15 09/21/19 12:14 08/22/19 12:57 Meropenem 1 gm/ Sodium Chloride 55 ml @ 110 mls/hr Q8H IVPB 08/22/19 13:00 08/27/19 12:59 08/23/19 12:19 Quetiapine Fumarate (SEROqueL) 300 mg QHS ORAL 08/18/19 21:00 09/17/19 20:59 08/22/19 20:16 Theophylline ([place]-Dur) 100 mg EVERY 12 HOURS ORAL 08/18/19 09:00 09/17/19 08:59 08/23/19 09:21 Jese Murdock MD Aug 23, 2019 13:09
[2019-08-23 16:00] VITALS: BP 101/62
--- NOTE | 2019-08-23 16:12 | Cardiology Report ---
APPROVED REPORT EKG Measurement Heart [id number] Normal sinus rhythm Right bundle branch block Abnormal ECG
--- NOTE | 2019-08-23 19:36 | NUR ---
HAND-OFF: Report given to Yordy Hansen RN.
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
[2019-08-23 20:00] VITALS: BP 100/60
[2019-08-24 04:00] VITALS: BP 91/64
[2019-08-24] MEDS: Meropenem 1 GM in NS 55 ML IVPB SCH ×3 (05:14→21:07)
--- NOTE | 2019-08-24 07:00 | NUR ---
HAND-OFF: Report given to Criselda ALLEN.
[2019-08-24 08:00] VITALS: BP 112/70
--- NOTE | 2019-08-24 08:07 | NUR ---
NURSE NOTES: pt in bed awake and talking, he just ate breakfast. Pt. on molten iron pourer, no signs of cardiac or respiratory distress at this moment. Bed is locked and in lowest position. Call light is within reach. Dc planning. Will continue to monitor for pt and follow plans of care.
[2019-08-24] MEDS: Lisinopril 2.5mg tab ORAL SCH (09:00)
[2019-08-24] MEDS: Theophylline ER 100mg ORAL SCH ×2 (09:21→21:12)
[2019-08-24] MEDS: Heparin 5000 units/ml inj SUBQ SCH ×2 (09:23→21:13)
--- NOTE | 2019-08-24 10:06 | NUR ---
CASE MANAGEMENT: REVIEW 08/23/19 SI: ACUTE PULMONARY EMBOLISM . HTN 100.6 92 18 98/66 96 % ON RA WBC 15.4 RBC 2.72 H/H 8.7/27.4 BUN 27 IS: IV MEROPENEM Q8HR HEPARIN SQ BID LOVENOX SQ BID SHAMA-DUR PO BID COREG PO BID SEROQUEL PO QHS \:2E TELE UNIT PLAN: EVAL POSS SMALL DISTAL PE DCP: BACK TO BOARD AND CARE 08/23 EPISODES: 9 BEATS VTACH; [place]UN[place] RHYTHM CASE MANAGEMENT: REVIEW 08/24/19 SI: ACUTE PULMONARY EMBOLISM . HTN 97.5 85 18 112/70 97% ON RA IS: IV MEROPENEM Q8HR HEPARIN SQ BID LOVENOX SQ BID SHAMA-DUR PO BID COREG PO BID SEROQUEL PO QHS \:2E TELE UNIT PLAN: STOOL FOR OB UA PT EVAL DCP: BACK TO BOARD AND CARE
[2019-08-24 12:00] VITALS: BP 97/58
--- NOTE | 2019-08-24 12:04 | NUR ---
RD ASSESSMENT & RECOMMENDATIONS SEE CARE ACTIVITY FOR COMPLETE ASSESSMENT DAILY ESTIMATED NEEDS: Needs based on cardiac, suspected wt loss/ 70kg 25-30 kcals/kg 9216-8178 total kcals 1-1.5 g protein/kg 70-105 g total protein 25-30 mL/kg 3517-5277 total fluid mLs NUTRITION DIAGNOSIS: * Increased kcal/prot needs R/T suspected significant wt loss as evidenced by possible wt loss of 22lbs/12.5% in 7 months. * Decreased sodium intake needs R/T cardiac hx as evidenced by CHF and HTN dx, h/o CVA. CURRENT DIET:CARDIAC PO DIET RECOMMENDATIONS: LOW NA/ texture as tolerated ADDITIONAL RECOMMENDATIONS: * Standing daily wt for accurate monitoring- CHF dx * Ensure Enlive BID w/ continued variable PO intake * MVI x 1 as supplement * Monitor hydration status: BUN trending up at this time * [employer] MACHINE eval if appropriate for texture: h/o CVA
--- NOTE | 2019-08-24 12:47 | Pulmonology Progress Note ---
Assessment/Plan Problems: (1) Pulmonary embolism (2) Chronic systolic heart failure (3) COPD (chronic obstructive pulmonary disease) (4) Anemia (5) Non compliance w medication regimen Assessment/Plan wbc still high on Meropenem DC Lovenox sq monitor cardiac respiratory treatment, titrate fio2 to sat of 92% Subjective ROS Limited/Unobtainable: No Interval Events: doing better, still tachy Allergies: Coded Allergies: GRAPEFRUIT (Unverified Allergy, Intermediate, Hives, 12/13/12) ORANGE (Verified Allergy, Unknown, 11/20/18) Objective Last 24 Hour Vital Signs Date Time Temp Pulse Resp B/P (MAP) Pulse Ox O2 Delivery O2 Flow Rate FiO2 08/24/19 09:00 104/66 08/24/19 09:00 85 104/66 08/24/19 09:00 Room Air 08/24/19 08:00 97.5 85 18 112/70 (84) 97 08/24/19 04:00 89 08/24/19 04:00 98.6 84 20 91/64 (73) 96 08/24/19 00:00 101 08/23/19 21:00 Room Air 08/23/19 21:00 95 100/60 08/23/19 20:27 79 16 97 Room Air 21 08/23/19 20:00 99.0 95 19 100/60 (73) 95 08/23/19 20:00 92 08/23/19 16:00 98.9 85 18 101/62 (75) 99 08/23/19 15:13 80 08/23/19 13:00 98.1 08/23/19 12:49 98.1 Intake and Output 08/23/19 08/24/19 19:00 07:00 Intake Total 480 ml Output Total 400 ml 400 ml Balance 80 ml -400 ml Intake Oral 480 ml Output Urine Total 400 ml 400 ml # Voids 1 General Appearance: cachetic HEENT: normocephalic, anicteric Respiratory/Chest: chest wall non-tender, lungs clear, normal breath sounds Cardiovascular: normal peripheral pulses, normal rate Abdomen: normal bowel sounds, soft, non tender Genitourinary: normal external genitalia Extremities: no cyanosis Microbiology Date/Time Source Procedure Growth Status 08/22/19 07:50 Blood Blood Culture - Preliminary NO GROWTH AFTER 24 HOURS Resulted 08/22/19 07:40 Blood Blood Culture - Preliminary NO GROWTH AFTER 24 HOURS Resulted 08/23/19 17:00 Nasopharynx - Final Complete 08/23/19 17:00 Nasopharynx - Final Complete Current Medications Medications (Trade) Dose Ordered Sig/Daria Route PRN Reason Start Time Stop Time Status Last Admin Dose Admin Acetaminophen (Tylenol) 650 mg Q6H PRN ORAL Mild Pain/Temp > 100.5 08/21/19 21:00 09/20/19 20:59 08/23/19 12:19 Acetaminophen/ Hydrocodone Bitart ([place] 5/325) 1 tab Q6H PRN ORAL For Pain 08/18/19 02:15 08/25/19 02:14 08/20/19 21:59 Albuterol/ Ipratropium (Albuterol/ Ipratropium) 3 ml Q4H PRN HHN Shortness of Breath 08/20/19 09:00 08/25/19 08:59 Carvedilol (Coreg) 3.125 mg EVERY 12 HOURS ORAL 08/18/19 09:00 09/17/19 08:59 08/22/19 20:16 Heparin Sodium (Porcine) (Heparin 5000 units/ml) 5,000 units EVERY 12 HOURS SUBQ 08/22/19 21:00 09/21/19 20:59 08/24/19 09:23 Lisinopril (ZestriL) 2.5 mg DAILY ORAL 08/22/19 12:15 09/21/19 12:14 08/22/19 12:57 Meropenem 1 gm/ Sodium Chloride 55 ml @ 110 mls/hr Q8H IVPB 08/22/19 13:00 08/27/19 12:59 08/24/19 05:14 Quetiapine Fumarate (SEROqueL) 300 mg QHS ORAL 08/18/19 21:00 09/17/19 20:59 08/23/19 21:06 Theophylline ([place]-Dur) 100 mg EVERY 12 HOURS ORAL 08/18/19 09:00 09/17/19 08:59 08/24/19 09:21 Jese Murdock MD Aug 24, 2019 12:47
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
--- NOTE | 2019-08-24 13:38 | NUR ---
NURSE NOTES: pt refusing 1300 meds. will try to give them later
--- NOTE | 2019-08-24 14:38 | NUR ---
P.T Note: P.T consult received. Pt is stable and cleared for P.T evaluation and mobilization per RN. Pt evaluation completed and tx initiated. Please refer to P.T evaluation for current functional status. Pt is alert, O x 4, pleasant and cooperative . Pt had no c/o pain but generalized weakness. Pt currently required CGA X 1 for bed mobilities, transfers and gait/ambulation activities using the FWW. Skilled P.T service is warranted to improve his strength, balance and endurance to increase his mobility independence and safety. Recommend home P.T follow up and FWW at ID.
--- NOTE | 2019-08-24 15:20 | NUR ---
NURSE NOTES: pt accepted med administration and agree to be connected to the IV.
[2019-08-24 16:00] VITALS: BP 105/65
--- NOTE | 2019-08-24 17:17 | Internal Med Progress Note ---
Subjective Date of Service: Aug 24, 2019 Physician Name Nader Cha Attending Physician Reese Nelson MD Current Medications Medications (Trade) Dose Ordered Sig/Daria Route PRN Reason Start Time Stop Time Status Last Admin Dose Admin Acetaminophen (Tylenol) 650 mg Q6H PRN ORAL Mild Pain/Temp > 100.5 08/21/19 21:00 09/20/19 20:59 08/23/19 12:19 Acetaminophen/ Hydrocodone Bitart (Maddock 5/325) 1 tab Q6H PRN ORAL For Pain 08/18/19 02:15 08/25/19 02:14 08/20/19 21:59 Albuterol/ Ipratropium (Albuterol/ Ipratropium) 3 ml Q4H PRN HHN Shortness of Breath 08/20/19 09:00 08/25/19 08:59 Carvedilol (Coreg) 3.125 mg EVERY 12 HOURS ORAL 08/18/19 09:00 09/17/19 08:59 08/22/19 20:16 Heparin Sodium (Porcine) (Heparin 5000 units/ml) 5,000 units EVERY 12 HOURS SUBQ 08/22/19 21:00 09/21/19 20:59 08/24/19 09:23 Lisinopril (ZestriL) 2.5 mg DAILY ORAL 08/22/19 12:15 09/21/19 12:14 08/22/19 12:57 Meropenem 1 gm/ Sodium Chloride 55 ml @ 110 mls/hr Q8H IVPB 08/22/19 13:00 08/27/19 12:59 08/24/19 14:57 Quetiapine Fumarate (SEROqueL) 300 mg QHS ORAL 08/18/19 21:00 09/17/19 20:59 08/23/19 21:06 Theophylline (Alton-Dur) 100 mg EVERY 12 HOURS ORAL 08/18/19 09:00 09/17/19 08:59 08/24/19 09:21 Allergies: Coded Allergies: GRAPEFRUIT (Unverified Allergy, Intermediate, Hives, 12/13/12) ORANGE (Verified Allergy, Unknown, 11/20/18) ROS Limited/Unobtainable: No Constitutional: Reports: no symptoms HEENT: Reports: no symptoms Cardiovascular: Reports: no symptoms Respiratory: Reports: no symptoms Gastrointestinal/Abdominal: Reports: no symptoms Genitourinary: Reports: no symptoms Neurologic/Psychiatric: Reports: no symptoms Subjective 73 YO M admitted with chest pain. Now pulmonary embolism and UTI. Cover for Int Med-DR Nelson Objective Last Vital Signs Date Time Temp Pulse Resp B/P (MAP) Pulse Ox O2 Delivery O2 Flow Rate FiO2 08/24/19 12:00 98.2 89 20 97/58 (71) 100 08/24/19 09:00 Room Air 08/24/19 07:50 21 Microbiology Date/Time Source Procedure Growth Status 08/22/19 07:50 Blood Blood Culture - Preliminary NO GROWTH AFTER 24 HOURS Resulted 08/22/19 07:40 Blood Blood Culture - Preliminary NO GROWTH AFTER 24 HOURS Resulted 08/23/19 17:00 Nasopharynx - Final Complete 08/23/19 17:00 Nasopharynx - Final Complete Intake and Output 08/23/19 08/24/19 18:59 06:59 Intake Total 480 ml Output Total 400 ml 400 ml Balance 80 ml -400 ml Intake Oral 480 ml Output Urine Total 400 ml 400 ml # Voids 1 Objective PHYSICAL EXAMINATION: GENERAL: The patient is a well-developed and well-nourished male, in no apparent distress. HEENT: Eyes, pupils are equal and responsive to light and accommodation. Extraocular movements are intact. NECK: Supple without lymphadenopathy. CHEST: Lungs are clear to auscultation bilaterally without wheezes or rales. CARDIOVASCULAR: Regular rhythm and rate. S1-S2 are normal without murmurs, rubs, or gallops. ABDOMEN: Soft, nontender, and nondistended. Positive bowel sounds. No evidence of hepatosplenomegaly. Currently, no rebound or guarding noted. EXTREMITIES: Negative for clubbing, cyanosis, or edema. RECTAL/GENITAL: Not performed. NEUROLOGIC: Cranial nerves II through XII are grossly intact without focal deficits. Motor strength is 5/5 bilaterally. Deep tendon reflexes are 2+ plantar. Assessment/Plan Assessment/Plan ASSESSMENT: This is a 73-year-old male with: 1. Acute pulmonary embolism. 2. Chest pain. 3. Right bundle-branch block. 4. Hypertension. 5. Bipolar depression. 6. UTI=E. Coli TREATMENT: 1. Pulmonary embolism. A Pulmonary consultation has been obtained with Dr. Jese Murdock. Heparin subcut. We will follow recommendation of Pulmonary. 2. Chest pain. This may be secondary to pulmonary embolism as above. Serial troponin levels will be performed. A Cardiology consultation has been obtained with Dr. Francisco J Nevarez. 3. Right bundle-branch block. 4. Hypertension. Continue Coreg as above. 5. Bipolar depression. Continue Seroquel as above. 6. Discharge plan: Board and care - see soc work note 7. ABX=meropenem per ID=Nader Wahl MD Aug 24, 2019 17:17
--- NOTE | 2019-08-24 19:02 | NUR ---
NURSE NOTES: Received patient from TIFFANY Aburto, patient stable, confused, AOx2, aggressive, yelling , states " I need to pay my rent get me out of here, I'm not sick" Reoriented and reassured, IV site on left FA g20, bed low&locked, side rails upx3, call light within reach, will continue to monitor and reassess.
--- NOTE | 2019-08-24 19:39 | NUR ---
HAND-OFF: Report given to Krista/TIFFANY pt in stable condition.
[2019-08-24 20:00] VITALS: BP 119/63
[2019-08-25] VITALS: BP 124/66
--- NOTE | 2019-08-25 03:40 | NUR ---
NURSE NOTES: patient resting, no episodes of confusion and aggression during the night. Asked for food and compliant with plan of care, will continue to monitor and reassess
[2019-08-25] MEDS: Meropenem 1 GM in NS 55 ML IVPB SCH (05:04)
[2019-08-25 07:16] LABS: HEMATOCRIT 24.9 % (42.0-52.0); HEMOGLOBIN 7.9 G/DL (14.2-18.0); MEAN CORPUSCULAR VOLUME 100 FL (80-99); PLATELET COUNT 497 K/UL (150-450); RED BLOOD COUNT 2.49 M/UL (4.70-6.10); RED CELL DISTRIBUTION WIDTH 12.6 % (11.6-14.8); WHITE BLOOD COUNT 10.6 K/UL (4.8-10.8)
[2019-08-25 07:20] LABS: ALANINE AMINOTRANSFERASE 41 U/L (12-78); ALBUMIN 2.3 G/DL (3.4-5.0); ALBUMIN/GLOBULIN RATIO 0.5 (1.0-2.7); ALKALINE PHOSPHATASE 91 U/L (46-116); ANION GAP 4 mmol/L (5-15); ASPARTATE AMINO TRANSFERASE 55 U/L (15-37); BILIRUBIN,TOTAL 0.9 MG/DL (0.2-1.0); BLOOD UREA NITROGEN 31 mg/dL (7-18); CALCIUM 8.5 MG/DL (8.5-10.1); CARBON DIOXIDE 30 MMOL/L (21-32); CHLORIDE 103 MMOL/L (98-107); CREATININE 1.1 MG/DL (0.55-1.30); PHOSPHORUS 3.2 MG/DL (2.5-4.9); POTASSIUM 4.6 MMOL/L (3.5-5.1); SODIUM 137 MMOL/L (136-145)
--- NOTE | 2019-08-25 07:25 | NUR ---
NURSE NOTES: HAND-OFF: Report given to TIFFANY Aburto, patient in stable condition, plan of care endorsed.
--- NOTE | 2019-08-25 07:38 | NUR ---
NURSE NOTES: pt in bed talking ready for breakfast. Pt on quality assurance monitor final no signs of cardiac or respiratory distress at this time. Bed in lowest position and locked. Call light within reach. Will follow plans of care.
[2019-08-25 08:00] VITALS: BP 115/66
--- NOTE | 2019-08-25 09:18 | NUR ---
NURSE NOTES: notified Dr. Juarez about pt's latest labs.
[2019-08-25] MEDS: Heparin 5000 units/ml inj SUBQ SCH (09:43)
[2019-08-25] MEDS: Theophylline ER 100mg ORAL SCH (09:43)
[2019-08-25] MEDS: Lisinopril 2.5mg tab ORAL SCH (09:45)
--- NOTE | 2019-08-25 11:54 | NUR ---
CASE MANAGEMENT: REVIEW 08/25/19 SI: ACUTE PULMONARY EMBOLISM . HTN 97.9 90 20 115/66 93 % ON RA H/H 7.9/24.9 BUN 31 IS: IV MEROPENEM Q8HR HEPARIN SQ BID SHAMA-DUR PO BID COREG PO BID SEROQUEL PO QHS \:2E TELE UNIT PLAN: PT EVAL DCP: BACK TO BOARD AND CARE
[2019-08-25 12:00] VITALS: BP 111/59
--- NOTE | 2019-08-25 13:04 | Pulmonology Progress Note ---
Assessment/Plan Problems: (1) MDRO (multiple drug resistant organisms) resistance (2) Pulmonary embolism Assessment & Plan: ruled out (3) Chronic systolic heart failure (4) COPD (chronic obstructive pulmonary disease) (5) Anemia (6) Non compliance w medication regimen Assessment/Plan wbc back to normal on Meropenem, afebrile more than 48 hours DC Lovenox sq monitor cardiac respiratory treatment, titrate fio2 to sat of 92% Subjective ROS Limited/Unobtainable: No Constitutional: Reports: no symptoms HEENT: Repors: no symptoms Allergies: Coded Allergies: GRAPEFRUIT (Unverified Allergy, Intermediate, Hives, 12/13/12) ORANGE (Verified Allergy, Unknown, 11/20/18) Objective Last 24 Hour Vital Signs Date Time Temp Pulse Resp B/P (MAP) Pulse Ox O2 Delivery O2 Flow Rate FiO2 08/25/19 12:00 91 08/25/19 09:45 109/67 08/25/19 09:44 90 109/67 08/25/19 08:00 98 08/25/19 08:00 97.9 90 20 115/66 (82) 93 08/25/19 07:45 89 19 96 Room Air 21 08/25/19 04:00 91 08/25/19 00:00 97 08/25/19 00:00 97.3 82 19 124/66 (85) 95 08/24/19 21:12 80 119/63 08/24/19 21:00 Room Air 08/24/19 20:00 97.2 80 18 119/63 (81) 94 08/24/19 20:00 90 18 96 Room Air 21 08/24/19 20:00 93 08/24/19 16:00 87 08/24/19 16:00 98.0 87 18 105/65 (78) 99 Intake and Output 08/24/19 08/25/19 19:00 07:00 Intake Total 360 ml 150 ml Output Total 600 ml 650 ml Balance -240 ml -500 ml Intake Oral 360 ml 150 ml Output Urine Total 600 ml 650 ml Objective General Appearance: cachetic HEENT: normocephalic, anicteric Respiratory/Chest: chest wall non-tender, lungs clear, normal breath sounds Cardiovascular: normal peripheral pulses, normal rate Abdomen: normal bowel sounds, soft, non tender Genitourinary: normal external genitalia Extremities: no cyanosis Microbiology Date/Time Source Procedure Growth Status 08/23/19 17:00 Nasopharynx - Final Complete 08/23/19 17:00 Nasopharynx - Final Complete Laboratory Tests 08/25/19 05:24: White Blood Count 10.6, Red Blood Count 2.49L, Hemoglobin 7.9L, Hematocrit 24.9L , Mean Corpuscular Volume 100H, Mean Corpuscular Hemoglobin 31.7H, Mean Corpuscular Hemoglobin Concent 31.7L, Red Cell Distribution Width 12.6, Platelet Count 497H, Mean Platelet Volume 5.0L, Neutrophils (%) (Auto) , Lymphocytes (%) (Auto) , Monocytes (%) (Auto) , Eosinophils (%) (Auto) , Basophils (%) (Auto) , Differential Total Cells Counted 100, Neutrophils % ( Manual) 64, Lymphocytes % (Manual) 26, Monocytes % (Manual) 8, Eosinophils % ( Manual) 1, Basophils % (Manual) 1, Band Neutrophils 0, Platelet Estimate Adequate, Platelet Morphology Normal, Hypochromasia 3+, Anisocytosis 1+, Erythrocyte Sedimentation Rate 133H, Sodium Level 137, Potassium Level 4.6, Chloride Level 103, Carbon Dioxide Level 30, Anion Gap 4L, Blood Urea Nitrogen 31H, Creatinine 1.1, Estimat Glomerular Filtration Rate , Glucose Level 89, Calcium Level 8.5, Phosphorus Level 3.2, Magnesium Level 1.8, Total Bilirubin 0.9, Aspartate Amino Transf (AST/SGOT) 55H, Alanine Aminotransferase (ALT/SGPT) 41, Alkaline Phosphatase 91, C-Reactive Protein, Quantitative 31.4H, Total Protein 6.8, Albumin 2.3L, Globulin 4.5, Albumin/Globulin Ratio 0.5L Current Medications Medications (Trade) Dose Ordered Sig/Daria Route PRN Reason Start Time Stop Time Status Last Admin Dose Admin Acetaminophen (Tylenol) 650 mg Q6H PRN ORAL Mild Pain/Temp > 100.5 08/21/19 21:00 09/20/19 20:59 08/23/19 12:19 Carvedilol (Coreg) 3.125 mg EVERY 12 HOURS ORAL 08/18/19 09:00 09/17/19 08:59 08/24/19 21:12 Heparin Sodium (Porcine) (Heparin 5000 units/ml) 5,000 units EVERY 12 HOURS SUBQ 08/22/19 21:00 09/21/19 20:59 08/25/19 09:43 Lisinopril (ZestriL) 2.5 mg DAILY ORAL 08/22/19 12:15 09/21/19 12:14 08/22/19 12:57 Meropenem 1 gm/ Sodium Chloride 55 ml @ 110 mls/hr Q8H IVPB 08/22/19 13:00 08/27/19 12:59 08/25/19 05:04 Quetiapine Fumarate (SEROqueL) 300 mg QHS ORAL 08/18/19 21:00 09/17/19 20:59 08/24/19 21:10 Theophylline (Alton-Dur) 100 mg EVERY 12 HOURS ORAL 08/18/19 09:00 09/17/19 08:59 08/25/19 09:43 Jese Murdock MD Aug 25, 2019 13:04
[2019-08-25] MEDS ORDERED: Cephalexin 500mg cap ORAL SCH (13:09)
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
--- NOTE | 2019-08-25 14:37 | NUR ---
NURSE NOTES: pt hasn't had a BM since 08/18, doctor ordered Colace po TID 100mg daily for constipation.
[2019-08-25] MEDS: Docusate 100mg cap ORAL SCH ×2 (14:43→18:00)
--- NOTE | 2019-08-25 14:48 | NUR ---
Physical Therapy Notes: Checked on pt twice today. 1150 Pt in bed awake declined therapy. 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 1400 Pt in bed awake. Adamantly refused, even started to gt agitated. "I said, I am not going to get up!"
[2019-08-25 16:00] VITALS: BP 107/71
[2019-08-25] MEDS ORDERED: CEPHALEXIN500 MG ORAL (16:02)
--- NOTE | 2019-08-25 16:04 | Internal Med Progress Note ---
Subjective Physician Name Reese Nelson Attending Physician Reese Nelson MD Current Medications Medications (Trade) Dose Ordered Sig/Daria Route PRN Reason Start Time Stop Time Status Last Admin Dose Admin Acetaminophen (Tylenol) 650 mg Q6H PRN ORAL Mild Pain/Temp > 100.5 08/21/19 21:00 09/20/19 20:59 08/23/19 12:19 Carvedilol (Coreg) 3.125 mg EVERY 12 HOURS ORAL 08/18/19 09:00 09/17/19 08:59 08/24/19 21:12 Cephalexin (Keflex) 500 mg Q12HR ORAL 08/25/19 13:09 09/01/19 13:08 08/25/19 14:26 Docusate Sodium (Colace) 100 mg TID ORAL 08/25/19 14:45 09/24/19 14:44 08/25/19 14:43 Heparin Sodium (Porcine) (Heparin 5000 units/ml) 5,000 units EVERY 12 HOURS SUBQ 08/22/19 21:00 09/21/19 20:59 08/25/19 09:43 Lisinopril (ZestriL) 2.5 mg DAILY ORAL 08/22/19 12:15 09/21/19 12:14 08/22/19 12:57 Quetiapine Fumarate (SEROqueL) 300 mg QHS ORAL 08/18/19 21:00 09/17/19 20:59 08/24/19 21:10 Theophylline (Alton-Dur) 100 mg EVERY 12 HOURS ORAL 08/18/19 09:00 09/17/19 08:59 08/25/19 09:43 Allergies: Coded Allergies: GRAPEFRUIT (Unverified Allergy, Intermediate, Hives, 12/13/12) ORANGE (Verified Allergy, Unknown, 11/20/18) Subjective awake, alert, responsive, No CP or SOB Objective Last Vital Signs Date Time Temp Pulse Resp B/P (MAP) Pulse Ox O2 Delivery O2 Flow Rate FiO2 08/25/19 12:00 98.4 98 20 111/59 (76) 96 08/25/19 09:00 Room Air 08/25/19 07:45 21 Laboratory Tests Test 08/25/19 05:24 White Blood Count 10.6 K/UL (4.8-10.8) Red Blood Count 2.49 M/UL (4.70-6.10) L Hemoglobin 7.9 G/DL (14.2-18.0) L Hematocrit 24.9 % (42.0-52.0) L Mean Corpuscular Volume 100 FL (80-99) H Mean Corpuscular Hemoglobin 31.7 PG (27.0-31.0) H Mean Corpuscular Hemoglobin Concent 31.7 G/DL (32.0-36.0) L Red Cell Distribution Width 12.6 % (11.6-14.8) Platelet Count 497 K/UL (150-450) H Mean Platelet Volume 5.0 FL (6.5-10.1) L Neutrophils (%) (Auto) % (45.0-75.0) Lymphocytes (%) (Auto) % (20.0-45.0) Monocytes (%) (Auto) % (1.0-10.0) Eosinophils (%) (Auto) % (0.0-3.0) Basophils (%) (Auto) % (0.0-2.0) Differential Total Cells Counted 100 Neutrophils % (Manual) 64 % (45-75) Lymphocytes % (Manual) 26 % (20-45) Monocytes % (Manual) 8 % (1-10) Eosinophils % (Manual) 1 % (0-3) Basophils % (Manual) 1 % (0-2) Band Neutrophils 0 % (0-8) Platelet Estimate Adequate Platelet Morphology Normal Hypochromasia 3+ Anisocytosis 1+ Erythrocyte Sedimentation Rate 133 MM/HR (0-20) H Sodium Level 137 MMOL/L (136-145) Potassium Level 4.6 MMOL/L (3.5-5.1) Chloride Level 103 MMOL/L (98-107) Carbon Dioxide Level 30 MMOL/L (21-32) Anion Gap 4 mmol/L (5-15) L Blood Urea Nitrogen 31 mg/dL (7-18) H Creatinine 1.1 MG/DL (0.55-1.30) Estimat Glomerular Filtration Rate mL/min (>60) Glucose Level 89 MG/DL (74-106) Calcium Level 8.5 MG/DL (8.5-10.1) Phosphorus Level 3.2 MG/DL (2.5-4.9) Magnesium Level 1.8 MG/DL (1.8-2.4) Total Bilirubin 0.9 MG/DL (0.2-1.0) Aspartate Amino Transf (AST/SGOT) 55 U/L (15-37) H Alanine Aminotransferase (ALT/SGPT) 41 U/L (12-78) Alkaline Phosphatase 91 U/L (46-116) C-Reactive Protein, Quantitative 31.4 mg/dL (0.00-0.90) H Total Protein 6.8 G/DL (6.4-8.2) Albumin 2.3 G/DL (3.4-5.0) L Globulin 4.5 g/dL Albumin/Globulin Ratio 0.5 (1.0-2.7) L Microbiology Date/Time Source Procedure Growth Status 08/23/19 17:00 Nasopharynx - Final Complete 08/23/19 17:00 Nasopharynx - Final Complete Intake and Output 08/24/19 08/25/19 19:00 07:00 Intake Total 360 ml 150 ml Output Total 600 ml 650 ml Balance -240 ml -500 ml Intake Oral 360 ml 150 ml Output Urine Total 600 ml 650 ml Objective General: No acute distress, awake and alert HEENT: NCAT, sclera anicteric, PERRL, EOMI. Neck: Supple, no significant jugular venous distention, Lungs: Good inspiratory effort, no accessory muscle use, clear to auscultation bilaterally, no Wheeze or Rales. Heart: Regular rate and rhythm, normal S1/S2, no murmurs Abdomen: soft, nontender, nondistended. Normoactive bowel sounds. / Rectal: Refused and deferred. Extremities: No Cyanosis , clubbing or edema. Neuro: A&O x 3, Able to move all extremities Skin: warm, no rash. Psych: Normal mood and affect Assessment/Plan Assessment/Plan 1. Less likely pulmonary embolism. 2. Chest pain. 3. Right bundle-branch block. 4. Hypertension. 5. Bipolar depression. 6. UTI=E. Coli TREATMENT: 1. Pulmonary embolism. A Pulmonary consultation has been obtained with Dr. Jese Murdock. Heparin subcut. We will follow recommendation of Pulmonary. 2. Chest pain. This may be secondary to pulmonary embolism as above. Serial troponin levels will be performed. A Cardiology consultation has been obtained with Dr. Francisco J Nevarez. 3. Right bundle-branch block. 4. Hypertension. Continue Coreg as above. 5. Bipolar depression. Continue Seroquel as above. 6. Discharge plan: Board and care - see soc work note 7. ABX=meropenem per ID=Tiffany QUARLES Home today Reese Nelson MD Aug 25, 2019 16:04
--- NOTE | 2019-08-25 16:19 | NUR ---
DISCHARGE PLANNING: PATIENT LIVES AT A BOARD AND CARE [facility] T: [phone] FACILITY IS NOW AWARE AND WILL ACCEPT BACK [address] [place] [address]
--- NOTE | 2019-08-25 16:26 | NUR ---
NURSE NOTES: Spoke with Mrs. Porter, pt is good to arrive any time today, she is expecting .
[2019-08-25] MEDS ORDERED: NS 275ml ONE (18:31)
--- NOTE | 2019-08-25 18:48 | NUR ---
NURSE NOTES: pt left via taxi. wet machine operator was taken of before DC. Pt left to boarding care facility in stable condition. Pt took antibiotic medication from pharmacy and was instructed to take it, for 4 days as per doctor's instructions. Discharge instruction were reviewed with pt. Pt verbalized understanding of medications to be continued at home. Pt to schedule follow up appt. with doctor Omar, he will make appt wednesday morning. Iv was discontinued before discharge, site is not bleeding. ID band taken off pt. Pt. belonging were reviewed with pt and he took everything home with him; he signed belonging sheet.
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
--- NOTE | 2019-09-19 06:33 | Coder Physician Query ---
Clarification is required for compliance, coding accuracy, and to reflect severity of illness for this patient Dear Dr. Reese Nelson Date: 09/19/19 Guest Relations Manager: ANTONINA Simpson According to the clinical indications above, please indicate below the condition. Clinical Documentation states: ID consult: 73 M...presented to ED on 08/18 with 4 days of SOB, chest pain. Patient initially presented to [facility] and CTA chest showed small nonocclusive filling defects suspicious for PE... -u/a wbc tnct, nit +, leuk +3...Start empiric Cefepime for probable UTI 08/21 Vitals Temp 100.6, HI 98, RR 20 08/22 WBC 18.0 Blood culture did not isolate any growth. Influenza screen negative. Urine culture showed growth of pansensitive E. coli. Leukocytosis resolved Please respond to the following question: Is there a diagnosis specific to these symptoms or values? If so please state below. PHYSICIAN RESPONSE: [X] Sepsis due to UTI [] SIRS without sepsis [] Severe sepsis with organ dysfunction: [] Other: [] Clinically Undetermined Present on Admission: [X] Yes [] No [] Clinically Undetermined Reese Nelson M.D. Date MTDD
== END 2019-08-25 18:32 | disposition home or self-care (01) | DRG 872 ==
LOC: 2E 08-18 00:55
DX: A41.9 Sepsis, unspecified organism (principal); I50.22 Chronic systolic (congestive) heart failure; F31.89 Other bipolar disorder; N39.0 Urinary tract infection, site not specified; I42.9 Cardiomyopathy, unspecified; J44.9 Chronic obstructive pulmonary disease, unspecified; I45.10 Unspecified right bundle-branch block; E83.42 Hypomagnesemia; I11.0 Hypertensive heart disease with heart failure; I25.10 Atherosclerotic heart disease of native coronary artery without angina pectoris; Z98.61 Coronary angioplasty status; Z86.73 Personal history of transient ischemic attack (TIA), and cerebral infarction without residual deficits; D64.9 Anemia, unspecified; Z91.14 Patient's other noncompliance with medication regimen; G40.909 Epilepsy, unspecified, not intractable, without status epilepticus; Z72.0 Tobacco use; Z59.0 Homelessness
CPT/HCPCS: 36415; 71045; 78579; 78580; 80048; 80053; 80061; 81003; 82248; 82378; 82607; 82746; 83540; 83550; 83615; 83735; 83880; 84100; 84484; 85007; 85025; 85044; 85060; 85610; 85651; 85730; 86140; 86710; 87040; 87086; 87181; 93005; 93306; 93970; 94664; A9503; J7620

== ENCOUNTER 2019-12-05 20:51 | Inpatient (IN) | payer MEDICARE, MEDICAID ==
[~2019-12-05] VITALS: Ht 170.2 cm; Wt 65.3 kg
[~2019-12-05 20:51] MED LIST changes: +CEPHALEXIN500 MG ORAL
[2019-12-05] MEDS ORDERED: PLAVIX75 MG ORAL (22:59)
[2019-12-05] MEDS ORDERED: LISINOPRIL1 GM MC (22:59)
[2019-12-06] VITALS: BP 129/78
--- NOTE | 2019-12-06 | NUR ---
NURSE NOTES: Report received from Jayy ALLEN from [facility]. Patient is transferred via gurney to [facility] without any incident. Patient is AOx3 with periods of forgetfulness. Respiratory is labored and tachypneic. O2: 98% RA, afebrile. Patient denies pain at this time. IV site is asymptomatic, patent, and intact. Patient unable to recall home medications. Belongings list checked and signed. cardiac monitor initiated and patient is SR with BBB. Skin assessment checked; patient has excoriation on perineal area, no skin tear noted; patient refused wound photos. Patient also noted to have 3+ edema on bilateral lower extremities, scrotal and penile area. Admission orders received from Dr. Nelson.
--- NOTE | 2019-12-06 00:15 | NUR ---
NURSE NOTES: Patient states he lives in [facility]. MRSA and VRE swabs sent.
[2019-12-06 04:00] VITALS: BP 126/70
--- NOTE | 2019-12-06 04:00 | NUR ---
NURSE NOTES: Patient refused EKG at this time.
--- NOTE | 2019-12-06 04:15 | NUR ---
NURSE NOTES: Patient noted to be SOB and wheezing. Primary RN explained to the patient the importance of having the oxygen, however, patient refused. Charge nurse aware.
[2019-12-06] MEDS: Heparin 5000 units/ml inj SUBQ SCH ×3 (06:05→21:35)
[2019-12-06 07:17] LABS: BASOPHILS % (AUTO) 1.3 % (0.0-2.0); HEMATOCRIT 41.2 % (42.0-52.0); HEMOGLOBIN 13.6 G/DL (14.2-18.0); LYMPHOCYTES % (AUTO) 35.5 % (20.0-45.0); MEAN CORPUSCULAR VOLUME 101 FL (80-99); MONOCYTES % (AUTO) 10.3 % (1.0-10.0); NEUTROPHILS % (AUTO) 51.9 % (45.0-75.0); PLATELET COUNT 206 K/UL (150-450); RED BLOOD COUNT 4.08 M/UL (4.70-6.10); RED CELL DISTRIBUTION WIDTH 12.3 % (11.6-14.8); WHITE BLOOD COUNT 5.2 K/UL (4.8-10.8)
[2019-12-06 07:28] LABS: ALANINE AMINOTRANSFERASE 16 U/L (12-78); ALBUMIN 3.1 G/DL (3.4-5.0); ALBUMIN/GLOBULIN RATIO 0.9 (1.0-2.7); ALKALINE PHOSPHATASE 87 U/L (46-116); ANION GAP 12 mmol/L (5-15); ASPARTATE AMINO TRANSFERASE 28 U/L (15-37); BILIRUBIN,TOTAL 1.5 MG/DL (0.2-1.0); BLOOD UREA NITROGEN 25 mg/dL (7-18); CALCIUM 9.4 MG/DL (8.5-10.1); CARBON DIOXIDE 26 MMOL/L (21-32); CHLORIDE 113 MMOL/L (98-107); CREATININE 1.3 MG/DL (0.55-1.30); PHOSPHORUS 3.8 MG/DL (2.5-4.9); SODIUM 151 MMOL/L (136-145)
[2019-12-06 07:29] LABS: BILIRUBIN,DIRECT 0.5 MG/DL (0.0-0.3)
--- NOTE | 2019-12-06 07:49 | NUR ---
NURSE NOTES: Received patient from Shannon ALLEN in bed alert and oriented x4. Denies any pain at this time. Breathing is labored and having SOB on exertion. Noted excoriation on perineal area, scrotum and penis swollen, MD aware. Noted bilateral lower extremities edema x2-3 pitting edema. Bed is on lower level with bed side rails up x2. Brakes engaged for safety, call light is within reach. Will continue with the plan of care.
--- NOTE | 2019-12-06 07:49 | NUR ---
HAND-OFF: Report given to Toña ALLEN. Patient is in stable condition. Endorsed plan of care.
[2019-12-06 08:00] VITALS: BP 131/74
[2019-12-06] MEDS: Aspirin Baby 81mg ORAL SCH (09:20)
[2019-12-06 12:00] VITALS: BP 115/78
--- NOTE | 2019-12-06 13:38 | Consultation ---
History of Present Illness General Date patient seen: Dec 06, 2019 Present Illness HPI 74-year-old male with hx o HTN, COPD, CHF, CVA/TIA, cardiomyopathy, EF of 25%, seizures, homelessness presented to ED of [facility] with CC of increasing shortness of breath and cough.. He claimed that he had too much fluid accumulated resulting in swelling of his private parts as well. patient is swollen and edematous. Pt is transferred to telemetry for further management. Allergies: Coded Allergies: GRAPEFRUIT (Unverified Allergy, Intermediate, Hives, 12/13/12) ORANGE (Verified Allergy, Unknown, 11/20/18) Medication History Scheduled Aspirin* (Aspir 81*), 81 MG ORAL DAILY, (Reported) Clopidogrel Bisulfate* (Plavix*), Unknown Dose ORAL DAILY, (Reported) Miscellaneous Medications Lisinopril (Lisinopril), Unknown Dose MC, (Reported) [Seroquel], (Reported) [Vicodin], (Reported) Discontinued Medications Acetaminophen With Codeine (T#3) (Tylenol #3 Tab*), 1 TAB ORAL Q4H Discontinued Reason: Pt stopped taking med Carvedilol (Coreg), 3.125 MG ORAL EVERY 12 HOURS Discontinued Reason: Pt stopped taking med Cephalexin* (Keflex*), 500 MG ORAL EVERY 12 HOURS Discontinued Reason: Pt stopped taking med Hydrocodone Bit/Acetaminophen 5-325* ([place] 5-325*), 1 TAB ORAL Q6H PRN for For Pain Discontinued Reason: Pt stopped taking med Quetiapine Fumarate* (Seroquel*), 300 MG ORAL QHS Discontinued Reason: Pt stopped taking med Theophylline (Theodur*), 100 MG ORAL EVERY 12 HOURS Discontinued Reason: Pt stopped taking med Patient History Healthcare decision maker Resuscitation status Full Code Advanced Directive on File Past Medical/Surgical History Past Medical/Surgical History: (1) Drug abuse (2) COPD (chronic obstructive pulmonary disease) (3) Anemia (4) cardiac left ventricular ejection fraction 20-25% (5) Non compliance w medication regimen (6) Chronic systolic heart failure (7) MDRO (multiple drug resistant organisms) resistance Review of Systems All Other Systems: negative except mentioned in HPI Physical Exam General Appearance: WD/WN Lines, tubes and drains: peripheral HEENT: normocephalic, atraumatic Neck: non-tender, normal alignment, supple Respiratory/Chest: chest wall non-tender, crackles/rales Cardiovascular/Chest: normal peripheral pulses, normal rate Abdomen: non tender Genitourinary/Rectal: other - edematous Extremities: trace edema Skin Exam: normal pigmentation Neurologic: turkey cleaner II-XII grossly normal Last 24 Hour Vital Signs Date Time Temp Pulse Resp B/P (MAP) Pulse Ox O2 Delivery O2 Flow Rate FiO2 12/06/19 12:00 70 12/06/19 12:00 97.1 70 21 115/78 (90) 94 12/06/19 09:00 Nasal Cannula 3.0 12/06/19 08:00 65 12/06/19 08:00 97.2 66 22 131/74 (93) 95 12/06/19 04:00 96.8 66 16 126/70 (88) 96 12/06/19 04:00 69 12/06/19 00:00 69 12/06/19 00:00 94.8 61 20 129/78 (95) 97 12/05/19 22:44 Room Air Intake and Output 12/05/19 12/06/19 19:00 07:00 Output Total 800 ml Balance -800 ml Output Urine Total 800 ml Laboratory Tests Test 12/06/19 06:40 White Blood Count 5.2 K/UL (4.8-10.8) Red Blood Count 4.08 M/UL (4.70-6.10) L Hemoglobin 13.6 G/DL (14.2-18.0) L Hematocrit 41.2 % (42.0-52.0) L Mean Corpuscular Volume 101 FL (80-99) H Mean Corpuscular Hemoglobin 33.2 PG (27.0-31.0) H Mean Corpuscular Hemoglobin Concent 32.9 G/DL (32.0-36.0) Red Cell Distribution Width 12.3 % (11.6-14.8) Platelet Count 206 K/UL (150-450) Mean Platelet Volume 7.3 FL (6.5-10.1) Neutrophils (%) (Auto) 51.9 % (45.0-75.0) Lymphocytes (%) (Auto) 35.5 % (20.0-45.0) Monocytes (%) (Auto) 10.3 % (1.0-10.0) H Eosinophils (%) (Auto) 1.0 % (0.0-3.0) Basophils (%) (Auto) 1.3 % (0.0-2.0) Sodium Level 151 MMOL/L (136-145) H Potassium Level 4.0 MMOL/L (3.5-5.1) Chloride Level 113 MMOL/L (98-107) H Carbon Dioxide Level 26 MMOL/L (21-32) Anion Gap 12 mmol/L (5-15) Blood Urea Nitrogen 25 mg/dL (7-18) H Creatinine 1.3 MG/DL (0.55-1.30) Estimat Glomerular Filtration Rate > 60 mL/min (>60) Glucose Level 92 MG/DL (74-106) Calcium Level 9.4 MG/DL (8.5-10.1) Phosphorus Level 3.8 MG/DL (2.5-4.9) Magnesium Level 1.7 MG/DL (1.8-2.4) L Total Bilirubin 1.5 MG/DL (0.2-1.0) H Direct Bilirubin 0.5 MG/DL (0.0-0.3) H Aspartate Amino Transf (AST/SGOT) 28 U/L (15-37) Alanine Aminotransferase (ALT/SGPT) 16 U/L (12-78) Alkaline Phosphatase 87 U/L (46-116) Troponin I 0.014 ng/mL (0.000-0.056) Total Protein 6.6 G/DL (6.4-8.2) Albumin 3.1 G/DL (3.4-5.0) L Globulin 3.5 g/dL Albumin/Globulin Ratio 0.9 (1.0-2.7) L Height (Feet): 5 Height (Inches): 7.00 Weight (Pounds): 166 Medications Current Medications Medications (Trade) Dose Ordered Sig/Daria Route PRN Reason Start Time Stop Time Status Last Admin Dose Admin Aspirin (ASA) 81 mg DAILY ORAL 12/06/19 09:00 01/20/20 08:59 12/06/19 09:20 Clopidogrel Bisulfate (Plavix) 75 mg DAILY ORAL 12/06/19 09:00 01/05/20 08:59 12/06/19 09:20 Furosemide (Lasix) 40 mg EVERY 12 HOURS IV 12/06/19 09:00 01/05/20 08:59 12/06/19 09:20 Heparin Sodium (Porcine) (Heparin 5000 units/ml) 5,000 units EVERY 8 HOURS SUBQ 12/06/19 06:05 01/20/20 06:04 Assessment/Plan Problem List: (1) Chronic systolic congestive heart failure ICD Codes: I50.22 - Chronic systolic (congestive) heart failure SNOMED: 03950912, [id number] (2) cardiac left ventricular ejection fraction 20-25% (3) COPD (chronic obstructive pulmonary disease) ICD Codes: J44.9 - Chronic obstructive pulmonary disease, unspecified SNOMED: 56272427 Assessment/Plan: telemetry monitoring check cxr f/u BNP and electrolytes diuretics cardio to asses medication. dvt prophylaxis Jese Murdock MD Dec 06, 2019 13:38
--- NOTE | 2019-12-06 13:41 | NUR ---
CASE MANAGEMENT:REVIEW 74 YR OLD MALE THAT LIVES IN A B&C WAS TRANSFERRED FROM [facility] CC; SOB. WHEEZING. BLE AND SCROTAL EDEMA SI: COPD 94.8 61 20 129/78 95% ON RA H/H-13.6/41.2 NA+151 BUN+25 MAG-1.7 TBILI+1.5 DBILI+0.5 IS: PLACED ON 3L/NC ASA PO QD PLAVIX PO QD IV LASIX Q12 HEPARIN SQ Q8HRS : DIRECTLY ADMITTED TO TELEMETRY
[2019-12-06] MEDS ORDERED: Promethazine/Codeine 5ml UD ORAL PRN (13:45)
--- NOTE | 2019-12-06 14:14 | NUR ---
SUCTION ROLLER NOTE SW received a notification for social director concern. Pt presents as A&O 4x and very irritable. Pt reports he does not have any concerns/needs that needs to be addressed to SW. Pt resides at a [facility] and [address] [address] Pt is single and has no children. Pt receives social security income. Emergency contact listed: Wilfredo Harkins [phone]. SW to F/U as needed. Signed: 12/06/19 at 1416 by KENDAL WANG <Co-Signature Required>
--- NOTE | 2019-12-06 15:07 | Diagnostic Imaging Report ---
Indication: Dyspnea Comparison: 08/21/2019 A single view chest radiograph was obtained. Findings: There is a hazy opacity at the right lung base obscuring the diaphragm. The heart is enlarged. Bones are osteopenic. IMPRESSION: Suspected right pleural effusion. Cardiomegaly
[2019-12-06 16:00] VITALS: BP 111/68
--- NOTE | 2019-12-06 17:09 | History & Physical ---
History and Physical History & Physicial Dictated for Int Med-Dr Caldera no. [id number]. Nader Cha MD Dec 06, 2019 17:09
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
--- NOTE | 2019-12-06 19:18 | NUR ---
HAND-OFF: Report given to TIFFANY Julien. Patient is in stable condition.
[2019-12-06 20:00] VITALS: BP 113/74
[2019-12-06] MEDS: Theophylline ER 100mg ORAL SCH (21:33)
[2019-12-07] VITALS: BP 115/70
[2019-12-07 04:00] VITALS: BP 110/80
[2019-12-07] MEDS: Heparin 5000 units/ml inj SUBQ SCH ×3 (06:00→21:34)
[2019-12-07 06:45] LABS: BASOPHILS % (AUTO) 1.2 % (0.0-2.0); EOSINOPHILS % (AUTO) 2.4 % (0.0-3.0); HEMATOCRIT 38.1 % (42.0-52.0); HEMOGLOBIN 12.7 G/DL (14.2-18.0); LYMPHOCYTES % (AUTO) 49.4 % (20.0-45.0); MEAN CORPUSCULAR VOLUME 101 FL (80-99); MONOCYTES % (AUTO) 9.1 % (1.0-10.0); NEUTROPHILS % (AUTO) 37.9 % (45.0-75.0); PLATELET COUNT 190 K/UL (150-450); RED BLOOD COUNT 3.77 M/UL (4.70-6.10); RED CELL DISTRIBUTION WIDTH 12.1 % (11.6-14.8); WHITE BLOOD COUNT 4.5 K/UL (4.8-10.8)
[2019-12-07 07:14] LABS: ANION GAP 10 mmol/L (5-15); BLOOD UREA NITROGEN 31 mg/dL (7-18); CALCIUM 9.1 MG/DL (8.5-10.1); CARBON DIOXIDE 29 MMOL/L (21-32); CHLORIDE 110 MMOL/L (98-107); CREATININE 1.4 MG/DL (0.55-1.30); POTASSIUM 3.9 MMOL/L (3.5-5.1); SODIUM 149 MMOL/L (136-145)
--- NOTE | 2019-12-07 07:30 | NUR ---
NURSE NOTES: Received patient from Anaya ALLEN in bed alert and oriented x4. Denies any pain at this time. Breathing is labored. IV is intact and patent. Bed is on lower level with bed side rails up x2. Brakes engaged for safety, call light is within reach. Will continue with the plan of care.
[2019-12-07 08:00] VITALS: BP 121/86
[2019-12-07] MEDS: Theophylline ER 100mg ORAL SCH ×2 (08:25→21:32)
[2019-12-07] MEDS: Aspirin Baby 81mg ORAL SCH (08:26)
--- NOTE | 2019-12-07 11:15 | Pulmonology Progress Note ---
Assessment/Plan Problems: (1) Pneumonia (2) COPD (chronic obstructive pulmonary disease) (3) cardiac left ventricular ejection fraction 20-25% (4) Severe pulmonary arterial systolic hypertension (5) Non compliance w medication regimen Assessment/Plan telemetry monitoring checked cxr, RLL consolidation, CT chest ordered f/u BNP and electrolytes diuretics, watch bun. hold lasix b/o rise in creatinine. cardio to asses medication. dvt prophylaxis Subjective ROS Limited/Unobtainable: No Constitutional: Reports: no symptoms HEENT: Repors: no symptoms Respiratory: Reports: no symptoms Allergies: Coded Allergies: GRAPEFRUIT (Unverified Allergy, Intermediate, Hives, 12/13/12) ORANGE (Verified Allergy, Unknown, 11/20/18) Objective Last 24 Hour Vital Signs Date Time Temp Pulse Resp B/P (MAP) Pulse Ox O2 Delivery O2 Flow Rate FiO2 12/07/19 09:00 Nasal Cannula 3.0 12/07/19 08:25 69 121/86 12/07/19 08:00 97.7 51 20 121/86 (98) 95 12/07/19 08:00 51 12/07/19 07:38 74 18 97 Nasal Cannula 2.0 28 12/07/19 04:00 98.0 70 20 110/80 (90) 96 12/07/19 04:00 70 12/07/19 00:00 97.7 66 22 115/70 (85) 95 12/07/19 00:00 48 12/06/19 21:33 76 113/74 12/06/19 21:00 Nasal Cannula 3.0 12/06/19 20:00 98.1 76 20 113/74 (87) 94 12/06/19 20:00 70 12/06/19 16:00 97.3 79 20 111/68 (82) 98 12/06/19 16:00 79 12/06/19 12:00 70 12/06/19 12:00 97.1 70 21 115/78 (90) 94 Intake and Output 12/06/19 12/07/19 19:00 07:00 Intake Total 850 ml Output Total 1800 ml 600 ml Balance -950 ml -600 ml Intake Oral 850 ml Output Urine Total 1800 ml 600 ml # Voids 1 # Bowel Movements 2 1 General Appearance: WD/WN HEENT: normocephalic Respiratory/Chest: chest wall non-tender, lungs clear Cardiovascular: normal peripheral pulses, normal rate Abdomen: normal bowel sounds, soft, non tender Genitourinary: normal external genitalia Extremities: no cyanosis Skin: no rash Laboratory Tests 12/07/19 05:57: White Blood Count 4.5L, Red Blood Count 3.77L, Hemoglobin 12.7L, Hematocrit 38.1L, Mean Corpuscular Volume 101H, Mean Corpuscular Hemoglobin 33.8H, Mean Corpuscular Hemoglobin Concent 33.4, Red Cell Distribution Width 12.1, Platelet Count 190, Mean Platelet Volume 7.3, Neutrophils (%) (Auto) 37.9L, Lymphocytes ( %) (Auto) 49.4H, Monocytes (%) (Auto) 9.1, Eosinophils (%) (Auto) 2.4, Basophils (%) (Auto) 1.2, Sodium Level 149H, Potassium Level 3.9, Chloride Level 110H, Carbon Dioxide Level 29, Anion Gap 10, Blood Urea Nitrogen 31H, Creatinine 1.4H, Estimat Glomerular Filtration Rate 59.8, Glucose Level 88, Calcium Level 9.1, Pro-B-Type Natriuretic Peptide 4207H Current Medications Medications (Trade) Dose Ordered Sig/Daria Route PRN Reason Start Time Stop Time Status Last Admin Dose Admin Aspirin (ASA) 81 mg DAILY ORAL 12/06/19 09:00 01/20/20 08:59 12/07/19 08:26 Carvedilol (Coreg) 3.125 mg EVERY 12 HOURS ORAL 12/06/19 21:00 01/05/20 20:59 12/07/19 08:25 Clopidogrel Bisulfate (Plavix) 75 mg DAILY ORAL 12/06/19 09:00 01/05/20 08:59 12/07/19 08:25 Furosemide (Lasix) 40 mg EVERY 12 HOURS IV 12/06/19 09:00 01/05/20 08:59 12/07/19 08:26 Heparin Sodium (Porcine) (Heparin 5000 units/ml) 5,000 units EVERY 8 HOURS SUBQ 12/06/19 06:05 01/20/20 06:04 12/07/19 06:00 Promethazine HCl/ Codeine (Phenergan with Codeine) 5 ml Q4H PRN ORAL For Cough 12/06/19 13:45 01/05/20 13:44 Quetiapine Fumarate (SEROqueL) 25 mg Q12HR ORAL 12/06/19 21:00 01/20/20 20:59 12/07/19 08:25 Theophylline ([place]) 100 mg EVERY 12 HOURS ORAL 12/06/19 21:00 03/05/20 20:59 12/07/19 08:25 Jese Murdock MD Dec 07, 2019 11:15
[2019-12-07 12:00] VITALS: BP 113/76
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
[2019-12-07 16:00] VITALS: BP 114/63
--- NOTE | 2019-12-07 16:09 | Diagnostic Imaging Report ---
Indication: Chest pain Technique: Continuous helical transaxial imaging of the chest was obtained from the thoracic inlet to the upper abdomen. No intravenous contrast was administered. Coronal 2-D reformats were also obtained. Total Dose length Product (DLP): 300.[address] Dose Index Volume (CTDIvol): 7.6 mGy Comparison: none Findings: There is a moderate right pleural effusion and trace left pleural effusion. There is posterior basal atelectasis associated with this. Heart is enlarged. There is an implanted structure in the area of the mitral valve presumably part of a mitral valve prosthesis or stent. Aorta is mildly calcified. Small nodes are seen in mediastinum. Evaluation limited. Subcutaneous edema noted throughout the chest wall. There is narrowing of intervertebral discs and accompanying endplate osteophyte formation. Hypertrophied facet joints also demonstrated.. Bones are osteopenic. There is a kyphotic deformity of the upper thoracic spine. IMPRESSION: Moderate right pleural effusion and trace left pleural effusion. Associated posterior basal atelectasis. Degenerative changes of the spine. Osteoporosis and kyphosis. Arterial vascular disease and cardiomegaly. Mitral valve prosthesis/stent The CT scanner at [facility] is accredited by the [employer] [employer] and the scans are performed using dose optimization techniques as appropriate to a performed exam including Automatic Exposure control.
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
--- NOTE | 2019-12-07 19:51 | NUR ---
Hand off to Karyn. Patient in bed asleep, resp. even & unlabored, o2 via NC in use.
[2019-12-07 20:00] VITALS: BP 121/75
--- NOTE | 2019-12-07 20:00 | NUR ---
NURSE NOTES: Pt in bed alert and oriented x4. Denies any pain at this time. Breathing is labored, some dyspnea at rest and on exertion, use of accessory muscles, on nasal cannula. IV is intact and patent. Bed is locked, in lowest position with side rails up x2. call light is within reach. Will continue with the plan of care.
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
[2019-12-07] MEDS: Doxycycline Monohydrate 100mg ORAL SCH (21:39)
[2019-12-08 00:10] VITALS: BP 132/80
[2019-12-08 04:00] VITALS: BP 111/73
[2019-12-08] MEDS: Heparin 5000 units/ml inj SUBQ SCH ×3 (06:03→22:23)
[2019-12-08 06:52] LABS: BASOPHILS % (AUTO) 1.4 % (0.0-2.0); EOSINOPHILS % (AUTO) 3.3 % (0.0-3.0); HEMATOCRIT 34.3 % (42.0-52.0); HEMOGLOBIN 11.4 G/DL (14.2-18.0); LYMPHOCYTES % (AUTO) 41.8 % (20.0-45.0); MEAN CORPUSCULAR VOLUME 101 FL (80-99); MONOCYTES % (AUTO) 11.7 % (1.0-10.0); NEUTROPHILS % (AUTO) 41.8 % (45.0-75.0); PLATELET COUNT 183 K/UL (150-450); RED BLOOD COUNT 3.39 M/UL (4.70-6.10); RED CELL DISTRIBUTION WIDTH 12.1 % (11.6-14.8)
--- NOTE | 2019-12-08 07:25 | NUR ---
NURSE NOTES: Received report from TIFFANY Boss. Patient is resting in bed, in stable condition. No s/sx of SOB, breathing is even and unlabored. Denies any presence of pain or discomfort at this time. Bed is in lowest position. Call light is kept within easy reach. Will continue to monitor patient.
--- NOTE | 2019-12-08 07:35 | NUR ---
HAND-OFF: Report given to TIFFANY Barraza.
[2019-12-08 07:59] LABS: ALANINE AMINOTRANSFERASE 22 U/L (12-78); ALBUMIN/GLOBULIN RATIO 0.9 (1.0-2.7); ALKALINE PHOSPHATASE 86 U/L (46-116); ANION GAP 10 mmol/L (5-15); ASPARTATE AMINO TRANSFERASE 24 U/L (15-37); BLOOD UREA NITROGEN 30 mg/dL (7-18); CALCIUM 8.5 MG/DL (8.5-10.1); CARBON DIOXIDE 26 MMOL/L (21-32); CHLORIDE 106 MMOL/L (98-107); CREATININE 1.3 MG/DL (0.55-1.30); SODIUM 142 MMOL/L (136-145)
[2019-12-08 08:00] VITALS: BP 114/75
[2019-12-08] MEDS: Aspirin Baby 81mg ORAL SCH (08:35)
[2019-12-08] MEDS: Theophylline ER 100mg ORAL SCH ×2 (08:35→22:21)
[2019-12-08] MEDS: Doxycycline Monohydrate 100mg ORAL SCH ×2 (08:35→22:20)
--- NOTE | 2019-12-08 09:53 | Cardiology Progress Note ---
Assessment/Plan Status: stable Assessment/Plan Assessment/Plan: Assessment CHF systolic acute on chronic Volume overload COPD PNA on CXR Hx of CVA Plan: Empiric Abx for PNA on CXR CT scan with pleural effusion - may need thoracentesis but currently no distress or oxygen dependence, continue to monitor LE ultrasound negative for DVT Continue Mild diuresis for CHF Hold IV fluids, fluid restriction DASH diet Daily weights Continue goal directed medication : increase coreg as tolerated Continue plavix for hx of CVA Subjective Cardiovascular: Reports: no symptoms Respiratory: Reports: no symptoms Gastrointestinal/Abdominal: Reports: no symptoms Genitourinary: Reports: no symptoms Subjective No acute events, no fevers no CP/SOB. CT showed pleural effusion, stable on room air Objective Last 24 Hour Vital Signs Date Time Temp Pulse Resp B/P (MAP) Pulse Ox O2 Delivery O2 Flow Rate FiO2 12/08/19 09:00 Nasal Cannula 3.0 12/08/19 08:35 78 114/75 12/08/19 08:00 97.3 78 20 114/75 (88) 99 12/08/19 07:00 78 18 99 Nasal Cannula 3.0 32 12/08/19 04:00 75 12/08/19 04:00 96.8 82 21 111/73 (86) 96 12/08/19 00:10 97.2 72 20 132/80 (97) 97 12/08/19 00:00 80 12/07/19 21:32 72 121/75 12/07/19 21:00 Nasal Cannula 3.0 12/07/19 20:00 70 12/07/19 20:00 97.0 69 20 121/75 (90) 96 12/07/19 19:10 74 18 97 Nasal Cannula 2.0 28 12/07/19 17:17 70 12/07/19 16:00 98.7 70 20 114/63 (80) 98 12/07/19 12:00 97.9 51 20 113/76 (88) 97 12/07/19 12:00 51 General Appearance: no apparent distress, alert EENT: PERRL/EOMI, normal ENT inspection, TMs normal, pharynx normal Neck: non-tender, normal alignment, supple, normal inspection, no JVD Rhythm: NSR Cardiovascular: normal peripheral pulses, normal rate, regular rhythm Respiratory/Chest: chest wall non-tender, lungs clear, normal breath sounds, no respiratory distress, no accessory muscle use Abdomen: normal bowel sounds, non tender, soft, no organomegaly, no mass Extremities: normal range of motion, non-tender, normal inspection, no calf tenderness, no swelling 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, no motor/sensory deficits Intake and Output 12/07/19 12/08/19 19:00 07:00 Intake Total 400 ml 420 ml Output Total 1400 ml 800 ml Balance -1000 ml -380 ml Intake Oral 400 ml 420 ml Output Urine Total 1400 ml 800 ml # Voids 6 # Bowel Movements 1 Laboratory Tests Test 12/08/19 06:15 White Blood Count 4.0 K/UL (4.8-10.8) L Red Blood Count 3.39 M/UL (4.70-6.10) L Hemoglobin 11.4 G/DL (14.2-18.0) L Hematocrit 34.3 % (42.0-52.0) L Mean Corpuscular Volume 101 FL (80-99) H Mean Corpuscular Hemoglobin 33.5 PG (27.0-31.0) H Mean Corpuscular Hemoglobin Concent 33.1 G/DL (32.0-36.0) Red Cell Distribution Width 12.1 % (11.6-14.8) Platelet Count 183 K/UL (150-450) Mean Platelet Volume 7.2 FL (6.5-10.1) Neutrophils (%) (Auto) 41.8 % (45.0-75.0) L Lymphocytes (%) (Auto) 41.8 % (20.0-45.0) Monocytes (%) (Auto) 11.7 % (1.0-10.0) H Eosinophils (%) (Auto) 3.3 % (0.0-3.0) H Basophils (%) (Auto) 1.4 % (0.0-2.0) Sodium Level 142 MMOL/L (136-145) Potassium Level 4.0 MMOL/L (3.5-5.1) Chloride Level 106 MMOL/L (98-107) Carbon Dioxide Level 26 MMOL/L (21-32) Anion Gap 10 mmol/L (5-15) Blood Urea Nitrogen 30 mg/dL (7-18) H Creatinine 1.3 MG/DL (0.55-1.30) Estimat Glomerular Filtration Rate > 60 mL/min (>60) Glucose Level 103 MG/DL (74-106) Calcium Level 8.5 MG/DL (8.5-10.1) Total Bilirubin 1.0 MG/DL (0.2-1.0) Aspartate Amino Transf (AST/SGOT) 24 U/L (15-37) Alanine Aminotransferase (ALT/SGPT) 22 U/L (12-78) Alkaline Phosphatase 86 U/L (46-116) Pro-B-Type Natriuretic Peptide 2140 pg/mL (0-125) H Total Protein 6.2 G/DL (6.4-8.2) L Albumin 3.0 G/DL (3.4-5.0) L Globulin 3.2 g/dL Albumin/Globulin Ratio 0.9 (1.0-2.7) L Microbiology Date/Time Source Procedure Growth Status 12/05/19 23:30 Rectum VRE Culture - Final NO VANCOMYCIN RESISTANT ENTEROCOCCUS ... Complete 12/05/19 23:30 Rectum - Final NO CARBAPENEM-RESISTANT ENTEROBACTERI... Complete Sanket Jeffries MD Dec 08, 2019 09:53
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
--- NOTE | 2019-12-08 10:21 | NUR ---
RADIOLOGY DEPT., CHEST X-RAY . P. DYE
--- NOTE | 2019-12-08 10:54 | Diagnostic Imaging Report ---
Indication: Cough, dyspnea Technique: One view of the chest Comparison: 12/06/2019 Findings: The heart is enlarged. Hazy opacity involving the right mid and lower lung presumably reflects large pleural effusion demonstrated on recent chest CT. This may be slightly increased from the prior exam. There is mild interstitial congestion, also appearing slightly increased from the prior study. Mitral valve clips are again demonstrated Impression: Slightly increased right pleural effusion and mild interstitial congestion, over 2 days
[2019-12-08 12:00] VITALS: BP 114/75
--- NOTE | 2019-12-08 13:00 | Pulmonology Progress Note ---
Assessment/Plan Problems: (1) Pneumonia (2) COPD (chronic obstructive pulmonary disease) (3) cardiac left ventricular ejection fraction 20-25% (4) Severe pulmonary arterial systolic hypertension (5) Non compliance w medication regimen Assessment/Plan telemetry monitoring checked cxr, RLL consolidation, CT chest ordered f/u BNP and electrolytes diuretics, watch bun. hold lasix b/o rise in creatinine. cardio to asses medication. dvt prophylaxis Subjective ROS Limited/Unobtainable: No Constitutional: Reports: no symptoms HEENT: Repors: no symptoms Respiratory: Reports: no symptoms Allergies: Coded Allergies: GRAPEFRUIT (Unverified Allergy, Intermediate, Hives, 12/13/12) ORANGE (Verified Allergy, Unknown, 11/20/18) Objective Last 24 Hour Vital Signs Date Time Temp Pulse Resp B/P (MAP) Pulse Ox O2 Delivery O2 Flow Rate FiO2 12/08/19 12:00 97.5 76 20 114/75 (88) 96 12/08/19 09:00 Nasal Cannula 3.0 12/08/19 08:35 78 114/75 12/08/19 08:00 72 12/08/19 08:00 97.3 78 20 114/75 (88) 99 12/08/19 07:00 78 18 99 Nasal Cannula 3.0 32 12/08/19 04:00 75 12/08/19 04:00 96.8 82 21 111/73 (86) 96 12/08/19 00:10 97.2 72 20 132/80 (97) 97 12/08/19 00:00 80 12/07/19 21:32 72 121/75 12/07/19 21:00 Nasal Cannula 3.0 12/07/19 20:00 70 12/07/19 20:00 97.0 69 20 121/75 (90) 96 12/07/19 19:10 74 18 97 Nasal Cannula 2.0 28 12/07/19 17:17 70 12/07/19 16:00 98.7 70 20 114/63 (80) 98 Intake and Output 12/07/19 12/08/19 19:00 07:00 Intake Total 400 ml 420 ml Output Total 1400 ml 800 ml Balance -1000 ml -380 ml Intake Oral 400 ml 420 ml Output Urine Total 1400 ml 800 ml # Voids 6 # Bowel Movements 1 General Appearance: WD/WN HEENT: normocephalic, atraumatic Respiratory/Chest: chest wall non-tender, lungs clear Abdomen: normal bowel sounds, soft, non tender Genitourinary: normal external genitalia Extremities: no clubbing Neurologic/Psychiatric: commercial producer II-XII grossly normal Microbiology Date/Time Source Procedure Growth Status 12/05/19 23:30 Nasal Nares MRSA Culture - Final Staphylococcus Aureus - Mrsa Complete 12/05/19 23:30 Rectum VRE Culture - Final NO VANCOMYCIN RESISTANT ENTEROCOCCUS ... Complete 12/05/19 23:30 Rectum - Final NO CARBAPENEM-RESISTANT ENTEROBACTERI... Complete Laboratory Tests 12/08/19 06:15: White Blood Count 4.0L, Red Blood Count 3.39L, Hemoglobin 11.4L, Hematocrit 34.3L, Mean Corpuscular Volume 101H, Mean Corpuscular Hemoglobin 33.5H, Mean Corpuscular Hemoglobin Concent 33.1, Red Cell Distribution Width 12.1, Platelet Count 183, Mean Platelet Volume 7.2, Neutrophils (%) (Auto) 41.8L, Lymphocytes ( %) (Auto) 41.8, Monocytes (%) (Auto) 11.7H, Eosinophils (%) (Auto) 3.3H, Basophils (%) (Auto) 1.4, Sodium Level 142, Potassium Level 4.0, Chloride Level 106, Carbon Dioxide Level 26, Anion Gap 10, Blood Urea Nitrogen 30H, Creatinine 1.3, Estimat Glomerular Filtration Rate > 60, Glucose Level 103, Calcium Level 8.5, Total Bilirubin 1.0, Aspartate Amino Transf (AST/SGOT) 24, Alanine Aminotransferase (ALT/SGPT) 22, Alkaline Phosphatase 86, Pro-B-Type Natriuretic Peptide 2140H, Total Protein 6.2L, Albumin 3.0L, Globulin 3.2, Albumin/Globulin Ratio 0.9L Current Medications Medications (Trade) Dose Ordered Sig/Daria Route PRN Reason Start Time Stop Time Status Last Admin Dose Admin Aspirin (ASA) 81 mg DAILY ORAL 12/06/19 09:00 01/20/20 08:59 12/08/19 08:35 Carvedilol (Coreg) 3.125 mg EVERY 12 HOURS ORAL 12/06/19 21:00 01/05/20 20:59 12/08/19 08:35 Clopidogrel Bisulfate (Plavix) 75 mg DAILY ORAL 12/06/19 09:00 01/05/20 08:59 12/08/19 08:35 Doxycycline Monohydrate (Doxycycline Monohydrate) 100 mg EVERY 12 HOURS ORAL 12/07/19 21:30 12/14/19 21:29 12/08/19 08:35 Furosemide (Lasix) 20 mg DAILY ORAL 12/08/19 09:00 01/07/20 08:59 12/08/19 08:35 Heparin Sodium (Porcine) (Heparin 5000 units/ml) 5,000 units EVERY 8 HOURS SUBQ 12/06/19 06:05 01/20/20 06:04 12/08/19 06:03 Promethazine HCl/ Codeine (Phenergan with Codeine) 5 ml Q4H PRN ORAL For Cough 12/06/19 13:45 01/05/20 13:44 Quetiapine Fumarate (SEROqueL) 25 mg Q12HR ORAL 12/06/19 21:00 01/20/20 20:59 12/08/19 08:34 Theophylline (Alton-Dur) 100 mg EVERY 12 HOURS ORAL 12/06/19 21:00 03/05/20 20:59 12/08/19 08:35 Jese Murdock MD Dec 08, 2019 13:00
--- NOTE | 2019-12-08 14:00 | NUR ---
NURSE NOTES: Dr. Murdock at nurse station. Dr. Murdock manually wrote procedure on consent form: "Right side thoracentesis." Noted.
--- NOTE | 2019-12-08 15:05 | NUR ---
CASE MANAGEMENT:REVIEW 12/08/19 SI: AC/CHR CHF. COPD. PNA 97.5 76 20 114/75 96% ON 3L/NC BUN+30 BNP+2140 IS: LASIX PO QD DOXYCYCLINE PO Q12 SEROQUEL PO Q12 COREG PO Q12 SHAMA-DUR PO Q12 ASA PO QD PLAVIX PO QD HEPARIN SQ Q8HR : TELEMETRY STATUS DCP: FROM BOARD AND CARE PLAN: CONSENT FOR THORACENTESIS
--- NOTE | 2019-12-08 15:20 | NUR ---
NURSE NOTES: Received report from Terrence RN/ Pt in bed resting comfortably. Denied SOB on O2 3LPM via N/C. Pt AOX3 and able to make needs known. IV site in RFA 22G SL patent and asymptomatic. Bed in lowest position and locked. Will continue to plan of care.
--- NOTE | 2019-12-08 15:23 | NUR ---
HAND-OFF: Report given to TIFFANY Heredia.
--- NOTE | 2019-12-08 15:35 | Pre-Procedure Note/Attestation ---
Pre-Procedure Note/Attestation Complete Prior to Procedure Planned Procedure: right Procedure Narrative: Thoracentesis Indications for Procedure Pre-Operative Diagnosis: Pleural effusion Attestation I attest that I discussed the nature of the procedure; its benefits; risks and complications; and alternatives (and the risks and benefits of such alternatives ), prior to the procedure, with the patient (or the patient's legal distribution sales representative). I attest that, if there was a reasonable possibility of needing a blood transfusion, the patient (or the patient's legal distribution sales representative) was given the [facility] standardized written summary, pursuant to the [place] Blood Safety Act ([place] Health and Safety Code # 1645, as amended). I attest that I re-evaluated the patient just prior to the surgery and that there has been no change in the patient's H&P, except as documented below: Gonzalo Umanzor MD Dec 08, 2019 15:34
[2019-12-08 16:00] VITALS: BP 104/71
--- NOTE | 2019-12-08 16:26 | Brief Operative Note ---
Immediate Post Operative Note Operative Note Chief Complaint: SOB Pre-op Diagnosis: Pleural effusion Procedure: R thoracentesis Post-op Diagnosis: same as pre-op Surgeon: Chloe Jacobo Anesthesia: local Specimen: yes - 50 ml clear yellow fluid sent to lab Complications: none Fluids: none Implant(s) used?: No Gonzalo Jacobo MD Dec 08, 2019 16:26
--- NOTE | 2019-12-08 16:34 | Diagnostic Imaging Report ---
Indication: Status post thoracentesis Technique: One view of the chest Comparison: 12/08/2019 Findings: 2 mitral valve clips are again demonstrated. Previously demonstrated right pleural effusion has resolved. There is no pneumothorax. The heart remains enlarged. There is some atelectasis at the left lateral lung base. Left lung and pleural space are otherwise clear. Impression: Resolved right pleural effusion, status post thoracentesis Other findings as noted
--- NOTE | 2019-12-08 17:16 | Diagnostic Imaging Report ---
Indications: Pleural effusion Technique: Ultrasound used to localize optimal puncture site. Sterile prepping and draping right chest. Local anesthesia with 1% lidocaine. Under real-time ultrasound guidance, puncture pleural space using thoracentesis needle. Stylet removed. Catheter placed to vacuum bottle suction. Total 860 milliliters of fluid aspirated. Patient tolerated procedure well, without immediate complication. Findings: Followup sonography demonstrates complete resolution of pleural fluid. Impression: Successful ultrasound-guided thoracentesis, yielding 860 milliliters of fluid
--- NOTE | 2019-12-08 18:57 | NUR ---
NURSE NOTES: Dr. Duval paged for bradycardia with 38-40/min when pt is resting in bed. No new orders received.
--- NOTE | 2019-12-08 19:15 | NUR ---
HAND-OFF: Report given to Soha EVANS Pt remains stable. Addendum: 12/08/19 at 1918 by Monica Su RN HAND-OFF: Report given to Odalys GO Pt remains stable.
--- NOTE | 2019-12-08 19:45 | NUR ---
NURSE NOTES: Pt in bed alert and oriented x4. Denies any pain at this time. Breathing is mildly labored, some dyspnea at rest and on exertion, observed use of accessory muscles, on nasal cannula, pt denies difficulty breathing, states "Im on oxygen". IV is intact and patent. Bed is locked, in lowest position with side rails up x2. call light is within reach. Will continue with the plan of care.
[2019-12-08 20:00] VITALS: BP 121/83
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
[2019-12-08] MEDS ORDERED: D5 1/2NS 1000ml IV ONE (21:47)
[2019-12-09] VITALS: BP 124/78
[2019-12-09 04:00] VITALS: BP 107/69
[2019-12-09] MEDS: Heparin 5000 units/ml inj SUBQ SCH ×3 (06:38→21:47)
--- NOTE | 2019-12-09 07:38 | NUR ---
HAND-OFF: Report given to TIFFANY Melton.
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
--- NOTE | 2019-12-09 10:48 | Pulmonology Progress Note ---
Assessment/Plan Assessment/Plan ASSESSMENT Possible pneumonia COPD with probable exacerbation Acute on chronic systolic and diastolic CHF Cardiomyopathy with EF 20-25% Severe pulmonary HTN Right pleural effusion, status post thoracentesis 12/07 Moderate MR with mitral stenosis Noncompliance with medication Cerebrovascular disease with history of CVA PLAN OF CARE tele [id number] HHN and CPT abx as per ID trial of theophylline a/tussive prn Venous duplex BLE negative CT chest with right pleural effusion s/p thoracentesis 12/07 ->860 mL CXR post-tap with resolved right pleural effusion, no pneumothorax fup with cytology results Echo with rEF 20-25% and RVSP 91 also moderate MR with MS ; grade 2 diastolic dysfunction diuresis, beta-dylan ( initially with Lasix, volumes and cardiorenal parameters monitored, Lasix was hold due to increase of creatinine and then resumed with decreased dose) proBNP trending down dAPT therapy with ASA and Plavix supportive care case discussed and evaluated by supervising physician Subjective Allergies: Coded Allergies: GRAPEFRUIT (Unverified Allergy, Intermediate, Hives, 12/13/12) ORANGE (Verified Allergy, Unknown, 11/20/18) Subjective on tele pulse ox stable on O2 via NC no signs of resp distress remains afebrile, no leukocytosis pro BNP trending down Objective Last 24 Hour Vital Signs Date Time Temp Pulse Resp B/P (MAP) Pulse Ox O2 Delivery O2 Flow Rate FiO2 12/09/19 07:30 94 Nasal Cannula 2.0 28 12/09/19 04:00 97.9 87 17 107/69 (82) 94 12/09/19 04:00 83 12/09/19 04:00 97.9 87 17 107/69 (82) 94 12/09/19 00:00 98.1 81 18 124/78 (93) 95 12/09/19 00:00 83 12/08/19 22:21 80 121/83 12/08/19 21:00 Nasal Cannula 2.0 12/08/19 20:00 98.1 80 18 121/83 (96) 95 12/08/19 20:00 80 12/08/19 19:04 95 Nasal Cannula 2.0 28 12/08/19 16:00 72 12/08/19 16:00 98.0 75 20 104/71 (82) 95 12/08/19 12:00 97.5 76 20 114/75 (88) 96 12/08/19 12:00 71 Intake and Output 12/08/19 12/09/19 19:00 07:00 Intake Total 400 ml 250 ml Output Total 1200 ml 800 ml Balance -800 ml -550 ml Intake Oral 400 ml Other 250 ml Output Urine Total 1200 ml 800 ml # Voids 6 4 General Appearance: no acute distress HEENT: normocephalic, atraumatic, anicteric Respiratory/Chest: crackles/rales - few bibasialr crackles Cardiovascular: normal rate, regular rhythm - SR with BBB Abdomen: normal bowel sounds, soft, non tender Extremities: no edema, pedal pulses normal Neurologic/Psychiatric: alert, responsive Musculoskeletal: atrophy Laboratory Tests 12/08/19 14:00: Prothrombin Time 11.1, Prothromb Time International Ratio 1.0, Activated Partial Thromboplast Time 30 12/08/19 16:00: Body Fluid Source Thoracentesis, Body Fluid Volume 24, Body Fluid Appearance Hazy, Body Fluid RBC 62, Body Fluid Total Nucleated Cells 114, Body Fluid Polynuclear WBCs (%) 3, Body Fluid Mononuclear WBCs (%) 87, Body Fluid Mesothelial Cells (%) 10, Body Fluid Glucose 105, Body Fluid Total Protein 1.7, Body Fluid Albumin 1.0 Current Medications Medications (Trade) Dose Ordered Sig/Daria Route PRN Reason Start Time Stop Time Status Last Admin Dose Admin Aspirin (ASA) 81 mg DAILY ORAL 12/06/19 09:00 01/20/20 08:59 12/08/19 08:35 Carvedilol (Coreg) 3.125 mg EVERY 12 HOURS ORAL 12/06/19 21:00 01/05/20 20:59 12/08/19 22:21 Clopidogrel Bisulfate (Plavix) 75 mg DAILY ORAL 12/06/19 09:00 01/05/20 08:59 12/08/19 08:35 Doxycycline Monohydrate (Doxycycline Monohydrate) 100 mg EVERY 12 HOURS ORAL 12/07/19 21:30 12/14/19 21:29 12/08/19 22:20 Furosemide (Lasix) 20 mg DAILY ORAL 12/08/19 09:00 01/07/20 08:59 12/08/19 08:35 Heparin Sodium (Porcine) (Heparin 5000 units/ml) 5,000 units EVERY 8 HOURS SUBQ 12/06/19 06:05 5/2/20 06:04 12/09/19 06:38 Promethazine HCl/ Codeine (Phenergan with Codeine) 5 ml Q4H PRN ORAL For Cough 12/06/19 13:45 01/05/20 13:44 Quetiapine Fumarate (SEROqueL) 25 mg Q12HR ORAL 12/06/19 21:00 01/20/20 20:59 12/08/19 22:21 Theophylline (Al[place]-Dur) 100 mg EVERY 12 HOURS ORAL 12/06/19 21:00 03/05/20 20:59 12/08/19 22:21 Kira Mijares [employer] Dec 09, 2019 10:48
[2019-12-09] MEDS: Theophylline ER 100mg ORAL SCH ×2 (11:11→21:45)
[2019-12-09] MEDS: Aspirin Baby 81mg ORAL SCH (11:11)
[2019-12-09] MEDS: Doxycycline Monohydrate 100mg ORAL SCH ×2 (11:11→21:45)
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
[2019-12-09 20:00] VITALS: BP 114/74
--- NOTE | 2019-12-09 20:22 | NUR ---
NURSE NOTES: Received report from TIFFANY Melton. Pt is sitting up in bed alert and oriented x4. Denies any pain at this time. Breathing is mildly labored, some dyspnea at rest and on exertion, observed use of accessory muscles, on nasal cannula, pt denies difficulty breathing. IV is intact and patent, saline locked. Bed is locked, in lowest position with side rails up x2. call light is within reach. Will continue with the plan of care. It was endorsed that pt became very irritable and aggressive and was cussing at her and threatening to throw something. Talking to patient and will attempt to deescalate the situation trhough tone of voice and calming efforts. will continue to monitor pt
[2019-12-10] VITALS: BP 106/67
[2019-12-10 04:00] VITALS: BP 118/76
[2019-12-10] MEDS: Heparin 5000 units/ml inj SUBQ SCH ×3 (06:00→21:09)
[2019-12-10 07:15] LABS: BASOPHILS % (AUTO) 1.3 % (0.0-2.0); EOSINOPHILS % (AUTO) 3.2 % (0.0-3.0); HEMATOCRIT 32.6 % (42.0-52.0); HEMOGLOBIN 10.7 G/DL (14.2-18.0); LYMPHOCYTES % (AUTO) 46.4 % (20.0-45.0); MEAN CORPUSCULAR VOLUME 102 FL (80-99); MONOCYTES % (AUTO) 12.2 % (1.0-10.0); NEUTROPHILS % (AUTO) 36.9 % (45.0-75.0); PLATELET COUNT 196 K/UL (150-450); RED BLOOD COUNT 3.19 M/UL (4.70-6.10); RED CELL DISTRIBUTION WIDTH 11.7 % (11.6-14.8); WHITE BLOOD COUNT 4.7 K/UL (4.8-10.8)
--- NOTE | 2019-12-10 07:16 | NUR ---
HAND-OFF: Report given to TIFFANY Cole.
[2019-12-10 07:55] LABS: ANION GAP 9 mmol/L (5-15); BLOOD UREA NITROGEN 24 mg/dL (7-18); CALCIUM 8.6 MG/DL (8.5-10.1); CARBON DIOXIDE 28 MMOL/L (21-32); CHLORIDE 106 MMOL/L (98-107); CREATININE 1.1 MG/DL (0.55-1.30); POTASSIUM 4.1 MMOL/L (3.5-5.1); SODIUM 143 MMOL/L (136-145)
[2019-12-10 08:00] VITALS: BP 108/66
--- NOTE | 2019-12-10 08:12 | NUR ---
NURSE NOTES: Pt awake/alert in bed eating breakfast, breathing easily on room air, denies SOB and denies pain at this time. Vital signs stable with SR on monitor @ 76. IV Access right forearm flushed with 10 ml NS and locked. Bed left in low position, side rails up x 2 and call light left near pt's hand.
[2019-12-10] MEDS: Theophylline ER 100mg ORAL SCH ×2 (08:51→21:07)
[2019-12-10] MEDS: Doxycycline Monohydrate 100mg ORAL SCH ×2 (08:51→21:07)
[2019-12-10] MEDS: Aspirin Baby 81mg ORAL SCH (08:51)
--- NOTE | 2019-12-10 11:13 | Pulmonology Progress Note ---
Assessment/Plan Assessment/Plan ASSESSMENT Possible pneumonia COPD with probable exacerbation Acute on chronic systolic and diastolic CHF Cardiomyopathy with EF 20-25% Severe pulmonary HTN Right pleural effusion, status post thoracentesis 12/07 Moderate MR with mitral stenosis Noncompliance with medication Cerebrovascular disease with history of CVA PLAN OF CARE tele O2 titrateto keep sat above 90% HHN and CPT abx as per ID trial of theophylline a/tussive prn Venous duplex BLE negative CT chest with right pleural effusion s/p thoracentesis 12/07 ->860 mL CXR post-tap with resolved right pleural effusion, no pneumothorax pleural fluid cx NGTD fup with cytology results Echo with rEF 20-25% and RVSP 91 also moderate MR with MS ; grade 2 diastolic dysfunction diuresis, beta-dylan ( initially with Lasix, volumes and cardiorenal parameters monitored, Lasix was hold due to increase of creatinine and then resumed with decreased dose) proBNP trending down dAPT therapy with ASA and Plavix supportive care dc plan case discussed and evaluated by supervising physician Subjective Allergies: Coded Allergies: GRAPEFRUIT (Unverified Allergy, Intermediate, Hives, 12/13/12) ORANGE (Verified Allergy, Unknown, 11/20/18) Subjective on tele pulse ox stable on O2 via NC no signs of resp distress remains afebrile, no leukocytosis pro BNP trending down Objective Last 24 Hour Vital Signs Date Time Temp Pulse Resp B/P (MAP) Pulse Ox O2 Delivery O2 Flow Rate FiO2 12/10/19 08:51 76 108/66 12/10/19 08:39 Nasal Cannula 2.0 12/10/19 08:00 78 12/10/19 08:00 97.9 76 18 108/66 (80) 94 12/10/19 07:00 96 Nasal Cannula 2.0 28 12/10/19 04:00 79 12/10/19 04:00 98.1 81 18 118/76 (90) 97 12/10/19 00:00 98.6 89 18 106/67 (80) 98 12/10/19 00:00 89 12/09/19 21:46 84 114/74 12/09/19 21:00 Nasal Cannula 2.0 12/09/19 20:00 97.7 84 18 114/74 (87) 98 12/09/19 20:00 83 12/09/19 19:37 96 Nasal Cannula 2.0 28 12/09/19 16:00 83 12/09/19 16:00 Nasal Cannula 2.0 12/09/19 12:00 77 12/09/19 12:00 Nasal Cannula 2.0 Intake and Output 12/09/19 12/10/19 19:00 07:00 Intake Total 240 ml 400 ml Output Total 700 ml Balance -460 ml 400 ml Intake Oral 240 ml Other 400 ml Output Urine Total 700 ml # Voids 5 # Bowel Movements 1 Objective General Appearance: no acute distress HEENT: normocephalic, atraumatic, anicteric Respiratory/Chest: few bibasilar crackles Cardiovascular: normal rate, regular rhythm SR with BBB Abdomen: normal bowel sounds, soft, non tender Extremities: no edema, pedal pulses normal Neurologic/Psychiatric: alert, responsive Musculoskeletal: atrophy Microbiology Date/Time Source Procedure Growth Status 12/08/19 16:00 Pleural Fluid Gram Stain - Final Resulted 12/08/19 16:00 Pleural Fluid Body Fluid Culture - Preliminary NO GROWTH AFTER 24 HOURS Resulted Laboratory Tests 12/10/19 05:45: White Blood Count 4.7L, Red Blood Count 3.19L, Hemoglobin 10.7L, Hematocrit 32.6L, Mean Corpuscular Volume 102H, Mean Corpuscular Hemoglobin 33.6H, Mean Corpuscular Hemoglobin Concent 32.9, Red Cell Distribution Width 11.7, Platelet Count 196, Mean Platelet Volume 7.3, Neutrophils (%) (Auto) 36.9L, Lymphocytes ( %) (Auto) 46.4H, Monocytes (%) (Auto) 12.2H, Eosinophils (%) (Auto) 3.2H, Basophils (%) (Auto) 1.3, Sodium Level 143, Potassium Level 4.1, Chloride Level 106, Carbon Dioxide Level 28, Anion Gap 9, Blood Urea Nitrogen 24H, Creatinine 1.1, Estimat Glomerular Filtration Rate > 60, Glucose Level 85, Calcium Level 8.6 Current Medications Medications (Trade) Dose Ordered Sig/Draia Route PRN Reason Start Time Stop Time Status Last Admin Dose Admin Aspirin (ASA) 81 mg DAILY ORAL 12/06/19 09:00 01/20/20 08:59 12/10/19 08:51 Carvedilol (Coreg) 3.125 mg EVERY 12 HOURS ORAL 12/06/19 21:00 01/05/20 20:59 12/10/19 08:51 Clopidogrel Bisulfate (Plavix) 75 mg DAILY ORAL 12/06/19 09:00 01/05/20 08:59 12/10/19 08:50 Doxycycline Monohydrate (Doxycycline Monohydrate) 100 mg EVERY 12 HOURS ORAL 12/07/19 21:30 12/14/19 21:29 12/10/19 08:51 Furosemide (Lasix) 20 mg DAILY ORAL 12/08/19 09:00 01/07/20 08:59 12/10/19 08:50 Heparin Sodium (Porcine) (Heparin 5000 units/ml) 5,000 units EVERY 8 HOURS SUBQ 12/06/19 06:05 01/20/20 06:04 12/09/19 21:47 Promethazine HCl/ Codeine (Phenergan with Codeine) 5 ml Q4H PRN ORAL For Cough 12/06/19 13:45 01/05/20 13:44 Quetiapine Fumarate (SEROqueL) 25 mg Q12HR ORAL 12/06/19 21:00 01/20/20 20:59 12/10/19 08:50 Theophylline (Al[place]-Dur) 100 mg EVERY 12 HOURS ORAL 12/06/19 21:00 03/05/20 20:59 12/10/19 08:51 Kira Mijares NP Dec 10, 2019 11:13
[2019-12-10] MEDS ORDERED: Albuterol/Ipratropium 3ml neb HHN PRN (11:15)
[2019-12-10 12:00] VITALS: BP 113/79
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
[2019-12-10 16:00] VITALS: BP 116/72
--- NOTE | 2019-12-10 18:36 | Cardiology Progress Note ---
Assessment/Plan Assessment/Plan Assessment/Plan: Assessment CHF systolic acute on chronic Volume overload COPD PNA on CXR Hx of CVA Plan: Empiric Abx for PNA on CXR CT scan with pleural effusion -s/p thoracentesis 12/07 ->860 mL LE ultrasound negative for DVT Continue Mild diuresis for CHF Hold IV fluids, fluid restriction DASH diet Daily weights Continue goal directed medication : increase coreg as tolerated Continue plavix for hx of CVA Subjective Cardiovascular: Reports: no symptoms Respiratory: Reports: no symptoms Gastrointestinal/Abdominal: Reports: no symptoms Genitourinary: Reports: no symptoms Subjective No acute events, no fevers no CP/SOB. CT showed pleural effusion, stable on room air s/p thoracentesis 12/07 ->860 mL Objective Last 24 Hour Vital Signs Date Time Temp Pulse Resp B/P (MAP) Pulse Ox O2 Delivery O2 Flow Rate FiO2 12/10/19 16:00 72 12/10/19 16:00 97.5 84 18 116/72 (87) 9 12/10/19 12:00 97.3 85 20 113/79 (90) 94 12/10/19 12:00 85 12/10/19 08:51 76 108/66 12/10/19 08:39 Nasal Cannula 2.0 12/10/19 08:00 78 12/10/19 08:00 97.9 76 18 108/66 (80) 94 12/10/19 07:00 96 Nasal Cannula 2.0 28 12/10/19 04:00 79 12/10/19 04:00 98.1 81 18 118/76 (90) 97 12/10/19 00:00 98.6 89 18 106/67 (80) 98 12/10/19 00:00 89 12/09/19 21:46 84 114/74 12/09/19 21:00 Nasal Cannula 2.0 12/09/19 20:00 97.7 84 18 114/74 (87) 98 12/09/19 20:00 83 12/09/19 19:37 96 Nasal Cannula 2.0 28 General Appearance: no apparent distress, alert EENT: PERRL/EOMI, normal ENT inspection, TMs normal, pharynx normal Neck: non-tender, normal alignment, supple, normal inspection, no JVD Rhythm: NSR Cardiovascular: normal peripheral pulses, normal rate, regular rhythm Respiratory/Chest: chest wall non-tender, lungs clear, normal breath sounds, no respiratory distress, no accessory muscle use Abdomen: normal bowel sounds, non tender, soft, no organomegaly, no mass Extremities: normal range of motion, non-tender, normal inspection, no calf tenderness, no swelling Neurologic: litigation claim representative II-XII grossly normal, no motor/sensory deficits Intake and Output 12/09/19 12/10/19 19:00 07:00 Intake Total 240 ml 400 ml Output Total 700 ml Balance -460 ml 400 ml Intake Oral 240 ml Other 400 ml Output Urine Total 700 ml # Voids 5 # Bowel Movements 1 Laboratory Tests Test 12/10/19 05:45 White Blood Count 4.7 K/UL (4.8-10.8) L Red Blood Count 3.19 M/UL (4.70-6.10) L Hemoglobin 10.7 G/DL (14.2-18.0) L Hematocrit 32.6 % (42.0-52.0) L Mean Corpuscular Volume 102 FL (80-99) H Mean Corpuscular Hemoglobin 33.6 PG (27.0-31.0) H Mean Corpuscular Hemoglobin Concent 32.9 G/DL (32.0-36.0) Red Cell Distribution Width 11.7 % (11.6-14.8) Platelet Count 196 K/UL (150-450) Mean Platelet Volume 7.3 FL (6.5-10.1) Neutrophils (%) (Auto) 36.9 % (45.0-75.0) L Lymphocytes (%) (Auto) 46.4 % (20.0-45.0) H Monocytes (%) (Auto) 12.2 % (1.0-10.0) H Eosinophils (%) (Auto) 3.2 % (0.0-3.0) H Basophils (%) (Auto) 1.3 % (0.0-2.0) Sodium Level 143 MMOL/L (136-145) Potassium Level 4.1 MMOL/L (3.5-5.1) Chloride Level 106 MMOL/L (98-107) Carbon Dioxide Level 28 MMOL/L (21-32) Anion Gap 9 mmol/L (5-15) Blood Urea Nitrogen 24 mg/dL (7-18) H Creatinine 1.1 MG/DL (0.55-1.30) Estimat Glomerular Filtration Rate > 60 mL/min (>60) Glucose Level 85 MG/DL (74-106) Calcium Level 8.6 MG/DL (8.5-10.1) Microbiology Date/Time Source Procedure Growth Status 12/08/19 16:00 Pleural Fluid Gram Stain - Final Resulted 12/08/19 16:00 Pleural Fluid Body Fluid Culture - Preliminary NO GROWTH AFTER 24 HOURS Resulted Sanket Jeffries MD Dec 10, 2019 18:36
--- NOTE | 2019-12-10 19:30 | NUR ---
NURSE NOTES: Received report from TIFFANY Moreno. Patient on lying on semi-barbosa's. AOx 3-4. Denies pain. No signs of acute distress or shortness of breath. On 2L of oxygen per nasal cannula. Able to make needs known. Bed in lowest position. Call light placed within reach. Will continue to monitor.
[2019-12-10 20:00] VITALS: BP 106/68
[2019-12-11] VITALS: BP 112/72
[2019-12-11 04:00] VITALS: BP 109/71
--- NOTE | 2019-12-11 04:51 | NUR ---
NURSE NOTES: NURSE NOTES: Patient asleep on bed. Vital signs stable. Able to make needs known. Urinal at bedside. Bed in lowest position. Call light placed within reach. Will continue to monitor.
[2019-12-11] MEDS: Heparin 5000 units/ml inj SUBQ SCH ×3 (05:52→21:10)
--- NOTE | 2019-12-11 07:36 | NUR ---
HAND-OFF: Report given to TIFFANY Sawant. Plan of care endorsed.
--- NOTE | 2019-12-11 07:37 | NUR ---
NURSE NOTES: Received report from Brandy/RN, Patient is awake, alert, eating breakfast on bed. On 2L nasal canula, No acute distress/SOB noted. Breathing unlabored and even. Able to make needs known. Angelique pain at this time. IV on Right FA 22 G, Intact, no bleeding or infiltration noted. Bed in low position and locked, Bed alarm engaged, Side rails up x3, Call light within reach. Encouraged to use call light when needed. Will continue plan of care.
[2019-12-11 08:00] VITALS: BP 103/73
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
[2019-12-11 09:04] LABS: BASOPHILS % (AUTO) 1.8 % (0.0-2.0); EOSINOPHILS % (AUTO) 2.5 % (0.0-3.0); HEMATOCRIT 32.8 % (42.0-52.0); HEMOGLOBIN 10.6 G/DL (14.2-18.0); LYMPHOCYTES % (AUTO) 36.7 % (20.0-45.0); MEAN CORPUSCULAR VOLUME 103 FL (80-99); MONOCYTES % (AUTO) 12.6 % (1.0-10.0); NEUTROPHILS % (AUTO) 46.5 % (45.0-75.0); PLATELET COUNT 211 K/UL (150-450); RED BLOOD COUNT 3.18 M/UL (4.70-6.10); WHITE BLOOD COUNT 5.1 K/UL (4.8-10.8)
[2019-12-11] MEDS: Aspirin Baby 81mg ORAL SCH (09:11)
[2019-12-11] MEDS: Theophylline ER 100mg ORAL SCH ×2 (09:11→21:03)
[2019-12-11 09:31] LABS: ANION GAP 8 mmol/L (5-15); BLOOD UREA NITROGEN 22 mg/dL (7-18); CALCIUM 8.8 MG/DL (8.5-10.1); CARBON DIOXIDE 27 MMOL/L (21-32); CHLORIDE 107 MMOL/L (98-107); CREATININE 1.1 MG/DL (0.55-1.30); POTASSIUM 4.1 MMOL/L (3.5-5.1); SODIUM 142 MMOL/L (136-145)
--- NOTE | 2019-12-11 09:54 | NUR ---
RADIOLOGY DEPT., CHEST X-RAY DONE.-P.DYE
--- NOTE | 2019-12-11 10:38 | NUR ---
CASE MANAGEMENT:REVIEW 12/11/19 SI: AC/CHR CHF. COPD. PNA S/P THORACENTESIS 12/07...860ML 97.7 75 20 103/73 96% ON 2L/NC H/H-10.6/32.8 BUN+22 IS: LASIX PO QD SEROQUEL PO Q12 COREG PO Q12 SHAMA-DUR PO Q12 ASA PO QD PLAVIX PO QD HEPARIN SQ Q8HR : TELEMETRY STATUS DCP: FROM BOARD AND CARE PLAN: LACHELLE DUMONT
[2019-12-11 12:00] VITALS: BP 110/76
--- NOTE | 2019-12-11 13:37 | Diagnostic Imaging Report ---
Indication: Dyspnea Comparison: 12/08/2019 A single view chest radiograph was obtained. Findings: Interstitial edema demonstrated with prominent vascularity and heart size. This has advanced since the last occasion. Bones are osteopenic. IMPRESSION: Interstitial edema/CHF
--- NOTE | 2019-12-11 15:35 | NUR ---
TRANSFER TO FLOOR: Patient transferred to [facility] 4E, per Dr. Jeffries order. Report given to Suzy/TIFFANY. Belongings check done with receiving nurse. Patient is in stable condition. Endorsed plan of care.
[2019-12-11] MEDS ORDERED: Albuterol/Ipratropium 3ml neb HHN PRN (15:37)
[2019-12-11] MEDS ORDERED: Promethazine/Codeine 5ml UD ORAL PRN (15:38)
--- NOTE | 2019-12-11 15:41 | NUR ---
NURSE NOTES: I received report from TIFFANY Sawant from Tele; patient alert x3; on Nasal Cannula 2 Liters, no sing of distress and shortness of breath; no sing of chest pain; IV Right For-Arm 22G flushes well; Urinal within reach; side rails padded for seizure percussion and rails up x2, breaks engaged, bed at lowest position; belongings singed by transferring and receiving nurse's; I recieved patient's chart from transferring nurse; will keep monitoring.
--- NOTE | 2019-12-11 15:44 | NUR ---
P.T Note: P.T evaluation completed and tx initiated. Please refer to P.T evaluation for full report , POC and recommendation.
[2019-12-11 16:00] VITALS: BP 107/70
--- NOTE | 2019-12-11 17:42 | Pulmonology Progress Note ---
Assessment/Plan Problems: (1) Pleural effusion (2) Pneumonia (3) COPD (chronic obstructive pulmonary disease) (4) cardiac left ventricular ejection fraction 20-25% (5) Severe pulmonary arterial systolic hypertension (6) Non compliance w medication regimen Assessment/Plan on Lasix 20 qd s/p thoracentesis, 860 CC removed f/u BNP and electrolytes, back to normal pt/ot dvt prophylaxis Subjective ROS Limited/Unobtainable: No Constitutional: Reports: no symptoms Allergies: Coded Allergies: GRAPEFRUIT (Unverified Allergy, Intermediate, Hives, 12/13/12) ORANGE (Verified Allergy, Unknown, 11/20/18) Objective Last 24 Hour Vital Signs Date Time Temp Pulse Resp B/P (MAP) Pulse Ox O2 Delivery O2 Flow Rate FiO2 12/11/19 16:00 98.2 82 20 107/70 (82) 96 12/11/19 12:00 97.9 78 20 110/76 (87) 96 12/11/19 09:11 75 103/73 12/11/19 09:00 Nasal Cannula 2.0 12/11/19 08:00 79 12/11/19 08:00 97.7 75 20 103/73 (83) 96 12/11/19 07:05 95 Nasal Cannula 2.0 28 12/11/19 04:00 80 12/11/19 04:00 98.3 90 18 109/71 (84) 97 12/11/19 00:00 91 12/11/19 00:00 98.1 88 18 112/72 (85) 97 12/10/19 21:10 93 106/68 12/10/19 21:00 Nasal Cannula 2.0 12/10/19 20:00 97.8 93 18 106/68 (81) 98 12/10/19 20:00 90 12/10/19 19:31 94 Nasal Cannula 2.0 28 Intake and Output 12/10/19 12/11/19 19:00 07:00 Intake Total 720 ml Output Total 450 ml 1500 ml Balance -450 ml -780 ml Intake Oral 720 ml Output Urine Total 450 ml 1500 ml # Voids 6 Objective General Appearance: WD/WN HEENT: normocephalic, atraumatic Respiratory/Chest: chest wall non-tender, lungs clear Breasts: no masses Cardiovascular: normal peripheral pulses Abdomen: normal bowel sounds, soft, non tender Genitourinary: normal external genitalia Extremities: no cyanosis Skin: no rash Neurologic/Psychiatric: residential treatment staff II-XII grossly normal Laboratory Tests 12/11/19 08:35: White Blood Count 5.1, Red Blood Count 3.18L, Hemoglobin 10.6L, Hematocrit 32.8L , Mean Corpuscular Volume 103H, Mean Corpuscular Hemoglobin 33.5H, Mean Corpuscular Hemoglobin Concent 32.4, Red Cell Distribution Width 12.0, Platelet Count 211, Mean Platelet Volume 6.8, Neutrophils (%) (Auto) 46.5, Lymphocytes (% ) (Auto) 36.7, Monocytes (%) (Auto) 12.6H, Eosinophils (%) (Auto) 2.5, Basophils (%) (Auto) 1.8, Sodium Level 142, Potassium Level 4.1, Chloride Level 107, Carbon Dioxide Level 27, Anion Gap 8, Blood Urea Nitrogen 22H, Creatinine 1.1, Estimat Glomerular Filtration Rate > 60, Glucose Level 134H, Calcium Level 8.8 Current Medications Medications (Trade) Dose Ordered Sig/Daria Route PRN Reason Start Time Stop Time Status Last Admin Dose Admin Albuterol/ Ipratropium (Albuterol/ Ipratropium) 3 ml Q4H PRN HHN sob 12/11/19 15:37 12/16/19 15:36 Aspirin (ASA) 81 mg DAILY ORAL 12/12/19 09:00 01/20/20 08:59 Carvedilol (Coreg) 3.125 mg EVERY 12 HOURS ORAL 12/11/19 21:00 01/05/20 20:59 Clopidogrel Bisulfate (Plavix) 75 mg DAILY ORAL 12/12/19 09:00 01/05/20 08:59 Furosemide (Lasix) 20 mg DAILY ORAL 12/12/19 09:00 01/07/20 08:59 Heparin Sodium (Porcine) (Heparin 5000 units/ml) 5,000 units EVERY 8 HOURS SUBQ 12/11/19 22:00 01/20/20 06:04 Promethazine HCl/ Codeine (Phenergan with Codeine) 5 ml Q4H PRN ORAL For Cough 12/11/19 15:38 01/10/20 15:37 Quetiapine Fumarate (SEROqueL) 25 mg Q12HR ORAL 12/11/19 21:00 01/20/20 20:59 Theophylline (Alton-Dur) 100 mg EVERY 12 HOURS ORAL 12/11/19 21:00 03/05/20 20:59 Jese Murdock MD Dec 11, 2019 17:42
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
--- NOTE | 2019-12-11 19:16 | NUR ---
HAND-OFF: Report given to TIFFANY Cottrell.
[2019-12-11 20:00] VITALS: BP 118/79
--- NOTE | 2019-12-11 20:01 | NUR ---
NURSE NOTES: Received patient awake in bed, watching TV, able to make needs known, no s/s of acute distress. Urinal at the bedside, patient wearing non slip socks. IV access intact, on saline lock. Bed low and locked. patient reminded to call for assistance to go to bathroom.
[2019-12-12] VITALS: BP 123/82
[2019-12-12 04:00] VITALS: BP 120/74
[2019-12-12] MEDS: Heparin 5000 units/ml inj SUBQ SCH ×3 (05:59→20:57)
[2019-12-12 06:33] LABS: BASOPHILS % (AUTO) 1.5 % (0.0-2.0); EOSINOPHILS % (AUTO) 2.6 % (0.0-3.0); HEMATOCRIT 34.6 % (42.0-52.0); HEMOGLOBIN 11.2 G/DL (14.2-18.0); LYMPHOCYTES % (AUTO) 46.8 % (20.0-45.0); MEAN CORPUSCULAR VOLUME 103 FL (80-99); MONOCYTES % (AUTO) 12.4 % (1.0-10.0); NEUTROPHILS % (AUTO) 36.6 % (45.0-75.0); PLATELET COUNT 231 K/UL (150-450); RED BLOOD COUNT 3.37 M/UL (4.70-6.10); RED CELL DISTRIBUTION WIDTH 12.1 % (11.6-14.8); WHITE BLOOD COUNT 4.9 K/UL (4.8-10.8)
[2019-12-12 06:48] LABS: ANION GAP 11 mmol/L (5-15); BLOOD UREA NITROGEN 23 mg/dL (7-18); CALCIUM 9.1 MG/DL (8.5-10.1); CARBON DIOXIDE 25 MMOL/L (21-32); CHLORIDE 105 MMOL/L (98-107); CREATININE 1.1 MG/DL (0.55-1.30); POTASSIUM 4.5 MMOL/L (3.5-5.1); SODIUM 140 MMOL/L (136-145)
--- NOTE | 2019-12-12 07:06 | NUR ---
HAND-OFF: Report given to TIFFANY Almonte.
--- NOTE | 2019-12-12 07:21 | NUR ---
NURSE NOTES: Patient awake, alert, eating breakfast; on Nasal Cannula 2 Liters, no sing of distress and shortness of breath; no sing of chest pain; IV Right For-Arm 22G flushes well; Urinal within reach; side rails up and padded for seizure percussion, bed at lowest position, breaks engaged, call light within reach, bed alarm on; will keep monitoring.
[2019-12-12 08:00] VITALS: BP 121/76
[2019-12-12] MEDS: Theophylline ER 100mg ORAL SCH ×2 (08:57→20:56)
[2019-12-12] MEDS: Aspirin Baby 81mg ORAL SCH (08:57)
--- NOTE | 2019-12-12 10:45 | NUR ---
RD ASSESSMENT & RECOMMENDATIONS SEE CARE ACTIVITY FOR COMPLETE ASSESSMENT DAILY ESTIMATED NEEDS: Needs based on cardiac/ 68kg 25-30 kcals/kg 8180-2969 total kcals 1-1.5 g protein/kg 68-102 g total protein 20-25 mL/kg 5708-5186 total fluid mLs NUTRITION DIAGNOSIS: * Altered nutrition related lab values R/T CHF dx as evidenced by elev BNP (4207->2140), pt on Lasix CURRENT DIET:CARDIAC PO DIET RECOMMENDATIONS: LOW NA/ texture as tolerated ADDITIONAL RECOMMENDATIONS: * Standing daily wt for accurate monitoring- CHF dx * Monitor lytes closely w/ Lasix, replete as needed * Monitor for continued good PO intake . .
[2019-12-12 12:00] VITALS: BP 109/72
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
[2019-12-12 16:00] VITALS: BP 109/75
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
--- NOTE | 2019-12-12 19:27 | NUR ---
HAND-OFF: Report given to TIFFANY Zhao. Endorsed to nurse that patient is risk for fall. patient on bed resting.
--- NOTE | 2019-12-12 19:46 | Pulmonology Progress Note ---
Assessment/Plan Problems: (1) Pleural effusion (2) Pneumonia (3) COPD (chronic obstructive pulmonary disease) (4) cardiac left ventricular ejection fraction 20-25% (5) Severe pulmonary arterial systolic hypertension (6) Non compliance w medication regimen Assessment/Plan on Lasix 20 qd s/p thoracentesis, 860 CC removed, pathology reviewed, many abnormal cells. predominantly mononuclear cells f/u BNP and electrolytes, back to normal pt/ot dvt prophylaxis PT OT might need short rehab. Subjective ROS Limited/Unobtainable: No Constitutional: Reports: no symptoms HEENT: Repors: no symptoms Respiratory: Reports: no symptoms Allergies: Coded Allergies: GRAPEFRUIT (Unverified Allergy, Intermediate, Hives, 12/13/12) ORANGE (Verified Allergy, Unknown, 11/20/18) Objective Last 24 Hour Vital Signs Date Time Temp Pulse Resp B/P (MAP) Pulse Ox O2 Delivery O2 Flow Rate FiO2 12/12/19 16:00 98.1 81 20 109/75 (86) 96 12/12/19 12:00 97.6 74 20 109/72 (84) 96 12/12/19 09:00 Nasal Cannula 2.0 12/12/19 08:56 78 121/76 12/12/19 08:00 97.9 78 20 121/76 (91) 98 12/12/19 07:31 94 Nasal Cannula 2.0 28 12/12/19 04:00 98.6 82 18 120/74 (89) 96 12/12/19 00:00 98.9 88 18 123/82 (96) 96 12/11/19 22:09 Nasal Cannula 2.0 12/11/19 21:03 82 107/70 12/11/19 20:24 96 Nasal Cannula 2.0 28 12/11/19 20:00 99.0 86 18 118/79 (92) 96 Intake and Output 12/11/19 12/12/19 19:00 07:00 Intake Total 1130 ml 360 ml Output Total 1200 ml Balance -70 ml 360 ml Intake Oral 1130 ml 360 ml Output Urine Total 1200 ml # Voids 4 # Bowel Movements 1 Objective General Appearance: WD/WN HEENT: normocephalic, atraumatic Respiratory/Chest: chest wall non-tender, lungs clear Breasts: no masses Cardiovascular: normal peripheral pulses Abdomen: normal bowel sounds, soft, non tender Genitourinary: normal external genitalia Extremities: no cyanosis Skin: no rash Neurologic/Psychiatric: 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 grossly normal Laboratory Tests 12/12/19 05:55: White Blood Count 4.9, Red Blood Count 3.37L, Hemoglobin 11.2L, Hematocrit 34.6L , Mean Corpuscular Volume 103H, Mean Corpuscular Hemoglobin 33.3H, Mean Corpuscular Hemoglobin Concent 32.4, Red Cell Distribution Width 12.1, Platelet Count 231, Mean Platelet Volume 6.6, Neutrophils (%) (Auto) 36.6L, Lymphocytes ( %) (Auto) 46.8H, Monocytes (%) (Auto) 12.4H, Eosinophils (%) (Auto) 2.6, Basophils (%) (Auto) 1.5, Sodium Level 140, Potassium Level 4.5, Chloride Level 105, Carbon Dioxide Level 25, Anion Gap 11, Blood Urea Nitrogen 23H, Creatinine 1.1, Estimat Glomerular Filtration Rate > 60, Glucose Level 94, Calcium Level 9.1 Current Medications Medications (Trade) Dose Ordered Sig/Daria Route PRN Reason Start Time Stop Time Status Last Admin Dose Admin Albuterol/ Ipratropium (Albuterol/ Ipratropium) 3 ml Q4H PRN HHN sob 12/11/19 15:37 12/16/19 15:36 Aspirin (ASA) 81 mg DAILY ORAL 12/12/19 09:00 01/20/20 08:59 12/12/19 08:57 Carvedilol (Coreg) 3.125 mg EVERY 12 HOURS ORAL 12/11/19 21:00 01/05/20 20:59 12/12/19 08:56 Clopidogrel Bisulfate (Plavix) 75 mg DAILY ORAL 12/12/19 09:00 01/05/20 08:59 12/12/19 08:56 Furosemide (Lasix) 20 mg DAILY ORAL 12/12/19 09:00 01/07/20 08:59 12/12/19 08:56 Heparin Sodium (Porcine) (Heparin 5000 units/ml) 5,000 units EVERY 8 HOURS SUBQ 12/11/19 22:00 01/20/20 06:04 12/12/19 15:38 Promethazine HCl/ Codeine (Phenergan with Codeine) 5 ml Q4H PRN ORAL For Cough 12/11/19 15:38 01/10/20 15:37 Quetiapine Fumarate (SEROqueL) 25 mg Q12HR ORAL 12/11/19 21:00 01/20/20 20:59 12/12/19 08:57 Theophylline (Alton-Dur) 100 mg EVERY 12 HOURS ORAL 12/11/19 21:00 03/05/20 20:59 12/12/19 08:57 Jese Murdock MD Dec 12, 2019 19:46
--- NOTE | 2019-12-12 19:46 | NUR ---
NURSE NOTES: Received patient awake, resting in bed, no SOB, comfortable.
[2019-12-12 20:13] VITALS: BP 128/72
--- NOTE | 2019-12-12 21:27 | Cardiology Progress Note ---
Assessment/Plan Status: stable Assessment/Plan Assessment/Plan: Assessment CHF systolic acute on chronic Volume overload COPD PNA on CXR Hx of CVA Plan: Off abx CT scan with pleural effusion -s/p thoracentesis 12/07 ->860 mL LE ultrasound negative for DVT Continue Mild diuresis for CHF Wean oxygen, continue pulmonary toilet Lasix prn, fluid restriction, BNP improved DASH diet Daily weights Continue goal directed medication : increase coreg as tolerated Continue plavix for hx of CVA Subjective Cardiovascular: Reports: no symptoms Respiratory: Reports: no symptoms Gastrointestinal/Abdominal: Reports: no symptoms Genitourinary: Reports: no symptoms Subjective No acute events, no fevers no CP/SOB. CT showed pleural effusion, stable on room air s/p thoracentesis 12/07 ->860 mL Now stable on nasal canula with no complaints Objective Last 24 Hour Vital Signs Date Time Temp Pulse Resp B/P (MAP) Pulse Ox O2 Delivery O2 Flow Rate FiO2 12/12/19 20:56 68 128/72 12/12/19 20:13 96.9 68 20 128/72 (90) 96 12/12/19 20:09 94 Nasal Cannula 2.0 28 12/12/19 20:00 Nasal Cannula 2.0 12/12/19 16:00 98.1 81 20 109/75 (86) 96 12/12/19 12:00 97.6 74 20 109/72 (84) 96 12/12/19 09:00 Nasal Cannula 2.0 12/12/19 08:56 78 121/76 12/12/19 08:00 97.9 78 20 121/76 (91) 98 12/12/19 07:31 94 Nasal Cannula 2.0 28 12/12/19 04:00 98.6 82 18 120/74 (89) 96 12/12/19 00:00 98.9 88 18 123/82 (96) 96 12/11/19 22:09 Nasal Cannula 2.0 General Appearance: no apparent distress, alert EENT: PERRL/EOMI, normal ENT inspection, TMs normal, pharynx normal Neck: non-tender, normal alignment, supple, normal inspection Cardiovascular: normal peripheral pulses, normal rate, regular rhythm Respiratory/Chest: chest wall non-tender, lungs clear, normal breath sounds, no respiratory distress, no accessory muscle use Abdomen: normal bowel sounds, non tender, soft, no organomegaly, no mass Extremities: normal range of motion, non-tender, normal inspection, no calf tenderness, no swelling Neurologic: table hand II-XII grossly normal, no motor/sensory deficits Intake and Output 12/11/19 12/12/19 19:00 07:00 Intake Total 1130 ml 360 ml Output Total 1200 ml Balance -70 ml 360 ml Intake Oral 1130 ml 360 ml Output Urine Total 1200 ml # Voids 4 # Bowel Movements 1 Laboratory Tests Test 12/12/19 05:55 White Blood Count 4.9 K/UL (4.8-10.8) Red Blood Count 3.37 M/UL (4.70-6.10) L Hemoglobin 11.2 G/DL (14.2-18.0) L Hematocrit 34.6 % (42.0-52.0) L Mean Corpuscular Volume 103 FL (80-99) H Mean Corpuscular Hemoglobin 33.3 PG (27.0-31.0) H Mean Corpuscular Hemoglobin Concent 32.4 G/DL (32.0-36.0) Red Cell Distribution Width 12.1 % (11.6-14.8) Platelet Count 231 K/UL (150-450) Mean Platelet Volume 6.6 FL (6.5-10.1) Neutrophils (%) (Auto) 36.6 % (45.0-75.0) L Lymphocytes (%) (Auto) 46.8 % (20.0-45.0) H Monocytes (%) (Auto) 12.4 % (1.0-10.0) H Eosinophils (%) (Auto) 2.6 % (0.0-3.0) Basophils (%) (Auto) 1.5 % (0.0-2.0) Sodium Level 140 MMOL/L (136-145) Potassium Level 4.5 MMOL/L (3.5-5.1) Chloride Level 105 MMOL/L (98-107) Carbon Dioxide Level 25 MMOL/L (21-32) Anion Gap 11 mmol/L (5-15) Blood Urea Nitrogen 23 mg/dL (7-18) H Creatinine 1.1 MG/DL (0.55-1.30) Estimat Glomerular Filtration Rate > 60 mL/min (>60) Glucose Level 94 MG/DL (74-106) Calcium Level 9.1 MG/DL (8.5-10.1) Sanket Jeffries MD Dec 12, 2019 21:27
[2019-12-13 00:18] VITALS: BP 132/69
[2019-12-13 04:12] VITALS: BP 91/61
[2019-12-13] MEDS: Heparin 5000 units/ml inj SUBQ SCH ×2 (05:24→13:23)
[2019-12-13 06:33] LABS: BASOPHILS % (AUTO) 1.3 % (0.0-2.0); EOSINOPHILS % (AUTO) 2.7 % (0.0-3.0); HEMATOCRIT 35.2 % (42.0-52.0); HEMOGLOBIN 11.5 G/DL (14.2-18.0); LYMPHOCYTES % (AUTO) 50.4 % (20.0-45.0); MEAN CORPUSCULAR VOLUME 102 FL (80-99); MONOCYTES % (AUTO) 14.7 % (1.0-10.0); NEUTROPHILS % (AUTO) 30.8 % (45.0-75.0); PLATELET COUNT 259 K/UL (150-450); RED BLOOD COUNT 3.45 M/UL (4.70-6.10); RED CELL DISTRIBUTION WIDTH 11.6 % (11.6-14.8); WHITE BLOOD COUNT 4.6 K/UL (4.8-10.8)
[2019-12-13 06:53] LABS: ANION GAP 10 mmol/L (5-15); BLOOD UREA NITROGEN 21 mg/dL (7-18); CALCIUM 9.1 MG/DL (8.5-10.1); CARBON DIOXIDE 24 MMOL/L (21-32); CHLORIDE 107 MMOL/L (98-107); POTASSIUM 4.4 MMOL/L (3.5-5.1); SODIUM 141 MMOL/L (136-145)
--- NOTE | 2019-12-13 07:02 | NUR ---
HAND-OFF: Report given to Suzy Fink RN.
--- NOTE | 2019-12-13 07:16 | NUR ---
NURSE NOTES: Patient alert x4; on Nasal Cannula 2 Liters, no sing of distress and shortness of breath; IV Right For-Arm 22G flushes well; side rails up padded for seizure percussion and up x2, bed at lowest position, breaks engaged, bed alarm on; Urinal within reach; call light within reach; will keep monitoring.
[2019-12-13 08:00] VITALS: BP 112/71
[2019-12-13] MEDS: Aspirin Baby 81mg ORAL SCH (08:08)
[2019-12-13] MEDS: Theophylline ER 100mg ORAL SCH (08:08)
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
[2019-12-13] MEDS ORDERED: THEOPHYLLINE A100 MG ORAL (11:12)
[2019-12-13] MEDS ORDERED: COREG3.125 MG ORAL (11:12)
[2019-12-13] MEDS ORDERED: SEROQUEL25 MG ORAL (11:12)
[2019-12-13] MEDS ORDERED: FUROSEMIDE20 M1 ORAL (11:12)
[2019-12-13 12:00] VITALS: BP 110/67
--- NOTE | 2019-12-13 12:19 | NUR ---
NURSE NOTES: I spoke to patient regarding the plan to discharge patient this afternoon; patient said "he lives in boarding care"; I told patient that case management Daisha communicated patient's brother and brother said patient lives within him; I communicated the matter to Case Management Daisha. CM will come and talk to patient;
--- NOTE | 2019-12-13 14:50 | NUR ---
NURSE NOTES: Patient discharged to Home; left the floor by wheelchair, accompanied by school of nursing [employer] Kervin; IV access and name tag removed; belonging list cross checked and signed by patient and primary nurse; printed package given to patient; patient teaching given medication, side effects and when to seek for medical help; patient requested pant and shirt, provided as requested; family member was waiting patient down strains and school of nursing director escort patient; patient was stable upon discharge;
--- NOTE | 2019-12-13 14:59 | NUR ---
PT NOTES Attempted to see patient for PT treatment. Patient is agitated and yelling "I'm suppose to be going home". Refused PT treatment. RN notified that patient refused PT treatment.
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
== END 2019-12-13 15:02 | disposition home or self-care (01) | DRG 190 ==
LOC: 2E 22:18 → 4E 12-11 15:29
PROC: 0W993ZZ Drainage of Right Pleural Cavity, Percutaneous Approach (ICD-10-PCS; principal; 2019-12-05)
DX: J44.0 Chronic obstructive pulmonary disease with (acute) lower respiratory infection (principal); J18.9 Pneumonia, unspecified organism; I50.23 Acute on chronic systolic (congestive) heart failure; F31.89 Other bipolar disorder; J90 Pleural effusion, not elsewhere classified; J44.1 Chronic obstructive pulmonary disease with (acute) exacerbation; I11.0 Hypertensive heart disease with heart failure; G40.909 Epilepsy, unspecified, not intractable, without status epilepticus; Z86.73 Personal history of transient ischemic attack (TIA), and cerebral infarction without residual deficits; Z79.02 Long term (current) use of antithrombotics/antiplatelets; Z79.82 Long term (current) use of aspirin; I27.20 Pulmonary hypertension, unspecified; I34.2 Nonrheumatic mitral (valve) stenosis; I35.1 Nonrheumatic aortic (valve) insufficiency; I34.0 Nonrheumatic mitral (valve) insufficiency; Z59.0 Homelessness; Z91.14 Patient's other noncompliance with medication regimen
CPT/HCPCS: 36415; 71045; 71250; 76942; 80048; 80053; 82248; 83735; 83880; 84100; 84484; 85025; 85610; 85730; 87070; 87081; 87205; 88104; 89051; 93306; 93970; 94664